=== PATIENT | male | born 1945 | race Caucasian/White ===

== ENCOUNTER 2023-12-28 10:21 | Emergency (ER) | payer MEDICARE, SELFPAY ==
[2023-12-28 10:38] VITALS: BP 105/61
--- NOTE | 2023-12-28 11:03 | ED.GENMED ---
History of Present Illness
General
Chief Complaint: Musculo-Skeletal Complaint
Source: patient
Exam Limitations: none
Time Seen by Provider: 12/28/23 10:51
Nursing documentation reviewed up to this point in time: agreed with
Travel History
Have you had any contact with someone who has COVID-19?: No
Do you have any symptoms of coronavirus? Fever > 100 degrees, chills, cough, shortness of breath, sore throat, loss of taste or smell, muscle aches, or headache?: No
History of Present Illness
History of Present Illness:
78-year-old male history of osteoarthritis [id number] in his knee is not an operative candidate due to cardiac issues takes Stephanie underwent bilateral knee injections by Dr. Wick 4 weeks ago pain improved 3 to 4 days ago developed increased
pain of his left knee only, no fevers no rash, pain increases with motion took some Tylenol without much relief, no trauma,
Past History
Past History
ED Past Medical History: Arrthythmia (Afib), CAD and Valvular disease
ED Past Surgical History: Cardiac
Social History
Tobacco: Non-smoker
Alcohol: None
Drug: None
Personal: Single
Living: with family
Employment: Retired
Family History
Family History: CAD
Review of Systems
Review of Systems
All Other Systems: Not applicable
Constitutional: Denies fever or fatigue
EENT: Reports no symptoms
Respiratory: Reports no symptoms
Cardiac: Reports no symptoms
ABD/GI: Reports no symptoms
Musculoskeletal: Reports joint pain
Skin: Reports no symptoms
Phy Exam
Physical Exam
Physical Exam:
Physical Exam
General: 78-year-old male looks uncomfortable nontoxic afebrile
Neck: No joint
Heart: s1/s2 regular rate and rhythm, no murmur. equal radial pulses.
Lungs: no acute respiratory distress. clear bilaterally
Neuro: alert and oriented. no focal neurological deficits
Skin: no rash
Psychiatric: well kept. interactive and cooperative
Extremities: Left knee mild to moderate pain with flexion extension small effusion minimal warmth
Course
Orders/Labs/Results
Orders:
Orders
12/28/23 11:02
Knee, Left 1 or 2 Views [CR Knee - Left 1 Or 2 Views] Urgent
Comment:
Reason For Exam: swelling
12/28/23 11:03
HYDROmorphone [Dilaudid] 1 mg IM NOW STA
Vital Signs
Initial and Last Documented VS:
Initial Vital Signs
Temp Pulse Resp BP Pulse Ox
99.1 F 79 16 105/61 93
12/28/23 10:38 12/28/23 10:38 12/28/23 10:38 12/28/23 10:38 12/28/23 10:38
Last Documented Vital Signs
Temp Pulse Resp BP Pulse Ox
99.1 F 79 16 105/61 93
12/28/23 10:38 12/28/23 10:38 12/28/23 10:38 12/28/23 10:38 12/28/23 10:38
MDM/Problems Addressed
Differential Diagnosis Includes:
Arthritis, medication effect, gout pseudogout doubt septic arthropathy 4 weeks after injection,
MDM/Problems Addressed:
Knee pain
Chronic conditions affecting care:
Arthritis heart disease
Acute Exacerbation and/or Progression of Chronic Illness:
Arthritis heart disease
*Radiology
Radiology exam reviewed: preliminary read by ED provider
*Pulse Oximetry
Patient hypoxic: no
*Critical Care Note
Total Time (30-74mins, 75-104mins- exclusive of procedures): Not Applicable
Update Note
Update Note:
Will try to get him comfortable, no NSAIDs he is on Eliquis, check an x-ray, do not believe he is a septic joint,
X-ray noted
ED Attending Note
-
Portions of this chart may have been created with voice recognition software.� Occasional wrong word or��sound alike� substitutions may have occurred due to the inherent limitations of voice recognition software.
Discharge Plan
Departure
Patient Disposition: Home (Routine Discharge)
Date of Disposition: 12/28/23
Time of Disposition: 12:08
Patient with high blood pressure during this ER visit?: No
Condition: Good
Covid-19: Not Applicable
Discharge Problem:
Acute knee pain
Instructions: Knee Pain (DC)
Prescriptions:
New
oxycodone-acetaminophen [Percocet] 5-325 mg tablet
1 tab PO Q4HPRN PRN (Reason: pain) Qty: 14 0RF
docusate sodium [Colace] 100 mg capsule
100 mg PO TID Qty: 14 0RF
No Action
metformin 500 MG tablet
500 mg PO BID
atorvastatin 20 MG tablet
20 mg PO HS
pantoprazole 40 MG tablet,delayed release (DR/EC)
40 mg PO DAILY
aspirin 81 MG tablet,chewable
81 mg PO DAILY
escitalopram oxalate 20 MG tablet
20 mg PO HS
donepezil 10 MG tablet
10 mg PO HS
memantine 10 MG tablet
10 mg PO BID
fludrocortisone 0.1 MG tablet
0.1 mg PO DAILY Qty: 30 0RF
Xarelto 15 MG tablet
15 mg PO QPM Qty: 30 0RF
magnesium oxide 400 MG tablet
400 mg PO DAILY
midodrine 5 MG tablet
10 mg PO TID@0800,1200,1800
Rx Instructions:
HOLD FOR Systolic blood pressure>150
amiodarone [Pacerone] 100 MG tablet
200 mg PO DAILY
hydrocodone-acetaminophen 5-325 mg tablet
1 tab PO BID PRN (Reason: Pain) Qty: 10 0RF
docusate sodium [Col-Rite] 100 mg capsule
100 mg PO BID Qty: 20 0RF
triamcinolone acetonide 0.1 % cream
1 applic topical BID 7 Days Qty: 30 0RF
Referrals:
Ankit Braxton DO [Family Provider] -
Interventions
Interventions:
*Risk Screen - Suicide Last Done: 12/28/23 10:38
*General Assessment Last Done: 12/28/23 10:38
*Neglect/Abuse Screening Last Done: 12/28/23 10:38
ED-Musculoskeletal Assessment Last Done: 12/28/23 11:21
[2023-12-28] MEDS: DILAUDID 1 MG IM (11:08)
== END 2023-12-28 13:40 | disposition home or self-care (01) ==
LOC: EMR 10:21
PROVIDERS: EMERGENCY PHYSICIAN Emergency Medicine; FAMILY PHYSICIAN Family Medicine
DX: M25.562 Pain in left knee (principal); M25.462 Effusion, left knee; I25.10 Atherosclerotic heart disease of native coronary artery without angina pectoris; I38 Endocarditis, valve unspecified; M17.0 Bilateral primary osteoarthritis of knee; F03.90 Unspecified dementia, unspecified severity, without behavioral disturbance, psychotic disturbance, mood disturbance, and anxiety; E11.9 Type 2 diabetes mellitus without complications; I48.91 Unspecified atrial fibrillation; F32.A Depression, unspecified; Z95.1 Presence of aortocoronary bypass graft; Z86.73 Personal history of transient ischemic attack (TIA), and cerebral infarction without residual deficits; Z79.01 Long term (current) use of anticoagulants; Z79.84 Long term (current) use of oral hypoglycemic drugs; Z88.8 Allergy status to other drugs, medicaments and biological substances
CPT/HCPCS: 99284; 96372; 73560

== ENCOUNTER 2025-02-25 08:08 | Inpatient (IN) | payer MEDICARE, SELFPAY ==
[2025-02-23] VITALS (10 sets, daily range): BP systolic 106–164; BP diastolic 60–111; BMI 26.0; BMI 24.9
[2025-02-23 13:16] LABS: Glucose - Point of Care 121 mg/dl (70-99)
[2025-02-23] MEDS: ULTRAM 50 MG PO (13:31)
[2025-02-23 13:43] LABS: % Basophils 0.5 % (0-2); % Eosinophils 4.6 % (0-6); % Immature Granulocytes 0.5 % (0-0.5); % Lymphocytes 22.4 % (20.5-51.1); % Monocytes 10.9 % (1.7-9.3); % Neutrophils 61.1 % (42.2-75.2); Absolute Eosinophils 0.4 10^3/uL (0-0.7); Absolute Lymphocytes 1.7 10^3/uL (1.2-3.4); Absolute Monocytes 0.8 10^3/uL (0.1-0.6); Absolute Neutrophils 4.7 10^3/uL (1.4-6.5); Hematocrit 31.1 % (39.0-52.0); Hemoglobin 9.7 g/dL (13.0-18.0); Mean Corp Hgb Conc. 31.2 g/dL (33.0-37.0); Mean Corpuscular Hgb 26.1 pg (27.0-31.0); Mean Corpuscular Volume 83.6 fL (80.0-94.0); Mean Platelet Volume 9.6 fL (7.4-10.4); Nucleated Red Blood Cells % 0 % (-); Platelet Count 241 10^3/uL (130-400); Red Blood Cell Count 3.72 10^6/uL (4.70-6.10); Red Cell Dist. Width 16.9 % (11.5-14.5); White Blood Cell Count 7.6 10^3/uL (4.8-10.8)
[2025-02-23 13:53] LABS: INR 1.98; PT 22.6 Sec (11.4-14.6)
[2025-02-23 13:56] LABS: ALT (SGPT) 12 U/L (0-50); AST (SGOT) 17 U/L (17-59); Albumin 3.8 g/dl (3.5-5.0); Alkaline Phosphatase 113 U/L (38-126); Blood Urea Nitrogen 25 mg/dl (9-20); Calcium 9.2 mg/dl (8.4-10.2); Carbon Dioxide 27 mmol/L (22-30); Chloride 108 mmol/L (98-107); Estimated Creatinine Clearance 61 ml/min; Glucose 106 mg/dl (70-99); Potassium 4.3 mmol/L (3.5-5.1); Sodium 143 mmol/L (135-145); Total Bilirubin 0.4 mg/dl (0.2-1.3); Total Protein 6.4 g/dl (6.3-8.2); eGFR > 60.00
[2025-02-23 14:07] LABS: Troponin I 0.015 ng/ml
--- NOTE | 2025-02-23 14:25 | ED.CVA ---
History of Present Illness
General
Chief Complaint: CVA/TIA Symptoms
Source: patient
Exam Limitations: none
Time Seen by Provider: 02/23/25 13:22
Nursing documentation reviewed up to this point in time: agreed with
Onset of Stroke Symptoms
Onset of symptoms known: Yes
Date of onset of symptoms: 02/23/25
Time pt last seen normal is known: No
History of Present Illness
History of Present Illness:
The patient is an 79-year-old man with a past medical history of A-fib who reports that he noticed difficulty word finding since early this morning when he woke up at around 4 AM. Patient reports that when he went to breakfast and tried to talk to
people, he continued to have some difficulty finding his words and his words also sounded slurred. Currently, he reports his speech is slightly slurred but better. He denies weakness and numbness. He denies acute visual changes. He reports that
on the way to the ED, in the ambulance, he developed a headache at the back of his head. Patient reports he has had a headache like this in the past. He reports it started gradually. Additionally, patient reports that he noticed shooting pain
down his left arm yesterday.
Past History
Past History
ED Past Medical History: Arrthythmia (Afib), CAD, HTN and Valvular disease
ED Past Surgical History: Cardiac
Social History
Tobacco: Non-smoker
Alcohol: None
Drug: None
Personal: Single
Living: other
Employment: Retired
Family History
Family History: CAD
Phy Exam
Physical Exam
Physical Exam:
Physical Exam
General: no apparent distress, not acutely ill
Neck: supple. no meningeal signs. normal psoterior pharynx
Heart regular rate, irregular rhythm
Lungs: no acute respiratory distress. clear bilaterally
Abdomen: normal bowel sounds. not tender. no CVAT
Neuro: alert and oriented3 no focal neurological deficits. Speech sounds slightly slurred but is comprehensible. At times has difficulty identifying objects but then is able to finally find a word. 5 out of 5 strength
in all extremities. Cranial nerves equal and symmetric bilaterally
Skin: no rash
Psychiatric: well kept. interactive and cooperative
Extremities: no edema. no calf tenderness. negative homans. good distal pulses
Scores
NIH Stroke Score
Level of Consciousness: 0 - Alert
LOC Questions: 0-Answers both correctly
LOC Commands: 0-Performs both correctly
Best Horizontal Gaze: 0-Normal
Visual Graham: 0=Normal, no visual loss
Facial Palsy: 0=Normal, symmetrical
Motor - Right Arm: 0=No drift 10 seconds
Motor - Left Arm: 0=No drift 10 seconds
Motor - Right Le-No drift 5 seconds
Motor - Left Le-No drift 5 seconds
Limb Ataxia: 0-Absent
Sensation: 0-Normal
Best Language: 1-Mild aphasia
Dysarthria: 1-Mild slurring
Extinction and Inattention: 0-No abnormality
Total Score:: 2
Course
Orders/Labs/Results
Orders:
Orders
02/23/25 13:22
EKG [Electrocardiogram (*1)] Urgent
Reason for Study: TIA/Stroke
02/23/25 13:23
CT Head & Neck Angio W/wo IV Urgent
Comment:
Reason For Exam: slurred speech
EKG- Treatment ONCE
02/23/25 13:24
Electrocardiogram (*1) Stat
Reason for Study: Other
Other Reason for Exam: chest pain
EKG- Treatment ONCE
Tramadol HCl [Ultram] 50 mg PO NOW STA
02/23/25 13:34
Complete Blood Count/With Diff Urgent
Comprehensive Metabolic Panel Urgent
PT/INR [Prothrombin Time] Urgent
PTT Urgent
Troponin I Q6H
02/23/25 14:28
HYDROmorphone [Dilaudid] 0.5 mg IV NOW STA
02/23/25 15:09
CR Chest - 2 Views Urgent
Comment:
Reason For Exam: concerns on CT head
02/23/25 19:30
Troponin I Q6H
Abnormal Lab Results
02/23/25 02/23/25
13:15 13:34
RBC 3.72 L 10^6/uL
(4.70-6.10)
Hgb 9.7 L g/dL
(13.0-18.0)
Hct 31.1 L %
(39.0-52.0)
MCH 26.1 L pg
(27.0-31.0)
MCHC 31.2 L g/dL
(33.0-37.0)
RDW 16.9 H %
(11.5-14.5)
Absolute Monos (auto) 0.8 H 10^3/uL
(0.1-0.6)
Monocytes % 10.9 H %
(1.7-9.3)
PT 22.6 H Sec
(11.4-14.6)
APTT 45.0 H Sec
(23.4-35.0)
Chloride 108 H mmol/L
(98-107)
BUN 25 H mg/dl
(9-20)
Glucose 106 H mg/dl
(70-99)
POC Glucose 121 H mg/dl
(70-99)
02/23/25 13:34
02/23/25 13:34
Vital Signs
Initial and Last Documented VS:
Initial Vital Signs
Temp Pulse Resp BP Pulse Ox
97.9 F 95 18 155/97 98
02/23/25 13:08 02/23/25 13:08 02/23/25 13:08 02/23/25 13:08 02/23/25 13:08
Last Documented Vital Signs
Temp Pulse Resp BP Pulse Ox
97.9 F 96 13 163/98 98
02/23/25 13:08 02/23/25 15:00 02/23/25 15:00 02/23/25 15:00 02/23/25 15:00
MDM/Problems Addressed
Differential Diagnosis Includes:
Acute CVA, TIA, hyponatremia
MDM/Problems Addressed:
Patient presents with acute difficulty with his speech
Chronic conditions affecting care: Arrhythmia
Acute Exacerbation and/or Progression of Chronic Illness:
Given patient has a history of A-fib, he is at increased risk of stroke
Acute Exacerbation and/or Progression of Chronic Illness: Arrhythmia
*Radiology
Radiology exam reviewed: radiology read reviewed
*Pulse Oximetry
Patient hypoxic: no
*EKG
Interpreted by ED Provider?: Yes
Interpretation: abnormal
Comparison EKG: changes noted
Rate: normal
Rhythm: a-fib
[place]: normal axis
Interval: normal interval
QRS Pattern: normal QRS
Ischemia: non-specific ST changes
*Dish Maker Interpretation
Rate: normal
Interpretation: abnormal
Rhythm: a-fib
*Critical Care Note
Total Time (30-74mins, 75-104mins- exclusive of procedures): 35 minutes
comment:
35 minutes critical care given to the patient coding reviewing his CAT scan report, counseling the patient, reviewing his lab work, EKG and discussing the case with the admitting team
Data Reviewed
Review of Other/Old Records Reveals: Testing (Cardiac echo shows an EF of 46%)
Source: patient
Update Note
Update Note:
Patient remains well and comfortable. He denies a cough and has had no fever. Given that CT head shows concerns for pneumonia, chest x-ray ordered.
Chest x-ray pending admission
ED Attending Note
-
Portions of this chart may have been created with voice recognition software.� Occasional wrong word or��sound alike� substitutions may have occurred due to the inherent limitations of voice recognition software.
Discharge Plan
Departure
Patient Disposition: Admit
Date of Disposition: 02/23/25
Time of Disposition: 15:10
Admit to: Telemetry
Presentation/result/management discussed w/ accepting MD/DO: Hospitalist
Patient with high blood pressure during this ER visit?: Yes
Condition: Good
Covid-19: Not Applicable
Discharge Problem:
Acute cerebrovascular accident (CVA)
Prescriptions:
No Action
metformin 500 MG tablet
1,000 mg PO QPM
atorvastatin 20 MG tablet
20 mg PO HS
pantoprazole 40 MG tablet,delayed release (DR/EC)
40 mg PO DAILY
aspirin 81 MG tablet,chewable
81 mg PO DAILY
escitalopram oxalate 20 MG tablet
20 mg PO HS
donepezil 10 MG tablet
10 mg PO HS
memantine 10 MG tablet
10 mg PO BID
fludrocortisone 0.1 MG tablet
0.1 mg PO DAILY Qty: 30 0RF
magnesium oxide 400 MG tablet
400 mg PO DAILY
midodrine 5 MG tablet
10 mg PO TID@0800,1200,1800
Rx Instructions:
HOLD FOR Systolic blood pressure>150
amiodarone 200 mg tablet
100 mg PO DAILY
furosemide 20 mg tablet
20 mg PO DAILY
Xarelto 15 MG tablet
15 mg PO DAILY
Referrals:
Ankit Braxton DO [Family Provider] -
Interventions
Interventions:
*Risk Screen - Suicide Last Done: 02/23/25 13:08
*General Assessment Last Done: 02/23/25 13:08
*Neglect/Abuse Screening Last Done: 02/23/25 13:08
*ED- Fall Risk Assessment Last Done: 02/23/25 13:08
*ED COVID-19 Vaccine History Last Done: 02/23/25 13:08
ED- Pulmonary Assessment Last Done: 02/23/25 13:18
ED- Neurological Assessment Last Done: 02/23/25 13:18
ED- Cardiac Assessment Last Done: 02/23/25 13:18
ED Swallowing Screen Last Done: 02/23/25 13:30
Discharge Date and Time
Print Language: PRYDEINIG
[2025-02-23] MEDS: DILAUDID 0.5 MG IV (14:32)
--- NOTE | 2025-02-23 16:02 | HPS.HSE ---
Family Physician
-
Family Physician: Ankit Braxton
Chief Complaint
-
woke up with abn speech
History of Present Illness
79F with dementia on Donepezil HX chr HFrEF on lasix, Prx AF on Xarelto and amiodarone, HX TAVR HLD on statin, adrenal insufficeincy on daily fludrocortisone, DMT2, CAD on ASA, HTN, HX non complaice with meds seen at ER:
- noticed difficulty word finding since early this morning when he woke up at around 4 AM.
- he went to breakfast and tried to talk to people, he continued to have some difficulty finding his words and his words also sounded slurred.
- Currently, he reports his speech is slightly slurred but better.
- He reports that on the way to the ED, in the ambulance, he developed a headache at the back of his head.
Additionally, patient reports that he noticed shooting pain down his left arm
Medical History
Past Medical History
Past Medical History: Reports Arrhythmia (Prx AF ), CAD, CHF (chr HFrEF ), Dementia, HTN, Hypercholesterolemia, NIDDM and Valvular Disease (s/p TAVR )
Past Surgical History: Reports Cardiac (TAVR )
Social History
Unable to obtain full social history at this time due to: Dementia
Family History
Family History: Not pertinent
Allergies / Home Medications
Allergies reflects when Allergies were last updated in [employer].
Home Medications with original date entered in [employer]
Allergy/Medication List:
Allergies
Allergy/AdvReac Type Severity Reaction Status Date / Time
digoxin Allergy Unknown Verified 12/28/23 10:37
Home Medications
aspirin 81 mg chewable tablet 81 mg PO DAILY Blood clot prevention/tx 01/03/21
atorvastatin 20 mg tablet 20 mg PO HS High cholesterol 01/03/21
escitalopram oxalate 20 mg tablet 20 mg PO HS Depression 01/03/21
metformin 500 mg tablet 1,000 mg PO QPM Diabetes 01/03/21
pantoprazole 40 mg tablet,delayed release 40 mg PO DAILY Gastrointestinal issue 01/03/21
donepezil 10 mg tablet 10 mg PO HS dementia 11/30/21
memantine 10 mg tablet 10 mg PO BID dementia 11/30/21
fludrocortisone 0.1 mg tablet 0.1 mg PO DAILY #30 tabs 12/07/21
magnesium oxide 400 mg PO DAILY Supplement 02/03/22
midodrine 5 mg tablet 10 mg PO TID@0800,1200,1800 09/05/23
amiodarone 200 mg tablet 100 mg PO DAILY 02/23/25
furosemide 20 mg tablet 20 mg PO DAILY 02/23/25
rivaroxaban 15 mg tablet (Xarelto) 15 mg PO DAILY 02/23/25
Review of Systems
-
Unable to obtain full review of systems at this time due to: Dementia
Constitutional: Reports No Symptoms
EENT: Reports No Symptoms
Respiratory: Reports No Symptoms
Cardiac: Reports No Symptoms
Abdomen/GI: Reports No Symptoms
: Reports No Symptoms
Musculoskeletal: Reports No Symptoms
Skin: Reports No Symptoms
Neurological: Reports See HPI, Headache and Other (abn speech )
Endocrine: Reports No Symptoms
Hematologic/Lymphatic: Reports No Symptoms
Psych: Reports No Symptoms
Physical Exam
Vital Signs
Vital Signs
Temp Pulse Resp BP Pulse Ox
97.9 F 96 13 163/98 98
02/23/25 13:08 02/23/25 15:00 02/23/25 15:00 02/23/25 15:00 02/23/25 15:00
Physical Exam
General: Well Developed, Well Nourished and No Apparent Distress
HEENT: NormoCephalic, Moist mucous membranes and Atraumatic
Respiratory: Clear
Cardiac: S1/S2 and Regular Rhythm; No Murmur or Rub
GI: Soft, Non Tender, Non Distended and Normal Bowel Sounds; No Organomegaly
Rectal: Deferred by Provider
Musculoskeletal: No Clubbing, No Cyanosis and No Edema
Skin: No Rash
Neuro: Nonfocal/grossly intact
Laboratory Results
-
02/23/25 13:34
02/23/25 13:34
Laboratory Results
PT 22.6 Sec (11.4-14.6) H 02/23/25 13:34
INR 1.98 02/23/25 13:34
APTT 45.0 Sec (23.4-35.0) H 02/23/25 13:34
Total Bilirubin 0.4 mg/dl (0.2-1.3) 02/23/25 13:34
AST 17 U/L (17-59) 02/23/25 13:34
ALT 12 U/L (0-50) 02/23/25 13:34
Alkaline Phosphatase 113 U/L (38-126) 02/23/25 13:34
Troponin I 0.015 ng/ml 02/23/25 13:34
Data Reviewed
-
CT Scan: Report Reviewed by me
Medical Tests (Nuc Med, Echo, EKG etc): Report Reviewed by me
Lab Data: Labs Reviewed by me
Old Records: Reviewed
Impression/Plan
-
Vital Signs
Temp Pulse Resp BP Pulse Ox
97.9 F 96 13 163/98 98
02/23/25 13:08 02/23/25 15:00 02/23/25 15:00 02/23/25 15:00 02/23/25 15:00
02/04/22 02/23/25
06:08 13:34
Hgb 12.0 L 9.7 L
BUN 25 H
Creatinine 1.1
eGFR > 60.00
Troponin I 0.015
EKG
ATRIAL FIBRILLATION
NONSPECIFIC T WAVE ABNORMALITY
PROLONGED QT
ABNORMAL ECG
WHEN COMPARED WITH ECG OF 05-SEP-2023 13:24,
ATRIAL FIBRILLATION HAS REPLACED SINUS RHYTHM
CRITERIA FOR SEPTAL INFARCT ARE NO LONGER PRESENT
NON-SPECIFIC CHANGE IN ST SEGMENT IN ANTERIOR LEADS
NONSPECIFIC T WAVE ABNORMALITY, IMPROVED IN LATERAL LEADS
Confirmed by KRISTIAN BLAIR, [facility] ([id number][facility] on 02/23/2025 1:34:49 PM
12/11/23 TTE
LVEF 46% - mildly reduced systolic function.
Moderately dilated left atrium.
Mild aortic stenosis with peak gradient of 25 and mean gradient of 13 across the aortic valve.
Normally functioning prosthetic aortic valve.
Estimated pulmonary artery pressure of 30-35 mmHg.
Trace pulmonic regurgitation.
The IVC is of normal size and demonstrates normal respiratory variation.
No significant change compard to 11/[address] Head & Neck Angio W/wo IV
- CT of the Head without acute intracranial abnormality.
- Calcific atherosclerotic changes at the carotid bifurcations and proximal internal carotid arteries bilaterally with tortuosity without gross findings to suggest hemodynamically significant stenosis, evaluation somewhat limited by motion artifact.
Consider Carotid ultrasound for more complete evaluation.
-No findings to suggest internal carotid artery or vertebral artery dissection bilaterally.
-Dominant left vertebral artery.
- No findings to suggest proximal intracranial arterial stenosis bilaterally.
-Patchy opacity in the upper lobe of the right lung which could represent RIGHT UPPER LOBE PNEUMONIA.
-Cannot exclude small low-attenuation left lobe thyroid nodule.
Last hospitalist admission: 02/03/2022 - 02/05/2022
DISCHARGE DIAGNOSIS:
1. Orthostatic hypotension.
2. Paroxysmal atrial fibrillation.
3. Type 2 diabetes.
4. Coronary artery disease.
5. Aortic stenosis status post transcatheter aortic valve
replacement (TAVR).
6. Essential hypertension.
7. Dementia.
8. History of medical noncompliance.
ASSESSMENT & PLAN
Pending Rx reconciliation
Woke up with mild slurred speech and word finding diifculty with reolved symtoms
HX non compliance with meds
Currently on Xarelto and ASA
- concerns for CVA
- NEG H & N CTA r
- c/w ASA and xarelto
- Brain MRI in AM
- Neuro consult
Midodrine dependent hypotension
HX orthostatic hypotension.
Essential HTN
- c/w RESOURCE DEVELOPMENT DIRECTOR Midodrine
- on Fludrocortisone
- Fall precaution
Paroxysmal atrial fibrillation.
- c/w RESOURCE DEVELOPMENT DIRECTOR Xarelto and Amiodarone
HX chr HFrEF
- stable
- c/w RESOURCE DEVELOPMENT DIRECTOR PO lasix 20 daily
HX CAD
HX HLD
- c/w RESOURCE DEVELOPMENT DIRECTOR ASA and Atovastatin
HX Aortic stenosis status post transcatheter aortic valve replacement (TAVR)
HX T2DM
- add ISS low
- check A1C
- Hold metformin
Dementia.
- On Memantine
HX medical noncompliance.
DVT Px: on Xarelto
Full code
Obs TLM
--- NOTE | 2025-02-23 16:27 | CON.NEURO ---
Consultation
Order
Date of Consultation: 02/23/25
Requesting Provider: Diogo Mar MD
Reason for Consult: TIA/CVA
Neurology Consultation Note.
HPI: This is an 79-year-old man who presented to [facility] on with dysarthria.
According to the patient he woke up with an acute onset of nonfluctuating slurred speech around 4:00 in the morning today. The patient reports that the slurred speech is getting worse. Additionally, the patient notes some blurry and transient
headache. No reports of dyspnea, dysarthria, new motor motor or sensory deficits.
ER VS: 155/97, 95, afebrile
EKG: A-Fib
PDMP: Oxycodone-Acetaminophen 5-325 14 tablets filled in on 12/28/2023, 01/01/2022
Labs: Glucose�106, normal sodium, creatinine�1.1, hemoglobin�9.7,
CT head wo contrast�right basal ganglia .hypodensity
CTA head/neck�zaid hemodynamically significant stenosis, right upper lobe consolidation.
PMH: Dementia PA AFib, CAD, HFrEF, HTN, DLP, DM, anemia, adrenal insufficiency, OA, JAYESH, ambulatory dysfunction
PSH: TAVR, CABG x3, bilateral cataract surgery, ambulates with a walker
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
FH: Not contributory
All: Digoxin
ROS: Positive for 5 kg weight loss, panic urinary incontinence, imbalance, arthralgias, chronic cognitive deficits, transient dysarthria and headache
General: Well developed. In no acute distress.
Cardio: Regular rate and rhythm without murmur. Extremities are without cyanosis or edema.
Neuro:
Mental Status: Alert, oriented to name, age, date of , president. Did not know the current month, year or season. Poor attention and relatively preserved comprehension. Nonfluent. Follows simple requests.
Cranial Nerves: Pupils are equally round, surgical. EOMs full. Visual johnson full to confrontation. No ptosis. No nystagmus. V1-V3 intact to light touch and pinprick bilaterally, symmetric. Face symmetric. Mildly impaired hearing AU. The
palate elevated well. SCMs and traps 5/5. Tongue midline. No dysarthria.
Motor: Pain related left proximal arm weakness, right triceps�4 out of 5. Lower extremity appeared to be full strength
Reflexes: Limited due to cooperation
Sensory: Absent vibration at the toes ankles and impaired at the knees
Coordination: No dysmetria or tremor.
Gait: deferred
Assessment and Plan:
I. Acute nonfluctuating dysarthria. Likely etiology�acute vascular event versus neuromuscular junction disorder
II. PA A-Fib
III. Distal symmetric large fiber polyneuropathy. Ambulatory dysfunction
IV. Dementia
-Continue Telemetry monitoring
-Aspirin 81 mg once a day
-Please obtain brain MRI without jayesh
-Will contact patient's family to obtain cognitive and functional baseline
-PT
-Continue home dose of Namenda and donepezil
-Vitamin B12, TFTs
-DVT prophylaxis.
I personally reviewed all radiology and labs along with past medical records pertinent to current medical problems. Total time spent in patient care is 60 minutes.
Thank you for allowing us to participate in the care of this patient. We will continue to follow. Please do not hesitate to contact us with any questions or concerns.
Subjective/Objective
Subjective Data
Date of Service: February 23, 2025
Objective Data
Vital Signs
Temp Pulse Resp BP Pulse Ox
36.6 C 96 13 163/98 98
02/23/25 13:08 02/23/25 15:00 02/23/25 15:00 02/23/25 15:00 02/23/25 15:00
Lab Results
02/23/25 13:34
02/23/25 13:34
PT 22.6 Sec (11.4-14.6) H 02/23/25 13:34
INR 1.98 02/23/25 13:34
APTT 45.0 Sec (23.4-35.0) H 02/23/25 13:34
Sodium 143 mmol/L (135-145) 02/23/25 13:34
Potassium 4.3 mmol/L (3.5-5.1) 02/23/25 13:34
BUN 25 mg/dl (9-20) H 02/23/25 13:34
Glucose 106 mg/dl (70-99) H 02/23/25 13:34
Calcium 9.2 mg/dl (8.4-10.2) 02/23/25 13:34
Patient Allergies
digoxin Allergy (Verified 12/28/23 10:37)
Unknown
Medications
-
Home Medications
�Medication �Instructions �Recorded
aspirin 81 mg chewable tablet 81 mg PO DAILY Blood clot 01/03/21
prevention/tx
atorvastatin 20 mg tablet 20 mg PO HS High cholesterol 01/03/21
escitalopram oxalate 20 mg tablet 20 mg PO HS Depression 01/03/21
metformin 500 mg tablet 1,000 mg PO QPM Diabetes 01/03/21
pantoprazole 40 mg tablet,delayed 40 mg PO DAILY Gastrointestinal 01/03/21
release issue
donepezil 10 mg tablet 10 mg PO HS dementia 11/30/21
memantine 10 mg tablet 10 mg PO BID dementia 11/30/21
fludrocortisone 0.1 mg tablet 0.1 mg PO DAILY #30 tabs 12/07/21
magnesium oxide 400 mg PO DAILY Supplement 02/03/22
midodrine 5 mg tablet 10 mg PO TID@0800,1200,1800 09/05/23
amiodarone 200 mg tablet 100 mg PO DAILY 02/23/25
furosemide 20 mg tablet 20 mg PO DAILY 02/23/25
rivaroxaban 15 mg tablet (Xarelto) 15 mg PO DAILY 02/23/25
Vital Signs and Labs
-
Vital Signs and Labs:
Vital Signs
Temp Pulse Resp BP Pulse Ox
36.6 C 96 13 163/98 98
02/23/25 13:08 02/23/25 15:00 02/23/25 15:00 02/23/25 15:00 02/23/25 15:00
Lab Results
02/23/25 13:34
02/23/25 13:34
PT 22.6 Sec (11.4-14.6) H 02/23/25 13:34
INR 1.98 02/23/25 13:34
APTT 45.0 Sec (23.4-35.0) H 02/23/25 13:34
Sodium 143 mmol/L (135-145) 02/23/25 13:34
Potassium 4.3 mmol/L (3.5-5.1) 02/23/25 13:34
BUN 25 mg/dl (9-20) H 02/23/25 13:34
Glucose 106 mg/dl (70-99) H 02/23/25 13:34
Calcium 9.2 mg/dl (8.4-10.2) 02/23/25 13:34
Home Medications
-
Home Medications
aspirin 81 mg chewable tablet 81 mg PO DAILY Blood clot prevention/tx 01/03/21
atorvastatin 20 mg tablet 20 mg PO HS High cholesterol 01/03/21
escitalopram oxalate 20 mg tablet 20 mg PO HS Depression 01/03/21
metformin 500 mg tablet 1,000 mg PO QPM Diabetes 01/03/21
pantoprazole 40 mg tablet,delayed release 40 mg PO DAILY Gastrointestinal issue 01/03/21
donepezil 10 mg tablet 10 mg PO HS dementia 11/30/21
memantine 10 mg tablet 10 mg PO BID dementia 11/30/21
fludrocortisone 0.1 mg tablet 0.1 mg PO DAILY #30 tabs 12/07/21
magnesium oxide 400 mg PO DAILY Supplement 02/03/22
midodrine 5 mg tablet 10 mg PO TID@0800,1200,1800 09/05/23
amiodarone 200 mg tablet 100 mg PO DAILY 02/23/25
furosemide 20 mg tablet 20 mg PO DAILY 02/23/25
rivaroxaban 15 mg tablet (Xarelto) 15 mg PO DAILY 02/23/25
[2025-02-23 18:01] LABS: HDL Cholesterol 51 mg/dl; LDL Cholesterol, Calculated 77 mg/dl; Total Cholesterol 149 mg/dl (50-199); Triglyceride 105 mg/dl (10-149); Very Low Density Lipoprotein 21 mg/dl (0-30)
[2025-02-23 18:58] LABS: Vitamin B12 194 pg/ml (239-931)
[2025-02-23] MEDS: LEXAPRO 20 MG PO (20:23)
[2025-02-23] MEDS: ARICEPT 10 MG PO (20:23)
[2025-02-23] MEDS: NAMENDA 10 MG PO (20:23)
[2025-02-23] MEDS: LIPITOR 20 MG PO (20:23)
[2025-02-23] MEDS: TYLENOL 650 MG PO (20:24)
[2025-02-23 20:36] LABS: Troponin I 0.013 ng/ml
[2025-02-24 03:29] VITALS: BP 114/75
[2025-02-24] MEDS: TYLENOL 650 MG PO ×3 (06:08→21:46)
[2025-02-24 07:00] VITALS: BP 125/77
[2025-02-24] MEDS: PROTONIX 40 MG PO (08:12)
[2025-02-24] MEDS: FOLTX 1 TABLET PO (08:12)
[2025-02-24] MEDS: LOW STRENGTH ASPIRIN 81 MG PO (08:13)
[2025-02-24] MEDS: FLORINEF 0.1 MG PO (08:13)
[2025-02-24] MEDS: PACERONE 100 MG PO (08:13)
[2025-02-24] MEDS: NAMENDA 10 MG PO ×2 (08:15→21:46)
[2025-02-24] MEDS: LASIX 20 MG PO (08:15)
[2025-02-24 08:23] LABS: % Basophils 0.5 % (0-2); % Eosinophils 4.4 % (0-6); % Immature Granulocytes 0.4 % (0-0.5); % Lymphocytes 17.2 % (20.5-51.1); % Monocytes 9.1 % (1.7-9.3); % Neutrophils 68.4 % (42.2-75.2); Absolute Eosinophils 0.3 10^3/uL (0-0.7); Absolute Lymphocytes 1.3 10^3/uL (1.2-3.4); Absolute Monocytes 0.7 10^3/uL (0.1-0.6); Absolute Neutrophils 5.2 10^3/uL (1.4-6.5); Hematocrit 29.8 % (39.0-52.0); Hemoglobin 9.2 g/dL (13.0-18.0); Mean Corp Hgb Conc. 30.9 g/dL (33.0-37.0); Mean Corpuscular Hgb 25.6 pg (27.0-31.0); Mean Platelet Volume 9.6 fL (7.4-10.4); Nucleated Red Blood Cells % 0 % (-); Platelet Count 217 10^3/uL (130-400); Red Blood Cell Count 3.59 10^6/uL (4.70-6.10); Red Cell Dist. Width 16.8 % (11.5-14.5); White Blood Cell Count 7.6 10^3/uL (4.8-10.8)
[2025-02-24 08:50] LABS: VerifyNow Aspirin 636 ARU
[2025-02-24 09:06] LABS: Blood Urea Nitrogen 21 mg/dl (9-20); Carbon Dioxide 25 mmol/L (22-30); Chloride 107 mmol/L (98-107); Estimated Creatinine Clearance 61 ml/min; Glucose 111 mg/dl (70-99); HDL Cholesterol 44 mg/dl; LDL Cholesterol, Calculated 73 mg/dl; Sodium 141 mmol/L (135-145); Total Cholesterol 139 mg/dl (50-199); Triglyceride 110 mg/dl (10-149); Very Low Density Lipoprotein 22 mg/dl (0-30); eGFR > 60.00
[2025-02-24 09:11] LABS: Procalcitonin < 0.05 ng/ml (0.0-0.25)
--- NOTE | 2025-02-24 09:29 | PTOTSP ---
[employer] Evaluations
+Quick Aphasia Battery Form 1 overall score = 8.06, mild mixed aphasia with intact repetition.
+Mild-moderate dysarthria with slow rate, short phrases, low volume, rough to slightly wet vocal quality, slight hypernasality, imprecision of articulation (slow/imprecise AMR and SMR), and occasional syllable collapse.
+At least mild oral dysphagia suspected. Video swallow study warranted to further assess pharyngeal stage of swallowing.
Recommend:
1. IDDSI Level 6 Soft and Bite Sized, Thin Liquids
2. Medications crushed in puree if able
3. Strategies: upright to 90 degrees, small sips/bites, slow rate, check for pocketing on left and use digital/lingual sweep as needed and/or sip of liquid
4. Oral care 3-5x daily
5. Video swallow study
6. Speech/language tx at the acute care level and after D/C
[2025-02-24 11:00] VITALS: BP 129/84
--- NOTE | 2025-02-24 11:23 | W.PN.NEURO.1 ---
Today's Communication / Plan
-
.
Subjective/Objective
Subjective Data
Date of Service: February 24, 2025
Neurology follow-up note.
Mr. Phillips endorses left arm weakness that he states today happened before the admission. No reports of change in vision, sensation or headache.
Brain MRI wo jayesh showed acute to subacute infarction involving the white matter of the posterior right frontal lobe.
LDL�73, hemoglobin A1c�5.8. Normal TSH, vitamin B12�194.
CTA�no hemodynamically significant stenosis
PMH: dementia, PA AFib, CAD, HFrEF, HTN, DLP, DM, anemia, adrenal insufficiency, OA, JAYESH, ambulatory dysfunction
PSH: TAVR, CABG x3, bilateral cataract surgery, ambulates with a walker
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
FH: Not contributory
All: Digoxin
ROS: Positive for weight loss, panic urinary incontinence, imbalance, arthralgias, chronic cognitive deficits, transient dysarthria and headache
General: Well developed. In no acute distress.
Cardio: Regular rate and rhythm without murmur. Extremities are without cyanosis or edema.
Neuro:
Mental Status: Alert, oriented to name, age, date of , president. Did not know the current month, year or season. Poor attention and relatively preserved comprehension. Nonfluent. Follows simple requests.
Cranial Nerves: Pupils are equally round, surgical. EOMs full. Visual johnson full to confrontation. No ptosis. No nystagmus. V1-V3 intact to light touch and pinprick bilaterally, symmetric. Left facial weakness mildly impaired hearing AU.
The palate elevated well. SCMs and traps 5/5. Tongue midline. Mild dysarthria.
Motor: Unable to lift left elbow of the bed plane; right triceps�4 out of 5. Lower extremity appeared to be full strength
Reflexes: Limited due to cooperation
Sensory: Absent vibration at the toes ankles and impaired at the knees
Coordination: No dysmetria or tremor.
Gait: deferred
Assessment and Plan:
I. Acute R subcortical posterior right frontal lobe stroke. Likely etiology�small vessel disease versus embolic.
II. PA A-Fib
III. Distal symmetric large fiber polyneuropathy. Ambulatory dysfunction
IV. Vitamin B12 deficiency
-Continue Telemetry monitoring
-Restart Xarelto in 7 days
-Continue aspirin 81 mg once a day
-Start parenteral vitamin B-12
-Left message with [facility] [facility] and with Ms. Shilo Prado (patient's sister) with request to return my call for collateral history
-TTE
-DVT prophylaxis.
I personally reviewed all radiology and labs along with past medical records pertinent to current medical problems. Total time spent in patient care is 35 minutes.
Thank you for allowing us to participate in the care of this patient. We will continue to follow. Please do not hesitate to contact us with any questions or concerns.
Objective Data
Vital Signs
Temp Pulse Resp BP Pulse Ox
36.6 C 81 15 125/77 95
02/24/25 07:00 02/24/25 08:13 02/24/25 07:00 02/24/25 08:13 02/24/25 07:00
Lab Results
02/24/25 07:55
02/24/25 07:55
PT 22.6 Sec (11.4-14.6) H 02/23/25 13:34
INR 1.98 02/23/25 13:34
APTT 45.0 Sec (23.4-35.0) H 02/23/25 13:34
Sodium 141 mmol/L (135-145) 02/24/25 07:55
Potassium 4.0 mmol/L (3.5-5.1) 02/24/25 07:55
BUN 21 mg/dl (9-20) H 02/24/25 07:55
Glucose 111 mg/dl (70-99) H 02/24/25 07:55
Calcium 9.0 mg/dl (8.4-10.2) 02/24/25 07:55
LDL Cholesterol, Calc 73 mg/dl 02/24/25 07:55
Vitamin B12 194 pg/ml (327-931) L 02/23/25 13:34
Patient Allergies
digoxin Allergy (Verified 12/28/23 10:37)
Unknown
Vital Signs and Labs
-
Vital Signs and Labs:
Vital Signs
Temp Pulse Resp BP Pulse Ox
36.6 C 81 15 125/77 95
02/24/25 07:00 02/24/25 08:13 02/24/25 07:00 02/24/25 08:13 02/24/25 07:00
Lab Results
02/24/25 07:55
02/24/25 07:55
PT 22.6 Sec (11.4-14.6) H 02/23/25 13:34
INR 1.98 02/23/25 13:34
APTT 45.0 Sec (23.4-35.0) H 02/23/25 13:34
Sodium 141 mmol/L (135-145) 02/24/25 07:55
Potassium 4.0 mmol/L (3.5-5.1) 02/24/25 07:55
BUN 21 mg/dl (9-20) H 02/24/25 07:55
Glucose 111 mg/dl (70-99) H 02/24/25 07:55
Calcium 9.0 mg/dl (8.4-10.2) 02/24/25 07:55
LDL Cholesterol, Calc 73 mg/dl 02/24/25 07:55
Vitamin B12 194 pg/ml (239-931) L 02/23/25 13:34
Medications
-
Medications:
Generic Name Dose Route Start Last Admin
Trade Name Freq PRN Reason Stop Dose Admin
Acetaminophen 650 mg 02/23/25 17:06
Acetaminophen 650 Mg Rectal Suppository RECTAL 03/23/25 17:05
Q4HPRN PRN
BROWN, mild pain, or temp >100.4F
Acetaminophen 650 mg 02/23/25 17:06 02/24/25 06:08
Acetaminophen 325 Mg Tablet PO 03/23/25 17:05 650 mg
Q4HPRN PRN Administration
BROWN, mild pain, or temp >100.4F
Amiodarone HCl 100 mg 02/24/25 08:00 02/24/25 08:13
Amiodarone 100 Mg Tablet PO 03/24/25 07:59 100 mg
DAILY DONNIE Administration
Aspirin 81 mg 02/24/25 08:00 02/24/25 08:13
Aspirin 81 Mg Chewable Tablet PO 03/24/25 07:59 81 mg
DAILY DONNIE Administration
Atorvastatin Calcium 20 mg 02/23/25 22:00 02/23/25 20:23
Atorvastatin (Lipitor) 20 Mg Tablet PO 03/23/25 21:59 20 mg
HS DONNIE Administration
Cyanocobalamin 1,000 mcg 02/24/25 12:00
Cyanocobalamin (1000 Mcg/Ml) 1 Ml Vial IM 03/24/25 11:59
DAILY DONNIE
Donepezil HCl 10 mg 02/23/25 22:00 02/23/25 20:23
Donepezil Hcl 10 Mg Tablet PO 03/23/25 21:59 10 mg
HS DONNIE Administration
Escitalopram Oxalate 20 mg 02/23/25 22:00 02/23/25 20:23
Escitalopram 20 Mg Tablet PO 03/23/25 21:59 20 mg
HS DONNIE Administration
Fludrocortisone Acetate 0.1 mg 02/24/25 08:00 02/24/25 08:13
Fludrocortisone Acetate 0.1 Mg Tablet PO 03/24/25 07:59 0.1 mg
DAILY DONNIE Administration
Folic Acid 1 tablet 02/24/25 08:00 02/24/25 08:12
Folbic (Same As Foltx) PO 03/24/25 07:59 1 tablet
DAILY DONNIE Administration
Furosemide 20 mg 02/24/25 08:00 02/24/25 08:15
Furosemide 20 Mg Tablet PO 03/24/25 07:59 20 mg
DAILY DONNIE Administration
Memantine 10 mg 02/23/25 20:00 02/24/25 08:15
Memantine 10 Mg Tablet PO 03/23/25 19:59 10 mg
BID DONNIE Administration
Pantoprazole Sodium 40 mg 02/24/25 08:00 02/24/25 08:12
Pantoprazole 40 Mg Delayed Release Tablet PO 03/24/25 07:59 40 mg
DAILY DONNIE Administration
Sodium Chloride 0 flush 02/23/25 18:00
Sodium Chloride 0.9% (Flush) Syringe IV 03/23/25 17:59
PER PROTOCOL DONNIE
Home Medications
-
Home Medications
aspirin 81 mg chewable tablet 81 mg PO DAILY Blood clot prevention/tx 01/03/21
atorvastatin 20 mg tablet 20 mg PO HS High cholesterol 01/03/21
escitalopram oxalate 20 mg tablet 20 mg PO HS Depression 01/03/21
metformin 500 mg tablet 1,000 mg PO QPM Diabetes 01/03/21
pantoprazole 40 mg tablet,delayed release 40 mg PO DAILY Gastrointestinal issue 01/03/21
donepezil 10 mg tablet 10 mg PO HS dementia 11/30/21
memantine 10 mg tablet 10 mg PO BID dementia 11/30/21
fludrocortisone 0.1 mg tablet 0.1 mg PO DAILY #30 tabs 12/07/21
magnesium oxide 400 mg PO DAILY Supplement 02/03/22
midodrine 5 mg tablet 10 mg PO TID@0800,1200,1800 Blood Pressure 09/05/23
amiodarone 200 mg tablet 100 mg PO DAILY Heart Disease/Condition 02/23/25
furosemide 20 mg tablet 20 mg PO DAILY Fluid Retention/Swelling 02/23/25
rivaroxaban 15 mg tablet (Xarelto) 15 mg PO DAILY Blood Clot Prevention/Tx 02/23/25
[2025-02-24] MEDS: CYANOCOBALAMIN 1000 MCG IM (14:05)
--- NOTE | 2025-02-24 14:34 | W.PN.HOSP.TC ---
Today's Communication/Plan
-
Continue monitoring for any worsening symptoms, continue IV antibiotics, continue pain medicine as needed for left shoulder. Continue telemetry.
Assessment / Plan
Assessment / Plan
Assessment:
79-year-old male with a past medical history of paroxysmal A-fib, CAD, CHFrEF, dementia, hypertension, hypercholesterolemia came to the [facility] ED on 02/23/2025 from his independent home due to having recent difficulty finding words. He
was having trouble speaking as he went to breakfast to try to talk to people. He also had recent pain shooting down his left arm. In the ED patient went underwent stroke protocol and underwent CT head and neck angiogram with IV contrast. Did not
show any acute intracranial abnormalities. Neurology was consulted, patient was admitted to the hospital for further evaluation. Patient underwent MRI which showed subacute infarction involving the white matter of the posterior right frontal lobe.
Patient also underwent CT scan of the chest which showed probable pneumonia. Patient continued to be on aspirin as per neurology and will start Xarelto in 7 days. Patient will begin antibiotic treatment with ceftriaxone and doxycycline for
pneumonia.
EKG (02/23/2025):
ATRIAL FIBRILLATION
NONSPECIFIC T WAVE ABNORMALITY
PROLONGED QT
ABNORMAL ECG
WHEN COMPARED WITH ECG OF 05-SEP-2023 13:24,
ATRIAL FIBRILLATION HAS REPLACED SINUS RHYTHM
CRITERIA FOR SEPTAL INFARCT ARE NO LONGER PRESENT
NON-SPECIFIC CHANGE IN ST SEGMENT IN ANTERIOR LEADS
NONSPECIFIC T WAVE ABNORMALITY, IMPROVED IN LATERAL LEADS
CT Head & Neck Angio W/wo IV (02/23/2025):
CT of the Head without acute intracranial abnormality.
Calcific atherosclerotic changes at the carotid bifurcations and proximal internal carotid arteries bilaterally with tortuosity without gross findings to suggest hemodynamically significant stenosis, evaluation somewhat limited by motion artifact.
Consider Carotid ultrasound for more complete evaluation.
No findings to suggest internal carotid artery or vertebral artery dissection bilaterally.
Dominant left vertebral artery.
No findings to suggest proximal intracranial arterial stenosis bilaterally.
Patchy opacity in the upper lobe of the right lung which could represent RIGHT UPPER LOBE PNEUMONIA.
Cannot exclude small low-attenuation left lobe thyroid nodule.
CR Chest - 2 Views (02/23/2025):
Patchy airspace opacities within the bilateral lobes and right upper lobe suspicious for multifocal pneumonia.
MR Brain Without Contrast (02/24/2025):
Small focus of acute to subacute infarction involving the white matter of the posterior right frontal lobe.
Small foci of CSF signal intensity within the lentiform nuclei bilaterally, most likely small old lacunar infarcts given the morphologic appearance.
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
Mild to moderate diffuse atrophy. Mild to moderate T2 and FLAIR white matter hyperintensities, commonly seen with aging and usually attributed to small vessel ischemic disease. These hyperintensities have not been shown to correlate with a focal
neurologic deficit.
CT Chest With Iv Contrast (02/24/2025):
Findings suggesting mild right lower lobe and minimal left lower lobe pneumonia. New
Mild right hilar lymphadenopathy likely reactive. New
CR Shoulder - Left Min 2 View (02/24/2025):
Moderate AC joint osteoarthritis.
Moderate glenohumeral joint osteoarthritis.
Severe humeral subluxation suggesting chronic rotator cuff injury.
Plan:
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
-Not seen on CTs angiogram in the ED-no stenosis seen as well
-Evident on MRI as above
-Neurology following, input appreciated
-Will continue aspirin 81 mg once a day
-Continue telemetry monitoring
-As per neuro will restart Xarelto in 7 days
-Echocardiogram ordered
-Lipid panel was normal with normal TSH, low vitamin B12 -will replenish
# Community-acquired pneumonia
-Seen first on chest x-ray, confirmed with CT chest as above
-Started on doxycycline and ceftriaxone
-Monitor for any fevers or any worsening symptoms
-Continue monitoring oxygen, symptomatic relief
# Paroxysmal A-fib
-Continue with amiodarone
-Continue telemetry
-Was on Xarelto, on hold till next week
# Orthostatic hypotension, midodrine dependent
# Essential hypertension
-Fall precautions
-Continue midodrine
-Continue fludrocortisone
# History of chronic HFrEF
-Continue Lasix
-Will get echocardiogram
#History of CAD
# Hyperlipidemia
-Continue aspirin and atorvastatin
# Left shoulder osteoarthritis/chronic rotator cuff injury
-As seen on left shoulder x-ray
-Continue management with pain medication and supportive therapy
-Will require outpatient orthopedic follow-up
# Type 2 diabetes
-Holding metformin
-Insulin sliding scale, Accu-Cheks
-A1c 5.8 in 2021
# Dementia
-Continue memantine
# History of noncompliance with medication
-Counseled patient about taking medications
-Confirmed that he wants to continue taking medication
Full Code
DVT prophylaxis: SCDs
Anticipated Discharge: 24 - 48 hours
Subjective/Interval History
-
Date of Service: February 24, 2025
Patient says that he is still having a lot of pain in his left shoulder. Having trouble lifting his left arm, also has weakness in his left lower extremity. Patient also has trouble speaking and finding words. No symptoms such as chest pain,
shortness of breath, but did report of cough earlier in the week. No fevers or chills.
Objective Data
-
Labs:
Laboratory Results
02/24/25
07:55
WBC 7.6
Hgb 9.2 L
Hct 29.8 L
Plt Count 217
Sodium 141
Potassium 4.0
Chloride 107
Carbon Dioxide 25
BUN 21 H
Creatinine 1.1
Glucose 111 H
Calcium 9.0
Vital Signs:
Vital Signs
Temp Pulse Resp BP Pulse Ox
97.4 F 89 20 129/84 96
02/24/25 11:00 02/24/25 11:00 02/24/25 11:00 02/24/25 11:00 02/24/25 11:00
I&O
02/23/25 02/24/25 02/25/25
06:59 06:59 06:59
Output Total 1000 / 1000 400 / 400
Balance -1000 / -1000 -400 / -400
Review of Systems
-
History Source: Patient
Constitutional: Reports Weakness; Denies Fever, Fatigue, Night Sweats or Chills
Respiratory: Denies Cough or Trouble Breathing
Cardiac: Denies Chest Pain, Palpitations or Syncope
Abdomen/GI: Denies Abdominal Pain, Nausea or Vomiting
Musculoskeletal: Reports Joint Pain (Left shoulder pain)
Skin: Reports No Symptoms
Neuro: Reports Weakness (Weakness in left upper and lower extremities) and Other (Difficulty with speech, finding words)
Allergy / Immunology: Reports No Symptoms
Physical Exam
-
General: Well Developed, Well Nourished and Conversant
HEENT: Normocephalic and Atraumatic
Respiratory: Clear to Auscultation and Non Labored Respirations
Cardiac: S1/S2 and Irregular Rhythm (A-fib)
GI: Soft, Nontender and Nondistended
Musculoskeletal: No Clubbing, No Cyanosis and No Edema
Neuro: Awake, Alert, Oriented, Slurred Speech (Having difficulty finding words) and Other (Difficulty raising left arm, difficulty raising left leg)
Psych: Calm
Data Reviewed
-
CT Scan: Report Reviewed by me, Discussed with Physician, Discussed with Patient and Discussed with Family
MRI: Report Reviewed by me, Discussed with Physician, Discussed with Nurse, Discussed with Patient and Discussed with Family
Labs: Labs Reviewed by me, Discussed with Physician, Discussed with Nurse, Discussed with Patient and Discussed with Family
--- NOTE | 2025-02-24 14:51 | W.PN.UPDATE ---
Update Note
Progress Note Update
Seen and examined by me independently in collaboration with the medical assistant cardiology Dr. Garcia.
Lab data and imaging data reviewed.
Addendum as below :
Patient presents with new onset of speech impairment and seems mostly dysarthric currently. He also complains of left arm weakness but there is limitation of left proximal movement due to left shoulder pain. Clinically cannot abduct arm more than
60 degrees due to pain suggesting rotator cuff issues -ongonig for few weeks . No trauma.
Ruled in for acute right subcortical posterior right frontal lobe stroke. Raises concern for the small vessel disease or embolic. Is known to have paroxysmal atrial fibrillation and says he is compliant with anticoagulation. Continue with aspirin
for now and restart Xarelto in 7 days per neurology. Follow on telemetry. Check TTE.
Plain xray of chest shows left atrial appendage clip on anticoagulation and now developing a stroke. Do not know if he would benefit the JIM. Will discuss with neurology as there is a concern of embolic stroke. If it is the case we will get
consult with cardiology.
Patient CT head raises concern for right upper lobe infiltrate and chest x-ray raises concern for bibasilar infiltrates. Clinically not acting like pneumonia. Denies any prodrome of upper respiratory infection, cough, shortness of breath.
Procalcitonin is normal. Will obtain a CT chest to evaluate further.
Total time spent on today's encounter was 52 minutes which included time spent in counseling the patient/family regarding diagnosis and treatment plan as listed above, goals of care, and symptom management. Case was discussed with nursing staff,
specialists, and care coordinators/case management. All labs and imaging personally reviewed by me. Remainder the time spent in detailed review of previous records, lab data, imaging, and other medical provider documentation.
[2025-02-24 15:00] VITALS: BP 144/86
[2025-02-24 15:02] LABS: Folate 6.8 ng/ml (2.76-20)
--- NOTE | 2025-02-24 16:08 | CM ---
Patient seen bedside w/ sister, Eve. Initial assessment completed. Patient is a 79F with dementia on Donepezil HX chr HFrEF on lasix, Prx AF on Xarelto and amiodarone, HX TAVR HLD on statin, adrenal insufficeincy on daily fludrocortisone, DMT2,
CAD on ASA, HTN, HX non complaice with meds seen at ER w/ noticed difficulty word finding.
Patient resides alone in independent living at [facility] in [place], [place]. Patient resides in a [address] [place] [address] apartment- no steps to enter. Per Eve, patient has been residing at [facility] for the past 5 years, moved from [place] to [place] after
his spouse . Patient uses RW for ambulation, has tub grab bar and shower chair in the bathroom. Patient is independent w/ ADLs. Patient had inpatient rehab in the past at a hospital in [place]. [facility] in the past. No current OP or home services
at this time.
Address, point of contact and insurance verified
PCP: Ankit Braxton
Pharmacy: [facility]
Patient currently admitted as OBS. ALVARENGA form verbally reviewed, patient given copy, copy placed on chart
Therapy assessed patient and is currently recommending skilled rehab at d/c. BENSON discussed recommendation and explained due to patient being OBS at this time, Medicare will not cover rehab if patient was to be agreeable. BENSON explained unless patient's
LOC was to change to inpatient and get 3 night stay, rehab would not be covered. Eve shared she knows that patient would prefer to go home but will see if LOC will change to consider SNF option.
Plan: Home vs SNF
[2025-02-24] MEDS: STERILE WATER FOR INJECTION 10 ML IV (17:01)
[2025-02-24] MEDS: ROCEPHIN 1000 MG IV (17:02)
[2025-02-24] MEDS: VIBRAMYCIN 260 MG IV (17:02)
[2025-02-24 19:32] VITALS: BP 138/89
[2025-02-24] MEDS: LIPITOR 20 MG PO (21:46)
[2025-02-24] MEDS: LEXAPRO 20 MG PO (21:46)
[2025-02-24] MEDS: ARICEPT 10 MG PO (21:46)
[2025-02-24 23:45] VITALS: BP 123/72
[2025-02-25] VITALS (8 sets, daily range): BP systolic 108–147; BP diastolic 62–91; PULSE 66–79; O2SAT 97
[2025-02-25] MEDS: VIBRAMYCIN 260 MG IV ×2 (03:57→17:09)
[2025-02-25 06:40] LABS: Blood Urea Nitrogen 19 mg/dl (9-20); Calcium 9.3 mg/dl (8.4-10.2); Carbon Dioxide 27 mmol/L (22-30); Chloride 106 mmol/L (98-107); Estimated Creatinine Clearance 61 ml/min; Glucose 121 mg/dl (70-99); Potassium 3.6 mmol/L (3.5-5.1); Sodium 143 mmol/L (135-145); eGFR > 60.00
[2025-02-25] MEDS: TYLENOL 650 MG PO ×2 (08:05→17:13)
[2025-02-25] MEDS: CYANOCOBALAMIN 1000 MCG IM (08:38)
[2025-02-25] MEDS: LASIX 20 MG PO (08:38)
[2025-02-25] MEDS: PROTONIX 40 MG PO (08:39)
[2025-02-25] MEDS: NAMENDA 10 MG PO ×2 (08:39→20:22)
[2025-02-25] MEDS: FOLTX 1 TABLET PO (08:39)
[2025-02-25] MEDS: FLORINEF 0.1 MG PO (08:39)
[2025-02-25] MEDS: PACERONE 100 MG PO (08:39)
[2025-02-25] MEDS: LOW STRENGTH ASPIRIN 81 MG PO (08:39)
[2025-02-25 09:03] LABS: Glycohemoglobin (HgbA1c) 6.8 % (4.0-5.6)
--- NOTE | 2025-02-25 09:59 | W.PN.HOSP.TC ---
Addendum entered and electronically signed by Nick Sanchez MD 02/25/25 14:01:
Seen and examined by me independently in collaboration with the medical superintendent .
Lab data and imaging data reviewed.
Addendum as below :
Patient with improved speech and left hand strength.
No new neurological symptoms.
Patient ruled in for acute stroke on the etiology concern for small vessel disease versus embolic. There is also suspicion of an intentional medication compliance due to cognitive impairments. Early signs are also/6 per neurology. Continue the
aspirin and statin.
Therapy recommendations for rehab noted.
Patient agreeable for rehab.
Patient advised to see orthopedics for left rotator cuff issues.
Pt ECHO TTE with Mid to distal anteroseptal and inferoseptal hypokinesis which was noted on Stress testing images 11/2023 . EF now now compared to prior stress test. CW medical tx and follow with cardiology as OP. Asymptomatic without CP.
DC to rehab when bed available.
Original Note:
Today's Communication/Plan
-
Continue monitoring for any changes in patient's condition. Continue IV antibiotics for now, we will continue monitoring telemetry.
Video swallow study today
Assessment / Plan
Assessment / Plan
Assessment:
79-year-old male with a past medical history of paroxysmal A-fib, CAD, CHFrEF, dementia, hypertension, hypercholesterolemia came to the [facility] ED on 02/23/2025 from his independent home due to having recent difficulty finding words. He
was having trouble speaking as he went to breakfast to try to talk to people. He also had recent pain shooting down his left arm. In the ED patient went underwent stroke protocol and underwent CT head and neck angiogram with IV contrast. Did not
show any acute intracranial abnormalities. Neurology was consulted, patient was admitted to the hospital for further evaluation. Patient underwent MRI which showed subacute infarction involving the white matter of the posterior right frontal lobe.
Patient also underwent CT scan of the chest which showed probable pneumonia. Patient continued to be on aspirin as per neurology and will start Xarelto in 7 days. Patient will begin antibiotic treatment with ceftriaxone and doxycycline for
pneumonia.
EKG (02/23/2025):
ATRIAL FIBRILLATION
NONSPECIFIC T WAVE ABNORMALITY
PROLONGED QT
ABNORMAL ECG
WHEN COMPARED WITH ECG OF 05-SEP-2023 13:24,
ATRIAL FIBRILLATION HAS REPLACED SINUS RHYTHM
CRITERIA FOR SEPTAL INFARCT ARE NO LONGER PRESENT
NON-SPECIFIC CHANGE IN ST SEGMENT IN ANTERIOR LEADS
NONSPECIFIC T WAVE ABNORMALITY, IMPROVED IN LATERAL LEADS
CT Head & Neck Angio W/wo IV (02/23/2025):
CT of the Head without acute intracranial abnormality.
Calcific atherosclerotic changes at the carotid bifurcations and proximal internal carotid arteries bilaterally with tortuosity without gross findings to suggest hemodynamically significant stenosis, evaluation somewhat limited by motion artifact.
Consider Carotid ultrasound for more complete evaluation.
No findings to suggest internal carotid artery or vertebral artery dissection bilaterally.
Dominant left vertebral artery.
No findings to suggest proximal intracranial arterial stenosis bilaterally.
Patchy opacity in the upper lobe of the right lung which could represent RIGHT UPPER LOBE PNEUMONIA.
Cannot exclude small low-attenuation left lobe thyroid nodule.
CR Chest - 2 Views (02/23/2025):
Patchy airspace opacities within the bilateral lobes and right upper lobe suspicious for multifocal pneumonia.
MR Brain Without Contrast (02/24/2025):
Small focus of acute to subacute infarction involving the white matter of the posterior right frontal lobe.
Small foci of CSF signal intensity within the lentiform nuclei bilaterally, most likely small old lacunar infarcts given the morphologic appearance.
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
Mild to moderate diffuse atrophy. Mild to moderate T2 and FLAIR white matter hyperintensities, commonly seen with aging and usually attributed to small vessel ischemic disease. These hyperintensities have not been shown to correlate with a focal
neurologic deficit.
CT Chest With Iv Contrast (02/24/2025):
Findings suggesting mild right lower lobe and minimal left lower lobe pneumonia. New
Mild right hilar lymphadenopathy likely reactive. New
CR Shoulder - Left Min 2 View (02/24/2025):
Moderate AC joint osteoarthritis.
Moderate glenohumeral joint osteoarthritis.
Severe humeral subluxation suggesting chronic rotator cuff injury.
Echocardiogram (02/24/2025):
Normal left ventricular chamber size.
Mild concentric left ventricular hypertrophy.
Overall, preserved left ventricular systolic function.
Mid to distal anteroseptal and inferoseptal hypokinesis.
Left ventricular ejection fraction is 50-55% by volumetric assessment.
Mild mitral regurgitation.
Bioprosthetic aortic valve replacement.
Peak/mean gradients across the aortic valve are 24/12 mmHg respectively.
No aortic regurgitation is seen.
Mild tricuspid regurgitation.
No pericardial effusion.
The IVC is of normal size and demonstrates normal respiratory variation.
Plan:
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
-Not seen on CTs angiogram in the ED-no stenosis seen as well
-Evident on MRI as above
-Neurology following, input appreciated
-Will continue aspirin 81 mg once a day
-Continue telemetry monitoring
-As per neuro will restart Xarelto in 7 days
-Echocardiogram as above, showed mid to distal anteroseptal and inferoseptal hypokinesis
-Will require further workup in outpatient setting with cardiology
-Lipid panel was normal with normal TSH, low vitamin B12 -will replenish
-Speech seems to be improving, muscle strength seems to be improving
-Video swallow study today
-Evaluation by PT/OT yesterday recommended skilled rehab, will need updated evaluation as patient improves
# Community-acquired pneumonia
-Seen first on chest x-ray, confirmed with CT chest as above
-Started on doxycycline and ceftriaxone
-Monitor for any fevers or any worsening symptoms
-Continue monitoring oxygen, symptomatic relief
-Had cough for weeks before coming to the hospital as per patient and sister
# Paroxysmal A-fib
-Continue with amiodarone
-Continue telemetry
-Was on Xarelto, on hold till next week
# Orthostatic hypotension, midodrine dependent
# Essential hypertension
-Fall precautions
-Continue midodrine
-Continue fludrocortisone
# History of chronic HFrEF
-Continue Lasix
-Will get echocardiogram
#History of CAD
# Hyperlipidemia
-Continue aspirin and atorvastatin
# Left shoulder osteoarthritis/chronic rotator cuff injury
-As seen on left shoulder x-ray
-Continue management with pain medication and supportive therapy
-Will require outpatient orthopedic follow-up
# Type 2 diabetes
-Holding metformin
-Insulin sliding scale, Accu-Cheks
-A1c 5.8 in 2021
# Dementia
-Continue memantine
# History of noncompliance with medication
-Counseled patient about taking medications
-Confirmed that he wants to continue taking medication
Full Code
DVT prophylaxis: SCDs
Anticipated Discharge: Within 24 hours
Subjective/Interval History
-
Date of Service: February 25, 2025
Patient states that he has been feeling much better, reports that his speech is better and his lower extremity and upper extremity left-sided weakness is much better. Seem to be in good spirits and wants to undergo more speech therapy.
Objective Data
-
Labs:
Laboratory Results
02/24/25 02/25/25
07:55 05:44
WBC 7.6
Hgb 9.2 L
Hct 29.8 L
Plt Count 217
Sodium 143
Potassium 3.6
Chloride 106
Carbon Dioxide 27
BUN 19
Creatinine 1.1
Glucose 121 H
Calcium 9.3
Vital Signs:
Vital Signs
Temp Pulse Resp BP Pulse Ox
97.9 F 82 18 134/91 96
04/03/25 07:03 02/25/25 07:03 02/25/25 07:03 02/25/25 07:03 02/25/25 07:03
I&O
02/24/25 02/25/25 02/26/25
06:59 06:59 06:59
Intake Total 1440 / 1440
Output Total 1000 / 1000 1625 / 1625
Balance -1000 / -1000 -185 / -185
Review of Systems
-
History Source: Patient
Constitutional: Reports Weakness (Left-sided weakness much improved from before); Denies Fever, Fatigue, Night Sweats or Chills
Respiratory: Denies Cough or Trouble Breathing
Cardiac: Denies Chest Pain, Palpitations or Syncope
Abdomen/GI: Denies Abdominal Pain, Nausea or Vomiting
Musculoskeletal: Reports Joint Pain (Left shoulder pain)
Skin: Reports No Symptoms
Neuro: Reports Weakness (Weakness in left upper and lower extremities) and Other (Difficulty with speech, finding words)
Allergy / Immunology: Reports No Symptoms
Physical Exam
-
General: Well Developed, Well Nourished and Conversant
HEENT: Normocephalic and Atraumatic
Respiratory: Clear to Auscultation and Non Labored Respirations
Cardiac: S1/S2 and Irregular Rhythm (A-fib)
GI: Soft, Nontender and Nondistended
Musculoskeletal: No Clubbing, No Cyanosis and No Edema
Neuro: Awake, Alert, Oriented, Slurred Speech (Having difficulty finding words) and Other (Continued pain in the left shoulder, improvement in muscle strength in both left upper and lower extremities)
Psych: Calm
Data Reviewed
-
CT Scan: Report Reviewed by me, Discussed with Physician, Discussed with Patient and Discussed with Family
MRI: Report Reviewed by me, Discussed with Physician, Discussed with Patient and Discussed with Family
Labs: Labs Reviewed by me, Discussed with Physician, Discussed with Patient and Discussed with Family
--- NOTE | 2025-02-25 10:18 | W.PN.NEURO.1 ---
Today's Communication / Plan
-
.
Subjective/Objective
Subjective Data
Date of Service: February 25, 2025
Neurology follow-up note.
Mr. Phillips states that his left hand weakness has improved since the presentation. No reports of headaches, change in vision. Continues to be dysarthric
TTE-no evidence of PFO or intra cardiac thrombus.
LDL 77, Hemoglobin A1c�6.8
PMH: dementia, PA AFib, CAD, HFrEF, HTN, DLP, DM, anemia, adrenal insufficiency, OA, JENI, ambulatory dysfunction
PSH: TAVR, CABG x3, bilateral cataract surgery, ambulates with a walker
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
FH: Not contributory
All: Digoxin
ROS: Positive for weight loss, panic urinary incontinence, imbalance, arthralgias, chronic cognitive deficits, transient dysarthria and headache
General: Well developed. In no acute distress.
Cardio: Regular rate and rhythm without murmur. Extremities are without cyanosis or edema.
Neuro:
Mental Status: Alert, oriented to name, age, date of , president. Did not know the current month, year or season. Poor attention and relatively preserved comprehension. Nonfluent. Follows simple requests.
Cranial Nerves: Pupils are equally round, surgical. EOMs full. Visual johnson full to confrontation. No ptosis. No nystagmus. V1-V3 intact to light touch and pinprick bilaterally, symmetric. Left facial weakness mildly impaired hearing AU.
The palate elevated well. SCMs and traps 5/5. Tongue midline. Mild dysarthria.
Motor: Unable to lift left elbow of the bed plane; right triceps�4 out of 5. Lower extremity appeared to be full strength
Reflexes: Limited due to cooperation
Sensory: Absent vibration at the toes ankles and impaired at the knees
Coordination: No dysmetria or tremor.
Gait: deferred
Assessment and Plan:
I. Acute R subcortical posterior right frontal lobe stroke. Likely etiology�small vessel disease versus embolic. Suspect unintentional medications given due to cognitive deficits
II. PA A-Fib
III. Distal symmetric large fiber polyneuropathy. Ambulatory dysfunction
IV. Vitamin B12 deficiency
-Continue Telemetry monitoring
-Medication administration supervision
-Please restart Xarelto on 02/28/2025.
-Continue aspirin 81 mg once a day
-Continue Lipitor 40 mg nightly.
-Continue parenteral vitamin B-12
-Outpatient neurology follow-up
I personally reviewed all radiology and labs along with past medical records pertinent to current medical problems. Total time spent in patient care is 41 minutes.
Thank you for allowing us to participate in the care of this patient. Please do not hesitate to contact us with any questions or concerns.
Objective Data
Vital Signs
Temp Pulse Resp BP Pulse Ox
36.6 C 82 18 134/91 96
02/25/25 07:03 02/25/25 07:03 02/25/25 07:03 02/25/25 07:03 02/25/25 07:03
Lab Results
02/24/25 07:55
02/25/25 05:44
PT 22.6 Sec (11.4-14.6) H 02/23/25 13:34
INR 1.98 02/23/25 13:34
APTT 45.0 Sec (23.4-35.0) H 02/23/25 13:34
Sodium 143 mmol/L (135-145) 02/25/25 05:44
Potassium 3.6 mmol/L (3.5-5.1) 02/25/25 05:44
BUN 19 mg/dl (9-20) 02/25/25 05:44
Glucose 121 mg/dl (70-99) H 02/25/25 05:44
Calcium 9.3 mg/dl (8.4-10.2) 02/25/25 05:44
LDL Cholesterol, Calc 73 mg/dl 02/24/25 07:55
Vitamin B12 194 pg/ml (569-931) L 02/23/25 13:34
Patient Allergies
digoxin Allergy (Verified 12/28/23 10:37)
Unknown
Vital Signs and Labs
-
Vital Signs and Labs:
Vital Signs
Temp Pulse Resp BP Pulse Ox
36.6 C 82 18 134/91 96
02/25/25 07:03 02/25/25 07:03 02/25/25 07:03 02/25/25 07:03 02/25/25 07:03
Lab Results
02/24/25 07:55
02/25/25 05:44
PT 22.6 Sec (11.4-14.6) H 02/23/25 13:34
INR 1.98 02/23/25 13:34
APTT 45.0 Sec (23.4-35.0) H 02/23/25 13:34
Sodium 143 mmol/L (135-145) 02/25/25 05:44
Potassium 3.6 mmol/L (3.5-5.1) 02/25/25 05:44
BUN 19 mg/dl (9-20) 02/25/25 05:44
Glucose 121 mg/dl (70-99) H 02/25/25 05:44
Calcium 9.3 mg/dl (8.4-10.2) 02/25/25 05:44
LDL Cholesterol, Calc 73 mg/dl 02/24/25 07:55
Vitamin B12 194 pg/ml (843-931) L 02/23/25 13:34
Medications
-
Medications:
Generic Name Dose Route Start Last Admin
Trade Name Freq PRN Reason Stop Dose Admin
Acetaminophen 650 mg 02/23/25 17:06
Acetaminophen 650 Mg Rectal Suppository RECTAL 03/23/25 17:05
Q4HPRN PRN
BROWN, mild pain, or temp >100.4F
Acetaminophen 650 mg 02/23/25 17:06 02/25/25 08:05
Acetaminophen 325 Mg Tablet PO 03/23/25 17:05 650 mg
Q4HPRN PRN Administration
BROWN, mild pain, or temp >100.4F
Amiodarone HCl 100 mg 02/24/25 08:00 02/25/25 08:39
Amiodarone 100 Mg Tablet PO 03/24/25 07:59 100 mg
DAILY DONNIE Administration
Aspirin 81 mg 02/24/25 08:00 02/25/25 08:39
Aspirin 81 Mg Chewable Tablet PO 03/24/25 07:59 81 mg
DAILY DONNIE Administration
Atorvastatin Calcium 20 mg 02/23/25 22:00 02/24/25 21:46
Atorvastatin (Lipitor) 20 Mg Tablet PO 03/23/25 21:59 20 mg
HS DONNIE Administration
Ceftriaxone Sodium 1,000 mg 02/24/25 16:00 02/24/25 17:02
Ceftriaxone 1000 Mg / 10 Ml Vial IV 1,000 mg
Q24H DONNIE Administration
Cyanocobalamin 1,000 mcg 02/24/25 12:00 02/25/25 08:38
Cyanocobalamin (1000 Mcg/Ml) 1 Ml Vial IM 03/24/25 11:59 1,000 mcg
DAILY DONNIE Administration
Donepezil HCl 10 mg 02/23/25 22:00 02/24/25 21:46
Donepezil Hcl 10 Mg Tablet PO 03/23/25 21:59 10 mg
HS DONNIE Administration
Escitalopram Oxalate 20 mg 02/23/25 22:00 02/24/25 21:46
Escitalopram 20 Mg Tablet PO 03/23/25 21:59 20 mg
HS DONNIE Administration
Fludrocortisone Acetate 0.1 mg 02/24/25 08:00 02/25/25 08:39
Fludrocortisone Acetate 0.1 Mg Tablet PO 03/24/25 07:59 0.1 mg
DAILY DONNIE Administration
Folic Acid 1 tablet 02/24/25 08:00 02/25/25 08:39
Folbic (Same As Foltx) PO 03/24/25 07:59 1 tablet
DAILY DONNIE Administration
Furosemide 20 mg 02/24/25 08:00 02/25/25 08:38
Furosemide 20 Mg Tablet PO 03/24/25 07:59 20 mg
DAILY DONNIE Administration
Doxycycline Hyclate 100 mg/ 260 mls @ 260 mls/hr 02/24/25 16:00 02/25/25 03:57
Sodium Chloride IV 260 mls
Q12H DONNIE Administration
Memantine 10 mg 02/23/25 20:00 02/25/25 08:39
Memantine 10 Mg Tablet PO 03/23/25 19:59 10 mg
BID DONNIE Administration
Pantoprazole Sodium 40 mg 02/24/25 08:00 02/25/25 08:39
Pantoprazole 40 Mg Delayed Release Tablet PO 03/24/25 07:59 40 mg
DAILY DONNIE Administration
Sodium Chloride 0 flush 02/23/25 18:00
Sodium Chloride 0.9% (Flush) Syringe IV 03/23/25 17:59
PER PROTOCOL DONNIE
Sterile Water 10 ml 02/24/25 16:00 02/24/25 17:01
Sterile Water For Injection 10 Ml Vial IV 03/24/25 15:59 10 ml
Q24H DONNIE Administration
Home Medications
-
Home Medications
aspirin 81 mg chewable tablet 81 mg PO DAILY Blood clot prevention/tx 01/03/21
atorvastatin 20 mg tablet 20 mg PO HS High cholesterol 01/03/21
escitalopram oxalate 20 mg tablet 20 mg PO HS Depression 01/03/21
metformin 500 mg tablet 1,000 mg PO QPM Diabetes 01/03/21
pantoprazole 40 mg tablet,delayed release 40 mg PO DAILY Gastrointestinal issue 01/03/21
donepezil 10 mg tablet 10 mg PO HS dementia 11/30/21
memantine 10 mg tablet 10 mg PO BID dementia 11/30/21
fludrocortisone 0.1 mg tablet 0.1 mg PO DAILY #30 tabs 12/07/21
magnesium oxide 400 mg PO DAILY Supplement 02/03/22
midodrine 5 mg tablet 10 mg PO TID@0800,1200,1800 Blood Pressure 09/05/23
amiodarone 200 mg tablet 100 mg PO DAILY Heart Disease/Condition 02/23/25
furosemide 20 mg tablet 20 mg PO DAILY Fluid Retention/Swelling 02/23/25
rivaroxaban 15 mg tablet (Xarelto) 15 mg PO DAILY Blood Clot Prevention/Tx 02/23/25
--- NOTE | 2025-02-25 12:28 | PTOTSP ---
Videofluoroscopic Swallow Study
Mild-moderate oral, moderate pharyngeal dysphagia. See patient care note for details.
Recommend:
1. IDDSI Level 6 Soft and Bite Sized, IDDSI Level 2 Mildly Thick
2. Medications: crushed in puree if medically cleared
3. Strategies: upright to 90 degrees, small sips/bites, moisten foods well, alternate solids with sips of liquids, intermittent cough/swallow
4. Oral care 3x daily
5. Dysphagia tx at the acute care level for education, instruction in compensations, pharyngeal exercises. Tx warranted after D/C from acute care level.
--- NOTE | 2025-02-25 16:00 | CM ---
Patient seen bedside w/ sister, Eve. Patient being recommended for skilled rehab. Patient's LOC changed to inpatient today.
CM discussed w/ patient and Eve that though LOC was changed, patient will need a 3 night inpatient stay in order for Medicare to cover rehab. CM stated the physician resident is clearing patient for d/c, Eve is requesting to follow up w/
hospitalist tomorrow, TT hospitalist to make aware.
CM inquired if patient is a part of the [employer] waiver program. Per Jesenia[employer], patient is not a member.
CM discussed the option of home care services for PT and DISULFURIZER TENDER as Eve stated patient will need additional support as he resides independently. Eve shared she is aware DISULFURIZER TENDER/caregivers are private pay and doesn't think that is feasible for patient if
it is not covered by insurance.
Patient is currently on aspiration precautions. Spoke w/ Silvia/ST, shares patient will need ST at d/c.
Plan: Home w/ HC if patient and sister are agreeable
[2025-02-25] MEDS: ROCEPHIN 1000 MG IV (17:10)
[2025-02-25] MEDS: STERILE WATER FOR INJECTION 10 ML IV (17:10)
[2025-02-25] MEDS: LIPITOR 40 MG PO (20:22)
[2025-02-25] MEDS: ARICEPT 10 MG PO (20:22)
[2025-02-25] MEDS: LEXAPRO 20 MG PO (20:22)
[2025-02-26] VITALS (8 sets, daily range): BP systolic 98–132; BP diastolic 58–81; PULSE 77–93; O2SAT 96–100
[2025-02-26] MEDS: TYLENOL 650 MG PO ×2 (03:28→13:12)
[2025-02-26] MEDS: VIBRAMYCIN 260 MG IV ×2 (03:28→16:12)
[2025-02-26 08:29] LABS: Hematocrit 30.6 % (39.0-52.0); Hemoglobin 9.6 g/dL (13.0-18.0); Mean Corp Hgb Conc. 31.4 g/dL (33.0-37.0); Mean Corpuscular Hgb 25.7 pg (27.0-31.0); Mean Platelet Volume 9.8 fL (7.4-10.4); Platelet Count 242 10^3/uL (130-400); Red Blood Cell Count 3.73 10^6/uL (4.70-6.10); Red Cell Dist. Width 16.8 % (11.5-14.5); White Blood Cell Count 8.6 10^3/uL (4.8-10.8)
[2025-02-26] MEDS: CYANOCOBALAMIN 1000 MCG IM (09:09)
[2025-02-26] MEDS: NAMENDA 10 MG PO ×2 (09:10→21:39)
[2025-02-26] MEDS: LASIX 20 MG PO (09:10)
[2025-02-26] MEDS: PACERONE 100 MG PO (09:10)
[2025-02-26] MEDS: FOLTX 1 TABLET PO (09:10)
[2025-02-26] MEDS: FLORINEF 0.1 MG PO (09:11)
[2025-02-26] MEDS: PROTONIX 40 MG PO (09:11)
[2025-02-26] MEDS: LOW STRENGTH ASPIRIN 81 MG PO (09:11)
[2025-02-26 09:19] LABS: Blood Urea Nitrogen 22 mg/dl (9-20); Calcium 9.2 mg/dl (8.4-10.2); Carbon Dioxide 26 mmol/L (22-30); Chloride 105 mmol/L (98-107); Estimated Creatinine Clearance 61 ml/min; Glucose 124 mg/dl (70-99); Sodium 142 mmol/L (135-145); eGFR > 60.00
[2025-02-26] MEDS: ProAmatine 10 MG PO ×2 (13:06→18:15)
--- NOTE | 2025-02-26 13:07 | W.PN.HOSP.TC ---
Addendum entered and electronically signed by Nick Sanchez MD 02/26/25 13:48:
Seen and examined by me independently in collaboration with the director medical Dr. Garcia.
Lab data and imaging data reviewed.
Addendum as below :
Patient feels improved with his speech. Right proximal arm mobility show due to rotator cuff. 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 Right lower extremity 4/5 compared to left which was 5/5.
Patient with acute ischemic infarct and question raised about compliance with the medication. Seen by neurology. To continue medical treatment and restart anticoagulation 02/28.
Patient was complaining of dizziness. Supine blood pressure is okay. He has a history of orthostatic hypotension. Resume midodrine and fludrocortisone on follow-up.
Patient feels cough is better. He is on treatments for possible pneumonia and a right hilar lymph node enlargement. He was advised that he should get a repeat CT chest in 4 to 6 weeks time to follow-up on pneumonia and the lymph node enlargement.
Therapist recommend rehab. Patient agreeable.
Case management to look into disposition.
Original Note:
Today's Communication/Plan
-
Continue IV antibiotics, monitor for any further hypotension. Continued speech therapy and PT/OT.
Assessment / Plan
Assessment / Plan
Assessment:
79-year-old male with a past medical history of paroxysmal A-fib, CAD, CHFrEF, dementia, hypertension, hypercholesterolemia came to the [facility] ED on 02/23/2025 from his independent home due to having recent difficulty finding words. He
was having trouble speaking as he went to breakfast to try to talk to people. He also had recent pain shooting down his left arm. In the ED patient went underwent stroke protocol and underwent CT head and neck angiogram with IV contrast. Did not
show any acute intracranial abnormalities. Neurology was consulted, patient was admitted to the hospital for further evaluation. Patient underwent MRI which showed subacute infarction involving the white matter of the posterior right frontal lobe.
Patient also underwent CT scan of the chest which showed probable pneumonia. Patient continued to be on aspirin as per neurology and will start Xarelto in 7 days. Patient was started on antibiotic therapy for supposed pneumonia. Will have to
follow up in the outpatient setting for follow up CT Scan of chest to see resolution of findings seen.
EKG (02/23/2025):
ATRIAL FIBRILLATION
NONSPECIFIC T WAVE ABNORMALITY
PROLONGED QT
ABNORMAL ECG
WHEN COMPARED WITH ECG OF 05-SEP-2023 13:24,
ATRIAL FIBRILLATION HAS REPLACED SINUS RHYTHM
CRITERIA FOR SEPTAL INFARCT ARE NO LONGER PRESENT
NON-SPECIFIC CHANGE IN ST SEGMENT IN ANTERIOR LEADS
NONSPECIFIC T WAVE ABNORMALITY, IMPROVED IN LATERAL LEADS
CT Head & Neck Angio W/wo IV (02/23/2025):
CT of the Head without acute intracranial abnormality.
Calcific atherosclerotic changes at the carotid bifurcations and proximal internal carotid arteries bilaterally with tortuosity without gross findings to suggest hemodynamically significant stenosis, evaluation somewhat limited by motion artifact.
Consider Carotid ultrasound for more complete evaluation.
No findings to suggest internal carotid artery or vertebral artery dissection bilaterally.
Dominant left vertebral artery.
No findings to suggest proximal intracranial arterial stenosis bilaterally.
Patchy opacity in the upper lobe of the right lung which could represent RIGHT UPPER LOBE PNEUMONIA.
Cannot exclude small low-attenuation left lobe thyroid nodule.
CR Chest - 2 Views (02/23/2025):
Patchy airspace opacities within the bilateral lobes and right upper lobe suspicious for multifocal pneumonia.
MR Brain Without Contrast (02/24/2025):
Small focus of acute to subacute infarction involving the white matter of the posterior right frontal lobe.
Small foci of CSF signal intensity within the lentiform nuclei bilaterally, most likely small old lacunar infarcts given the morphologic appearance.
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
Mild to moderate diffuse atrophy. Mild to moderate T2 and FLAIR white matter hyperintensities, commonly seen with aging and usually attributed to small vessel ischemic disease. These hyperintensities have not been shown to correlate with a focal
neurologic deficit.
CT Chest With Iv Contrast (02/24/2025):
Findings suggesting mild right lower lobe and minimal left lower lobe pneumonia. New
Mild right hilar lymphadenopathy likely reactive. New
CR Shoulder - Left Min 2 View (02/24/2025):
Moderate AC joint osteoarthritis.
Moderate glenohumeral joint osteoarthritis.
Severe humeral subluxation suggesting chronic rotator cuff injury.
Echocardiogram (02/24/2025):
Normal left ventricular chamber size.
Mild concentric left ventricular hypertrophy.
Overall, preserved left ventricular systolic function.
Mid to distal anteroseptal and inferoseptal hypokinesis.
Left ventricular ejection fraction is 50-55% by volumetric assessment.
Mild mitral regurgitation.
Bioprosthetic aortic valve replacement.
Peak/mean gradients across the aortic valve are 24/12 mmHg respectively.
No aortic regurgitation is seen.
Mild tricuspid regurgitation.
No pericardial effusion.
The IVC is of normal size and demonstrates normal respiratory variation.
Plan:
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
-Not seen on CTs angiogram in the ED-no stenosis seen as well
-Evident on MRI as above
-Neurology following, input appreciated
-Will continue aspirin 81 mg once a day
-Continue telemetry monitoring
-As per neuro will restart Xarelto in 7 days
-Echocardiogram as above, showed mid to distal anteroseptal and inferoseptal hypokinesis
-Will require further workup in outpatient setting with cardiology
-Lipid panel was normal with normal TSH, low vitamin B12 -will replenish
-Speech seems to be improving, muscle strength seems to be improving
-Video swallow study showed some mild aspiration with thin liquids, will switch to liquids
-Evaluation by PT/OT yesterday recommended skilled rehab, will need updated evaluation as patient improves
# Community-acquired pneumonia
-Seen first on chest x-ray, confirmed with CT chest as above
-Started on doxycycline and ceftriaxone
-Monitor for any fevers or any worsening symptoms
-Continue monitoring oxygen, symptomatic relief
-Had cough for weeks before coming to the hospital as per patient and sister
-Will need outpatient CT scan of the chest for evaluation of resolution of current findings
# Paroxysmal A-fib
-Continue with amiodarone
-Continue telemetry
-Was on Xarelto, on hold till next week
# Orthostatic hypotension, midodrine dependent
# Essential hypertension
-Fall precautions
-Patient had some hypotension earlier this morning
-Continue midodrine 10 mg as per before admission
-Continue fludrocortisone
# History of chronic HFrEF
-Continue Lasix
- Echocardiogram findings as above, mid to distal anteroseptal and inferoseptal hypokinesis
#History of CAD
# Hyperlipidemia
-Continue aspirin and atorvastatin
# Left shoulder osteoarthritis/chronic rotator cuff injury
-As seen on left shoulder x-ray
-Continue management with pain medication and supportive therapy
-Will require outpatient orthopedic follow-up
# Type 2 diabetes
-Holding metformin
-Insulin sliding scale, Accu-Cheks
-A1c 5.8 in 2021
# Dementia
-Continue memantine
# History of noncompliance with medication
-Counseled patient about taking medications
-Confirmed that he wants to continue taking medication
Full Code
DVT prophylaxis: SCDs
Anticipated Discharge: 24 - 48 hours
Subjective/Interval History
-
Date of Service: February 26, 2025
Patient was seen in the morning and did not have any complaints other than feeling a little bit dizzy. Reports that his cough is a bit worse to bilateral and that no other issues such as chest pain, shortness of breath, headaches.
Objective Data
-
Labs:
Laboratory Results
02/26/25
06:44
WBC 8.6
Hgb 9.6 L
Hct 30.6 L
Plt Count 242
Sodium 142
Potassium 4.0
Chloride 105
Carbon Dioxide 26
BUN 22 H
Creatinine 1.1
Glucose 124 H
Calcium 9.2
Vital Signs:
Vital Signs
Temp Pulse Resp BP Pulse Ox
98 F 82 19 128/81 95
02/26/25 11:05 02/26/25 11:05 02/26/25 11:05 02/26/25 11:05 02/26/25 11:05
I&O
02/25/25 02/26/25 02/27/25
06:59 06:59 06:59
Intake Total 1440 / 1440 840 / 840
Output Total 1625 / 1625 450 / 450
Balance -185 / -185 390 / 390
Review of Systems
-
History Source: Patient
Constitutional: Reports Weakness (Left-sided weakness much improved from before); Denies Fever, Fatigue, Night Sweats or Chills
Respiratory: Reports Cough; Denies Trouble Breathing
Cardiac: Denies Chest Pain, Palpitations or Syncope
Abdomen/GI: Denies Abdominal Pain, Nausea or Vomiting
Musculoskeletal: Reports Joint Pain (Left shoulder pain)
Skin: Reports No Symptoms
Neuro: Reports Weakness (Weakness in left upper and lower extremities), Lightheadedness and Other (Difficulty with speech, finding words is much improved)
Allergy / Immunology: Reports No Symptoms
Physical Exam
-
General: Well Developed, Well Nourished, Conversant and Slurred Speech (Difficulty finding words)
HEENT: Normocephalic and Atraumatic
Respiratory: Clear to Auscultation and Non Labored Respirations
Cardiac: S1/S2 and Irregular Rhythm (A-fib)
GI: Soft, Nontender and Nondistended
Musculoskeletal: No Clubbing, No Cyanosis and No Edema
Neuro: Awake, Alert, Oriented, Slurred Speech (Having difficulty finding words) and Other (Continued pain in the left shoulder, improvement in muscle strength in both left upper and lower extremities (3/5 strength LUE, 4/5 strength LLE))
Psych: Calm
Data Reviewed
-
Labs: Labs Reviewed by me, Discussed with Physician, Discussed with Nurse and Discussed with Patient
[2025-02-26] MEDS: STERILE WATER FOR INJECTION 10 ML IV (16:12)
[2025-02-26] MEDS: ROCEPHIN 1000 MG IV (16:13)
[2025-02-26] MEDS: LIPITOR 40 MG PO (21:39)
[2025-02-26] MEDS: LEXAPRO 20 MG PO (21:39)
[2025-02-26] MEDS: ARICEPT 10 MG PO (21:39)
[2025-02-27 00:15] LABS: Albumin 3.25 g/dL (3.75-5.01); Alpha 2 Globulin 0.87 g/dL (0.48-1.05); SPEP IFE Reflex Not Done; Total Protein-Electrophoresis 5.9 g/dL (6.3-8.2)
[2025-02-27] MEDS: VIBRAMYCIN 260 MG IV ×2 (03:10→15:44)
[2025-02-27 04:47] VITALS: BMI 24.1
[2025-02-27 07:03] VITALS: BP 124/74
[2025-02-27 07:43] LABS: Hematocrit 30.8 % (39.0-52.0); Hemoglobin 9.6 g/dL (13.0-18.0); Mean Corp Hgb Conc. 31.2 g/dL (33.0-37.0); Mean Corpuscular Hgb 25.7 pg (27.0-31.0); Mean Corpuscular Volume 82.6 fL (80.0-94.0); Platelet Count 242 10^3/uL (130-400); Red Blood Cell Count 3.73 10^6/uL (4.70-6.10); Red Cell Dist. Width 16.6 % (11.5-14.5)
[2025-02-27 07:58] LABS: Blood Urea Nitrogen 23 mg/dl (9-20); Calcium 9.1 mg/dl (8.4-10.2); Carbon Dioxide 27 mmol/L (22-30); Chloride 106 mmol/L (98-107); Estimated Creatinine Clearance 61 ml/min; Glucose 110 mg/dl (70-99); Potassium 3.5 mmol/L (3.5-5.1); Sodium 143 mmol/L (135-145); eGFR > 60.00
[2025-02-27] MEDS: LASIX 20 MG PO (09:01)
[2025-02-27] MEDS: PROTONIX 40 MG PO (09:01)
[2025-02-27] MEDS: FOLTX 1 TABLET PO (09:01)
[2025-02-27] MEDS: NAMENDA 10 MG PO ×2 (09:01→20:31)
[2025-02-27] MEDS: ProAmatine 10 MG PO ×3 (09:01→17:07)
[2025-02-27] MEDS: PACERONE 100 MG PO (09:02)
[2025-02-27] MEDS: FLORINEF 0.1 MG PO (09:02)
[2025-02-27] MEDS: TYLENOL 650 MG PO (09:03)
[2025-02-27] MEDS: LOW STRENGTH ASPIRIN 81 MG PO (09:03)
[2025-02-27] MEDS: CYANOCOBALAMIN 1000 MCG IM (09:04)
--- NOTE | 2025-02-27 11:21 | W.PN.HOSP.TC ---
Today's Communication/Plan
-
DC planning
Assessment / Plan
Assessment / Plan
Assessment:
79-year-old male with a past medical history of paroxysmal A-fib, CAD, CHFrEF, dementia, hypertension, hypercholesterolemia came to the [facility] ED on 02/23/2025 from his independent home due to having recent difficulty finding words. He
was having trouble speaking as he went to breakfast to try to talk to people. He also had recent pain shooting down his left arm. In the ED patient went underwent stroke protocol and underwent CT head and neck angiogram with IV contrast. Did not
show any acute intracranial abnormalities. Neurology was consulted, patient was admitted to the hospital for further evaluation. Patient underwent MRI which showed subacute infarction involving the white matter of the posterior right frontal lobe.
Patient also underwent CT scan of the chest which showed probable pneumonia. Patient continued to be on aspirin as per neurology and will start Xarelto in 7 days. Patient was started on antibiotic therapy for supposed pneumonia. Will have to
follow up in the outpatient setting for follow up CT Scan of chest to see resolution of findings seen.
EKG (02/23/2025):
ATRIAL FIBRILLATION
NONSPECIFIC T WAVE ABNORMALITY
PROLONGED QT
ABNORMAL ECG
WHEN COMPARED WITH ECG OF 05-SEP-2023 13:24,
ATRIAL FIBRILLATION HAS REPLACED SINUS RHYTHM
CRITERIA FOR SEPTAL INFARCT ARE NO LONGER PRESENT
NON-SPECIFIC CHANGE IN ST SEGMENT IN ANTERIOR LEADS
NONSPECIFIC T WAVE ABNORMALITY, IMPROVED IN LATERAL LEADS
CT Head & Neck Angio W/wo IV (02/23/2025):
CT of the Head without acute intracranial abnormality.
Calcific atherosclerotic changes at the carotid bifurcations and proximal internal carotid arteries bilaterally with tortuosity without gross findings to suggest hemodynamically significant stenosis, evaluation somewhat limited by motion artifact.
Consider Carotid ultrasound for more complete evaluation.
No findings to suggest internal carotid artery or vertebral artery dissection bilaterally.
Dominant left vertebral artery.
No findings to suggest proximal intracranial arterial stenosis bilaterally.
Patchy opacity in the upper lobe of the right lung which could represent RIGHT UPPER LOBE PNEUMONIA.
Cannot exclude small low-attenuation left lobe thyroid nodule.
CR Chest - 2 Views (02/23/2025):
Patchy airspace opacities within the bilateral lobes and right upper lobe suspicious for multifocal pneumonia.
MR Brain Without Contrast (02/24/2025):
Small focus of acute to subacute infarction involving the white matter of the posterior right frontal lobe.
Small foci of CSF signal intensity within the lentiform nuclei bilaterally, most likely small old lacunar infarcts given the morphologic appearance.
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
Mild to moderate diffuse atrophy. Mild to moderate T2 and FLAIR white matter hyperintensities, commonly seen with aging and usually attributed to small vessel ischemic disease. These hyperintensities have not been shown to correlate with a focal
neurologic deficit.
CT Chest With Iv Contrast (02/24/2025):
Findings suggesting mild right lower lobe and minimal left lower lobe pneumonia. New
Mild right hilar lymphadenopathy likely reactive. New
CR Shoulder - Left Min 2 View (02/24/2025):
Moderate AC joint osteoarthritis.
Moderate glenohumeral joint osteoarthritis.
Severe humeral subluxation suggesting chronic rotator cuff injury.
Echocardiogram (02/24/2025):
Normal left ventricular chamber size.
Mild concentric left ventricular hypertrophy.
Overall, preserved left ventricular systolic function.
Mid to distal anteroseptal and inferoseptal hypokinesis.
Left ventricular ejection fraction is 50-55% by volumetric assessment.
Mild mitral regurgitation.
Bioprosthetic aortic valve replacement.
Peak/mean gradients across the aortic valve are 24/12 mmHg respectively.
No aortic regurgitation is seen.
Mild tricuspid regurgitation.
No pericardial effusion.
The IVC is of normal size and demonstrates normal respiratory variation.
Plan:
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
-No major vascular occlusion/stenosis
-Evident on MRI as above
-Neurology following, input appreciated
-Will continue aspirin 81 mg once a day
-Continue telemetry monitoring
-As per neuro will restart Xarelto in 7 days. Start tomorrow.
-Echocardiogram as above, showed mid to distal anteroseptal and inferoseptal hypokinesis
-Will require further workup in outpatient setting with cardiology
-Lipid panel was normal with normal TSH, low vitamin B12 -will replenish
-Speech seems to be improving, muscle strength seems to be improving
-Video swallow study showed some mild aspiration with thin liquids, will switch to check liquids
-Evaluation by PT/OT recommended skilled rehab
# Community-acquired pneumonia
-CT chest also shows right hilar lymphadenopathy which could be reactive but needs to follow-up
-Seen first on chest x-ray, confirmed with CT chest as above
-Started on doxycycline and ceftriaxone
-Monitor for any fevers or any worsening symptoms
-Continue monitoring oxygen, symptomatic relief
-Had cough for weeks before coming to the hospital as per patient and sister
# Paroxysmal A-fib
-Continue with amiodarone
-Continue telemetry
-Was on Xarelto, on hold till next week. Resume tomorrow
# Orthostatic hypotension, midodrine dependent
# Essential hypertension
-Fall precautions
-Patient had some hypotension earlier this morning
-Continue midodrine 10 mg as per before admission
-Continue fludrocortisone
# History of chronic HFrEF
-Continue Lasix
- Echocardiogram findings as above, mid to distal anteroseptal and inferoseptal hypokinesis
#History of CAD
# Hyperlipidemia
-Continue aspirin and atorvastatin
# Left shoulder osteoarthritis/chronic rotator cuff injury
-As seen on left shoulder x-ray
-Continue management with pain medication and supportive therapy
-Will require outpatient orthopedic follow-up
# Type 2 diabetes
-Holding metformin
-Insulin sliding scale, Accu-Cheks
-A1c 5.8 in 2021
# Dementia
-Continue memantine
# History of noncompliance with medication
-Counseled patient about taking medications
-Confirmed that he wants to continue taking medication
Full Code
DVT prophylaxis: SCDs
Anticipated Discharge: Within 24 hours
Subjective/Interval History
-
Date of Service: February 27, 2025
Improved speech . Slight weakness of left angle of mouth.
Improved left sided /leg strength.
No new symptoms.
Objective Data
-
Labs:
Laboratory Results
02/27/25
05:50
WBC 8.0
Hgb 9.6 L
Hct 30.8 L
Plt Count 242
Sodium 143
Potassium 3.5
Chloride 106
Carbon Dioxide 27
BUN 23 H
Creatinine 1.1
Glucose 110 H
Calcium 9.1
Vital Signs:
Vital Signs
Temp Pulse Resp BP Pulse Ox
97.5 F 77 18 124/74 94
02/27/25 07:03 02/27/25 07:03 02/27/25 07:03 02/27/25 07:03 02/27/25 07:03
I&O
02/26/25 02/27/25 02/28/25
06:59 06:59 06:59
Intake Total 840 / 840 607 / 607
Output Total 450 / 450
Balance 390 / 390 607 / 607
Physical Exam
-
General: Comfortable
Respiratory: Clear to Auscultation and Non Labored Respirations; Negative Accessory Resp Muscle Use
Cardiac: S1/S2 and Irregular Rhythm; Negative Tachycardic
GI: Soft
Neuro: AO x 3; Negative No Motor Deficits (Left upper extremity proximal decreased motion of the shoulder due to rotator cuff injury. Distally left hand strength 5 x 5. Left lower extremity 5 x 5. Subtle facial asymmetry on the left side noted)
Psych: Calm
Data Reviewed
-
Labs: Labs Reviewed by me
--- NOTE | 2025-02-27 11:47 | CM ---
CM reviewed chart, patient seen bedside, discussed PT recommendations of acute rehab, patient agreeable and requesting call to his sister, Eve. Phone call to sister, left voicemail. TT to Physician with request for PMR. CM will continue to follow
for all discharge planning needs.
Plan; PT recommending acute rehab, TT to with consult for PMR
[2025-02-27 14:46] VITALS: BP 136/75; PULSE 75; O2SAT 97
[2025-02-27 15:39] VITALS: BP 147/93
[2025-02-27] MEDS: STERILE WATER FOR INJECTION 10 ML IV (15:45)
[2025-02-27] MEDS: ROCEPHIN 1000 MG IV (15:45)
[2025-02-27] MEDS: ARICEPT 10 MG PO (20:32)
[2025-02-27] MEDS: LIPITOR 40 MG PO (20:32)
[2025-02-27] MEDS: LEXAPRO 20 MG PO (20:32)
[2025-02-27 23:00] VITALS: BP 144/96
[2025-02-28] MEDS: VIBRAMYCIN 260 MG IV ×2 (04:24→15:24)
[2025-02-28] MEDS: TYLENOL 650 MG PO (04:41)
[2025-02-28 06:00] VITALS: BMI 23.6
[2025-02-28 07:00] VITALS: BP 121/66
[2025-02-28] MEDS: ProAmatine 10 MG PO ×3 (07:29→17:13)
[2025-02-28] MEDS: LASIX 20 MG PO (07:29)
[2025-02-28] MEDS: LOW STRENGTH ASPIRIN 81 MG PO (07:30)
[2025-02-28] MEDS: PROTONIX 40 MG PO (07:30)
[2025-02-28] MEDS: FOLTX 1 TABLET PO (07:30)
[2025-02-28] MEDS: PACERONE 100 MG PO (07:30)
[2025-02-28] MEDS: FLORINEF 0.1 MG PO (07:30)
[2025-02-28] MEDS: XARELTO 15 MG PO (07:30)
[2025-02-28] MEDS: NAMENDA 10 MG PO ×2 (07:30→19:59)
[2025-02-28] MEDS: CYANOCOBALAMIN 1000 MCG IM (07:32)
--- NOTE | 2025-02-28 10:13 | CM ---
CM reviewed chart, spoke with patients sisterEve, to discuss PT recommendation of acute rehab. Sister agreeable, referral placed to [facility], update to Hospitalist with request for PMR. CM will continue to follow for all discharge planning needs.
Plan; referral to [facility], back up [facility]
[2025-02-28 12:43] LABS: Vitamin B1, Whole Blood 130 nmol/L (70-180)
[2025-02-28 13:57] VITALS: BP 122/73
--- NOTE | 2025-02-28 14:48 | W.PN.HOSP.TC ---
Today's Communication/Plan
-
PMR consult
DC planning
Assessment / Plan
Assessment / Plan
Assessment:
79-year-old male with a past medical history of paroxysmal A-fib, CAD, CHFrEF, dementia, hypertension, hypercholesterolemia came to the [facility] ED on 02/23/2025 from his independent home due to having recent difficulty finding words. He
was having trouble speaking as he went to breakfast to try to talk to people. He also had recent pain shooting down his left arm. In the ED patient went underwent stroke protocol and underwent CT head and neck angiogram with IV contrast. Did not
show any acute intracranial abnormalities. Neurology was consulted, patient was admitted to the hospital for further evaluation. Patient underwent MRI which showed subacute infarction involving the white matter of the posterior right frontal lobe.
Patient also underwent CT scan of the chest which showed probable pneumonia. Patient continued to be on aspirin as per neurology and will start Xarelto in 7 days. Patient was started on antibiotic therapy for supposed pneumonia. Will have to
follow up in the outpatient setting for follow up CT Scan of chest to see resolution of findings seen.
EKG (02/23/2025):
ATRIAL FIBRILLATION
NONSPECIFIC T WAVE ABNORMALITY
PROLONGED QT
ABNORMAL ECG
WHEN COMPARED WITH ECG OF 05-SEP-2023 13:24,
ATRIAL FIBRILLATION HAS REPLACED SINUS RHYTHM
CRITERIA FOR SEPTAL INFARCT ARE NO LONGER PRESENT
NON-SPECIFIC CHANGE IN ST SEGMENT IN ANTERIOR LEADS
NONSPECIFIC T WAVE ABNORMALITY, IMPROVED IN LATERAL LEADS
CT Head & Neck Angio W/wo IV (02/23/2025):
CT of the Head without acute intracranial abnormality.
Calcific atherosclerotic changes at the carotid bifurcations and proximal internal carotid arteries bilaterally with tortuosity without gross findings to suggest hemodynamically significant stenosis, evaluation somewhat limited by motion artifact.
Consider Carotid ultrasound for more complete evaluation.
No findings to suggest internal carotid artery or vertebral artery dissection bilaterally.
Dominant left vertebral artery.
No findings to suggest proximal intracranial arterial stenosis bilaterally.
Patchy opacity in the upper lobe of the right lung which could represent RIGHT UPPER LOBE PNEUMONIA.
Cannot exclude small low-attenuation left lobe thyroid nodule.
CR Chest - 2 Views (02/23/2025):
Patchy airspace opacities within the bilateral lobes and right upper lobe suspicious for multifocal pneumonia.
MR Brain Without Contrast (02/24/2025):
Small focus of acute to subacute infarction involving the white matter of the posterior right frontal lobe.
Small foci of CSF signal intensity within the lentiform nuclei bilaterally, most likely small old lacunar infarcts given the morphologic appearance.
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
Mild to moderate diffuse atrophy. Mild to moderate T2 and FLAIR white matter hyperintensities, commonly seen with aging and usually attributed to small vessel ischemic disease. These hyperintensities have not been shown to correlate with a focal
neurologic deficit.
CT Chest With Iv Contrast (02/24/2025):
Findings suggesting mild right lower lobe and minimal left lower lobe pneumonia. New
Mild right hilar lymphadenopathy likely reactive. New
CR Shoulder - Left Min 2 View (02/24/2025):
Moderate AC joint osteoarthritis.
Moderate glenohumeral joint osteoarthritis.
Severe humeral subluxation suggesting chronic rotator cuff injury.
Echocardiogram (02/24/2025):
Normal left ventricular chamber size.
Mild concentric left ventricular hypertrophy.
Overall, preserved left ventricular systolic function.
Mid to distal anteroseptal and inferoseptal hypokinesis.
Left ventricular ejection fraction is 50-55% by volumetric assessment.
Mild mitral regurgitation.
Bioprosthetic aortic valve replacement.
Peak/mean gradients across the aortic valve are 24/12 mmHg respectively.
No aortic regurgitation is seen.
Mild tricuspid regurgitation.
No pericardial effusion.
The IVC is of normal size and demonstrates normal respiratory variation.
Plan:
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
-No major vascular occlusion/stenosis
-Evident on MRI as above
-Neurology following, input appreciated
-Will continue aspirin 81 mg once a day
-Continue telemetry monitoring
-As per neuro will restart Xarelto in 7 days. Start today
-Echocardiogram as above, showed mid to distal anteroseptal and inferoseptal hypokinesis
-Will require further workup in outpatient setting with cardiology
-Lipid panel was normal with normal TSH, low vitamin B12 -will replenish
-Speech seems to be improving, muscle strength seems to be improving
-Video swallow study showed some mild aspiration with thin liquids, will switch to check liquids
-Evaluation by PT/OT recommended skilled rehab
# Community-acquired pneumonia
-CT chest also shows right hilar lymphadenopathy which could be reactive but needs to follow-up
-Seen first on chest x-ray, confirmed with CT chest as above
-Started on doxycycline and ceftriaxone
-Monitor for any fevers or any worsening symptoms
-Continue monitoring oxygen, symptomatic relief
-Had cough for weeks before coming to the hospital as per patient and sister
# Paroxysmal A-fib
-Continue with amiodarone
-Continue telemetry
-Was on Xarelto, on hold till next week. Resume today
# Orthostatic hypotension, midodrine dependent
# Essential hypertension
-Fall precautions
-Patient had some hypotension earlier this morning
-Continue midodrine 10 mg as per before admission
-Continue fludrocortisone
# History of chronic HFrEF
-Continue Lasix
- Echocardiogram findings as above, mid to distal anteroseptal and inferoseptal hypokinesis
#History of CAD
# Hyperlipidemia
-Continue aspirin and atorvastatin
# Left shoulder osteoarthritis/chronic rotator cuff injury
-As seen on left shoulder x-ray
-Continue management with pain medication and supportive therapy
-Will require outpatient orthopedic follow-up
# Type 2 diabetes
-Holding metformin
-Insulin sliding scale, Accu-Cheks
-A1c 5.8 in 2021
# Dementia
-Continue memantine
# History of noncompliance with medication
-Counseled patient about taking medications
-Confirmed that he wants to continue taking medication
Full Code
DVT prophylaxis: SCDs
PT recommends acute rehab
PM&R consult
Anticipated Discharge: Within 24 hours
Subjective/Interval History
-
Date of Service: February 28, 2025
No new issues or neuro symptoms
Doing better with PT
Improved speech
Objective Data
-
Vital Signs:
Vital Signs
Temp Pulse Resp BP Pulse Ox
97.5 F 71 16 139/80 94
02/28/25 07:00 02/28/25 07:00 02/28/25 07:00 02/28/25 12:03 02/28/25 07:00
I&O
02/27/25 02/28/25 03/01/25
06:59 06:59 06:59
Intake Total 607 / 607 370 / 370
Output Total 875 / 875
Balance 607 / 607 -505 / -505
Review of Systems
-
Respiratory: Denies Trouble Breathing
Cardiac: Denies Chest Pain
Abdomen/GI: Denies Abdominal Pain, Nausea or Vomiting
Neuro: Denies Dizzy
Physical Exam
-
General: Comfortable
Respiratory: Non Labored Respirations; Negative Accessory Resp Muscle Use
Cardiac: S1/S2 and Irregular Rhythm; Negative Tachycardic
GI: Soft
Neuro: AO x 3
Psych: Calm; Negative Confused
[2025-02-28] MEDS: ROCEPHIN 1000 MG IV (15:23)
[2025-02-28] MEDS: STERILE WATER FOR INJECTION 10 ML IV (15:24)
[2025-02-28 15:28] VITALS: BP 130/88
[2025-02-28 19:25] VITALS: BP 136/95
[2025-02-28] MEDS: LIPITOR 40 MG PO (21:31)
[2025-02-28] MEDS: ARICEPT 10 MG PO (21:31)
[2025-02-28] MEDS: LEXAPRO 20 MG PO (21:31)
[2025-02-28 23:10] VITALS: BP 129/83
[2025-03-01] MEDS: VIBRAMYCIN 260 MG IV (03:05)
[2025-03-01 06:00] VITALS: BMI 23.6
[2025-03-01 07:51] VITALS: BP 127/82
[2025-03-01] MEDS: LOW STRENGTH ASPIRIN 81 MG PO (08:07)
[2025-03-01] MEDS: FLORINEF 0.1 MG PO (08:07)
[2025-03-01] MEDS: PROTONIX 40 MG PO (08:08)
[2025-03-01] MEDS: PACERONE 100 MG PO (08:08)
[2025-03-01] MEDS: LASIX 20 MG PO (08:08)
[2025-03-01] MEDS: NAMENDA 10 MG PO ×2 (08:09→20:25)
[2025-03-01] MEDS: XARELTO 15 MG PO (08:09)
[2025-03-01] MEDS: ProAmatine 10 MG PO ×3 (08:09→18:40)
[2025-03-01] MEDS: CYANOCOBALAMIN 1000 MCG IM (08:10)
[2025-03-01] MEDS: FOLTX 1 TABLET PO (08:14)
[2025-03-01] MEDS: TYLENOL 650 MG PO (10:49)
--- NOTE | 2025-03-01 11:10 | CM ---
CM following re: discharge planning.
Reviewed pt's chart, met with pt.
Per CM note a plan is [facility] vs SNF: [facility] or [facility].
CM discussed it with the pt. Pt expressed his strong desire to go to [facility]. CM explained admitting criteria for an acute level of rehab, pt expressed his understanding and expressed his agreement to go to [facility] or [facility] as an alternatives.
A referral to [facility], [facility] and [facility] noted.
CM spoke to [facility] supervisor and she is reviewing a referral.
Both [facility] and [facility] reviewing a referral.
IMM reviewed, placed on chart, pt has a copy.
D/C plan: Plan A: [facility]. Plan B: preferred SNF: [facility] or [facility].
CM will follow with discharge plan updates as hospitalization progresses
[2025-03-01 14:39] VITALS: BP 135/81; PULSE 79
[2025-03-01 14:45] VITALS: BMI 23.6
[2025-03-01 15:22] VITALS: BP 108/70
[2025-03-01 15:34] VITALS: BP 135/81; PULSE 79
--- NOTE | 2025-03-01 16:01 | CON.MD ---
Consultation - Medical
-
Referring Provider:�Dr. Nick Sanchez
Chief Complaint:�Stroke
�
History of Present Illness:�79-year-old male with PMH (as below) presented to [facility] on [facility]/24/52 with difficulty speaking at 4 AM. He went to breakfast and tried to talk to people but had difficulty finding words and sounding slurred.
Ambulance was called and during his time in the ambulance he developed a headache in the back of the head with some pain shooting down the left arm. Initial CT of the head and CT head and neck angiogram�negative. MRI of the brain noting a subacute
infarction involving the white matter of the posterior right frontal lobe. CT of the chest with probable pneumonia and started on antibiotics. Neurology noting aspirin for 7 days and then Xarelto to start.
�
Past Medical History:�Aortic stenosis, paroxysmal A-fib, CAD, CHF�HFrEF, dementia, HTN, hypercholesterolemia, NIDDM, valvular disease, midodrine/Florinef dependent orthostatic hypotension
Procedure History:�TAVR
Family History:�None pertinent
�
Social History:�
Functional Level Premorbidly:�Modified independent with all activities�
Functional Level Currently:�Min assist transfers, min assist ambulating 50 feet x 2 with rolling walker. Min assist grooming, mod assist upper extremity self-care.
�
Tobacco:�Denies�
Alcohol:�Denies�
Drug use:�Denies�
�
Lives with:�Alone in an apartment
24-hour assistance available:�No
Number of floors:�1
# steps to enter:�0
Driving:�No
Occupation:�Retired
�
�
Allergies:�
Allergy/AdvReac Type Severity Reaction Status Date / Time
digoxin Allergy Unknown Verified 12/28/23 10:37
�
Review of Systems:�
Constitutional: (x) abNormal _fatigue
Eye: (x) Normal _
Ear/Nose/Throat: (x) Normal _
Respiratory: (x) Normal _
Cardiovascular: (x) abNormal _chronic orthostasis
Gastrointestinal: (x) Normal _
Genitourinary: (x) Normal _
Musculoskeletal: (x) abNormal _arthritis all over especially left shoulder and both knees evaluated for replacement.
Integumentary: (x) Normal _
Neurologic: (x) abNormal _stroke, trouble with speech and walking/dressing. On thick liquid
Psychiatric: (x) Normal _
Endocrine: (x) Normal _
Hematologic/Lymphatic: (x) Normal _
Allergic/Immunologic: (x) Normal _
�
Medications:�
Active Current Visit Medication List
Category Date Time Status
Acetaminophen [Tylenol/Feverall] Med 02/23/25 17:06 Active
650 mg RECTAL Q4HPRN PRN
Acetaminophen [Tylenol] Med 02/23/25 17:06 Active
650 mg PO Q4HPRN PRN
Amiodarone [Pacerone] Med 02/24/25 08:00 Active
100 mg PO DAILY
Aspirin Chewable [Low Strength Aspirin] Med 02/24/25 08:00 Active
81 mg PO DAILY
Atorvastatin [Lipitor] Med 02/25/25 22:00 Active
40 mg PO HS
CefTRIAXone [Rocephin] Med 02/24/25 16:00 Active
1,000 mg IV Q24H
Cyanocobalamin Med 02/24/25 12:00 Active
1,000 mcg IM DAILY
Donepezil HCl [Aricept] Med 02/23/25 22:00 Active
10 mg PO HS
Doxycycline Hyclate [Vibramycin] 100 mg Med 02/24/25 16:00 Active
0.9% Sodium Chloride 250 ml [Nss] 250 ml
IV Q12H
Escitalopram Oxalate [Lexapro] Med 02/23/25 22:00 Active
20 mg PO HS
FA/Cyanocobalamin/Pyridoxine [Foltx] Med 02/24/25 08:00 Active
1 tablet PO DAILY
Fludrocortisone Acetate [Florinef] Med 02/24/25 08:00 Active
0.1 mg PO DAILY
Flush (0.9% Sodium Chloride) [Flush (Nss)] Med 02/23/25 18:00 Active
See Dose Instructions IV PER PROTOCOL
Furosemide [Lasix] Med 02/24/25 08:00 Active
20 mg PO DAILY
Memantine HCl [Namenda] Med 02/23/25 20:00 Active
10 mg PO BID
Midodrine [ProAmatine] Med 02/26/25 13:00 Active
10 mg PO TID@0800,1300,1800
Pantoprazole [Protonix] Med 02/24/25 08:00 Active
40 mg PO DAILY
Rivaroxaban [Xarelto] Med 02/28/25 08:00 Active
15 mg PO DAILY
Sterile Water [Sterile Water For Injection] Med 02/24/25 16:00 Active
10 ml IV Q24H
�
Vitals:�
Temp Pulse Resp BP Pulse Ox
98.0 F 89 18 108/70 95
03/01/25 15:22 03/01/25 15:22 03/01/25 15:22 03/01/25 15:22 03/01/25 15:22
Height 6 ft 2 in
Actual Weight 83.149 kg
Body Mass Index (BMI) 23.6
Physical Exam:�
General Appearance/Observation: Well-developed, well-nourished male in no apparent distress.�
Pain/Comfort Assessment: Denies�
Mood/Affect: Appropriate�
�
Integumentary/Operative Site:�
�� Pressure Ulcer Evaluation: absent over heels.�
�
Eyes: Conjunctiva/Lids: normal���� Pupils: pupils equal round and reactive to light and Accommodation�
Ears/Nose/Throat: oral mucosa moist,� throat clear.������������ Lips/Teeth/Gums: normal�
Neck: No muscle spasm or tenderness�
Cardiovascular: Heart: regular, no murmur�
Pulses: dorsalis pedis 2+ bilaterally�
Respiratory: Respiratory Effort/Chest Expansion: normal������� Auscultation: Clear to auscultation bilaterally�
Gastrointestinal: abdomen not tender, no distension, normal abdominal bowel sounds
Genitourinary: No [place]�
Rectal Exam: Deferred�
Extremities:�Edema: None�Cyanosis: None�Trophic�changes: None
�
Neurology Exam:
Orientation: Alert, Oriented to self, Time, Place�
Memory: Intact for recent medical concerns
Repetition: Intact
Comprehension: Intact
Two step command: Intact
Naming: Intact
able to read clock on the wall correctly
Cranial Nerves:
�� CNII:�Pupillary light reflex: Intact����Visual Field: Intact
�� CN III, IV, : Extraocular muscles: Intact�
�� CN V:�Facial Sensation�at�Forehead: Intact,�Maxilla: Intact,�Mandible: Intact
�� CN VII:�Facial movement: Left facial weakness
�� CN VIII:�Hearing: Normal
�� CN IX/X:�Speech & swallow: Dysarthria, dysphagia, aphasia,�Position of Uvula: Midline
�� CN XI:�Shoulder shrug: Symmetric
�� CN XII:�Tongue protrusion: Midline
Sensory:
�� Light touch: Intact in bilateral upper and lower extremities
Reflexes:
�� Biceps: 2+ bilaterally
�� Brachioradialis: 2+ bilaterally
�� Triceps: 2+ bilaterally
�� Patellar: 2+ bilaterally
�� Achilles: 2+ bilaterally
�� Babinski: Down going bilaterally
�� Clonus: None
�� Donte: Negative bilaterally�
Cerebellar: Dysmetria/Ataxia: None�
Musculoskeletal: Motor: (Manual muscle scale 0-5)�
Muscle SA EF WE EE FF FA HF KE DF EHL PF
Right� 4 5 5 4 4+ 4 4 5 5 5
Left 2 4 4 4 4 4 3+ 5 5 5
�
Tone: Normal in all extremities�
Range of Motion: general arthritis, unable to get past about 60 degrees actively
�
Lab Results
Laboratory Data
02/27/25 05:50
02/27/25 05:50
PT 22.6 Sec (11.4-14.6) H 02/23/25 13:34
INR 1.98 02/23/25 13:34
APTT 45.0 Sec (23.4-35.0) H 02/23/25 13:34
Total Bilirubin 0.4 mg/dl (0.2-1.3) 02/23/25 13:34
AST 17 U/L (17-59) 02/23/25 13:34
ALT 12 U/L (0-50) 02/23/25 13:34
Alkaline Phosphatase 113 U/L (38-126) 02/23/25 13:34
Total Protein 6.4 g/dl (6.3-8.2) 02/23/25 13:34
Albumin 3.8 g/dl (3.5-5.0) 02/23/25 13:34
�
Diagnostic Results:�as per HPI�
CT Head & Neck Angio W/wo IV (02/23/2025):
CT of the Head without acute intracranial abnormality.
Calcific atherosclerotic changes at the carotid bifurcations and proximal internal carotid arteries bilaterally with tortuosity without gross findings to suggest hemodynamically significant stenosis, evaluation somewhat limited by motion artifact.
Consider Carotid ultrasound for more complete evaluation.
No findings to suggest internal carotid artery or vertebral artery dissection bilaterally.
Dominant left vertebral artery.
No findings to suggest proximal intracranial arterial stenosis bilaterally.
Patchy opacity in the upper lobe of the right lung which could represent RIGHT UPPER LOBE PNEUMONIA.
Cannot exclude small low-attenuation left lobe thyroid nodule.
CR Chest - 2 Views (02/23/2025):
Patchy airspace opacities within the bilateral lobes and right upper lobe suspicious for multifocal pneumonia.
MR Brain Without Contrast (02/24/2025):
Small focus of acute to subacute infarction involving the white matter of the posterior right frontal lobe.
Small foci of CSF signal intensity within the lentiform nuclei bilaterally, most likely small old lacunar infarcts given the morphologic appearance.
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
Mild to moderate diffuse atrophy. Mild to moderate T2 and FLAIR white matter hyperintensities, commonly seen with aging and usually attributed to small vessel ischemic disease. These hyperintensities have not been shown to correlate with a focal
neurologic deficit.
CT Chest With Iv Contrast (02/24/2025):
Findings suggesting mild right lower lobe and minimal left lower lobe pneumonia. New
Mild right hilar lymphadenopathy likely reactive. New
CR Shoulder - Left Min 2 View (02/24/2025):
Moderate AC joint osteoarthritis.
Moderate glenohumeral joint osteoarthritis.
Severe humeral subluxation suggesting chronic rotator cuff injury.
Echocardiogram (02/24/2025):
Normal left ventricular chamber size.
Mild concentric left ventricular hypertrophy.
Overall, preserved left ventricular systolic function.
Mid to distal anteroseptal and inferoseptal hypokinesis.
Left ventricular ejection fraction is 50-55% by volumetric assessment.
Mild mitral regurgitation.
Bioprosthetic aortic valve replacement.
Peak/mean gradients across the aortic valve are 24/12 mmHg respectively.
No aortic regurgitation is seen.
Mild tricuspid regurgitation.
No pericardial effusion.
The IVC is of normal size and demonstrates normal respiratory variation.�
Assessment
79 y/o M PMH (Aortic stenosis, paroxysmal A-fib, CAD, CHF�HFrEF, dementia, HTN, hypercholesterolemia, NIDDM, valvular disease, midodrine/Florinef dependent orthostatic hypotension) with 02/24/52 subacute posterior right frontal lobe infarction and
community-acquired pneumonia resulting in ADL, ambulatory, speech, and swallow dysfunction.
�
Plan�
PM&R�PT/OT to increase independence with ADLs, improve balance, coordination, endurance, strength, mobility, community reintegration, decreased burden of care on others and family education.�
�
CVA: Secondary prophylaxis with aspirin and Xarelto, statin, and blood pressure control (SBP less than 180 and diastolic less than 100 to participate with therapy for ischemic stroke). Continue to monitor neurologic status.�
Left nondominant hemiparesis: High risk for falls and sliding out of chair/bed. Safety reinforced.�
- Avoid using affected arm to help lift or pull patient as this will cause trauma to the shoulder.
Dysphagia: speech, oral care protocol, aspiration precautions.� Advance diet soft and bite sized with mildly thick liquid diet as tolerated.�
Dysarthria: speech �
Aphasia: speech �
Community-acquired pneumonia: Completed course of doxycycline and ceftriaxone.��
HTN: Lasix 20 mg daily
Orthostatic hypotension: Midodrine 10 mg 3 times daily and Florinef 0.1 mg daily
HLD: Statin�
Coronary artery disease: Aspirin, statin, not on beta-amrita�
Atrial fibrillation:�Eliquis anticoagulation and rate control with amiodarone.�������������������������������������������
CHF: EF preserved, not on beta amrita, Lasix 20 mg daily monitor fluid status�
Dementia: Donepezil
DM II: Accu-Cheks, insulin sliding scale, metformin, aspart, lantus.�
Normocytic anemia: No active bleeding noted, monitor.�
�
Psych: Psychology consult.� Monitor mood, Lexapro 20 mg.�
Skin: monitor for pressure sores/rashes/lesions.�
Pain: acetaminophen as needed.�
Bowel: Colace and Senna, PRN bisacodyl.�
Bladder: Time void, PVRs, PRN straight cath.�
GI Prophylaxis: Pantoprazole�
DVT Prophylaxis: Rivaroxaban
Pulmonary: Incentive spirometry�
Safety: Continue to reinforce assistance with all transfers.�
Code Status:� Full code
Dispo�(date/plan/equipment needs): Home with family care.� Social history reviewed.��
Functional and Medical Goals:�Modified Independent with ADL�s, ambulation, transfers�
Discharge Destination:�Acute inpatient rehabilitation�
Summary of recommendations:
-�Discharge Destination:�Acute inpatient rehabilitation
CVA: Secondary prophylaxis with aspirin and Xarelto, statin, and blood pressure control (SBP less than 180 and diastolic less than 100 to participate with therapy for ischemic stroke). Continue to monitor neurologic status.�
Left nondominant hemiparesis: High risk for falls and sliding out of chair/bed. Safety reinforced.�
- Avoid using affected arm to help lift or pull patient as this will cause trauma to the shoulder.
Dysphagia: speech, oral care protocol, aspiration precautions.� Advance diet soft and bite sized with mildly thick liquid diet as tolerated.�
Dysarthria: speech �
Aphasia: speech �
Community-acquired pneumonia: Completed course of doxycycline and ceftriaxone.��
HTN: Lasix 20 mg daily
Orthostatic hypotension: Midodrine 10 mg 3 times daily and Florinef 0.1 mg daily
Thank you for allowing me to care for your patient. Please contact me with any questions or concerns.
--- NOTE | 2025-03-01 16:34 | W.PN.HOSP.TC ---
Addendum entered and electronically signed by Danette Mcghee MD 03/01/25 17:22:
I saw and evaluated the patient independently. I reviewed the resident�s note and agree with findings and plan as documented by Dr. Roy.
GENERAL: well developed, well nourished, male in no apparent distress
HEENT: NC/AT
HEART: irreg irreg
LUNGS : clear to auscultation bilaterally
ABDOM: soft, nontender, nondistended, + bowel sounds
EXT: no cyanosis, clubbing, or edema
NEUROLOGIC: slurred speech
Acute right subcortical posterior right frontal lobe stroke, most likely due to small vessel disease versus embolic---No major vascular occlusion/stenosis--apprec neuro--h/o of paroxysmal afib and xarelto restarted (held on admission)--cont
asa--await PM&R eval--Echocardiogram showed mid to distal anteroseptal and inferoseptal hypokinesis--outpt f/u with cards--PT/OT/speech--mild nectar thick liquids--Lipid panel was normal with normal TSH, low vitamin B12 -will replenish
Community-acquired pneumonia--CT chest also shows right hilar lymphadenopathy which could be reactive but needs to follow-up--Completed 5-day course of ceftriaxone/doxy--Had cough for weeks before coming to the hospital as per patient and sister--?
any contribution of aspiration
Paroxysmal A-fib--Continue with amiodarone--Xarelto was held with new dx of acute stroke on admission-- Xarelto restarted on 02/28
Orthostatic hypotension, midodrine dependent--cont fludricortisone
Essential hypertension--no meds
History of chronic HFrEF--Continue Lasix- Echocardiogram findings as above, mid to distal anteroseptal and inferoseptal hypokinesis
History of CAD/Hyperlipidemia--Continue aspirin and atorvastatin
Left shoulder osteoarthritis/chronic rotator cuff injury--chronic--Continue management with pain medication and supportive therapy--Will require outpatient orthopedic follow-up
Type 2 diabetes--Holding metformin--Insulin sliding scale, Accu-Cheks--A1c 5.8 in 2021
Dementia--Continue memantine
History of noncompliance with medication--Counseled patient about taking medications
code status--Full Code
DVT proph-- SCDs
Original Note:
Today's Communication/Plan
-
Possible discharge plan to acute rehab by tomorrow
Await physiatry assessment
Completed course of antibiotics for CAP
Discontinue Rocephin and Doxy
Assessment / Plan
Assessment / Plan
Assessment:
79-year-old male with a past medical history of paroxysmal A-fib, CAD, CHFrEF, dementia, hypertension, hypercholesterolemia came to the [facility] ED on 02/23/2025 from his independent home due to having recent difficulty finding words. He
was having trouble speaking as he went to breakfast to try to talk to people. He also had recent pain shooting down his left arm. In the ED patient went underwent stroke protocol and underwent CT head and neck angiogram with IV contrast. Did not
show any acute intracranial abnormalities. Neurology was consulted, patient was admitted to the hospital for further evaluation. Patient underwent MRI which showed subacute infarction involving the white matter of the posterior right frontal lobe.
Patient also underwent CT scan of the chest which showed probable pneumonia. Patient continued to be on aspirin as per neurology and will start Xarelto in 7 days. Patient was started on antibiotic therapy for supposed pneumonia. Will have to
follow up in the outpatient setting for follow up CT Scan of chest to see resolution of findings seen.
EKG (02/23/2025):
ATRIAL FIBRILLATION
NONSPECIFIC T WAVE ABNORMALITY
PROLONGED QT
ABNORMAL ECG
WHEN COMPARED WITH ECG OF 05-SEP-2023 13:24,
ATRIAL FIBRILLATION HAS REPLACED SINUS RHYTHM
CRITERIA FOR SEPTAL INFARCT ARE NO LONGER PRESENT
NON-SPECIFIC CHANGE IN ST SEGMENT IN ANTERIOR LEADS
NONSPECIFIC T WAVE ABNORMALITY, IMPROVED IN LATERAL LEADS
CT Head & Neck Angio W/wo IV (02/23/2025):
CT of the Head without acute intracranial abnormality.
Calcific atherosclerotic changes at the carotid bifurcations and proximal internal carotid arteries bilaterally with tortuosity without gross findings to suggest hemodynamically significant stenosis, evaluation somewhat limited by motion artifact.
Consider Carotid ultrasound for more complete evaluation.
No findings to suggest internal carotid artery or vertebral artery dissection bilaterally.
Dominant left vertebral artery.
No findings to suggest proximal intracranial arterial stenosis bilaterally.
Patchy opacity in the upper lobe of the right lung which could represent RIGHT UPPER LOBE PNEUMONIA.
Cannot exclude small low-attenuation left lobe thyroid nodule.
CR Chest - 2 Views (02/23/2025):
Patchy airspace opacities within the bilateral lobes and right upper lobe suspicious for multifocal pneumonia.
MR Brain Without Contrast (02/24/2025):
Small focus of acute to subacute infarction involving the white matter of the posterior right frontal lobe.
Small foci of CSF signal intensity within the lentiform nuclei bilaterally, most likely small old lacunar infarcts given the morphologic appearance.
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
Mild to moderate diffuse atrophy. Mild to moderate T2 and FLAIR white matter hyperintensities, commonly seen with aging and usually attributed to small vessel ischemic disease. These hyperintensities have not been shown to correlate with a focal
neurologic deficit.
CT Chest With Iv Contrast (02/24/2025):
Findings suggesting mild right lower lobe and minimal left lower lobe pneumonia. New
Mild right hilar lymphadenopathy likely reactive. New
CR Shoulder - Left Min 2 View (02/24/2025):
Moderate AC joint osteoarthritis.
Moderate glenohumeral joint osteoarthritis.
Severe humeral subluxation suggesting chronic rotator cuff injury.
Echocardiogram (02/24/2025):
Normal left ventricular chamber size.
Mild concentric left ventricular hypertrophy.
Overall, preserved left ventricular systolic function.
Mid to distal anteroseptal and inferoseptal hypokinesis.
Left ventricular ejection fraction is 50-55% by volumetric assessment.
Mild mitral regurgitation.
Bioprosthetic aortic valve replacement.
Peak/mean gradients across the aortic valve are 24/12 mmHg respectively.
No aortic regurgitation is seen.
Mild tricuspid regurgitation.
No pericardial effusion.
The IVC is of normal size and demonstrates normal respiratory variation.
Plan:
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
-No major vascular occlusion/stenosis
-Evident on MRI as above
-Neurology following, input appreciated
-Will continue aspirin 81 mg once a day
-Continue telemetry monitoring
-Xarelto restarted 02/28
-Echocardiogram as above, showed mid to distal anteroseptal and inferoseptal hypokinesis
-Will require further workup in outpatient setting with cardiology
-Lipid panel was normal with normal TSH, low vitamin B12 -will replenish
-Speech seems to be improving, muscle strength seems to be improving
-Video swallow study showed some mild aspiration with thin liquids, will switch to check liquids
-Evaluation by PT/OT recommended acute rehab
Await PMR assessment
# Community-acquired pneumonia
-CT chest also shows right hilar lymphadenopathy which could be reactive but needs to follow-up
-Seen first on chest x-ray, confirmed with CT chest as above
-Completed 5-day course of antibiotics.
- Discontinue ceftriaxone and Doxy
-Monitor for any fevers or any worsening symptoms
-Continue monitoring oxygen, symptomatic relief
-Had cough for weeks before coming to the hospital as per patient and sister
# Paroxysmal A-fib
-Continue with amiodarone
-Continue telemetry
-Xarelto was held with new dx of acute stroke on admission
- Xarelto restarted on 02/28
# Orthostatic hypotension, midodrine dependent
# Essential hypertension
-Fall precautions
-Patient had some hypotension earlier this morning
-Continue midodrine 10 mg as per before admission
-Continue fludrocortisone
# History of chronic HFrEF
-Continue Lasix
- Echocardiogram findings as above, mid to distal anteroseptal and inferoseptal hypokinesis
#History of CAD
# Hyperlipidemia
-Continue aspirin and atorvastatin
# Left shoulder osteoarthritis/chronic rotator cuff injury
-As seen on left shoulder x-ray
-Continue management with pain medication and supportive therapy
-Will require outpatient orthopedic follow-up
# Type 2 diabetes
-Holding metformin
-Insulin sliding scale, Accu-Cheks
-A1c 5.8 in 2021
# Dementia
-Continue memantine
# History of noncompliance with medication
-Counseled patient about taking medications
-Confirmed that he wants to continue taking medication
Full Code
DVT prophylaxis: SCDs
PT recommends acute rehab
PM&R consult
Anticipated Discharge: 24 - 48 hours
Subjective/Interval History
-
Date of Service: March 01, 2025
no new symptoms
Objective Data
-
Vital Signs:
Vital Signs
Temp Pulse Resp BP Pulse Ox
98.0 F 89 18 108/70 95
03/01/25 15:22 03/01/25 15:22 03/01/25 15:22 03/01/25 15:22 03/01/25 15:22
I&O
02/28/25 03/01/25 03/02/25
06:59 06:59 06:59
Intake Total 370 / 370 460 / 460 440 / 440
Output Total 875 / 875 980 / 980 500 / 500
Balance -505 / -505 -520 / -520 -60 / -60
Review of Systems
-
History Source: Patient
All other systems: Reviewed and negative
Physical Exam
-
General: No Apparent Distress and Comfortable
HEENT: Normocephalic and Atraumatic
Respiratory: Clear to Auscultation
Cardiac: Regular Rhythm and S1/S2
GI: Soft, Nontender and Nondistended
Musculoskeletal: No Edema
Neuro: AO x 3, No Motor Deficits and Other (speech is slow, a little slurry, not aphasic )
Psych: Calm
Data Reviewed
-
Labs: Labs Reviewed by me and Discussed with Physician
[2025-03-01] MEDS: STERILE WATER FOR INJECTION IV (18:22)
[2025-03-01] MEDS: ROCEPHIN IV (18:22)
[2025-03-01] MEDS: VIBRAMYCIN IV (18:22)
[2025-03-01] MEDS: ARICEPT 10 MG PO (21:53)
[2025-03-01] MEDS: LEXAPRO 20 MG PO (21:53)
[2025-03-01] MEDS: LIPITOR 40 MG PO (21:53)
[2025-03-01 23:02] VITALS: BP 121/72
[2025-03-02 06:00] VITALS: BMI 23.6
[2025-03-02 07:00] VITALS: BP 141/87
[2025-03-02] MEDS: NAMENDA 10 MG PO ×2 (07:44→21:25)
[2025-03-02] MEDS: FLORINEF 0.1 MG PO (07:44)
[2025-03-02] MEDS: LASIX 20 MG PO (07:44)
[2025-03-02] MEDS: LOW STRENGTH ASPIRIN 81 MG PO (07:47)
[2025-03-02] MEDS: PACERONE 100 MG PO (07:47)
[2025-03-02] MEDS: ProAmatine 10 MG PO ×3 (07:48→17:13)
[2025-03-02] MEDS: XARELTO 15 MG PO (07:48)
[2025-03-02] MEDS: PROTONIX 40 MG PO (07:48)
[2025-03-02] MEDS: FOLTX 1 TABLET PO (07:49)
[2025-03-02] MEDS: CYANOCOBALAMIN 1000 MCG IM (07:50)
--- NOTE | 2025-03-02 08:40 | W.PN.HOSP.TC ---
Addendum entered and electronically signed by Danette Mcghee MD 03/02/25 15:57:
I saw and evaluated the patient independently. I reviewed the resident�s note and agree with findings and plan as documented by Dr. Roy.
GENERAL: well developed, well nourished, male in no apparent distress
HEENT: NC/AT
HEART: irreg irreg
LUNGS : clear to auscultation bilaterally
ABDOM: soft, nontender, nondistended, + bowel sounds
EXT: no cyanosis, clubbing, or edema
NEUROLOGIC: slurred speech much improved
Acute right subcortical posterior right frontal lobe stroke, most likely due to small vessel disease versus embolic---No major vascular occlusion/stenosis--apprec neuro--h/o of paroxysmal afib and xarelto restarted (held on admission)--cont
asa--apprec PM&R eval--Echocardiogram showed mid to distal anteroseptal and inferoseptal hypokinesis--outpt f/u with cards--PT/OT/speech--mild nectar thick liquids--Lipid panel was normal with normal TSH, low vitamin B12 -will replenish
Community acquired pneumonia--CT chest also shows right hilar lymphadenopathy which could be reactive but needs to follow-up--Completed 5-day course of ceftriaxone/doxy--Had cough for weeks before coming to the hospital as per patient and sister--?
any contribution of aspiration with new stroke?--f/u with pulm as outpt
Paroxysmal A-fib--Continue with amiodarone--Xarelto was held with new dx of acute stroke on admission-- Xarelto restarted on 02/28
Orthostatic hypotension, midodrine dependent--cont fludrocortisone
Essential hypertension--no meds
History of chronic HFrEF--Continue Lasix- Echocardiogram findings as above, mid to distal anteroseptal and inferoseptal hypokinesis
History of CAD/Hyperlipidemia--Continue aspirin and atorvastatin
Left shoulder osteoarthritis/chronic rotator cuff injury--chronic--Continue management with pain medication and supportive therapy--Will require outpatient orthopedic follow-up
Type 2 diabetes--restart metformin--Insulin sliding scale, Accu-Cheks--A1c 5.8 in 2021
Dementia--Continue memantine
History of noncompliance with medication--Counseled patient about taking medications
code status--Full Code
DVT proph-- SCDs
Original Note:
Today's Communication/Plan
-
PM&R recommends acute rehab. Spoke with Carmen KNOWLES, bed available tomorrow at [facility]. Anticipate dc tomorrow to [facility].
Speech has improved, will continue soft diet with thick liquid per speech therapy. Initiate miralax and colace as needed to help with BM.
Assessment / Plan
Assessment / Plan
Assessment:
79-year-old male with a past medical history of paroxysmal A-fib, CAD, CHFrEF, dementia, hypertension, hypercholesterolemia came to the [facility] ED on 02/23/2025 from his independent home due to having recent difficulty finding words. He
was having trouble speaking as he went to breakfast to try to talk to people. He also had recent pain shooting down his left arm. In the ED patient went underwent stroke protocol and underwent CT head and neck angiogram with IV contrast. Did not
show any acute intracranial abnormalities. Neurology was consulted, patient was admitted to the hospital for further evaluation. Patient underwent MRI which showed subacute infarction involving the white matter of the posterior right frontal lobe.
Patient also underwent CT scan of the chest which showed probable pneumonia. Patient continued to be on aspirin as per neurology and will start Xarelto in 7 days. Patient was started on antibiotic therapy for supposed pneumonia. Will have to
follow up in the outpatient setting for follow up CT Scan of chest to see resolution of findings seen.
EKG (02/23/2025):
ATRIAL FIBRILLATION
NONSPECIFIC T WAVE ABNORMALITY
PROLONGED QT
ABNORMAL ECG
WHEN COMPARED WITH ECG OF 05-SEP-2023 13:24,
ATRIAL FIBRILLATION HAS REPLACED SINUS RHYTHM
CRITERIA FOR SEPTAL INFARCT ARE NO LONGER PRESENT
NON-SPECIFIC CHANGE IN ST SEGMENT IN ANTERIOR LEADS
NONSPECIFIC T WAVE ABNORMALITY, IMPROVED IN LATERAL LEADS
CT Head & Neck Angio W/wo IV (02/23/2025):
CT of the Head without acute intracranial abnormality.
Calcific atherosclerotic changes at the carotid bifurcations and proximal internal carotid arteries bilaterally with tortuosity without gross findings to suggest hemodynamically significant stenosis, evaluation somewhat limited by motion artifact.
Consider Carotid ultrasound for more complete evaluation.
No findings to suggest internal carotid artery or vertebral artery dissection bilaterally.
Dominant left vertebral artery.
No findings to suggest proximal intracranial arterial stenosis bilaterally.
Patchy opacity in the upper lobe of the right lung which could represent RIGHT UPPER LOBE PNEUMONIA.
Cannot exclude small low-attenuation left lobe thyroid nodule.
CR Chest - 2 Views (02/23/2025):
Patchy airspace opacities within the bilateral lobes and right upper lobe suspicious for multifocal pneumonia.
MR Brain Without Contrast (02/24/2025):
Small focus of acute to subacute infarction involving the white matter of the posterior right frontal lobe.
Small foci of CSF signal intensity within the lentiform nuclei bilaterally, most likely small old lacunar infarcts given the morphologic appearance.
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
Mild to moderate diffuse atrophy. Mild to moderate T2 and FLAIR white matter hyperintensities, commonly seen with aging and usually attributed to small vessel ischemic disease. These hyperintensities have not been shown to correlate with a focal
neurologic deficit.
CT Chest With Iv Contrast (02/24/2025):
Findings suggesting mild right lower lobe and minimal left lower lobe pneumonia. New
Mild right hilar lymphadenopathy likely reactive. New
CR Shoulder - Left Min 2 View (02/24/2025):
Moderate AC joint osteoarthritis.
Moderate glenohumeral joint osteoarthritis.
Severe humeral subluxation suggesting chronic rotator cuff injury.
Echocardiogram (02/24/2025):
Normal left ventricular chamber size.
Mild concentric left ventricular hypertrophy.
Overall, preserved left ventricular systolic function.
Mid to distal anteroseptal and inferoseptal hypokinesis.
Left ventricular ejection fraction is 50-55% by volumetric assessment.
Mild mitral regurgitation.
Bioprosthetic aortic valve replacement.
Peak/mean gradients across the aortic valve are 24/12 mmHg respectively.
No aortic regurgitation is seen.
Mild tricuspid regurgitation.
No pericardial effusion.
The IVC is of normal size and demonstrates normal respiratory variation.
Plan:
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
-No major vascular occlusion/stenosis
-Evident on MRI as above
-Neurology following, input appreciated
-Will continue aspirin 81 mg once a day
-Continue telemetry monitoring
-Xarelto restarted 02/28
-Echocardiogram as above, showed mid to distal anteroseptal and inferoseptal hypokinesis
-Will require further workup in outpatient setting with cardiology
-Lipid panel was normal with normal TSH, low vitamin B12 -will replenish
-Speech seems to be improving, muscle strength seems to be improving
-Video swallow study showed some mild aspiration with thin liquids, will switch to check liquids
Dr Cosby recommends acute rehab. Spoke with Carmen KNOWLES, [facility]
# Community-acquired pneumonia
-CT chest also shows right hilar lymphadenopathy which could be reactive but needs to follow-up
-Seen first on chest x-ray, confirmed with CT chest as above
-Completed 5-day course of antibiotics.
- Discontinue ceftriaxone and Doxy
-Monitor for any fevers or any worsening symptoms
-Continue monitoring oxygen, symptomatic relief
-Had cough for weeks before coming to the hospital as per patient and sister
# Paroxysmal A-fib
-Continue with amiodarone
-Continue telemetry
-Xarelto was held with new dx of acute stroke on admission
- Xarelto restarted on 02/28
# Orthostatic hypotension, midodrine dependent
# Essential hypertension
-Fall precautions
-Patient had some hypotension earlier this morning
-Continue midodrine 10 mg as per before admission
-Continue fludrocortisone
# History of chronic HFrEF
-Continue Lasix
- Echocardiogram findings as above, mid to distal anteroseptal and inferoseptal hypokinesis
#History of CAD
# Hyperlipidemia
-Continue aspirin and atorvastatin
# Left shoulder osteoarthritis/chronic rotator cuff injury
-As seen on left shoulder x-ray
-Continue management with pain medication and supportive therapy
-Will require outpatient orthopedic follow-up
# Type 2 diabetes
-Holding metformin
-Insulin sliding scale, Accu-Cheks
-A1c 5.8 in 2021
# Dementia
-Continue memantine
# History of noncompliance with medication
-Counseled patient about taking medications
-Confirmed that he wants to continue taking medication
No BM since 4 days, added Miralax and Colace if needed.
Full Code
DVT prophylaxis: SCDs
PT recommends acute rehab
PM&R consult
Anticipated Discharge: Within 24 hours
Subjective/Interval History
-
Date of Service: March 02, 2025
no new events
Objective Data
-
Vital Signs:
Vital Signs
Temp Pulse Resp BP Pulse Ox
97.6 F 81 18 141/87 97
03/01/25 23:02 03/02/25 07:44 03/01/25 23:02 03/02/25 07:44 03/01/25 23:02
I&O
03/01/25 03/02/25 03/03/25
06:59 06:59 06:59
Intake Total 460 / 460 680 / 680
Output Total 980 / 980 1250 / 1250
Balance -520 / -520 -570 / -570
Review of Systems
-
All other systems: Reviewed and negative
Physical Exam
-
General: Comfortable
HEENT: Normocephalic and Atraumatic
Respiratory: Clear to Auscultation
Cardiac: Regular Rhythm and S1/S2
GI: Soft, Nontender and Nondistended
Neuro: No Motor Deficits and Other (speech improving )
Psych: Calm
Data Reviewed
-
Labs: Labs Reviewed by me and Discussed with Physician
[2025-03-02 10:02] VITALS: BP 149/80
[2025-03-02 10:11] VITALS: BP 129/76
[2025-03-02 15:00] VITALS: BP 129/86
--- NOTE | 2025-03-02 16:09 | CM ---
Patient seen at bedside with sister. Patient accepted to [facility] tomorrow pending bowel movement per Liaison at [facility]. CM provided IMM and signed form placed to chart. CM will continue to follow for discharge planning needs.
Plan; [facility] tomorrow
[2025-03-02] MEDS: GLUCOPHAGE 500 MG PO (17:12)
[2025-03-02] MEDS: LEXAPRO 20 MG PO (21:25)
[2025-03-02] MEDS: ARICEPT 10 MG PO (21:25)
[2025-03-02] MEDS: LIPITOR 40 MG PO (21:25)
[2025-03-02 23:05] VITALS: BP 153/82
[2025-03-03 06:00] VITALS: BMI 23.5
[2025-03-03 06:10] VITALS: BP 106/66
[2025-03-03 07:00] VITALS: BP 127/79
[2025-03-03] MEDS: ProAmatine 10 MG PO ×2 (07:22→12:03)
[2025-03-03] MEDS: PACERONE 100 MG PO (07:22)
[2025-03-03] MEDS: XARELTO 15 MG PO (07:22)
[2025-03-03] MEDS: LASIX 20 MG PO (07:22)
[2025-03-03] MEDS: LOW STRENGTH ASPIRIN 81 MG PO (07:22)
[2025-03-03] MEDS: FLORINEF 0.1 MG PO (07:22)
[2025-03-03] MEDS: GLUCOPHAGE 500 MG PO (07:22)
[2025-03-03] MEDS: NAMENDA 10 MG PO (07:22)
[2025-03-03] MEDS: FOLTX 1 TABLET PO (07:23)
[2025-03-03] MEDS: PROTONIX 40 MG PO (07:23)
[2025-03-03] MEDS: CYANOCOBALAMIN 1000 MCG IM (07:25)
[2025-03-03] MEDS: TYLENOL 650 MG PO (07:39)
[2025-03-03 13:18] VITALS: BP 123/81
--- NOTE | 2025-03-03 14:27 | W.PN.HOSP.TC ---
Addendum entered and electronically signed by Danette Mcghee MD 03/03/25 14:50:
I saw and evaluated the patient independently. I reviewed the resident�s note and agree with findings and plan as documented by Dr. Roy.
GENERAL: well developed, well nourished, male in no apparent distress
HEENT: NC/AT
HEART: irreg irreg
LUNGS : clear to auscultation bilaterally
ABDOM: soft, nontender, nondistended, + bowel sounds
EXT: no cyanosis, clubbing, or edema
NEUROLOGIC: slurred speech much improved
pt had BM and is stable for d/c to [facility]
Acute right subcortical posterior right frontal lobe stroke, most likely due to small vessel disease versus embolic---No major vascular occlusion/stenosis--apprec neuro--h/o of paroxysmal afib and xarelto restarted (held on admission)--cont
asa--apprec PM&R eval--Echocardiogram showed mid to distal anteroseptal and inferoseptal hypokinesis--outpt f/u with cards--PT/OT/speech--mild nectar thick liquids--Lipid panel was normal with normal TSH, low vitamin B12 -will replenish
Community acquired pneumonia--CT chest also shows right hilar lymphadenopathy which could be reactive but needs to follow-up--Completed 5-day course of ceftriaxone/doxy--Had cough for weeks before coming to the hospital as per patient and sister--?
any contribution of aspiration with new stroke?--f/u with pulm as outpt
Paroxysmal A-fib--Continue with amiodarone--Xarelto was held with new dx of acute stroke on admission-- Xarelto restarted on 02/28
Orthostatic hypotension, midodrine dependent--cont fludrocortisone
Essential hypertension--no meds
History of chronic HFrEF--Continue Lasix- Echocardiogram findings as above, mid to distal anteroseptal and inferoseptal hypokinesis
History of CAD/Hyperlipidemia--Continue aspirin and atorvastatin
Left shoulder osteoarthritis/chronic rotator cuff injury--chronic--Continue management with pain medication and supportive therapy--Will require outpatient orthopedic follow-up
Type 2 diabetes--restart metformin--Insulin sliding scale, Accu-Cheks--A1c 5.8 in 2021
Dementia--Continue memantine
History of noncompliance with medication--Counseled patient about taking medications
code status--Full Code
DVT proph-- SCDs
Original Note:
Today's Communication/Plan
-
Discharge to [facility]
-Continue aspirin 81 mg once a day
-Continue Lipitor 40 mg daily
-Continue Xeralto 15 mg daily
Assessment / Plan
Assessment / Plan
Assessment:
79-year-old male with a past medical history of paroxysmal A-fib, CAD, CHFrEF, dementia, hypertension, hypercholesterolemia came to the [facility] ED on 02/23/2025 from his independent home due to having recent difficulty finding words. He
was having trouble speaking as he went to breakfast to try to talk to people. He also had recent pain shooting down his left arm. In the ED patient went underwent stroke protocol and underwent CT head and neck angiogram with IV contrast. Did not
show any acute intracranial abnormalities. Neurology was consulted, patient was admitted to the hospital for further evaluation. Patient underwent MRI which showed subacute infarction involving the white matter of the posterior right frontal lobe.
Patient also underwent CT scan of the chest which showed probable pneumonia. Patient continued to be on aspirin as per neurology and will start Xarelto in 7 days. Patient was started on antibiotic therapy for supposed pneumonia. Will have to
follow up in the outpatient setting for follow up CT Scan of chest to see resolution of findings seen.
EKG (02/23/2025):
ATRIAL FIBRILLATION
NONSPECIFIC T WAVE ABNORMALITY
PROLONGED QT
ABNORMAL ECG
WHEN COMPARED WITH ECG OF 05-SEP-2023 13:24,
ATRIAL FIBRILLATION HAS REPLACED SINUS RHYTHM
CRITERIA FOR SEPTAL INFARCT ARE NO LONGER PRESENT
NON-SPECIFIC CHANGE IN ST SEGMENT IN ANTERIOR LEADS
NONSPECIFIC T WAVE ABNORMALITY, IMPROVED IN LATERAL LEADS
CT Head & Neck Angio W/wo IV (02/23/2025):
CT of the Head without acute intracranial abnormality.
Calcific atherosclerotic changes at the carotid bifurcations and proximal internal carotid arteries bilaterally with tortuosity without gross findings to suggest hemodynamically significant stenosis, evaluation somewhat limited by motion artifact.
Consider Carotid ultrasound for more complete evaluation.
No findings to suggest internal carotid artery or vertebral artery dissection bilaterally.
Dominant left vertebral artery.
No findings to suggest proximal intracranial arterial stenosis bilaterally.
Patchy opacity in the upper lobe of the right lung which could represent RIGHT UPPER LOBE PNEUMONIA.
Cannot exclude small low-attenuation left lobe thyroid nodule.
CR Chest - 2 Views (02/23/2025):
Patchy airspace opacities within the bilateral lobes and right upper lobe suspicious for multifocal pneumonia.
MR Brain Without Contrast (02/24/2025):
Small focus of acute to subacute infarction involving the white matter of the posterior right frontal lobe.
Small foci of CSF signal intensity within the lentiform nuclei bilaterally, most likely small old lacunar infarcts given the morphologic appearance.
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
Mild to moderate diffuse atrophy. Mild to moderate T2 and FLAIR white matter hyperintensities, commonly seen with aging and usually attributed to small vessel ischemic disease. These hyperintensities have not been shown to correlate with a focal
neurologic deficit.
CT Chest With Iv Contrast (02/24/2025):
Findings suggesting mild right lower lobe and minimal left lower lobe pneumonia. New
Mild right hilar lymphadenopathy likely reactive. New
CR Shoulder - Left Min 2 View (02/24/2025):
Moderate AC joint osteoarthritis.
Moderate glenohumeral joint osteoarthritis.
Severe humeral subluxation suggesting chronic rotator cuff injury.
Echocardiogram (02/24/2025):
Normal left ventricular chamber size.
Mild concentric left ventricular hypertrophy.
Overall, preserved left ventricular systolic function.
Mid to distal anteroseptal and inferoseptal hypokinesis.
Left ventricular ejection fraction is 50-55% by volumetric assessment.
Mild mitral regurgitation.
Bioprosthetic aortic valve replacement.
Peak/mean gradients across the aortic valve are 24/12 mmHg respectively.
No aortic regurgitation is seen.
Mild tricuspid regurgitation.
No pericardial effusion.
The IVC is of normal size and demonstrates normal respiratory variation.
Plan:
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
-No major vascular occlusion/stenosis
-Evident on MRI as above
-Neurology following, input appreciated
-Will continue aspirin 81 mg once a day
-Continue telemetry monitoring
-Xarelto restarted 02/28
-Echocardiogram as above, showed mid to distal anteroseptal and inferoseptal hypokinesis
-Will require further workup in outpatient setting with cardiology
-Lipid panel was normal with normal TSH, low vitamin B12 -will replenish
-Speech seems to be improving, muscle strength seems to be improving
-Video swallow study showed some mild aspiration with thin liquids, will switch to check liquids
Dr Cosby recommends acute rehab.
Discharge to acute rehab- [facility]
# Community-acquired pneumonia
-CT chest also shows right hilar lymphadenopathy which could be reactive but needs to follow-up
-Seen first on chest x-ray, confirmed with CT chest as above
-Completed 5-day course of antibiotics.
- Discontinue ceftriaxone and Doxy
-Monitor for any fevers or any worsening symptoms
-Continue monitoring oxygen, symptomatic relief
-Had cough for weeks before coming to the hospital as per patient and sister
# Paroxysmal A-fib
-Continue with amiodarone
-Continue telemetry
-Xarelto was held with new dx of acute stroke on admission
- Xarelto restarted on 02/28
# Orthostatic hypotension, midodrine dependent
# Essential hypertension
-Fall precautions
-Patient had some hypotension earlier this morning
-Continue midodrine 10 mg as per before admission
-Continue fludrocortisone
# History of chronic HFrEF
-Continue Lasix
- Echocardiogram findings as above, mid to distal anteroseptal and inferoseptal hypokinesis
#History of CAD
# Hyperlipidemia
-Continue aspirin and atorvastatin
# Left shoulder osteoarthritis/chronic rotator cuff injury
-As seen on left shoulder x-ray
-Continue management with pain medication and supportive therapy
-Will require outpatient orthopedic follow-up
# Type 2 diabetes
-Holding metformin
-Insulin sliding scale, Accu-Cheks
-A1c 5.8 in 2021
# Dementia
-Continue memantine
# History of noncompliance with medication
-Counseled patient about taking medications
-Confirmed that he wants to continue taking medication
No BM since 4 days, added Miralax and Colace if needed.
Full Code
DVT prophylaxis: SCDs
PT recommends acute rehab
PM&R consult
Anticipated Discharge: Today
Subjective/Interval History
-
Date of Service: March 03, 2025
no new overnight events
Objective Data
-
Vital Signs:
Vital Signs
Temp Pulse Resp BP Pulse Ox
97.8 F 78 22 123/81 96
03/03/25 13:18 03/03/25 13:18 03/03/25 13:18 03/03/25 13:18 03/03/25 13:18
I&O
03/02/25 03/03/25 03/04/25
06:59 06:59 06:59
Intake Total 680 / 680 960 / 960 120 / 120
Output Total 1250 / 1250 1540 / 1540
Balance -570 / -570 -580 / -580 120 / 120
Review of Systems
-
History Source: Patient
All other systems: Reviewed and negative
Physical Exam
-
General: No Apparent Distress and Comfortable
HEENT: Normocephalic and Atraumatic
Respiratory: Clear to Auscultation
Cardiac: Regular Rhythm and S1/S2
GI: Soft, Nontender and Nondistended
Musculoskeletal: No Edema
Neuro: AO x 3
Data Reviewed
-
Labs: Labs Reviewed by me and Discussed with Physician
--- NOTE | 2025-03-03 17:38 | W.DCSUMMARY ---
Addendum entered and electronically signed by Danette Mcghee MD 03/03/25 18:07:
Read, reviewed, and agree. See same day progress note for additional details. Time spent coordinating care, DC planning, review of DC plan of care with resident, transition of care, review of records in EMR, med rec, consults, notes, d/w
consultants, nursing, family, and CM = 33 minutes
Original Note:
Discharge Summary
Discharge Data
Date of Admission: 02/25/25
Date of Discharge: 03/03/25
-
Pending Results: No
Hospital Course
Discharging Physician : Dr Jesús Roy, Dr Danette Mcghee
Disposition : Acute rehab([facility])
Primary care physician : Unknown
Principal Discharge diagnosis :
Acute right subcortical posterior right frontal lobe stroke
Community-acquired pneumonia
Chronic Discharge diagnosis :
Paroxysmal A-fib
Orthostatic hypotension
Essential hypertension
Type 2 diabetes mellitus
History of chronic HFrEF
History of CAD/hyperlipidemia
Dementia
Hospital Course :
79-year-old male presented from his independent living facility due to having recent difficulty finding words. Also had shooting pain down his left arm. In the ED stroke protocol was called and he underwent head CT/neck angiogram with IV contrast
which did not show any acute abnormalities. Neurology was consulted. Patient underwent MRI which showed subacute infarction involving the white matter of the posterior right frontal lobe. Aspirin and atorvastatin was continued and Xarelto was
held. Patient also underwent chest CT which showed bilateral lower lobe pneumonia. He completed 5-day course of antibiotic during inpatient stay. PM&R was consulted and patient qualified for acute rehab. Recommend outpatient follow-up with
cardiology as echocardiogram showed mid to distal anteroseptal and inferior septal hypokinesis. Xarelto was restarted on 02/28.
Important imaging findings :
02/23/25-head/neck CTA-
CT of the Head without acute intracranial abnormality. Calcific atherosclerotic changes at the carotid bifurcations and proximal internal carotid arteries bilaterally with tortuosity without gross findings to suggest hemodynamically significant
stenosis, evaluation somewhat limited by motion artifact. Consider Carotid ultrasound for more complete evaluation. No findings to suggest internal carotid artery or vertebral artery dissection bilaterally. Dominant left vertebral artery. No
findings to suggest proximal intracranial arterial stenosis bilaterally.
02/2425- Small focus of acute to subacute infarction involving the white matter of the posterior right frontal lobe. Small foci of CSF signal intensity within the lentiform nuclei bilaterally, most likely small old lacunar infarcts given the
morphologic appearance. 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 Mild to moderate diffuse atrophy. Mild to moderate T2 and FLAIR white matter hyperintensities,
commonly seen with aging and usually attributed to small vessel ischemic disease. These hyperintensities have not been shown to correlate with a focal neurologic deficit.
02/24/25-chest CT-
Findings suggesting mild right lower lobe and minimal left lower lobe pneumonia. New. Mild right hilar lymphadenopathy likely reactive.
Procedure findings : none
Discharge Plan
-
Patient Disposition: Acute Rehab Facility
Discharge Diagnosis/Procedures: Acute right subcortical posterior right frontal lobe stroke
Community acquired pneumonia
Condition: Fair
Diet: Low Cholesterol
Activity: As tolerated
Driving Restrictions: Not until seen by your Dr
Bathing Restrictions: None
Other Services: PT, OT and ST
Referrals:
Ankit Braxton DO [Family Provider] -
Additional Discharge Medication Instructions: -Continue aspirin 81 mg once a day
-Continue Lipitor 40 mg daily
-Continue Xeralto 15 mg daily
-Continue B12,B6, folic acid supplements.
-Accepted to [facility].
Prescriptions:
New
WesTab Max 2.5-25-2 mg Tablet
1 tab PO DAILY Qty: 30 0RF
Continued
metformin 500 MG tablet
1,000 mg PO QPM
atorvastatin 20 MG tablet
20 mg PO HS
pantoprazole 40 MG tablet,delayed release (DR/EC)
40 mg PO DAILY
aspirin 81 MG tablet,chewable
81 mg PO DAILY
escitalopram oxalate 20 MG tablet
20 mg PO HS
donepezil 10 MG tablet
10 mg PO HS
memantine 10 MG tablet
10 mg PO BID
magnesium oxide 400 MG tablet
400 mg PO DAILY
midodrine 5 MG tablet
10 mg PO TID@0800,1200,1800
Rx Instructions:
HOLD FOR Systolic blood pressure>150
furosemide 20 mg tablet
20 mg PO DAILY
Xarelto 15 MG tablet
15 mg PO DAILY
amiodarone 200 mg tablet
100 mg PO DAILY Qty: 0 0RF
fludrocortisone 0.1 MG tablet
0.1 mg PO DAILY Qty: 30 0RF
Discharge Orders:
Discharge Patient (As Directed); Ordered 03/03/25
Ordered By: Jesús Roy
Discharge Date and Time
Discharge Date/Time: 03/03/25 14:42
Print Language: THAI
== END 2025-03-03 14:42 | DRG 64 ==
LOC: 4 WEST ACU 08:08
PROVIDERS: Student in an Organized Health Care Education/Training Program; ADMITTING PHYSICIAN Internal Medicine; ATTENDING PHYSICIAN Internal Medicine; CONSULT PHYSICIAN Physical Medicine & Rehabilitation; CONSULT PHYSICIAN Psychiatry & Neurology Neurology; EMERGENCY PHYSICIAN Emergency Medicine; FAMILY PHYSICIAN Family Medicine
DX: I63.531 Cerebral infarction due to unspecified occlusion or stenosis of right posterior cerebral artery (principal); J18.9 Pneumonia, unspecified organism; I50.22 Chronic systolic (congestive) heart failure; G81.94 Hemiplegia, unspecified affecting left nondominant side; I63.9 Cerebral infarction, unspecified; Z79.01 Long term (current) use of anticoagulants; I48.0 Paroxysmal atrial fibrillation; F03.90 Unspecified dementia, unspecified severity, without behavioral disturbance, psychotic disturbance, mood disturbance, and anxiety; Z79.82 Long term (current) use of aspirin; E78.00 Pure hypercholesterolemia, unspecified; E11.40 Type 2 diabetes mellitus with diabetic neuropathy, unspecified; I95.1 Orthostatic hypotension; I11.0 Hypertensive heart disease with heart failure; Z60.2 Problems related to living alone; Z79.899 Other long term (current) drug therapy; Z86.73 Personal history of transient ischemic attack (TIA), and cerebral infarction without residual deficits; Z91.148 Patient's other noncompliance with medication regimen for other reason; Z91.199 Patient's noncompliance with other medical treatment and regimen due to unspecified reason
CPT/HCPCS: 70496; 70498; 70551; 71046; 71260; 73030; 74230; 80048; 80053; 80061; 82607; 82746; 82962; 83036; 84145; 84155; 84165; 84425; 84443; 84484; 85025; 85027; 85576; 85610; 85730; 87070; 92507; 92523; 92526; 92610; 92611; 93005; 93306; 96374; 97112; 97116; 97129; 97163; 97167; 97535; 99291; Q9967

== ENCOUNTER 2025-03-05 14:39 | Emergency (ER) | payer MEDICARE, SELFPAY ==
[2025-03-05 14:44] VITALS: BP 154/87
--- NOTE | 2025-03-05 14:57 | ED.GENMED ---
Addendum entered and electronically signed by Princess Arguello MD 03/05/25 19:14:
Discussed with LLUVIA cohn again as there was additional concerns for aspiration which is why he was sent to the emergency department. He did fail his swallow screen and they recommended Dobbhoff placement. They did reach out to GI and since is not
an emergency a Dobbhoff will not be placed by them today. Dobbhoff could be placed by GI tomorrow. I did discuss with the ED staff and unfortunately we are unable to place a Dobbhoff. I did discuss with [facility] and stated that an NG tube could
be a possibility if they needed enteral access before the Dobbhoff placement. We did discuss changing his medications to IV however he is on midodrine for orthostatic hypotension. I did discuss with the [facility] attending who stated that an NG
tube would be needed for hydration and medications. Unfortunately [facility] RNs are unable to place NG tube. Patient will be sent to the emergency department for NG tube placement
Original Note:
History of Present Illness
General
Chief Complaint: Breathing Problem
Time Seen by Provider: 03/05/25 14:48
History of Present Illness
History of Present Illness:
Patient is a 79-year-old male with history of stroke, A-fib on Xarelto and amiodarone, CAD presenting to the emergency department with concern for aspiration pneumonia. Per chart review patient was often after having thickened liquids and had chest
x-ray completed which showed possible right upper lobe pneumonia that is worsening. He was also found to have increasing white count. No fevers. Patient denies any shortness of breath chest pain chills. He is confused as to [facility] is [facility].
Past History
Past History
ED Past Medical History: Arrthythmia (Afib), CAD, HTN and Valvular disease
ED Past Surgical History: Cardiac
Social History
Tobacco: Non-smoker
Alcohol: None
Drug: None
Personal: Single
Living: other
Employment: Retired
Family History
Family History: CAD
Phy Exam
Physical Exam
Physical Exam:
GENERAL: in no acute distress
HEENT: normocephalic, extraocular movements intact, moist oral mucosa
NECK: normal inspection
RESPIRATORY: no respiratory distress, clear to auscultation bilaterally
CARDIOVASCULAR: regular rate and rhythm
ABDOMEN/: soft, non-distended, non-tender to palpation, no rebound or guarding
EXTREMITIES: non-tender, no edema/swelling
NEUROLOGIC: awake and alert, moves all extremities
SKIN: warm
Scores
Heart Failure Risk
Heart Failure Risk Score: Not Applicable
Course
Vital Signs
Initial and Last Documented VS:
Initial Vital Signs
Temp Pulse Resp BP Pulse Ox
98.0 F 97 15 154/87 95
03/05/25 14:44 03/05/25 14:44 03/05/25 14:44 03/05/25 14:44 03/05/25 14:44
Last Documented Vital Signs
Temp Pulse Resp BP Pulse Ox
98.0 F 97 15 154/87 95
03/05/25 14:44 03/05/25 14:44 03/05/25 14:44 03/05/25 14:44 03/05/25 14:44
MDM/Problems Addressed
Differential Diagnosis Includes:
Patient is a 79-year-old man presenting to the emergency department for concern for aspiration pneumonia from [facility]. Vitals are unremarkable and exam is reassuring. He did have an x-ray completed as well as a barium swallow study. I did
discuss with pharmacy regarding treatment for his aspiration pneumonia given that he is on amiodarone. He is able to take both Augmentin and Unasyn. Will touch base with most rehab for any additional concerns that they had.
Discussed with patient's provider Lupe Cohn who stated that patient was sent here for antibiotic management as he wanted to give him Levaquin but could not secondary to the amiodarone. I did discuss them the options of Augmentin or Unasyn
depending on his n.p.o. status. He is able to take both of them. Will discharge him back to rehab. They will start the antibiotics once he is back up there.
*Critical Care Note
Total Time (30-74mins, 75-104mins- exclusive of procedures): Not Applicable
ED Attending Note
-
Portions of this chart may have been created with voice recognition software.� Occasional wrong word or��sound alike� substitutions may have occurred due to the inherent limitations of voice recognition software.
Discharge Plan
Departure
Patient Disposition: Acute Rehab Facility
Date of Disposition: 03/05/25
Time of Disposition: 15:37
Discharge Problem:
Aspiration pneumonia
Instructions: Aspiration pneumonia - Discharge instructions
Prescriptions:
No Action
metformin 500 MG tablet
500 mg PO BID@0800,1700
atorvastatin 20 MG tablet
20 mg PO HS
pantoprazole 40 MG tablet,delayed release (DR/EC)
40 mg PO DAILY
aspirin 81 MG tablet,chewable
81 mg PO DAILY
escitalopram oxalate 20 MG tablet
20 mg PO HS
donepezil 10 MG tablet
10 mg PO HS
memantine 10 MG tablet
10 mg PO BID
midodrine 5 MG tablet
10 mg PO TID@0700,1200,1800
Rx Instructions:
HOLD FOR Systolic blood pressure>150
furosemide 20 mg tablet
20 mg PO DAILY
Xarelto 15 MG tablet
15 mg PO DAILY
amiodarone 200 mg tablet
100 mg PO DAILY Qty: 0 0RF
sennosides [Senokot] 8.6 mg Tablet
17.2 mg PO DAILY
acetaminophen 325 mg Tablet
650 mg PO Q4HPRN PRN (Reason: mild pain)
cyanocobalamin (vitamin B-12) 1,000 mcg Tablet
1,000 mcg PO DAILY
bisacodyl [Dulcolax (bisacodyl)] 10 mg Suppository
10 mg DE DAILYPRN PRN (Reason: constipation)
docusate sodium 100 mg Capsule
100 mg PO BID
insulin aspart U-100 100 unit/mL (3 mL) Insulin Pen
1 sliding scale dose SC AC
magnesium L-lactate 84 mg Tablet Extended Release
84 mg PO DAILY
methyl salicylate-menthol 15-1 % Cream
1 applic TOPICAL TID
baclofen 5 mg Tablet
5 mg PO TIDPRN PRN (Reason: hiccups)
fludrocortisone 0.1 MG tablet
0.2 mg PO DAILY
Activity Restrictions/Additional Instructions:
You were seen in the Emergency Department today for aspiration pneumonia. You can be started on Augmentin or Unasyn depending on your n.p.o. status.
We would like for you to follow up with your primary care physician for further evaluation. If you experience fever, worsening of your symptoms, or develop any other new or concerning symptoms, please return to the Emergency Department immediately.
Please see the attached sheet for additional information.
Interventions
Interventions:
*General Assessment Last Done: 03/05/25 14:44
ED- Cardiac Assessment Last Done: 03/05/25 14:55
ED- Pulmonary Assessment Last Done: 03/05/25 14:55
Discharge Date and Time
Print Language: FRISIAN
[2025-03-05 16:41] LABS: Glucose - Point of Care 129 mg/dl (70-99)
== END 2025-03-05 15:49 ==
LOC: EMR 14:39
PROVIDERS: EMERGENCY PHYSICIAN Student in an Organized Health Care Education/Training Program; FAMILY PHYSICIAN Family Medicine
DX: J69.0 Pneumonitis due to inhalation of food and vomit (principal); I48.91 Unspecified atrial fibrillation; I25.10 Atherosclerotic heart disease of native coronary artery without angina pectoris; I10 Essential (primary) hypertension; I38 Endocarditis, valve unspecified; Z79.01 Long term (current) use of anticoagulants; Z82.49 Family history of ischemic heart disease and other diseases of the circulatory system; Z86.73 Personal history of transient ischemic attack (TIA), and cerebral infarction without residual deficits
CPT/HCPCS: 99282; 82962

== ENCOUNTER 2025-03-05 18:47 | Emergency (ER) | payer MEDICARE, SELFPAY ==
[2025-03-05 18:50] VITALS: BP 116/72
--- NOTE | 2025-03-05 20:37 | EDRN ---
Per LLUVIA Troncoso, pt needs NGT inserted and can then return to [facility].
--- NOTE | 2025-03-05 21:28 | ED.GENMED ---
History of Present Illness
General
Chief Complaint: Abdominal Symptoms
Time Seen by Provider: 03/05/25 20:31
History of Present Illness
History of Present Illness:
79-year-old male with history of dementia and paroxysmal A-fib presents the emergency department for placement of an NG tube. Patient has aspiration issues and is currently being treated for pneumonia. Apparently he is not able to get a Dobbhoff
tube placed this weekend and due to a failed swallow screening today will not be authorized to receive any p.o. meds or feedings thus an NG tube was required for oral hydration and medications over the weekend
Past History
Past History
ED Past Medical History: Arrthythmia (Afib), CAD, HTN and Valvular disease
ED Past Surgical History: Cardiac
Social History
Tobacco: Non-smoker
Alcohol: None
Drug: None
Personal: Single
Living: other
Employment: Retired
Family History
Family History: CAD
Review of Systems
Review of Systems
Allergies reviewed?: Yes
All Other Systems: ROS reviewed and negative except as documented in HPI and ROS
Phy Exam
Physical Exam
Physical Exam:
GEN: Well appearing, NAD, WDWN
HEENT: Oral mucosa moist, no scleral icterus
Cardiac: Regular rate
Lung: No respiratory distress, no tachypnea
MSK: No gross deformity or injuries
Skin: Good color, no pallor or jaundice, no rashes
Neuro: Alert and oriented to baseline, moves all extremities freely
Psych: Calm, cooperative
Course
Orders/Labs/Results
Orders:
Orders
03/05/25 20:33
NG Tube [GI tube insertion- Treatment] ONCE
03/05/25 20:55
CR Chest Single View Urgent
Comment:
Reason For Exam: NG tube confirm
03/05/25 22:26
CR Chest Single View Urgent
Comment:
Reason For Exam: repeat NG check
03/06/25 00:00
CR Chest Portable - 1 View Urgent
Reason For Exam: NGT placement
Reason Study Needs to be Portable: Other
Abnormal Lab Results
03/06/25
00:55
POC Glucose 134 H mg/dl
(70-99)
Vital Signs
Initial and Last Documented VS:
Initial Vital Signs
Temp Pulse Resp BP Pulse Ox
98.1 F 82 20 116/72 97
03/05/25 18:50 03/05/25 18:50 03/05/25 18:50 03/05/25 18:50 03/05/25 18:50
Last Documented Vital Signs
Temp Pulse Resp BP Pulse Ox
98.1 F 97 14 148/75 98
03/05/25 18:50 03/05/25 23:21 03/05/25 23:21 03/05/25 23:21 03/05/25 23:21
MDM/Problems Addressed
MDM/Problems Addressed:
After numerous attempts and the NG tube was placed, the third attempt the tube appeared to be coiled in the stomach and there was some resistance to infusing however the tube was pulled back 5 cm infusion improved. Discharged back to [facility]
*Critical Care Note
Total Time (30-74mins, 75-104mins- exclusive of procedures): Not Applicable
ED Attending Note
-
Portions of this chart may have been created with voice recognition software.� Occasional wrong word or��sound alike� substitutions may have occurred due to the inherent limitations of voice recognition software.
Discharge Plan
Departure
Patient Disposition: Home (Routine Discharge)
Date of Disposition: 03/06/25
Time of Disposition: 00:12
Patient with high blood pressure during this ER visit?: No
Discharge Problem:
Dysphagia
Instructions: How to care for a nasogastric tube
Prescriptions:
No Action
metformin 500 MG tablet
500 mg PO BID@0800,1700
atorvastatin 20 MG tablet
20 mg PO HS
pantoprazole 40 MG tablet,delayed release (DR/EC)
40 mg PO DAILY
aspirin 81 MG tablet,chewable
81 mg PO DAILY
escitalopram oxalate 20 MG tablet
20 mg PO HS
donepezil 10 MG tablet
10 mg PO HS
memantine 10 MG tablet
10 mg PO BID
midodrine 5 MG tablet
10 mg PO TID@0700,1200,1800
Rx Instructions:
HOLD FOR Systolic blood pressure>150
furosemide 20 mg tablet
20 mg PO DAILY
Xarelto 15 MG tablet
15 mg PO DAILY
amiodarone 200 mg tablet
100 mg PO DAILY Qty: 0 0RF
sennosides [Senokot] 8.6 mg Tablet
17.2 mg PO DAILY
acetaminophen 325 mg Tablet
650 mg PO Q4HPRN PRN (Reason: mild pain)
cyanocobalamin (vitamin B-12) 1,000 mcg Tablet
1,000 mcg PO DAILY
bisacodyl [Dulcolax (bisacodyl)] 10 mg Suppository
10 mg SD DAILYPRN PRN (Reason: constipation)
docusate sodium 100 mg Capsule
100 mg PO BID
insulin aspart U-100 100 unit/mL (3 mL) Insulin Pen
1 sliding scale dose SC AC
magnesium L-lactate 84 mg Tablet Extended Release
84 mg PO DAILY
methyl salicylate-menthol 15-1 % Cream
1 applic TOPICAL TID
baclofen 5 mg Tablet
5 mg PO TIDPRN PRN (Reason: hiccups)
fludrocortisone 0.1 MG tablet
0.2 mg PO DAILY
Referrals:
Ankit Braxton DO [Family Provider] -
Interventions
Interventions:
*Risk Screen - Suicide Last Done: 03/05/25 20:45
*General Assessment Last Done: 03/05/25 18:50
*Neglect/Abuse Screening Last Done: 03/05/25 20:45
*ED- Fall Risk Assessment Last Done: 03/05/25 20:45
*ED COVID-19 Vaccine History Last Done: 03/05/25 20:45
*Nursing Disposition Last Done: 03/06/25 00:36
Discharge Date and Time
Discharge Date/Time: 03/06/25 00:36
Print Language: PARAGUAYAN
--- NOTE | 2025-03-05 22:31 | EDRN ---
Per LLUVIA Troncoso pt needs repeat cxr because initial cxr showed NGT not inserted far enough - EMILIA Johnson who inserted NGT advanced tube further. Pt waiting for repeat cxr
[2025-03-05 23:21] VITALS: BP 148/75
--- NOTE | 2025-03-05 23:59 | EDRN ---
Addendum entered by Arlen Portillo, EMILIA 03/06/25 00:16:
NGT inserted was #[id number]
Original Note:
Advancement of NGT previously caused coiling of NGT in back of pt's throat. Angel Alvarado RN removed NGT and inserted new NGT R nare on first attempt. Nellie TEIXEIRA asked that NGT be inserted to 60cm. Two RNs listened for air bolus - none heard. Visual
inspection back of pt's throat shows no coiling of tube. Return of little clear liquid in tube. Nellie TEIXEIRA informed and ordered portable cxr for ngt placement confirmation. Xray called, pt updated.
--- NOTE | 2025-03-06 00:12 | EDRN ---
Per Nellie TEIXEIRA, after portable cxr, this vehicle glass technician NGT 10cm more without difficulty. Difficult to instill all of air bolus. Per cxr, end of NGT coiled in stomach - Nellie TEIXEIRA asked that NGT be pulled back 5cm which this RN did.
--- NOTE | 2025-03-06 00:20 | EDRN ---
[facility]
[2025-03-06 00:56] LABS: Glucose - Point of Care 134 mg/dl (70-99)
== END 2025-03-06 00:36 | disposition home or self-care (01) ==
LOC: EMR 18:47
PROVIDERS: EMERGENCY PHYSICIAN Emergency Medicine; FAMILY PHYSICIAN Family Medicine
DX: R13.10 Dysphagia, unspecified (principal); I48.91 Unspecified atrial fibrillation; I25.10 Atherosclerotic heart disease of native coronary artery without angina pectoris; I10 Essential (primary) hypertension; I38 Endocarditis, valve unspecified; F03.90 Unspecified dementia, unspecified severity, without behavioral disturbance, psychotic disturbance, mood disturbance, and anxiety; Z46.59 Encounter for fitting and adjustment of other gastrointestinal appliance and device; Z82.49 Family history of ischemic heart disease and other diseases of the circulatory system
CPT/HCPCS: 99283; 71045; 82962

== ENCOUNTER 2025-03-06 02:16 | Emergency (ER) | payer MEDICARE, SELFPAY ==
[2025-03-06 02:31] VITALS: BP 109/70
--- NOTE | 2025-03-06 03:37 | ED.GENMED ---
History of Present Illness
General
Chief Complaint: Catheter/Tube Problem
Source: patient and previous hospital records
Exam Limitations: none
Time Seen by Provider: 03/06/25 03:02
Nursing documentation reviewed up to this point in time: agreed with
History of Present Illness
History of Present Illness:
79-year-old gentleman with history of dementia, PAF, recent hospitalization for aspiration pneumonia, currently receiving physical therapy at [facility].
Has apparently failed swallowing study, requires GI tube for feeding and was evaluated in this ED earlier this evening, [place] NG tube placed but he is return to the ED due to nursing staff at [facility] unable to flush the NG tube.
Patient offers no complaints.
Upon arrival to the ED our nursing staff are unable to flush the [place] NG tube thus that NG tube has been removed without difficulty.
A 16 [place] NG tube has been placed by nursing staff without difficulty.
Will check chest x-ray to assess proper placement.
Past History
Past History
ED Past Medical History: Arrthythmia (Afib), CAD, HTN and Valvular disease
ED Past Surgical History: Cardiac
Social History
Tobacco: Non-smoker
Alcohol: None
Drug: None
Personal: Single
Living: other
Employment: Retired
Family History
Family History: CAD
Phy Exam
Physical Exam
Physical Exam:
GENERAL: 79-year-old gentleman appears his stated age, sitting upright in wheelchair. Bright alert, pleasant, appears in no acute distress.
NECK: Supple, nontender, no meningismus, no significant adenopathy.
ENT: posterior pharynx is clear, oral mucosa is moist. No rhinorrhea. NG tube extruding from right nostril.
CARDIAC: Regular rate and rhythm. no murmur.
LUNGS: Clear breath sounds bilaterally, no acute respiratory distress, no wheezes/rales/rhonchi
ABDOMEN: Soft, nondistended, without focal tenderness
NEUROLOGICAL: Alert and oriented x3, no focal neuro deficits.
SKIN: Warm and dry, normal color, skin intact. No rash.
MUSCULOSKELETAL: No C/C/E. peripheral pulses are full and equal b/l. No palpable tenderness.
PSYCH: Normal and appropriate interaction.
Course
Orders/Labs/Results
Orders:
Orders
03/06/25 02:57
Lidocaine 2% [Lidocaine Uro-Jet 2%] 1 syringe .ROUTE .[facility] [place]
03/06/25 03:03
CR Chest Portable - 1 View Urgent
Comment:
Reason For Exam: NGT placement
Reason Study Needs to be Portable: Unable to Transport
Abnormal Lab Results
03/06/25
06:55
POC Glucose 120 H mg/dl
(70-99)
Vital Signs
Initial and Last Documented VS:
Initial Vital Signs
Temp Pulse Resp BP Pulse Ox
98.5 F 65 18 109/70 96
03/06/25 02:31 03/06/25 02:31 03/06/25 02:31 03/06/25 02:31 03/06/25 02:31
Last Documented Vital Signs
Temp Pulse Resp BP Pulse Ox
98.5 F 65 18 109/70 98
03/06/25 02:31 03/06/25 02:31 03/06/25 02:31 03/06/25 02:31 03/06/25 04:45
MDM/Problems Addressed
Differential Diagnosis Includes:
Patient presents for evaluation of blocked NG tube, [place] which has been removed and replaced with a 16 [place] NG tube.
Positive gastric bubble auscultated at epigastrium.
Will check chest x-ray.
Chronic conditions affecting care: Neurological disorder
*Radiology
Radiology exam reviewed: preliminary read by ED provider (Portable chest x-ray shows radiopaque NG tube below the diaphragm into the stomach.)
*Pulse Oximetry
Patient hypoxic: no
*Critical Care Note
Total Time (30-74mins, 75-104mins- exclusive of procedures): Not Applicable
ED Attending Note
-
Portions of this chart may have been created with voice recognition software.� Occasional wrong word or��sound alike� substitutions may have occurred due to the inherent limitations of voice recognition software.
Discharge Plan
Departure
Patient Disposition: Acute Rehab Facility
Date of Disposition: 03/06/25
Time of Disposition: 03:37
Discharge Problem:
Encounter for nasogastric (NG) tube placement
Instructions: How to Care for Nasogastric Tube
Prescriptions:
No Action
metformin 500 MG tablet
500 mg PO BID@0800,1700
atorvastatin 20 MG tablet
20 mg PO HS
pantoprazole 40 MG tablet,delayed release (DR/EC)
40 mg PO DAILY
aspirin 81 MG tablet,chewable
81 mg PO DAILY
escitalopram oxalate 20 MG tablet
20 mg PO HS
donepezil 10 MG tablet
10 mg PO HS
memantine 10 MG tablet
10 mg PO BID
midodrine 5 MG tablet
10 mg PO TID@0700,1200,1800
Rx Instructions:
HOLD FOR Systolic blood pressure>150
furosemide 20 mg tablet
20 mg PO DAILY
Xarelto 15 MG tablet
15 mg PO DAILY
amiodarone 200 mg tablet
100 mg PO DAILY Qty: 0 0RF
sennosides [Senokot] 8.6 mg Tablet
17.2 mg PO DAILY
acetaminophen 325 mg Tablet
650 mg PO Q4HPRN PRN (Reason: mild pain)
cyanocobalamin (vitamin B-12) 1,000 mcg Tablet
1,000 mcg PO DAILY
bisacodyl [Dulcolax (bisacodyl)] 10 mg Suppository
10 mg TN DAILYPRN PRN (Reason: constipation)
docusate sodium 100 mg Capsule
100 mg PO BID
insulin aspart U-100 100 unit/mL (3 mL) Insulin Pen
1 sliding scale dose SC AC
magnesium L-lactate 84 mg Tablet Extended Release
84 mg PO DAILY
methyl salicylate-menthol 15-1 % Cream
1 applic TOPICAL TID
baclofen 5 mg Tablet
5 mg PO TIDPRN PRN (Reason: hiccups)
fludrocortisone 0.1 MG tablet
0.2 mg PO DAILY
Referrals:
UNKNOWN - PT DOES,NOT KNOW [Family Provider] -
Interventions
Interventions:
*Risk Screen - Suicide Last Done: 03/06/25 02:31
*General Assessment Last Done: 03/06/25 03:34
*Neglect/Abuse Screening Last Done: 03/06/25 03:34
*ED- Fall Risk Assessment Last Done: 03/06/25 03:34
*ED COVID-19 Vaccine History Last Done: 03/06/25 03:34
*Nursing Disposition Last Done: 03/06/25 04:45
UW-Pezrai-Ykntonguqj Assessment Last Done: 03/06/25 03:34
ED-Male Genitourinary Assessment Last Done: 03/06/25 03:34
Discharge Date and Time
Discharge Date/Time: 03/06/25 04:45
Print Language: MARSHALLESE
[2025-03-06 06:57] LABS: Glucose - Point of Care 120 mg/dl (70-99)
== END 2025-03-06 04:45 ==
LOC: EMR 02:16
PROVIDERS: EMERGENCY PHYSICIAN Emergency Medicine
DX: Z46.59 Encounter for fitting and adjustment of other gastrointestinal appliance and device (principal); F03.90 Unspecified dementia, unspecified severity, without behavioral disturbance, psychotic disturbance, mood disturbance, and anxiety; I10 Essential (primary) hypertension; I25.10 Atherosclerotic heart disease of native coronary artery without angina pectoris; I48.0 Paroxysmal atrial fibrillation; Z87.01 Personal history of pneumonia (recurrent)
CPT/HCPCS: 99284; 71045; 82962

== ENCOUNTER 2025-03-07 11:29 | Emergency (ER) | payer MEDICARE, SELFPAY ==
[2025-03-07 11:32] VITALS: BP 122/86
[2025-03-07 12:00] VITALS: BP 109/66
--- NOTE | 2025-03-07 12:14 | ED.GENMED ---
History of Present Illness
General
Chief Complaint: Nose Bleed
Time Seen by Provider: 03/07/25 11:54
History of Present Illness
History of Present Illness:
Patient is a 79-year-old man presenting to the emergency department with epistaxis. Patient had an NG tube placed yesterday. He is on Xarelto. Today he was going to physical therapy when they noticed that there was some blood coming from the left
naris which has NG tube in it. Patient denies any clots swallowing any blood. He states that it was very mild bleeding. He was sent to the emergency department for further evaluation.
Past History
Past History
ED Past Medical History: Arrthythmia (Afib), CAD, HTN and Valvular disease
ED Past Surgical History: Cardiac
Social History
Tobacco: Non-smoker
Alcohol: None
Drug: None
Personal: Single
Living: other
Employment: Retired
Family History
Family History: CAD
Phy Exam
Physical Exam
Physical Exam:
GENERAL: in no acute distress
HEENT: normocephalic, moist oral mucosa, clear posterior oropharynx, left nares with NG tube, blood on dressing but no active bleeding in the nares
NECK: normal inspection
RESPIRATORY: no respiratory distress
CARDIOVASCULAR: regular rate and rhythm
NEUROLOGIC: awake and alert,
SKIN: warm
Course
Orders/Labs/Results
Orders:
Orders
03/07/25 12:11
Oxymetazoline HCl [Afrin Nasal Fertile] See Dose Instructions NASAL BID ONE
Vital Signs
Initial and Last Documented VS:
Initial Vital Signs
Temp Pulse Resp BP Pulse Ox
97.8 F 75 16 122/86 98
03/07/25 11:32 03/07/25 11:32 03/07/25 11:32 03/07/25 11:32 03/07/25 11:32
Last Documented Vital Signs
Temp Pulse Resp BP Pulse Ox
97.8 F 71 16 114/73 96
03/07/25 11:32 03/07/25 12:05 03/07/25 12:05 03/07/25 13:00 03/07/25 13:00
MDM/Problems Addressed
Differential Diagnosis Includes:
Patient is a 79-year-old man with history of A-fib on Xarelto, swallowing difficulty resulting in NG tube placed 2 days ago presenting to the emergency department with epistaxis from the left naris that has resolved. Vitals are unremarkable exam
does show dried blood to the old dressing. There is no active bleeding or clots visualized in the left naris. I did discuss with patient about plans for feeding besides NG tube as he does have high likelihood of recurrent bleeding given that he is
on Xarelto. He does state that he did not want a PEG tube so the NG tube was the only option. Patient has been in the emergency department for 40 minutes with no recurrence of his bleeding. For preemptive measures will spray Afrin as well as
Afrin soaked gauze to make sure there is not any recurrent bleeding. Will change his dressing as well.
*Critical Care Note
Total Time (30-74mins, 75-104mins- exclusive of procedures): Not Applicable
Update Note
Update Note:
On reevaluation patient comfortably. There has been no further episodes of bleeding. I did notice a small clot posterior to the NG tube. I did manually remove it.
I did discuss with patient about removing the NG tube to fully evaluate the posterior naris and possibly placing a Rhino Rocket. We did discuss about moving NG tube to the right naris. However given the chance that additional traumatic injuries
could cause epistaxis to the right naris patient would prefer to hold off as the bleeding was very minimal this morning. He has not passed any clots or used any additional gauze or tissues. He states that initially there was a trickling sensation
and he has not felt it since he has been in the emergency department. Will discharge patient with the Afrin. Patient educated on how to use Afrin.
ED Attending Note
-
Portions of this chart may have been created with voice recognition software.� Occasional wrong word or��sound alike� substitutions may have occurred due to the inherent limitations of voice recognition software.
Discharge Plan
Departure
Patient Disposition: Acute Rehab Facility
Date of Disposition: 03/07/25
Time of Disposition: 13:26
Patient with high blood pressure during this ER visit?: No
Discharge Problem:
Epistaxis
Instructions: Nosebleeds (DC)
Prescriptions:
No Action
metformin 500 MG tablet
500 mg PO BID@0800,1700
atorvastatin 20 MG tablet
20 mg PO HS
pantoprazole 40 MG tablet,delayed release (DR/EC)
40 mg PO DAILY
aspirin 81 MG tablet,chewable
81 mg PO DAILY
escitalopram oxalate 20 MG tablet
20 mg PO HS
donepezil 10 MG tablet
10 mg PO HS
memantine 10 MG tablet
10 mg PO BID
midodrine 5 MG tablet
10 mg PO TID@0700,1200,1800
Rx Instructions:
HOLD FOR Systolic blood pressure>150
furosemide 20 mg tablet
20 mg PO DAILY
Xarelto 15 MG tablet
15 mg PO DAILY
amiodarone 200 mg tablet
100 mg PO DAILY Qty: 0 0RF
sennosides [Senokot] 8.6 mg Tablet
17.2 mg PO DAILY
acetaminophen 325 mg Tablet
650 mg PO Q4HPRN PRN (Reason: mild pain)
cyanocobalamin (vitamin B-12) 1,000 mcg Tablet
1,000 mcg PO DAILY
bisacodyl [Dulcolax (bisacodyl)] 10 mg Suppository
10 mg OK DAILYPRN PRN (Reason: constipation)
docusate sodium 100 mg Capsule
100 mg PO BID
insulin aspart U-100 100 unit/mL (3 mL) Insulin Pen
1 sliding scale dose SC AC
magnesium L-lactate 84 mg Tablet Extended Release
84 mg PO DAILY
methyl salicylate-menthol 15-1 % Cream
1 applic TOPICAL TID
baclofen 5 mg Tablet
5 mg PO TIDPRN PRN (Reason: hiccups)
fludrocortisone 0.1 MG tablet
0.2 mg PO DAILY
Interventions
Interventions:
*Risk Screen - Suicide Last Done: 03/07/25 11:32
*General Assessment Last Done: 03/07/25 11:32
*Neglect/Abuse Screening Last Done: 03/07/25 11:32
*ED- Fall Risk Assessment Last Done: 03/07/25 11:32
*ED COVID-19 Vaccine History Last Done: 03/07/25 11:32
ED-EENT Assessment Last Done: 03/07/25 11:32
Discharge Date and Time
Print Language: ECUADOREAN
[2025-03-07] MEDS: AFRIN NASAL SPRAY 1 SPRAYS NASAL (12:24)
[2025-03-07 13:00] VITALS: BP 114/73
== END 2025-03-07 13:33 ==
LOC: EMR 11:29
PROVIDERS: EMERGENCY PHYSICIAN Student in an Organized Health Care Education/Training Program
DX: R04.0 Epistaxis (principal); I25.10 Atherosclerotic heart disease of native coronary artery without angina pectoris; I10 Essential (primary) hypertension; Z79.01 Long term (current) use of anticoagulants; I48.91 Unspecified atrial fibrillation; Z97.8 Presence of other specified devices
CPT/HCPCS: 99282

== ENCOUNTER 2025-03-11 09:06 | Emergency (ER) | payer MEDICARE, SELFPAY ==
[2025-03-11 09:11] VITALS: BP 103/61
--- NOTE | 2025-03-11 09:55 | ED.GENMED ---
History of Present Illness
General
Chief Complaint: Swallowing Problem
Source: patient
Time Seen by Provider: 03/11/25 09:41
History of Present Illness
History of Present Illness:
79-year-old male with recent history of CVA who recently failed swallow study [facility]. This has been dislodged other times as well. Patient expresses his frustration as he keeps having come down here to
get an NG tube placed. Has been receiving all of his nutrition through the NG tube. He denies pain.
Past History
Past History
ED Past Medical History: Arrthythmia (Afib), CAD, HTN and Valvular disease
ED Past Surgical History: Cardiac
Social History
Tobacco: Non-smoker
Alcohol: None
Drug: None
Personal: Single
Living: other
Employment: Retired
Family History
Family History: CAD
Phy Exam
Physical Exam
Physical Exam:
General: Well-appearing male no acute respiratory distress
HEENT normocephalic atraumatic
Heart: Regular rate and rhythm
Lungs: Clear no wheeze abdomen is soft nontender
Course
Orders/Labs/Results
Orders:
Orders
03/11/25 10:24
NG Tube [GI tube insertion- Treatment] ONCE
03/11/25 10:49
CXR Port [CR Chest Portable - 1 View] Urgent
Comment:
Reason For Exam: s/p NGT placement
Reason Study Needs to be Portable: Other
If Reason is Other, explain: He doesn't its how it's ordered.
Vital Signs
Initial and Last Documented VS:
Initial Vital Signs
Temp Pulse Resp BP Pulse Ox
97.8 F 82 18 103/61 97
03/11/25 09:11 03/11/25 09:11 03/11/25 09:11 03/11/25 09:11 03/11/25 09:11
Last Documented Vital Signs
Temp Pulse Resp BP Pulse Ox
97.8 F 82 18 103/61 97
03/11/25 09:11 03/11/25 09:11 03/11/25 09:11 03/11/25 09:11 03/11/25 09:11
MDM/Problems Addressed
Differential Diagnosis Includes:
Dysphagia secondary to recent stroke. Currently receiving nutrition and medication through an NG tube which has been recently dislodged. Spoke with the physician at [facility].
Will attempt to place dobhoff tube.
*Critical Care Note
Total Time (30-74mins, 75-104mins- exclusive of procedures): Not Applicable
Update Note
Update Note:
Discussed case with staff at [facility] as well as GI. Per patient, the patient may be cleared from needing an NG tube early next week. Discussed potential for PEG tube or different type of catheter through the nose however he is really just
requesting an NG tube. This was placed by nursing staff. X-ray confirms placement. Stable for discharge back to [facility]
ED Attending Note
-
Portions of this chart may have been created with voice recognition software.� Occasional wrong word or��sound alike� substitutions may have occurred due to the inherent limitations of voice recognition software.
Discharge Plan
Departure
Patient Disposition: Acute Rehab Facility
Date of Disposition: 03/11/25
Time of Disposition: 11:30
Discharge Problem:
dislodged ng tube
Prescriptions:
No Action
metformin 500 MG tablet
500 mg PO BID@0800,1700
atorvastatin 20 MG tablet
20 mg PO HS
pantoprazole 40 MG tablet,delayed release (DR/EC)
40 mg PO DAILY
aspirin 81 MG tablet,chewable
81 mg PO DAILY
escitalopram oxalate 20 MG tablet
20 mg PO HS
donepezil 10 MG tablet
10 mg PO HS
memantine 10 MG tablet
10 mg PO BID
midodrine 5 MG tablet
10 mg PO TID@0700,1200,1800
Rx Instructions:
HOLD FOR Systolic blood pressure>150
furosemide 20 mg tablet
20 mg PO DAILY
Xarelto 15 MG tablet
15 mg PO DAILY
amiodarone 200 mg tablet
100 mg PO DAILY Qty: 0 0RF
sennosides [Senokot] 8.6 mg Tablet
17.2 mg PO DAILY
acetaminophen 325 mg Tablet
650 mg PO Q4HPRN PRN (Reason: mild pain)
cyanocobalamin (vitamin B-12) 1,000 mcg Tablet
1,000 mcg PO DAILY
bisacodyl [Dulcolax (bisacodyl)] 10 mg Suppository
10 mg MD DAILYPRN PRN (Reason: constipation)
docusate sodium 100 mg Capsule
100 mg PO BID
insulin aspart U-100 100 unit/mL (3 mL) Insulin Pen
1 sliding scale dose SC AC
magnesium L-lactate 84 mg Tablet Extended Release
84 mg PO DAILY
methyl salicylate-menthol 15-1 % Cream
1 applic TOPICAL TID
baclofen 5 mg Tablet
5 mg PO TIDPRN PRN (Reason: hiccups)
fludrocortisone 0.1 MG tablet
0.2 mg PO DAILY
bisacodyl [Dulcolax (bisacodyl)] 5 mg Tablet,Delayed Release (Dr/Ec)
10 mg PO DAILYPRN PRN (Reason: constipation)
Referrals:
UNKNOWN - PT NOT,INTERVIEWE [Family Provider] -
Activity Restrictions/Additional Instructions:
A new NG tube was placed here. Please return here if needed
Interventions
Interventions:
*Risk Screen - Suicide Last Done: 03/11/25 09:11
*General Assessment Last Done: 03/11/25 09:11
*Neglect/Abuse Screening Last Done: 03/11/25 09:11
*ED- Fall Risk Assessment Last Done: 03/11/25 09:50
*ED COVID-19 Vaccine History Last Done: 03/11/25 09:50
FT-Fkbyys-Husyggancb Assessment Last Done: 03/11/25 09:50
ED- Neurological Assessment Last Done: 03/11/25 09:50
ED- Pulmonary Assessment Last Done: 03/11/25 09:50
Discharge Date and Time
Print Language: MALTESE
== END 2025-03-11 11:41 ==
LOC: EMR 09:06
PROVIDERS: EMERGENCY PHYSICIAN Emergency Medicine
DX: Z46.59 Encounter for fitting and adjustment of other gastrointestinal appliance and device (principal); I10 Essential (primary) hypertension; I48.91 Unspecified atrial fibrillation; I25.10 Atherosclerotic heart disease of native coronary artery without angina pectoris; Z86.73 Personal history of transient ischemic attack (TIA), and cerebral infarction without residual deficits
CPT/HCPCS: 99283; 71045

== ENCOUNTER 2025-03-22 13:58 | Day surgery (SDC) | payer MEDICARE, SELFPAY ==
[2025-03-22] VITALS (12 sets, daily range): BP systolic 12–168; BP diastolic 82–99; BMI 23.2
--- NOTE | 2025-03-22 13:08 | CON.GI ---
Addendum entered and electronically signed by Lulu Pena MD 03/22/25 17:21:
(Dr. Hughes rehab doctor)
Addendum entered and electronically signed by Lulu Pena MD 03/22/25 15:29:
The patient was seen and examined by me independently in collaboration with the nurse practitioner.
Past medical history/social history/medications/allergies/family history reviewed.
Lab data and imaging data reviewed.
79 yo M here from rehab needing PEG with recent stroke.
Unable to reach sister for consent.
D/w Dr. Hughes pt is consentable.
D/w pt r/a/b of PEG - risks inc but not limited to bleeding, infection, perforation.
Pt was able to verbalize procedure back and oriented x3.
Further recs pending PEG.
Original Note:
Consultation
-
Date/Time Consultation Requested: 03/22/25 1300
Date/Time Consultation Performed: 03/22/25 1415
Requesting Provider: Bhavya Peralta MD
Performing Provider: ISHMAEL Rodriguez, Francisca Pena MD
Reason for Consultation: peg evaluation
Medical History
Chief Complaint / HPI
Chief Complaint: dysphagia
History of Present Illness:
Pt is an 79yo presents afib on Xarelto, CAD, CHF, HTN, hypercholesterolemia, prior TAVR, NIDDM, dementia, orthostasis with admission 02/23 with speech difficult, word finding and slurred speech. Work up with concern for subacute right frontal lobe
infarction. Pt was transferred to [facility] after admission. Pt also noted with recent PNA with abx course. Pt was been followed by speech with VSE 03/05 and repeat 03/16 recommended NPO and pt has been getting tube feeds. He now has been NPO with
Xarelto stopped 2 days prior and Lovenox stopped day prior for peg placement.
At this time patient admits to slow improvement with speech but continued dysphagia and difficulty with swallowing. He has had some wt loss. He denies odynophagia, GERD, nausea, vomiting, abdominal pain, diarrhea, constipation, or rectal
bleeding. Distant hx colonoscopy no hx EGD in past.
Past Medical History
Past Medical History: Arrhythmias (afib on Xarelto ), CAD, CHF, HTN, Hypercholesterolemia, NIDDM, Valvular Disease (), Psychiatric (dementia ) and Other (orthostasis )
Past Surgical History: Cardiac (TAVR)
Social History
Tobacco: Non-Smoker
Alcohol: None
Drug: None
Living: Other (prior [facility])
Employment: Retired
Family History
Family History: Other (denies family hx GI issues )
Allergies / Home Medications
Allergy/AdvReac Type Severity Reaction Status Date / Time
digoxin Allergy Unknown Verified 03/11/25 09:07
�Medication �Instructions �Recorded
aspirin 81 mg chewable tablet 81 mg PO DAILY Blood clot 01/03/21
prevention/tx
atorvastatin 20 mg tablet 20 mg PO HS High cholesterol 01/03/21
escitalopram oxalate 20 mg tablet 20 mg PO HS Depression 01/03/21
metformin 500 mg tablet 500 mg PO BID@0800,1700 Diabetes 01/03/21
donepezil 10 mg tablet 10 mg PO HS dementia 11/30/21
memantine 10 mg tablet 10 mg PO BID dementia 11/30/21
midodrine 5 mg tablet 10 mg PO TID@0700,1200,1800 Blood 09/05/23
Pressure
furosemide 20 mg tablet 20 mg PO DAILY Fluid 02/23/25
Retention/Swelling
rivaroxaban 15 mg tablet (Xarelto) 15 mg PO DAILY Blood Clot 02/23/25
Prevention/Tx
amiodarone 200 mg tablet 100 mg (1/2 x 200 mg) PO DAILY 03/03/25
Arrhythmia #0 tabs
acetaminophen 325 mg tablet 650 mg PO Q4HPRN PRN mild pain 03/05/25
bisacodyl 10 mg rectal suppository 10 mg HI DAILYPRN PRN constipation 03/05/25
(Dulcolax (bisacodyl))
cyanocobalamin (vitamin B-12) 1,000 mcg PO DAILY 03/05/25
1,000 mcg tablet
fludrocortisone 0.1 mg tablet 0.2 mg PO DAILY Blood pressure 03/05/25
insulin aspart U-100 100 unit/mL 1 sliding scale dose SC AC 03/05/25
(3 mL) subcutaneous pen
magnesium L-lactate 84 mg 84 mg PO DAILY 03/05/25
tablet,extended release
methyl salicylate 15 %-menthol 1 % 1 applic topical TID bilateral 03/05/25
topical cream knees
ampicillin-sulbactam 1.5 gram 1.5 g IV Q6H 03/11/25
intravenous solution
bisacodyl 5 mg tablet,delayed 10 mg PO DAILYPRN PRN constipation 03/11/25
release (Dulcolax (bisacodyl))
docusate sodium 50 mg/5 mL oral 100 mg feeding tube BID 03/11/25
liquid
guaifenesin 100 mg/5 mL oral liquid 200 mg feeding tube Q4HPRN PRN 03/11/25
cough
lansoprazole 30 mg capsule,delayed 30 mg feeding tube DAILY 03/11/25
release (Prevacid)
melatonin 3 mg tablet 3 mg PO HS 03/11/25
potassium chloride 40 mEq/15 mL 40 meq feeding tube DAILY 03/11/25
oral liquid
tramadol 25 mg tablet 25 mg PO Q6HPRN PRN moderate pain 03/11/25
Review of Systems
-
History Source: Patient
Constitutional: Reports Weight Loss (few lbs)
EENT: Reports Other (chronic dysphagia since CVA)
Respiratory: Reports No Symptoms
Cardiac: Reports No Symptoms
Abdomen/GI: Reports No Symptoms
: Reports No Symptoms
Musculoskeletal: Reports No Symptoms
Skin: Reports No Symptoms
Neurological: Reports Other (slurred speech with improvement )
Endocrine: Reports No Symptoms
Hematologic/Lymphatic: Reports No Symptoms
Physical Exam
Exam
General: Well Developed, Well Nourished and No Apparent Distress
HEENT: Normocephalic and Anicteric
Respiratory: Clear
Cardiac: Regular Rhythm
GI: Soft, Non Tender and Non Distended
Musculoskeletal: No Clubbing and No Cyanosis
Skin: Warm and Dry
Neuro: Awake, Alert, AO x 3 and Other (slurred speech but comprehensible )
Psych: Calm
Results
Diagnostic Image Results:
Prior GI Procedures:
EGD: none
Colonoscopy: years ago
Assessment / Plan
-
Pt is an 79yo presents afib on Xarelto, CAD, CHF, HTN, hypercholesterolemia, , NIDDM, dementia, orthostasis with admission 02/23 with speech difficult, word finding and slurred speech. Work up with concern for subacute right frontal lobe infarction.
Pt was transferred to [facility] after admission. Pt was been followed by speech with [facility] 03/05 and repeat 03/16 recommended NPO as airway aspiration with all consistencies and pt has been getting tube feeds. He now has been NPO still this am with
Xarelto stopped 2 days prior and Lovenox stopped day prior for peg placement.
-failed speech evaluation with aspiration
-CVA with dysphagia
-afib on prior Xarelto
-recent PNA
other med problems:
-CAD
-CHF
-HTN
-hypercholesterolemia
-
-IDDM
-dementia
-orthostasis
PLAN:
etiology of dysphagia related to recent CVA
still with concern for aspiration on 03/16 follow up VSE
Pt baez
plan for peg today if time allows vs in AM
NPO
Lovenox hold since 03/21 AM
Xarelto hold since 03/19 AM
pt agreeable to proceed-- reviewed risk/benefits and alteratives reviewed need to keep peg for at least 3 months til can proceed
reviewed with hospitalist for admission
verified with [facility] staff on medication and pt has been off Unasyn will order Ancef 2 gram prior to peg
I left message for sister with update
-
-
Thank you for consultation and allowing me to participate in the patient's care. Please call the [facility] liaison GI physician during the after hours with any questions or concerns.
--- NOTE | 2025-03-22 14:11 | HPS.HSE ---
Family Physician
-
Family Physician: INTERVIEWE UNKNOWN - PT NOT
Chief Complaint
-
PEG placement for chronic dysphagia
History of Present Illness
HPI: 79 y/o M PMH Aortic stenosis, paroxysmal A-fib, CAD, HFrEF, dementia, HTN, hypercholesterolemia, NIDDM, midodrine/Florinef dependent orthostatic hypotension, recent stroke (/ subacute posterior right frontal lobe infarction) and CAP,
ambulatory dysfunction, chronic dysphagia with NGT on tube feed for several weeks, p/w PEG placement by GI.
Medical History
Past Medical History
Past Medical History: Reports Arrhythmia (Prx AF ), CAD, CHF (chr HFrEF ), Dementia, HTN, Hypercholesterolemia, NIDDM and Valvular Disease (s/p TAVR )
Past Surgical History: Reports Cardiac (TAVR )
Social History
Unable to obtain full social history at this time due to: Dementia
Family History
Family History: Not pertinent
Allergies / Home Medications
Allergies reflects when Allergies were last updated in [facility].
Home Medications with original date entered in [facility]
Allergy/Medication List:
Medications on admission are unable to be verified or confirmed at this time.
Review of Systems
-
Abdomen/GI: Reports See HPI; Denies Nausea or Vomiting
Physical Exam
Vital Signs
Vital Signs
Temp Pulse Resp BP Pulse Ox
36.6 C 75 20 157/91 97
03/22/25 14:05 03/22/25 14:05 03/22/25 14:05 03/22/25 14:05 03/22/25 14:05
Physical Exam
General: Well Developed, Well Nourished, No Apparent Distress, Comfortable and Conversant
HEENT: NormoCephalic
Respiratory: Clear and Non Labored Respirations; No Accessory Resp Muscle Use
Cardiac: S1/S2 and Regular Rhythm
GI: Soft, Non Tender, Non Distended and Normal Bowel Sounds
Neuro: Awake and Alert
Psych: Calm and Intact Judgment/Insight (somewhat)
Data Reviewed
-
Lab Data: Labs Reviewed by me
Impression/Plan
-
HPI: 79 y/o M PMH Aortic stenosis, paroxysmal A-fib, CAD, HFrEF, dementia, HTN, hypercholesterolemia, NIDDM, midodrine/Florinef dependent orthostatic hypotension, recent stroke (4/ subacute posterior right frontal lobe infarction) and CAP,
ambulatory dysfunction, chronic dysphagia with NGT on tube feed for several weeks, p/w PEG placement by GI.
A/P:
# Chronic dysphagia
# Currently with NG tube on tube feed, ongoing for several weeks
GI consulted for PEG placement
Other medical conditions:
# recent Acute right subcortical posterior right frontal lobe stroke
# Recent Community acquired pneumonia
# Paroxysmal A-fib
Continue with amiodarone
Holding Xarelto pre PEG placement
# Orthostatic hypotension, midodrine dependent, cont fludrocortisone
# History of chronic HFrEF
Lasix on hold with NPO status
# History of CAD/Hyperlipidemia
Continue aspirin and atorvastatin
# Type 2 diabetes
ISS
# Dementia
Continue memantine
code status: Full Code
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
--- NOTE | 2025-03-22 14:35 | PTCARENOTE ---
Pt arrived to 2S via stretcher, ambulated to bed with AX2. Full assessment completed. Hospitalist notified of pts arrival, awaiting orders. Admission completed, per protocol. NGT noted and clamped. Pt instructed to ring for assistance with getting
OOB, verbalized understanding. Bed locked and in the lowest position, safety maintained. Oriented to room and call rodriguez.
--- NOTE | 2025-03-22 14:48 | PTCARENOTE ---
GI lab calling for pt, report given to GI earthmoving labourer. Pharmacy called to send ordered ancef to GI lab. Incontinence care provided to pt and pt assisted on stretcher, en route to GI lab.
--- NOTE | 2025-03-22 15:39 | OR.RPT ---
Operative Report
Operative Report
Patient Name: Jaime Phillips
: 1945
Date of Operation: 03/22/2025
Preoperative Diagnosis: Need for feeding access, stroke
Postoperative Diagnosis: Same
Procedure(s):
Percutaneous endoscopic gastrostomy
Surgeon(s):
Dr. Epstein
Endoscopist(s):
Dr. Gupta
Anesthesia: General
Estimated Blood Loss: 3 cc
Urine Output: None
Drains/Lines/Implants: 20 Surinamese PEG tube
Specimens: None
Indication/Findings at the time of surgery:
Please see GI notes.
Details of the operation:
After inducing general anesthesia and placement of a mouth guard, an upper endoscopy was performed by the weighmaster lead (see their note for further details) an appropriate site for the PEG tube was identified near the left costal margin. This
was confirmed by good one-to-one, transillumination as well as a safe track technique. The overlying skin was infiltrated with lidocaine and a small stab incision was made. The introducer needle was inserted through the stab incision, abdominal
wall and into the stomach. This required 1 pass. The blue guidewire was inserted through the sheath and was captured by an endoscopic snare. A 20 Surinamese PEG tube was then advanced along the tract. The external bumper and tube feeding attachment
were placed. The tube was noted to be 3 cm at the skin however as there was some bleeding around the PEG site (the patient is on blood thinners) this was tightened to 2.5 cm with plan to loosen the bumper back to 3 cm tomorrow. The patient
returned to the recovery room in stable condition. Sponge and instrument counts were correct. No specimen sent to pathology from our portion of the procedure.
I was the attending physician and performed my portion of the procedure with no assistance. I was present for all portions of the case
Cyrus Epstein MD
[2025-03-22 15:43] LABS: Glucose - Point of Care 104 mg/dl (70-99)
--- NOTE | 2025-03-22 16:06 | W.PN.UPDATE ---
Update Note
Progress Note Update
Discussed with GI, prefers to use SCD for DVT prophylaxis tonight.
Can tentatively start Lovenox subcu for DVT prophylaxis tomorrow.
[2025-03-22] MEDS: PROTONIX IV 40 MG IV (16:09)
--- NOTE | 2025-03-22 17:05 | PTCARENOTE ---
Addendum entered by Radha Fernandez, RN 03/22/25 18:21:
NGT removed prior to return to 2S.
Original Note:
Pt returned to 2 via stretcher, assisted to bed via nursing staff. Peg tube site with a scant amount of drainage. Dr Peralta texted to clarify NPO/diet for tonight. Bed locked and in the lowest position, safety maintained. Sister at bedside, call rodriguez
in reach, bed alarm engaged.
[2025-03-22] MEDS: ProAmatine PO (17:11)
[2025-03-22] MEDS: NSS 1000 IV (17:25)
[2025-03-22 17:49] LABS: Glucose - Point of Care 98 mg/dl (70-99)
[2025-03-22] MEDS: NOVOLOG FLEXPEN-LOW RESISTANCE SC (17:54)
[2025-03-22] MEDS: DILAUDID 0.25 MG IV (19:51)
[2025-03-22] MEDS: MELATONIN PO (20:24)
[2025-03-22] MEDS: ARICEPT PO (20:24)
[2025-03-22] MEDS: LIPITOR PO (20:24)
[2025-03-22] MEDS: LEXAPRO PO (20:24)
[2025-03-22] MEDS: NAMENDA PO (20:24)
[2025-03-23] VITALS (8 sets, daily range): BP systolic 111–143; BP diastolic 65–90; PULSE 75–78; O2SAT 96–97; BMI 23.4
[2025-03-23 00:22] LABS: Glucose - Point of Care 95 mg/dl (70-99)
[2025-03-23] MEDS: NOVOLOG FLEXPEN-LOW RESISTANCE SC ×4 (00:45→18:16)
[2025-03-23 06:41] LABS: Glucose - Point of Care 100 mg/dl (70-99)
[2025-03-23] MEDS: ProAmatine PO (07:00)
[2025-03-23 07:30] LABS: Hematocrit 30.4 % (39.0-52.0); Hemoglobin 9.8 g/dL (13.0-18.0); Mean Corp Hgb Conc. 32.2 g/dL (33.0-37.0); Mean Corpuscular Hgb 26.6 pg (27.0-31.0); Mean Corpuscular Volume 82.4 fL (80.0-94.0); Mean Platelet Volume 10.1 fL (7.4-10.4); Platelet Count 285 10^3/uL (130-400); Red Blood Cell Count 3.69 10^6/uL (4.70-6.10); Red Cell Dist. Width 17.6 % (11.5-14.5); White Blood Cell Count 8.3 10^3/uL (4.8-10.8)
[2025-03-23 08:10] LABS: Blood Urea Nitrogen 18 mg/dl (9-20); Carbon Dioxide 27 mmol/L (22-30); Chloride 103 mmol/L (98-107); Estimated Creatinine Clearance 67 ml/min; Glucose 93 mg/dl (70-99); Magnesium 1.5 mg/dl (1.6-2.3); Potassium 3.9 mmol/L (3.5-5.1); Sodium 138 mmol/L (135-145); eGFR > 60.00
[2025-03-23] MEDS: PROTONIX IV 40 MG IV (08:27)
--- NOTE | 2025-03-23 09:19 | W.PN.GI.CBS2 ---
Addendum entered and electronically signed by Earle Andrea MD 03/23/25 13:22:
I saw and examined the patient.
The DUPLICATE MAKER or PA's note was reviewed and I agree with the note.
Comment:
Pt with no complaints of abd pain, no bleeding around site
site of tube clean at 3
repeat hgb 10.1 (stable)
plan:
ok to feed as below
ok for aspirin, hold lovenox until tomorrow
will sign off call with questions
Addendum entered and electronically signed by ISHMAEL Thompson 03/23/25 11:24:
I spoke with patient again as confused with plan. All questions answered.
Original Note:
Today's Communication / Plan
-
etiology of dysphagia related to recent CVA
s/p peg 03/22 with some oozing noted with procedure
hbg 9.7 03/22 and 03/22 9.8 post procedure-- will repeat again at 1300
no stools overnight
I irrigated peg this am with faint tinge pink drainage
peg very tight loosened to 3 cm, no external blood noted
I will start meds and low dose feeds with slow advancement
reviewed with nursing to irrigate peg every 2 hours with start of feed to ensure no bleeding if stable this am then check q shift
ok for ASA with recent CVA but would hold Lovenox and cont compression stocking at least another 24 hours
pending tube feed tolerance, peg irrigation and repeat hbg will determine if able to return to [facility] today
Assessment / Plan
-
Pt is an 79yo presents afib on Xarelto, CAD, CHF, HTN, hypercholesterolemia, , NIDDM, dementia, orthostasis with admission 02/23 with speech difficult, word finding and slurred speech. Work up with concern for subacute right frontal lobe infarction.
Pt was transferred to [facility] after admission. Pt was been followed by speech with [facility] 03/05 and repeat 03/16 recommended NPO as airway aspiration with all consistencies and pt has been getting tube feeds. He now has been NPO still this am with
Xarelto stopped 2 days prior and Lovenox stopped day prior for peg placement.
03/22 EGD protano - Normal esophagus.
- Normal stomach.
- Red blood in the stomach.
- Normal examined duodenum.
- Endovive Safety PEG placement was successfully
completed.
- No specimens collected.
-failed speech evaluation with aspiration s/p peg 03/22 with some blood in stomach with EGD
-CVA with dysphagia
-afib on prior Xarelto
-recent PNA
other med problems:
-CAD
-CHF
-HTN
-hypercholesterolemia
-
-IDDM
-dementia
-orthostasis
PLAN:
etiology of dysphagia related to recent CVA
s/p peg 03/22 with some oozing noted with procedure
hbg 9.7 03/22 and 03/22 9.8 post procedure will repeat at 1300
no stools overnight
I irrigated peg this am with faint tinge pink drainage
peg very tight loosened to 3 cm, no external blood noted
I will start meds and low dose feeds with slow advancement
reviewed with nursing to irrigate peg every 2 hours with start of feed to ensure no bleeding if stable this am then check q shift
ok for ASA with recent CVA but would hold Lovenox and cont compression stocking at least another 24 hours
Subjective
Subjective
Date of Service: March 23, 2025
feeling well, NPO
Objective
Data Reviewed
Laboratory Data:
Laboratory Results
03/23/25 06:21
03/23/25 06:21
Laboratory Results
Magnesium 1.5 mg/dl (1.6-2.3) L 03/23/25 06:21
Vital Signs and I&O:
Vital Signs
Temp Pulse Resp BP Pulse Ox
98.3 F 73 18 139/83 94
03/23/25 07:10 03/23/25 07:10 03/23/25 07:10 03/23/25 07:10 03/23/25 07:10
I&O
03/22/25 03/23/25 03/24/25
06:59 06:59 06:59
Intake Total 40 / 40
Output Total 520 / 520
Balance -480 / -480
Physical Exam
Physical Exam
HEENT: Anicteric and Moist mucous membranes
Cardiology: Normal Sinus Rhythm
Pulmonary: Clear
GI: Soft, Non Distended, Non Tender and Other (peg at 2 cm loosened to 3 no bleeding on outside of peg mild pain around site )
Extremities: No Edema
Neuro: Non Focal
[2025-03-23] MEDS: TYLENOL 650 MG PO (10:29)
[2025-03-23] MEDS: NAMENDA 10 MG PO ×2 (10:29→20:03)
[2025-03-23] MEDS: PACERONE 100 MG PO (10:30)
[2025-03-23] MEDS: LOW STRENGTH ASPIRIN 81 MG PO (10:30)
[2025-03-23] MEDS: FLORINEF 0.1 MG PO (10:30)
--- NOTE | 2025-03-23 11:05 | W.PN.HOSP.TC ---
Today's Communication/Plan
-
see A/P
Assessment / Plan
Assessment / Plan
HPI: 79 y/o M PMH Aortic stenosis, paroxysmal A-fib, CAD, HFrEF, dementia, HTN, hypercholesterolemia, NIDDM, midodrine/Florinef dependent orthostatic hypotension, recent stroke (02/23 subacute posterior right frontal lobe infarction) and CAP,
ambulatory dysfunction, chronic dysphagia with NGT on tube feed for several weeks, p/w PEG placement by GI.
A/P:
# Chronic dysphagia due to recent stroke
# Currently with NG tube on tube feed, ongoing for several weeks
s/p PEG placement by GI 03/22
Started tube feeding, assess for tolerance
DVT ppx with SCD for now. 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
# Hypomagnesemia
replete IV
Other medical conditions:
# recent Acute right subcortical posterior right frontal lobe stroke
# Recent Community acquired pneumonia
# Paroxysmal A-fib
Continue with amiodarone
Holding Xarelto pre PEG placement
# Orthostatic hypotension, midodrine dependent, cont fludrocortisone
# History of chronic HFrEF
Lasix on hold with NPO status
# History of CAD/Hyperlipidemia
Continue aspirin and atorvastatin
# Type 2 diabetes
ISS
# Dementia
Continue memantine
code status: Full Code
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
Anticipated Discharge: 24 - 48 hours
Subjective/Interval History
-
Date of Service: March 23, 2025
Objective Data
-
Labs:
Laboratory Results
03/23/25 03/23/25
06:21 13:00
WBC 8.3 Pending
Hgb 9.8 L Pending
Hct 30.4 L Pending
Plt Count 285 Pending
Sodium 138
Potassium 3.9
Chloride 103
Carbon Dioxide 27
BUN 18
Creatinine 1.0
Glucose 93
Calcium 9.0
Vital Signs:
Vital Signs
Temp Pulse Resp BP Pulse Ox
36.8 C 73 18 139/83 94
03/23/25 07:10 03/23/25 07:10 03/23/25 07:10 03/23/25 07:10 03/23/25 07:10
I&O
03/22/25 03/23/25 03/24/25
06:59 06:59 06:59
Intake Total 40 / 40
Output Total 520 / 520 200 / 200
Balance -480 / -480 -200 / -200
Review of Systems
-
History Source: Patient
All other systems: Reviewed and negative
Physical Exam
-
General: Well Developed, No Apparent Distress, Comfortable and Conversant
HEENT: Normocephalic and Atraumatic
Respiratory: Clear to Auscultation and Non Labored Respirations; Negative Accessory Resp Muscle Use
Cardiac: Regular Rhythm and S1/S2
GI: Soft, Nontender, Nondistended, Normal Bowel Sounds and Peg Tube
Musculoskeletal: No Edema
Neuro: Awake and Alert
Psych: Calm and Intact Judgement/Insight
Data Reviewed
-
Labs: Labs Reviewed by me
[2025-03-23] MEDS: MAGNESIUM SULFATE 100 IV (11:25)
--- NOTE | 2025-03-23 11:45 | CM ---
Addendum entered by Ana Joya RN 03/23/25 13:47:
CM spoke with hospitalist. Plan for discharge 03/24. CM updated [facility]. Plan to hold bed until 03/24 at midnight.
CM will continue to follow.
Original Note:
CM reviewed medical records. CM contacted [facility] to discuss admission. CM will await feedback.
PLAN: [facility]
[2025-03-23 12:10] LABS: Glucose - Point of Care 103 mg/dl (70-99)
[2025-03-23] MEDS: ProAmatine 10 MG PO ×2 (12:39→18:23)
[2025-03-23 13:19] LABS: Hematocrit 31.7 % (39.0-52.0); Hemoglobin 10.1 g/dL (13.0-18.0); Mean Corp Hgb Conc. 31.9 g/dL (33.0-37.0); Mean Corpuscular Hgb 26.7 pg (27.0-31.0); Mean Corpuscular Volume 83.9 fL (80.0-94.0); Mean Platelet Volume 9.7 fL (7.4-10.4); Platelet Count 283 10^3/uL (130-400); Red Blood Cell Count 3.78 10^6/uL (4.70-6.10); Red Cell Dist. Width 17.8 % (11.5-14.5); White Blood Cell Count 8.5 10^3/uL (4.8-10.8)
--- NOTE | 2025-03-23 15:17 | W.PN.UPDATE ---
Update Note
Progress Note Update
hbg 10 reviewed with nursing no blood on follow up residual check -- stable from GI for return to [facility] in AM pending no issues.
[2025-03-23 18:09] LABS: Glucose - Point of Care 101 mg/dl (70-99)
[2025-03-23] MEDS: NSS 1000 IV (18:27)
[2025-03-23] MEDS: ULTRAM 25 MG PO (20:00)
[2025-03-23] MEDS: LEXAPRO 20 MG PO (20:03)
[2025-03-23] MEDS: LIPITOR 20 MG PO (20:04)
[2025-03-23] MEDS: ARICEPT 10 MG PO (20:04)
[2025-03-23] MEDS: MELATONIN 3 MG PO (22:31)
[2025-03-23] MEDS: DILAUDID 0.25 MG IV (22:32)
[2025-03-23 23:59] LABS: Glucose - Point of Care 101 mg/dl (70-99)
[2025-03-24] MEDS: NOVOLOG FLEXPEN-LOW RESISTANCE SC ×2 (00:21→11:58)
[2025-03-24 06:11] LABS: Glucose - Point of Care 156 mg/dl (70-99)
[2025-03-24] MEDS: NOVOLOG FLEXPEN-LOW RESISTANCE 1 UNITS SC (06:19)
[2025-03-24] MEDS: ProAmatine 10 MG PO ×2 (06:23→12:21)
[2025-03-24 07:27] LABS: Hematocrit 32.6 % (39.0-52.0); Hemoglobin 10.4 g/dL (13.0-18.0); Mean Corp Hgb Conc. 31.9 g/dL (33.0-37.0); Mean Corpuscular Hgb 26.5 pg (27.0-31.0); Mean Platelet Volume 10.5 fL (7.4-10.4); Platelet Count 325 10^3/uL (130-400); Red Blood Cell Count 3.93 10^6/uL (4.70-6.10); Red Cell Dist. Width 17.6 % (11.5-14.5)
[2025-03-24] MEDS: FLORINEF 0.1 MG PO (07:36)
[2025-03-24] MEDS: LOW STRENGTH ASPIRIN 81 MG PO (07:36)
[2025-03-24] MEDS: NAMENDA 10 MG PO (07:36)
[2025-03-24] MEDS: PACERONE 100 MG PO (07:36)
[2025-03-24 07:37] VITALS: BP 130/82
[2025-03-24] MEDS: PROTONIX IV 40 MG IV (07:37)
[2025-03-24 07:57] LABS: Blood Urea Nitrogen 19 mg/dl (9-20); Calcium 9.2 mg/dl (8.4-10.2); Carbon Dioxide 23 mmol/L (22-30); Chloride 101 mmol/L (98-107); Estimated Creatinine Clearance 75 ml/min; Glucose 154 mg/dl (70-99); Magnesium 2.1 mg/dl (1.6-2.3); Sodium 137 mmol/L (135-145); eGFR > 60.00
[2025-03-24] MEDS: ULTRAM 25 MG PO (08:40)
[2025-03-24 08:54] VITALS: BMI 23.4
--- NOTE | 2025-03-24 09:15 | CM ---
Addendum entered by Ana Joya RN 03/24/25 09:22:
[facility]
Report
[phone]

Original Note:
CM was updated that patient is medically ready for discharge back to [facility]. Cm updated admission RN with plan for discharge.
PLAN: [facility]
[2025-03-24 11:36] LABS: Glucose - Point of Care 99 mg/dl (70-99)
--- NOTE | 2025-03-24 11:48 | W.PN.HOSP.TC ---
Addendum entered and electronically signed by Bhavya Peralta MD 03/24/25 16:16:
total DC time 37 min
Original Note:
Today's Communication/Plan
-
DC back to [facility] today
Assessment / Plan
Assessment / Plan
HPI: 79 y/o M PMH Aortic stenosis, paroxysmal A-fib, CAD, HFrEF, dementia, HTN, hypercholesterolemia, NIDDM, midodrine/Florinef dependent orthostatic hypotension, recent stroke (02/23 subacute posterior right frontal lobe infarction) and CAP,
ambulatory dysfunction, chronic dysphagia with NGT on tube feed for several weeks, p/w PEG placement by GI.
A/P:
# Chronic dysphagia due to recent stroke
# Currently with NG tube on tube feed, ongoing for several weeks
s/p PEG placement by GI 03/22
Started tube feeding, tolerated well
resume POISER BALANCE Xarelto after discharge today
# Hypomagnesemia
repleted IV
Other medical conditions:
# recent Acute right subcortical posterior right frontal lobe stroke
# Recent Community acquired pneumonia
# Paroxysmal A-fib
Continue with amiodarone
Holding Xarelto pre PEG placement
# Orthostatic hypotension, midodrine dependent, cont fludrocortisone
# History of chronic HFrEF
Lasix on hold with NPO status
# History of CAD/Hyperlipidemia
Continue aspirin and atorvastatin
# Type 2 diabetes
ISS
# Dementia
Continue memantine
code status: Full Code
DVT proph: resume POISER BALANCE Xarelto after DC today
DW RN
DW CM
Anticipated Discharge: Today
Subjective/Interval History
-
Date of Service: March 24, 2025
Objective Data
-
Labs:
Laboratory Results
03/24/25
05:33
WBC 13.0 H
Hgb 10.4 L
Hct 32.6 L
Plt Count 325
Sodium 137
Potassium 4.0
Chloride 101
Carbon Dioxide 23
BUN 19
Creatinine 0.9
Glucose 154 H
Calcium 9.2
Vital Signs:
Vital Signs
Temp Pulse Resp BP Pulse Ox
36.4 C 88 18 130/82 97
03/24/25 07:37 03/24/25 07:37 03/24/25 07:37 03/24/25 07:37 03/24/25 07:37
I&O
03/23/25 03/24/25 03/25/25
06:59 06:59 06:59
Intake Total 520 / 520 1950 / 1950
Output Total 520 / 520 1525 / 1525
Balance 0 / 0 425 / 425
Review of Systems
-
History Source: Patient
All other systems: Reviewed and negative
Physical Exam
-
General: Well Developed, No Apparent Distress, Comfortable and Conversant
HEENT: Normocephalic and Atraumatic
Respiratory: Clear to Auscultation and Non Labored Respirations; Negative Accessory Resp Muscle Use
Cardiac: Regular Rhythm and S1/S2
GI: Soft, Nontender, Nondistended, Normal Bowel Sounds and Peg Tube
Musculoskeletal: No Edema
Neuro: Awake and Alert
Psych: Calm and Intact Judgement/Insight
Data Reviewed
-
Labs: Labs Reviewed by me
--- NOTE | 2025-03-24 15:44 | W.DCSUMMARY ---
Discharge Summary
Discharge Data
Date of Admission: 03/22/25
Date of Discharge: 03/24/25
-
Pending Results: No
Hospital Course
Principal Diagnosis:
Chronic dysphagia due to recent stroke, had been on tube feeds via nasogastric tube
Admission for PEG placement to continue tube feeding
Chronic Diagnoses:�
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
Chronic dysphagia due to recent stroke
Recent Community acquired pneumonia
Paroxysmal atrial fibrillation
midodrine/Florinef dependent orthostatic hypotension
Chronic HFrEF
History of CAD
Hyperlipidemia
Type 2 diabetes/tvv-msmqtme-iuzxbyoil
Dementia, on memantine
Consultations:�
Gastroenterology
Procedures:�
Percutaneous endoscopic gastrostomy placement by Dr. Epstein on 03/22/2025
Clinical course:�
This is a 79-year-old male with past medical history as stated above, who was sent in from [facility] for PEG placement.
Problem 1:
Chronic dysphagia due to recent stroke, had been on tube feeds via nasogastric tube at [facility].
Admission for PEG placement to continue tube feeding.
PEG tube was placed on 03/22/2025.
He tolerated tube feed well following the procedure. He can resume prior to admission Xarelto following discharge.
As for the rest of his medical problems, they were stable during his hospital stay.
Discharge Plan
-
Patient Disposition: Acute Rehab Facility
Discharge Diagnosis/Procedures: Chronic dysphagia due to recent stroke;
status post PEG placement this admission;
recent aspiration pneumonia/pneumonitis
Condition: Fair
Diet: Tube feeding
Activity: As tolerated
Driving Restrictions: No driving
Blood Work: CBC in 1 week
Referrals:
UNKNOWN - PT NOT,INTERVIEWE [Family Provider] - in less than 1 week
Prescriptions:
Continued
metformin 500 MG tablet
500 mg feeding tube BID@0800,1700
atorvastatin 20 MG tablet
20 mg feeding tube HS
aspirin 81 MG tablet,chewable
81 mg feeding tube DAILY
escitalopram oxalate 20 MG tablet
20 mg feeding tube HS
donepezil 10 MG tablet
10 mg feeding tube HS
memantine 10 MG tablet
10 mg feeding tube BID
midodrine 5 MG tablet
10 mg feeding tube TID@0700,1200,1800
Rx Instructions:
HOLD FOR Systolic blood pressure>150
furosemide 20 mg tablet
20 mg feeding tube DAILY
Xarelto 15 MG tablet
15 mg G-tube DAILY
amiodarone 200 mg tablet
100 mg PO DAILY Qty: 0 0RF
acetaminophen 325 mg Tablet
650 mg feeding tube Q4HPRN PRN (Reason: mild pain)
cyanocobalamin (vitamin B-12) 1,000 mcg Tablet
1,000 mcg feeding tube DAILY
bisacodyl [Dulcolax (bisacodyl)] 10 mg Suppository
10 mg [place] DAILYPRN PRN (Reason: constipation)
insulin aspart U-100 100 unit/mL (3 mL) Insulin Pen
1 sliding scale dose SC AC
magnesium L-lactate 84 mg Tablet Extended Release
84 mg PO DAILY
methyl salicylate-menthol 15-1 % Cream
1 applic TOPICAL TID
fludrocortisone 0.1 MG tablet
0.2 mg feeding tube DAILY
bisacodyl [Dulcolax (bisacodyl)] 5 mg Tablet,Delayed Release (Dr/Ec)
10 mg PO DAILYPRN PRN (Reason: constipation)
docusate sodium 50 mg/5 mL Liquid
100 mg feeding tube BID
melatonin 3 mg Tablet
3 mg feeding tube HS
guaifenesin 100 mg/5 mL Liquid
200 mg feeding tube Q4HPRN PRN (Reason: cough)
potassium chloride 40 mEq/15 mL Liquid
40 meq feeding tube DAILY
ampicillin-sulbactam 1.5 gram Recon Soln
1.5 g IV Q6H
lansoprazole [Prevacid] 30 mg Capsule,Delayed Release(Dr/Ec)
30 mg feeding tube DAILY
tramadol 25 mg Tablet
25 mg feeding tube Q6HPRN PRN (Reason: moderate pain)
Discharge Orders:
Discharge Patient (As Directed); Ordered 03/24/25
Ordered By: Bhavya Peralta
Discharge Date and Time
Discharge Date/Time: 03/24/25 14:05
Print Language: TURKISH
== END 2025-03-24 14:05 ==
LOC: SDS 13:58
PROVIDERS: Internal Medicine; Nurse Practitioner Adult Health; CONSULT PHYSICIAN Internal Medicine Gastroenterology
DX: I63.9 Cerebral infarction, unspecified (principal); I69.391 Dysphagia following cerebral infarction; R47.9 Unspecified speech disturbances; Z93.1 Gastrostomy status
CPT/HCPCS: 43246; 80048; 82962; 83735; 85027; 97163; 97166

== ENCOUNTER 2025-03-26 23:17 | Observation (INO) | payer MEDICARE, SELFPAY ==
[2025-03-26 16:29] VITALS: BP 107/63
[2025-03-26 16:55] LABS: % Basophils 0.2 % (0-2); % Immature Granulocytes 0.4 % (0-0.5); % Lymphocytes 11.3 % (20.5-51.1); % Monocytes 7.7 % (1.7-9.3); % Neutrophils 79.4 % (42.2-75.2); Absolute Eosinophils 0.1 10^3/uL (0-0.7); Absolute Immature Granulocytes 0.1 10^3/uL (0-0.05); Absolute Lymphocytes 1.6 10^3/uL (1.2-3.4); Absolute Monocytes 1.1 10^3/uL (0.1-0.6); Absolute Neutrophils 11.1 10^3/uL (1.4-6.5); Hematocrit 30.9 % (39.0-52.0); Mean Corp Hgb Conc. 32.4 g/dL (33.0-37.0); Mean Corpuscular Hgb 26.6 pg (27.0-31.0); Mean Corpuscular Volume 82.2 fL (80.0-94.0); Mean Platelet Volume 9.9 fL (7.4-10.4); Nucleated Red Blood Cells % 0 % (-); Platelet Count 264 10^3/uL (130-400); Red Blood Cell Count 3.76 10^6/uL (4.70-6.10); Red Cell Dist. Width 17.9 % (11.5-14.5)
[2025-03-26 17:04] LABS: ALT (SGPT) 16 U/L (0-50); AST (SGOT) 18 U/L (17-59); Albumin 3.5 g/dl (3.5-5.0); Alkaline Phosphatase 117 U/L (38-126); Blood Urea Nitrogen 30 mg/dl (9-20); Calcium 9.5 mg/dl (8.4-10.2); Carbon Dioxide 26 mmol/L (22-30); Chloride 99 mmol/L (98-107); Glucose 130 mg/dl (70-99); Potassium 4.3 mmol/L (3.5-5.1); Sodium 136 mmol/L (135-145); Total Protein 6.3 g/dl (6.3-8.2); eGFR > 60.00
[2025-03-26 17:15] LABS: Troponin I < 0.012 ng/ml
--- NOTE | 2025-03-26 20:00 | ED.GENMED ---
History of Present Illness
General
Chief Complaint: Chest Pain
Source: patient
Exam Limitations: none
Time Seen by Provider: 03/26/25 19:35
History of Present Illness
History of Present Illness:
79-year-old male presents from [facility] after he signed out shortly after getting to the facility as he was having chest discomfort and abdominal discomfort. He was recently discharged from [facility] after a prolonged stay there.
He had a stroke and resulted in swallowing difficulties and now has a feeding tube. He left [place] today and went to [facility]. After arrival at [facility] he had some chest discomfort and family inquired about a doctor. Family was told
that he was not going to see a physician until Saturday after the weekend. They signed him out of [facility] and presented here.
Past History
Past History
ED Past Medical History: Arrthythmia (Afib), CAD, HTN and Valvular disease
ED Past Surgical History: Cardiac
Social History
Tobacco: Non-smoker
Alcohol: None
Drug: None
Personal: Single
Living: other
Employment: Retired
Family History
Family History: CAD
Phy Exam
Physical Exam
Physical Exam:
General: Well-appearing male no acute respiratory distress
HEENT: Normocephalic atraumatic
Heart: Irregular rate and rhythm lungs: Clear no wheeze
Abdomen is mildly diffusely tender no guarding or rebound nondistended G-tube site looks well
Extremities: No cyanosis
Scores
Heart Score for Chest Pain Patients
STEMI patient?: No
History: Slightly or Non-Suspicious
ECG: Normal
Age: >/= 65 years
Risk Factors: >/= 3 Risk Factors or History of CAD
Troponin: </= Normal Limit
Heart Score for Chest Pain Patients: 4
Heart Score Risk: 20.3% MACE over next 6 weeks
Course
Orders/Labs/Results
Orders:
Orders
03/26/25 16:24
EKG [Electrocardiogram (*1)] Urgent
Reason for Study: Chest Pain
EKG- Treatment ONCE
03/26/25 16:43
Complete Blood Count/With Diff Urgent
Comprehensive Metabolic Panel Urgent
Troponin I Urgent
03/26/25 19:57
CR Chest Portable - 1 View Urgent
Comment:
Reason For Exam: chest pain
Reason Study Needs to be Portable: Unable to Transport
03/26/25 20:41
Acetaminophen [Tylenol] 650 mg TUBE NOW STA
Abnormal Lab Results
03/26/25
16:43
WBC 14.0 H 10^3/uL
(4.8-10.8)
RBC 3.76 L 10^6/uL
(4.70-6.10)
Hgb 10.0 L g/dL
(13.0-18.0)
Hct 30.9 L %
(39.0-52.0)
MCH 26.6 L pg
(27.0-31.0)
MCHC 32.4 L g/dL
(33.0-37.0)
RDW 17.9 H %
(11.5-14.5)
Abs Immat Gran (auto) 0.1 H 10^3/uL
(0-0.05)
Absolute Neuts (auto) 11.1 H 10^3/uL
(1.4-6.5)
Absolute Monos (auto) 1.1 H 10^3/uL
(0.1-0.6)
Neutrophils % 79.4 H %
(42.2-75.2)
Lymphocytes % 11.3 L %
(20.5-51.1)
BUN 30 H mg/dl
(9-20)
Glucose 130 H mg/dl
(70-99)
03/26/25 16:43
03/26/25 16:43
Vital Signs
Initial and Last Documented VS:
Initial Vital Signs
Temp Pulse Resp BP Pulse Ox
98.5 F 80 16 107/63 99
03/26/25 16:29 03/26/25 16:29 03/26/25 16:29 03/26/25 16:29 03/26/25 16:29
Last Documented Vital Signs
Temp Pulse Resp BP Pulse Ox
98.5 F 99 20 107/63 97
03/26/25 16:29 03/26/25 20:45 03/26/25 20:45 03/26/25 16:29 03/26/25 20:45
MDM/Problems Addressed
Differential Diagnosis Includes:
Patient did have chest pain earlier today. EKG shows atrial fibrillation troponin is undetectable. Chest x-ray is clear. Unfortunate patient is in a difficult social situation as he signed himself out from his recently placed facility at [facility]. He has no supplies nor does he know how to feed himself through the G-tube. Family unable to care for him at home for this reason as well. Will keep in hospital for case management involvement and placement
*Critical Care Note
Total Time (30-74mins, 75-104mins- exclusive of procedures): Not Applicable
Update Note
Update Note:
Workup here with negative troponin chest x-ray clear. Unfortunately patient is completely n.p.o. He is dependent on tube feedings. He has no supplies and does not know how to feed himself through the tube. Family signed him out of [facility]
today after arriving after finding out that they may not see a physician or physical therapist all weekend. Patient would benefit from case management involvement and placement. Will keep in hospital for further evaluation.
ED Attending Note
-
Portions of this chart may have been created with voice recognition software.� Occasional wrong word or��sound alike� substitutions may have occurred due to the inherent limitations of voice recognition software.
Discharge Plan
Departure
Patient Disposition: Admit
Date of Disposition: 03/26/25
Time of Disposition: 21:38
Presentation/result/management discussed w/ accepting MD/DO: Hospitalist
Discharge Problem:
Dysphagia
Prescriptions:
No Action
metformin 500 MG tablet
500 mg feeding tube BID@0800,1700
atorvastatin 20 MG tablet
20 mg feeding tube HS
aspirin 81 MG tablet,chewable
81 mg feeding tube DAILY
escitalopram oxalate 20 MG tablet
20 mg feeding tube HS
memantine 10 MG tablet
10 mg feeding tube BID
acetaminophen 325 mg Tablet
650 mg feeding tube Q4HPRN PRN (Reason: mild pain)
bisacodyl [Dulcolax (bisacodyl)] 10 mg Suppository
10 mg [place] DAILYPRN PRN (Reason: constipation)
magnesium L-lactate 84 mg Tablet Extended Release
84 mg PO DAILY
methyl salicylate-menthol 15-1 % Cream
1 applic TOPICAL TID
bisacodyl [Dulcolax (bisacodyl)] 5 mg Tablet,Delayed Release (Dr/Ec)
10 mg feeding tube DAILYPRN PRN (Reason: constipation)
sennosides [senna] 8.6 mg Tablet
17.2 mg feeding tube DAILY
pantoprazole [Protonix] 40 mg Tablet,Delayed Release (Dr/Ec)
40 mg PO DAILY
docusate sodium [Colace] 100 mg Capsule
100 mg PO BID
furosemide [Lasix] 20 mg Tablet
20 mg feeding tube DAILY
Foltx 2-1.13-25 mg Tablet
1 tab PO DAILY
midodrine 5 MG tablet
10 mg feeding tube TID@0700,1200,1800
Rx Instructions:
HOLD FOR Systolic blood pressure>150
amiodarone 200 mg tablet
100 mg feeding tube DAILY Qty: 0 0RF
fludrocortisone 0.1 MG tablet
0.1 mg feeding tube DAILY Qty: 0 0RF
Xarelto 15 MG tablet
15 mg G-tube DAILY Qty: 0 0RF
Referrals:
Ankit Braxton, DO [Family Provider] -
Interventions
Interventions:
*Risk Screen - Suicide Last Done: 03/26/25 16:29
*General Assessment Last Done: 03/26/25 20:39
*Neglect/Abuse Screening Last Done: 03/26/25 16:29
*ED- Fall Risk Assessment Last Done: 03/26/25 16:29
*ED COVID-19 Vaccine History Last Done: 03/26/25 20:39
ED- Cardiac Assessment Last Done: 03/26/25 20:39
Discharge Date and Time
Print Language: MAORI
[2025-03-26 20:39] VITALS: BMI 23.5
[2025-03-26] MEDS: TYLENOL 650 MG TUBE (20:46)
[2025-03-26 21:00] VITALS: BP 141/88
--- NOTE | 2025-03-26 21:35 | PHANOTE ---
med rec note- patient discharge from [facility] this morning 03/26/25 sent to [facility], and left with sister. correction does not have care plain for patient or a medication list started. used [facility] discharge summary report printed
with patient, tramadol mention in the on file report but in on the discharge paperwork with patient
--- NOTE | 2025-03-26 21:51 | HPS.HSE ---
Family Physician
-
Family Physician: Ankit Braxton
Chief Complaint
-
Epigastric area burning, PEG tube site tenderness
History of Present Illness
79-year-old male from [facility] who initially complained of chest pain however he points to the epigastric area around his PEG tube site states that it is tender and he has some burning sensation. He reports that this pain started when he was
in [facility] after his PEG tube placement. While at [facility] today he complained of chest pain and was told he would not see a doctor until Saturday he was not made aware he could go to the hospital without signing AMA from the facility he
states his sister came and picked him up and signed him out to be evaluated by a physician. He does not have any chest pain does not point to any pain in the chest area he denies nausea, fever, chills, cough, shortness of breath, diarrhea, urinary
symptoms. He states he had a headache a little while ago and was given some Tylenol. He is complaining of being hungry as he has not eaten today via his PEG tube he is still nothing by mouth and is working with speech therapy he states. He is
currently oriented to name, year, month, president, recent history however chart does state history of dementia.
He had a recent admission 03/22 - 03/24/2025 secondary to chronic dysphagia from recent stroke admission was for PEG tube placement on 03/22/2025 and tube feeding.
Past medical history recent acute right subcortical posterior right frontal lobe stroke 02/23/2025, chronic dysphagia due to recent stroke, current PEG tube with tube feeding, paroxysmal A-fib, orthostatic hypotension midodrine/Florinef dependent,
chronic heart failure reduced EF, aortic stenosis status post TAVR, CAD, HLD, DM2, dementia.
Medical History
Past Medical History
Past Medical History: Reports Other
Additional Past Medical History:
acute right subcortical posterior right frontal lobe stroke 02/23/2025
chronic dysphagia due to recent stroke, current PEG tube with tube feeding placed 03/22/2025
paroxysmal A-fib
orthostatic hypotension midodrine/Florinef dependent
chronic heart failure reduced EF
aortic stenosis status post TAVR
CAD
HLD
DM2
dementia
Past Surgical History: Reports Other
Additional Past Surgical History:
PEG tube 03/14/2025
TAVR for aortic stenosis
CABG x 3 vessel
Cardiac cath
Social History
Tobacco: Non-smoker
Alcohol: None
Drug: None
Personal: Single
Living: Other (Patient technically is homeless since he signed AMA from [facility])
Employment: Retired
Family History
Family History: Not pertinent
Allergies / Home Medications
Allergies reflects when Allergies were last updated in appbackr.
Home Medications with original date entered in appbackr
Allergy/Medication List:
Allergies
Allergy/AdvReac Type Severity Reaction Status Date / Time
digoxin Allergy Unknown Verified 03/26/25 16:28
Home Medications
aspirin 81 mg chewable tablet 81 mg feeding tube DAILY Blood clot prevention/tx 01/03/21
atorvastatin 20 mg tablet 20 mg feeding tube HS High cholesterol 01/03/21
escitalopram oxalate 20 mg tablet 20 mg feeding tube HS Depression 01/03/21
metformin 500 mg tablet 500 mg feeding tube BID@0800,1700 Diabetes 01/03/21
memantine 10 mg tablet 10 mg feeding tube BID dementia 11/30/21
acetaminophen 325 mg tablet 650 mg feeding tube Q4HPRN PRN mild pain 03/05/25
bisacodyl 10 mg rectal suppository (Dulcolax (bisacodyl)) 10 mg [place] DAILYPRN PRN constipation 03/05/25
magnesium L-lactate 84 mg tablet,extended release 84 mg PO DAILY Supplement 03/05/25
methyl salicylate 15 %-menthol 1 % topical cream 1 applic topical TID bilateral knees 03/05/25
bisacodyl 5 mg tablet,delayed release (Dulcolax (bisacodyl)) 10 mg feeding tube DAILYPRN PRN constipation 03/11/25
amiodarone 200 mg tablet 100 mg (1/2 x 200 mg) feeding tube DAILY Arrhythmia #0 tabs 03/26/25
cyanocobalamin 2 mg-levomefolate holger 1.13 mg-pyridoxine 25 mg tablet (Foltx) 1 tab PO DAILY feeding tube 03/26/25
docusate sodium 100 mg capsule (Colace) 100 mg PO BID feeding tube 03/26/25
fludrocortisone 0.1 mg tablet 0.1 mg feeding tube DAILY Blood pressure #0 tabs 03/26/25
furosemide 20 mg tablet (Lasix) 20 mg feeding tube DAILY 03/26/25
midodrine 5 mg tablet 10 mg feeding tube TID@0700,1200,1800 Orthostasis/low blood pressure 03/26/25
pantoprazole 40 mg tablet,delayed release (Protonix) 40 mg PO DAILY feeding tube 03/26/25
rivaroxaban 15 mg tablet (Xarelto) 15 mg G-tube DAILY Blood Clot Prevention/Tx #0 tabs 03/26/25
sennosides 8.6 mg tablet (senna) 17.2 mg feeding tube DAILY 03/26/25
Review of Systems
-
History Source: Patient
A 12 point ROS was completed and negative except as noted: Yes
Constitutional: Denies Fever or Chills
EENT: Denies Tearing or Runny Nose
Respiratory: Denies Cough or Trouble Breathing
Cardiac: Denies Chest Pain, Diaphoresis, Palpitations or Syncope
Abdomen/GI: Reports Abdominal Pain (Epigastric area burning with slight tenderness around G-tube site); Denies Nausea, Vomiting, Diarrhea or Constipated
: Denies Dysuria, Frequency, Flank Pain, Incontinence or Difficulty Voiding
Musculoskeletal: Denies Joint Pain or Edema
Skin: Denies Itching or Rash
Neurological: Reports Headache; Denies Dizzy or Weakness
Endocrine: Reports No Symptoms
Hematologic/Lymphatic: Reports No Symptoms
Psych: Reports Calm
Physical Exam
Vital Signs
Vital Signs
Temp Pulse Resp BP Pulse Ox
98.5 F 99 20 107/63 97
03/26/25 16:29 03/26/25 20:45 03/26/25 20:45 03/26/25 16:29 03/26/25 20:45
Physical Exam
General: Comfortable, Conversant and Other (Reports hunger); No Fever or Chills
HEENT: NormoCephalic, Anicteric, PERRLA, [place] Conjunctivae and No Ptosis
Respiratory: Clear; No Wheezes, Rales or Rhonchi
Cardiac: S1/S2 and Regular Rhythm; No Murmur, Rub, Gallop or Peripheral Edema
GI: Soft, Non Distended, Normal Bowel Sounds and Peg Tube (Epigastric area burning with slight tenderness around G-tube site, G-tube aspirated clear liquid, flushes without difficulty, surrounding G-tube site intact no erythema or skin breakdown)
Genito-urinary: Deferred by me
Musculoskeletal: No Clubbing, No Cyanosis and No Edema
Skin: Warm and Dry; No Rash or Jaundice
Neuro: AO x 3 (Oriented to name, place, year, month, president, history despite reported history of dementia), No Motor Deficits, Nonfocal/grossly intact, Cranial Nerves Intact and No Sensory Deficits; No Slurred Speech, Facial Droop, Tremors or
Sedated
Psych: Calm
Laboratory Results
-
03/26/25 16:43
03/26/25 16:43
Laboratory Results
Total Bilirubin 1.0 mg/dl (0.2-1.3) 03/26/25 16:43
AST 18 U/L (17-59) 03/26/25 16:43
ALT 16 U/L (0-50) 03/26/25 16:43
Alkaline Phosphatase 117 U/L (38-126) 03/26/25 16:43
Troponin I < 0.012 ng/ml 03/26/25 16:43
Data Reviewed
-
Diagnostic Radiology: Report Reviewed by me
Lab Data: Labs Reviewed by me
Impression/Plan
-
Impression/plan:
Observation telemetry
#Epigastric burning/tenderness around PEG tube site due to possible GERD/hunger/new PEG tube x 5 days
# Chronic dysphagia due to recent stroke
-s/p PEG placement by GI 03/22
-PEG tube aspirated no coffee-ground emesis, flushes without difficulty
- Continue Nepro 80 mL hour 5 PM�7 AM 14 hours with 25 mL hour flushes total 2049-calorie / 82 g protein
- Will give Protonix 40 mg now
#Acute leukocytosis likely reactive
WBC 14 > 10 at 6 AM today 03/26/25 patient afebrile
- Follow CBC
CXR:Right basilar opacity at least in part suggesting subsegmental atelectasis
# History of CAD
-Continue aspirin 81 mg daily and atorvastatin
#HLD
- Continue atorvastatin
#DM 2
Accu-Cheks with SSI, recent A1c 6.8 on 02/24/2025
Continue metformin 500 mg twice daily
- Current blood sugar on admission 111
# Recent Acute right subcortical posterior right frontal lobe stroke 02/23/2025
# Recent Community acquired pneumonia right lower lobe/minimal left lower lobe 02/24/2025
- Treated with doxycycline/ceftriaxone
# Paroxysmal A-fib
-Continue with amiodarone 100 mg daily, Xarelto 15 mg via G-tube daily
# Orthostatic hypotension
BP 107/63
- midodrine 10 mg 3 times daily dependent, cont fludrocortisone 0.1 mg daily via G-tube
# History of chronic HFrEF
I/O, daily weight
-Continue Lasix 20 mg daily via G-tube
2D echo 02/24/2025: EF 50-55%, mild LVH, normal LVSF, mid to distal anteroseptal and inferior septal hypokinesis, mild MR, bioprosthetic AVR, mild TR
#Aortic stenosis status post TAVR
# Dementia
-Continue memantine 10 mg twice daily
#History of noncompliance with medications he was counseled during his February admission
#History chronic anemia�normocytic
Hgb 10 appears near baseline
Other PMH:
Left shoulder OA, chronic rotator cuff injury
Continue pain management with Tylenol
DVT prophylaxis
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
code status: Full Code
[2025-03-26 22:00] VITALS: BP 122/80
[2025-03-26 22:34] LABS: Glucose - Point of Care 111 mg/dl (70-99)
[2025-03-26 23:00] VITALS: BP 115/73
--- NOTE | 2025-03-26 23:08 | W.PN.UPDATE ---
Update Note
Progress Note Update
This is an addendum to the H&P written by Yvette Lr on 03/26/2025.� Patient seen and examined independently with NET LEAD DEVELOPER.
79-year-old male past medical history of right frontal lobe CVA on 02/23, chronic dysphagia secondary to recent CVA status post PEG tube, paroxysmal atrial fibrillation, orthostatic hypotension, chronic HFrEF, aortic stenosis, hypertension, CAD,
hyperlipidemia, type 2 diabetes, dementia, presenting from [facility] after signing out because he was having abdominal discomfort.� He did not have chest pain as documented by ER.� Family inquired about doctor but there was no
doctor so they brought patient here.
Patient was recently discharged on 03/24 after admission for PEG placement for dysphagia after recent CVA.
Vital signs normal.� Patient with some tenderness at the site of the PEG tube.� Also right lower quadrant tenderness.� PEG tube functioning normally.
Labs show leukocytosis.� Troponin negative.� EKG shows atrial fibrillation with no ischemic changes.� Chest x-ray shows right basilar opacity suggesting subsegmental atelectasis.
Patient did not get tube feeds all day, possible that abdominal discomfort is due to hunger/GERD/irritation around PEG tube site.� Protonix to be given.� Resume tube feeds tonight.� Case management for placement.� No clear explanation for
leukocytosis, could be reactive.
[2025-03-26] MEDS: PROTONIX IV 40 MG IV (23:14)
[2025-03-26] MEDS: NSS (PRESERVATIVE FREE) 10 ML IV (23:14)
[2025-03-26] MEDS: FLUSH (NSS) 1 FLUSH IV (23:16)
[2025-03-27 00:18] VITALS: BP 111/65; BMI 23.5
[2025-03-27 00:19] VITALS: BMI 23.3
--- NOTE | 2025-03-27 00:30 | PTCARENOTE ---
Received pt from ED. No tube feed pump on floor. Asked nursing supervisor pipeline to look for tube feeding pump and nephro w/ carb steady, as pt has orders to start tube feeds. Awaiting supplies.
[2025-03-27] MEDS: NAMENDA 10 MG TUBE ×3 (00:38→20:03)
[2025-03-27 00:54] LABS: Glucose - Point of Care 108 mg/dl (70-99)
[2025-03-27 06:39] LABS: % Basophils 0.3 % (0-2); % Eosinophils 3.3 % (0-6); % Immature Granulocytes 0.7 % (0-0.5); % Lymphocytes 16.2 % (20.5-51.1); % Monocytes 7.4 % (1.7-9.3); % Neutrophils 72.1 % (42.2-75.2); Absolute Eosinophils 0.3 10^3/uL (0-0.7); Absolute Immature Granulocytes 0.1 10^3/uL (0-0.05); Absolute Lymphocytes 1.4 10^3/uL (1.2-3.4); Absolute Monocytes 0.7 10^3/uL (0.1-0.6); Absolute Neutrophils 6.4 10^3/uL (1.4-6.5); Hematocrit 27.4 % (39.0-52.0); Hemoglobin 8.9 g/dL (13.0-18.0); Mean Corp Hgb Conc. 32.5 g/dL (33.0-37.0); Mean Corpuscular Hgb 26.6 pg (27.0-31.0); Mean Corpuscular Volume 81.8 fL (80.0-94.0); Mean Platelet Volume 10.2 fL (7.4-10.4); Nucleated Red Blood Cells % 0 % (-); Platelet Count 244 10^3/uL (130-400); Red Blood Cell Count 3.35 10^6/uL (4.70-6.10); Red Cell Dist. Width 17.6 % (11.5-14.5); White Blood Cell Count 8.9 10^3/uL (4.8-10.8)
[2025-03-27 07:02] LABS: Glucose - Point of Care 179 mg/dl (70-99)
[2025-03-27 07:05] VITALS: BP 105/71
[2025-03-27 07:29] LABS: ALT (SGPT) 14 U/L (0-50); AST (SGOT) 16 U/L (17-59); Albumin 3.3 g/dl (3.5-5.0); Alkaline Phosphatase 109 U/L (38-126); Blood Urea Nitrogen 27 mg/dl (9-20); Carbon Dioxide 26 mmol/L (22-30); Chloride 100 mmol/L (98-107); Estimated Creatinine Clearance 75 ml/min; Glucose 146 mg/dl (70-99); Potassium 4.1 mmol/L (3.5-5.1); Sodium 138 mmol/L (135-145); Total Bilirubin 0.8 mg/dl (0.2-1.3); eGFR > 60.00
[2025-03-27] MEDS: SENOKOT 17.2 MG TUBE (09:00)
[2025-03-27] MEDS: GLUCOPHAGE 500 MG TUBE ×2 (09:00→17:09)
[2025-03-27] MEDS: LASIX 20 MG TUBE (09:00)
[2025-03-27] MEDS: FLORINEF 0.1 MG TUBE (09:00)
[2025-03-27] MEDS: LOW STRENGTH ASPIRIN 81 MG TUBE (09:00)
[2025-03-27] MEDS: ProAmatine 10 MG TUBE ×3 (09:04→17:39)
[2025-03-27] MEDS: XARELTO 15 MG TUBE (09:12)
[2025-03-27] MEDS: NOVOLOG FLEXPEN-LOW RESISTANCE 1 UNITS SC (09:17)
--- NOTE | 2025-03-27 09:46 | CM ---
chart reviewed
IA completed - spoke with sister Eve
CM consult completed - dispo planning
Dx: Epigastric pain 2/2 poss GERD vs hunger vs new tube
He had a recent admission 03/22 - 03/24/2025 secondary to chronic dysphagia from recent stroke admission was for PEG tube placement on 03/22/2025 and tube feeding.
PMH: CAD, DM2, dementia, afib, hf
Patient was at [facility] 03/24 & was discharged yesterday to [facility]
Spoke with sister Eve and states does not wish to return to [facility]
Requested referrals be placed Charlie Valdez, Pietro Dai, Mario Licona & Casey Dai
PLOF: independent with walker
DME: Walker, wheelchair, shower chair, cane
Prior he was living alone in a [address]+ 1 floor community, no steps
Denies VN, recent [facility]
PCP: Richard Skaggs
Pharmacy: [facility]
PLAN: SNF, pending bed availability when stable
[2025-03-27] MEDS: FOLTX 1 TABLET PO (09:59)
[2025-03-27] MEDS: DESENEX/MITRAZOL/ZEASORB 1 APPLIC TOPICAL ×2 (10:00→20:03)
[2025-03-27] MEDS: BenGay-Like 1 APPLIC TOPICAL ×4 (10:42→20:04)
[2025-03-27 12:01] LABS: Glucose - Point of Care 139 mg/dl (70-99)
[2025-03-27] MEDS: NOVOLOG FLEXPEN-LOW RESISTANCE SC ×2 (12:15→17:09)
--- NOTE | 2025-03-27 13:13 | W.PN.HOSP.TC ---
Today's Communication/Plan
-
medically stable for discharge
CM to follow for discharge planning
Assessment / Plan
Assessment / Plan
# Epigastric/PEG tube site pain
# Chronic dysphagia due to CVA
- s/p PEG placement by GI 03/22
- PEG tube aspirated no coffee-ground emesis, flushes without difficulty
- Continue tube feed
- Clinically no concern of any problems possibly mild pain from ostomy site discomfort
# Reactive leukocytosis
- CXR: Right basilar opacity at least in part suggesting subsegmental atelectasis
- Afebrile
- Monitor off of antibiotic
# Chronic diastolic congestive heart failure
- Echo 1 secondarily showing EF 50 to 55%
- No signs of volume overload
- Maintain on Lasix daily
Right frontal lobe CVA
History of CAD
Hyperlipidemia
Type 2 diabetes mellitus
Paroxysmal atrial fibrillation -on amiodarone/Xarelto, continue
Orthostatic hypotension
Cognitive impairment without behavioral problems
History of medication noncompliance
Chronic anemia
Rotator cuff injury
Osteoarthritis
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
code status: Full Code
Anticipated Discharge: Today
Subjective/Interval History
-
Date of Service: March 27, 2025
no issues overnight
denies abd pain/ nausea/ vomiting
no change in BM
Objective Data
-
Labs:
Laboratory Results
03/27/25
06:29
WBC 8.9
Hgb 8.9 L
Hct 27.4 L
Plt Count 244
Sodium 138
Potassium 4.1
Chloride 100
Carbon Dioxide 26
BUN 27 H
Creatinine 0.9
Glucose 146 H
Calcium 9.0
Total Bilirubin 0.8
AST 16 L
ALT 14
Alkaline Phosphatase 109
Vital Signs:
Vital Signs
Temp Pulse Resp BP Pulse Ox
97.5 F 80 18 105/71 98
03/27/25 07:05 03/27/25 07:05 03/27/25 07:05 03/27/25 07:05 03/27/25 07:05
I&O
03/26/25 03/27/25 03/28/25
06:59 06:59 06:59
Intake Total 160 / 160
Balance 160 / 160
Review of Systems
-
Respiratory: Reports No Symptoms
Cardiac: Reports No Symptoms
Abdomen/GI: Reports No Symptoms
Physical Exam
-
General: Conversant, Obese and Cachectic
HEENT: Negative Oxygen
Respiratory: Clear to Auscultation
GI: Soft, Nontender, Nondistended and Peg Tube
Musculoskeletal: No Edema
Neuro: Awake, Alert, Oriented and No Motor Deficits
Psych: Calm
[2025-03-27 14:14] VITALS: BP 115/69; PULSE 80; O2SAT 95
[2025-03-27 15:03] VITALS: BP 112/62
[2025-03-27 17:09] LABS: Glucose - Point of Care 132 mg/dl (70-99)
[2025-03-27] MEDS: COLACE LIQUID TUBE (20:02)
[2025-03-27] MEDS: LIPITOR 20 MG TUBE (20:04)
[2025-03-27] MEDS: LEXAPRO 20 MG TUBE (20:04)
[2025-03-27] MEDS: TYLENOL ORAL SOLUTION 640 MG PO (20:11)
[2025-03-27 21:39] LABS: Glucose - Point of Care 102 mg/dl (70-99)
[2025-03-27 23:00] VITALS: BP 101/70
[2025-03-28 00:17] LABS: Glucose - Point of Care 124 mg/dl (70-99)
[2025-03-28] MEDS: NOVOLOG FLEXPEN-LOW RESISTANCE SC ×2 (00:19→17:03)
[2025-03-28 06:00] VITALS: BMI 22.9
[2025-03-28] MEDS: ProAmatine 10 MG TUBE ×3 (06:09→17:05)
[2025-03-28 06:18] LABS: Glucose - Point of Care 166 mg/dl (70-99)
[2025-03-28] MEDS: NOVOLOG FLEXPEN-LOW RESISTANCE 1 UNITS SC ×2 (06:23→11:36)
[2025-03-28 07:15] VITALS: BP 124/73
[2025-03-28 07:25] LABS: Blood Urea Nitrogen 33 mg/dl (9-20); Carbon Dioxide 24 mmol/L (22-30); Chloride 101 mmol/L (98-107); Estimated Creatinine Clearance 74 ml/min; Glucose 160 mg/dl (70-99); Potassium 3.7 mmol/L (3.5-5.1); Sodium 139 mmol/L (135-145); eGFR > 60.00
[2025-03-28] MEDS: GLUCOPHAGE 500 MG TUBE ×2 (08:18→17:05)
[2025-03-28] MEDS: LASIX 20 MG TUBE (08:18)
[2025-03-28] MEDS: BenGay-Like 1 APPLIC TOPICAL ×4 (08:18→20:45)
[2025-03-28] MEDS: FLORINEF 0.1 MG TUBE (08:18)
[2025-03-28] MEDS: NAMENDA 10 MG TUBE ×2 (08:18→20:45)
[2025-03-28] MEDS: SENOKOT 17.2 MG TUBE (08:18)
[2025-03-28] MEDS: DESENEX/MITRAZOL/ZEASORB 1 APPLIC TOPICAL ×2 (08:18→20:45)
[2025-03-28] MEDS: FOLTX 1 TABLET PO (08:18)
[2025-03-28] MEDS: XARELTO 15 MG TUBE (08:19)
[2025-03-28] MEDS: LOW STRENGTH ASPIRIN 81 MG TUBE (08:26)
[2025-03-28] MEDS: COLACE LIQUID 100 MG TUBE (08:26)
--- NOTE | 2025-03-28 10:39 | CM ---
Spoke with patient sister Eve
OBS status - [facility] form explained & in chart
recent hospitalization
Referrals that were requested in [facility]
PT rec SNF - does not want [facility]
PLAN: SNF
[2025-03-28 11:34] LABS: Glucose - Point of Care 160 mg/dl (70-99)
--- NOTE | 2025-03-28 13:12 | W.PN.HOSP.TC ---
Today's Communication/Plan
-
Ongoing discharge planning
Family wants different SNF than [facility]
Assessment / Plan
Assessment / Plan
# Epigastric/PEG tube site pain
# Chronic dysphagia due to CVA
- s/p PEG placement by GI 03/22
- PEG tube aspirated no coffee-ground emesis, flushes without difficulty
- Continue tube feed
- Clinically no concern of any problems possibly mild pain from ostomy site discomfort
# Reactive leukocytosis
- CXR: Right basilar opacity at least in part suggesting subsegmental atelectasis
- Afebrile
- Monitor off of antibiotic
# Chronic diastolic congestive heart failure
- Echo 1 secondarily showing EF 50 to 55%
- No signs of volume overload
- Maintain on Lasix daily
# OA
-topical NSAID ordered for bilateral knee pain
Right frontal lobe CVA
History of CAD
Hyperlipidemia
Type 2 diabetes mellitus
Paroxysmal atrial fibrillation -on amiodarone/Xarelto, continue
Orthostatic hypotension
Cognitive impairment without behavioral problems
History of medication noncompliance
Chronic anemia
Rotator cuff injury
Osteoarthritis
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
code status: Full Code
Anticipated Discharge: Today
Subjective/Interval History
-
Date of Service: March 28, 2025
Resting comfortably in bed
No problems overnight
Objective Data
-
Labs:
Laboratory Results
03/28/25
06:14
Sodium 139
Potassium 3.7
Chloride 101
Carbon Dioxide 24
BUN 33 H
Creatinine 0.9
Glucose 160 H
Calcium 9.0
Vital Signs:
Vital Signs
Temp Pulse Resp BP Pulse Ox
98.5 F 92 16 104/66 96
03/28/25 07:15 03/28/25 11:21 03/28/25 07:15 03/28/25 11:21 03/28/25 07:15
I&O
03/27/25 03/28/25 03/29/25
06:59 06:59 06:59
Intake Total 160 / 160 1700 / 1700
Output Total 500 / 500
Balance 160 / 160 1200 / 1200
Review of Systems
-
Respiratory: Reports No Symptoms
Cardiac: Reports No Symptoms
Abdomen/GI: Reports No Symptoms
Physical Exam
-
General: Conversant, Obese and Cachectic
HEENT: Negative Oxygen
Respiratory: Clear to Auscultation
GI: Soft, Nontender, Nondistended and Peg Tube
Musculoskeletal: No Edema
Neuro: Awake, Alert, Oriented and No Motor Deficits
Psych: Calm
[2025-03-28 15:15] VITALS: BP 131/75
[2025-03-28 17:02] LABS: Glucose - Point of Care 119 mg/dl (70-99)
[2025-03-28] MEDS: LIPITOR 20 MG TUBE (20:45)
[2025-03-28] MEDS: LEXAPRO 20 MG TUBE (20:45)
[2025-03-28] MEDS: COLACE LIQUID TUBE (20:45)
[2025-03-28 23:00] VITALS: BP 114/69
[2025-03-29 00:09] LABS: Glucose - Point of Care 114 mg/dl (70-99)
[2025-03-29] MEDS: NOVOLOG FLEXPEN-LOW RESISTANCE SC (00:11)
[2025-03-29 05:55] LABS: Glucose - Point of Care 155 mg/dl (70-99)
[2025-03-29 06:00] VITALS: BMI 22.6
[2025-03-29] MEDS: ProAmatine 10 MG TUBE ×3 (06:01→17:56)
[2025-03-29] MEDS: NOVOLOG FLEXPEN-LOW RESISTANCE 1 UNITS SC ×3 (06:01→17:59)
[2025-03-29 07:24] LABS: Blood Urea Nitrogen 35 mg/dl (9-20); Calcium 9.3 mg/dl (8.4-10.2); Carbon Dioxide 27 mmol/L (22-30); Chloride 101 mmol/L (98-107); Estimated Creatinine Clearance 73 ml/min; Glucose 152 mg/dl (70-99); Potassium 3.7 mmol/L (3.5-5.1); Sodium 138 mmol/L (135-145); eGFR > 60.00
[2025-03-29 07:48] VITALS: BP 119/80
[2025-03-29] MEDS: LASIX 20 MG TUBE (08:06)
[2025-03-29] MEDS: FLORINEF 0.1 MG TUBE (08:06)
[2025-03-29] MEDS: COLACE LIQUID 100 MG TUBE ×2 (08:06→20:44)
[2025-03-29] MEDS: XARELTO 15 MG TUBE (08:06)
[2025-03-29] MEDS: SENOKOT 17.2 MG TUBE (08:06)
[2025-03-29] MEDS: FOLTX 1 TABLET PO (08:06)
[2025-03-29] MEDS: NAMENDA 10 MG TUBE ×2 (08:06→20:44)
[2025-03-29] MEDS: DESENEX/MITRAZOL/ZEASORB 1 APPLIC TOPICAL ×2 (08:07→21:08)
[2025-03-29] MEDS: LOW STRENGTH ASPIRIN 81 MG TUBE (08:07)
[2025-03-29] MEDS: GLUCOPHAGE 500 MG TUBE ×2 (08:07→17:56)
[2025-03-29] MEDS: BenGay-Like 1 APPLIC TOPICAL ×5 (08:07→20:58)
--- NOTE | 2025-03-29 10:15 | CM ---
CM following for discharge planning to SNF. I spoke with Jaime' sister, Eve West, who advised SNF requests for the following facilities:
[facility] - no bed available
[facility] - reviewing referral, await return call
[facility] - reviewing referral, await return call
[facility] - no bed available
Plan: CM to follow for SNF placement with prison plan to return to [facility] following SNF Rehab.
Eve (sister) can be reached at [phone] (home); secondary phone number (cell) [phone]
--- NOTE | 2025-03-29 12:04 | CM ---
Addendum entered by Brooke Dumont 03/29/25 13:53:
Pt appropriate for SNF, [place] is unlikely since he was recently discharged from [facility].
Original Note:
CM following for transfer to SNF vs. Acute Rehab. Sister is requesting return to [facility] since pt had a PEG tube placed after discharge from [facility] and pt is deconditioned.
Referral to [facility], [facility] (no bed available), [facility] ([facility] bed available), [facility], [facility] (no bed available), and [facility]
Call placed to pt's sister; unable to reach sister via home and cell phone numbers. VM left, advised that [facility] will need to review financial application in order to consider admission. [facility] has not yet responded regarding bed
availability.
Plan: CM continues to follow to coordinate discharge to SNF vs Acute Rehab pending bed availability.
[2025-03-29 12:12] LABS: Glucose - Point of Care 156 mg/dl (70-99)
--- NOTE | 2025-03-29 12:48 | W.PN.HOSP.TC ---
Today's Communication/Plan
-
melatonin for insomnia
SNF-Cm aware
cont TF
Assessment / Plan
Assessment / Plan
# Epigastric/PEG tube site pain
# Chronic dysphagia due to CVA
- s/p PEG placement by GI 03/22
- PEG tube aspirated no coffee-ground emesis, flushes without difficulty
- Continue tube feed
- Clinically no concern of any problems possibly mild pain from ostomy site discomfort
# Reactive leukocytosis
- CXR: Right basilar opacity at least in part suggesting subsegmental atelectasis
- Afebrile
- Monitor off of antibiotic
# Chronic diastolic congestive heart failure
- Echo showing EF 50 to 55%
- No signs of volume overload
- Maintain on Lasix daily
# OA
-topical NSAID ordered for bilateral knee pain
Right frontal lobe CVA
History of CAD
Hyperlipidemia
Type 2 diabetes mellitus
Paroxysmal atrial fibrillation -on amiodarone/Xarelto, continue
Orthostatic hypotension
Cognitive impairment without behavioral problems
History of medication noncompliance
Chronic anemia
Rotator cuff injury
Osteoarthritis
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
code status: Full Code
Dispo-SNF. CM aware. Medically ready for placement.
Anticipated Discharge: Today
Subjective/Interval History
-
Date of Service: March 29, 2025
states didnt get much sleep for few nights
Objective Data
-
Labs:
Laboratory Results
03/29/25
06:38
Sodium 138
Potassium 3.7
Chloride 101
Carbon Dioxide 27
BUN 35 H
Creatinine 0.9
Glucose 152 H
Calcium 9.3
Vital Signs:
Vital Signs
Temp Pulse Resp BP Pulse Ox
97.9 F 98 16 103/71 96
03/29/25 07:48 03/29/25 12:39 03/29/25 07:48 03/29/25 12:39 03/29/25 07:48
I&O
03/28/25 03/29/25 03/30/25
06:59 06:59 06:59
Intake Total 1700 / 1700 785 / 785
Output Total 500 / 500 625 / 625
Balance 1200 / 1200 160 / 160
Physical Exam
-
General: No Apparent Distress, Conversant and Cachectic
HEENT: Negative Oxygen
Respiratory: Clear to Auscultation
Cardiac: S1/S2
GI: Soft, Nontender, Nondistended and Peg Tube
Musculoskeletal: No Edema
Neuro: Awake, Alert, Oriented, No Motor Deficits and Other (slow speech)
Psych: Calm
[2025-03-29 15:14] VITALS: BP 130/82
[2025-03-29] MEDS: ZOFRAN 4 MG IV (16:50)
--- NOTE | 2025-03-29 17:09 | CM ---
Multiple voicemail messages left for pt's sister to discuss need for financial application. No return call. Currently the only facility considering is [facility], but they require a financial application.
CM to follow up with pt's sister to discuss available SNF options and request financial application.
[2025-03-29 17:58] LABS: Glucose - Point of Care 153 mg/dl (70-99)
[2025-03-29] MEDS: LEXAPRO 20 MG TUBE (20:51)
[2025-03-29] MEDS: LIPITOR 20 MG TUBE (20:51)
[2025-03-29] MEDS: TYLENOL ORAL SOLUTION 640 MG PO (20:54)
[2025-03-29] MEDS: MELATONIN 5 MG TUBE (22:57)
[2025-03-29 23:57] VITALS: BP 113/75
[2025-03-29 23:57] LABS: Glucose - Point of Care 96 mg/dl (70-99)
[2025-03-30] MEDS: NOVOLOG FLEXPEN-LOW RESISTANCE SC ×2 (00:08→17:17)
[2025-03-30 06:00] VITALS: BMI 22.8
[2025-03-30 06:08] LABS: Glucose - Point of Care 158 mg/dl (70-99)
[2025-03-30] MEDS: NOVOLOG FLEXPEN-LOW RESISTANCE 1 UNITS SC ×2 (06:27→12:22)
[2025-03-30 07:05] VITALS: BP 113/72
[2025-03-30] MEDS: FLORINEF 0.1 MG TUBE (07:47)
[2025-03-30] MEDS: FOLTX 1 TABLET TUBE (07:48)
[2025-03-30] MEDS: LOW STRENGTH ASPIRIN 81 MG TUBE (07:48)
[2025-03-30] MEDS: ProAmatine 10 MG TUBE ×3 (07:48→17:18)
[2025-03-30] MEDS: NAMENDA 10 MG TUBE ×2 (07:48→22:21)
[2025-03-30] MEDS: GLUCOPHAGE 500 MG TUBE ×2 (07:48→17:18)
[2025-03-30] MEDS: LASIX 20 MG TUBE (07:48)
[2025-03-30] MEDS: XARELTO 15 MG TUBE (07:48)
[2025-03-30] MEDS: SENOKOT 17.2 MG TUBE (07:48)
[2025-03-30] MEDS: COLACE LIQUID 100 MG TUBE ×2 (07:48→22:21)
[2025-03-30] MEDS: DESENEX/MITRAZOL/ZEASORB 1 APPLIC TOPICAL ×2 (07:49→22:22)
[2025-03-30 09:00] LABS: Blood Urea Nitrogen 37 mg/dl (9-20); Calcium 9.2 mg/dl (8.4-10.2); Carbon Dioxide 29 mmol/L (22-30); Chloride 98 mmol/L (98-107); Estimated Creatinine Clearance 73 ml/min; Glucose 152 mg/dl (70-99); Potassium 3.8 mmol/L (3.5-5.1); Sodium 140 mmol/L (135-145); eGFR > 60.00
--- NOTE | 2025-03-30 11:43 | W.PN.HOSP.TC ---
Today's Communication/Plan
-
await placement
Cm aware
cont tube feeding
Assessment / Plan
Assessment / Plan
# Epigastric/PEG tube site pain
# Chronic dysphagia due to CVA
- s/p PEG placement by GI 03/22
- PEG tube aspirated no coffee-ground emesis, flushes without difficulty
- Continue tube feed. Electrolytes stable.
- Clinically no concern of any problems possibly mild pain from ostomy site discomfort
# Reactive leukocytosis
- CXR: Right basilar opacity at least in part suggesting subsegmental atelectasis
- Afebrile
- Monitor off of antibiotic. Resolved.
# Chronic diastolic congestive heart failure
- Echo showing EF 50 to 55%
- No signs of volume overload
- Maintain on Lasix daily
# OA
-topical NSAID ordered for bilateral knee pain
Right frontal lobe CVA
History of CAD
Hyperlipidemia
Type 2 diabetes mellitus
Paroxysmal atrial fibrillation -on amiodarone/Xarelto, continue
Orthostatic hypotension
Cognitive impairment without behavioral problems
History of medication noncompliance
Chronic anemia
Rotator cuff injury
Osteoarthritis
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
code status: Full Code
Dispo-SNF. CM aware. Medically ready for placement.
Anticipated Discharge: Today
Subjective/Interval History
-
Date of Service: March 30, 2025
slept better last night
Objective Data
-
Labs:
Laboratory Results
03/30/25
07:36
Sodium 140
Potassium 3.8
Chloride 98
Carbon Dioxide 29
BUN 37 H
Creatinine 0.9
Glucose 152 H
Calcium 9.2
Vital Signs:
Vital Signs
Temp Pulse Resp BP Pulse Ox
97.5 F 88 17 113/72 95
03/30/25 07:05 03/30/25 07:48 03/30/25 07:05 03/30/25 07:48 03/30/25 08:42
I&O
03/29/25 03/30/25 03/31/25
06:59 06:59 06:59
Intake Total 785 / 785 800 / 800
Output Total 625 / 625 400 / 400
Balance 160 / 160 400 / 400
Physical Exam
-
General: No Apparent Distress, Conversant and Cachectic
HEENT: Negative Oxygen
Respiratory: Clear to Auscultation
Cardiac: S1/S2
GI: Soft, Nontender, Nondistended and Peg Tube
Musculoskeletal: No Edema
Neuro: Awake, Alert, Oriented, No Motor Deficits and Other (slow speech)
Psych: Calm
[2025-03-30 12:09] LABS: Glucose - Point of Care 197 mg/dl (70-99)
[2025-03-30] MEDS: BenGay-Like 1 APPLIC TOPICAL ×3 (12:22→22:23)
--- NOTE | 2025-03-30 13:27 | CM ---
Addendum entered by Jie Mishra 03/31/25 08:39:
Per Gallo [facility] cannot accept.
Original Note:
Spoke with Caitlyn at [facility] - interested but needs financial paperwork completed
Called sister Eve & discussed that financials are needed.
Spoke with Gallo at [facility] SN[facility] they have most of the financial paperwork
Gallo states waiting to hear from from [employer] if they can accept
PLAN: SNF, pending bed availability
[2025-03-30 15:13] VITALS: BP 110/68
[2025-03-30 17:16] LABS: Glucose - Point of Care 144 mg/dl (70-99)
[2025-03-30 18:36] LABS: Glucose - Point of Care 154 mg/dl (70-99)
[2025-03-30] MEDS: MELATONIN 5 MG TUBE (22:21)
[2025-03-30] MEDS: LIPITOR 20 MG TUBE (22:21)
[2025-03-30] MEDS: LEXAPRO 20 MG TUBE (22:21)
[2025-03-30 23:03] VITALS: BP 136/77
[2025-03-30 23:53] LABS: Glucose - Point of Care 132 mg/dl (70-99)
[2025-03-31] MEDS: NOVOLOG FLEXPEN-LOW RESISTANCE SC ×2 (00:48→18:07)
[2025-03-31 06:00] VITALS: BMI 22.9
[2025-03-31 06:47] LABS: Glucose - Point of Care 193 mg/dl (70-99)
[2025-03-31] MEDS: NOVOLOG FLEXPEN-LOW RESISTANCE 1 UNITS SC ×2 (06:49→12:15)
[2025-03-31 07:31] VITALS: BP 100/61
[2025-03-31] MEDS: XARELTO 15 MG TUBE (07:41)
[2025-03-31] MEDS: COLACE LIQUID 100 MG TUBE ×2 (07:41→20:30)
[2025-03-31] MEDS: SENOKOT 17.2 MG TUBE (07:41)
[2025-03-31] MEDS: FLORINEF 0.1 MG TUBE (07:42)
[2025-03-31] MEDS: GLUCOPHAGE 500 MG TUBE ×2 (07:42→18:06)
[2025-03-31] MEDS: LOW STRENGTH ASPIRIN 81 MG TUBE (07:42)
[2025-03-31] MEDS: FOLTX 1 TABLET TUBE (07:42)
[2025-03-31] MEDS: NAMENDA 10 MG TUBE ×2 (07:42→20:30)
[2025-03-31] MEDS: LASIX 20 MG TUBE (07:43)
[2025-03-31] MEDS: BenGay-Like 1 APPLIC TOPICAL ×4 (07:43→20:31)
[2025-03-31] MEDS: ProAmatine 10 MG TUBE ×3 (07:43→18:06)
[2025-03-31] MEDS: DESENEX/MITRAZOL/ZEASORB 1 APPLIC TOPICAL ×2 (07:44→20:32)
--- NOTE | 2025-03-31 08:56 | CM ---
Addendum entered by Jie Mishra 03/31/25 14:15:
Spoke with Camilla from [facility] - she reviewed referral
requested face time with patient, manager web notified
patient agreeable, LM with sister Eve who is flying out of town today
Addendum entered by Jie Mishra 03/31/25 10:02:
Randi from [facility] called no beds
Addendum entered by Jie Mishra 03/31/25 09:42:
Spoke with sister Eve and requested additional facilities
CM called Amelia at [facility] SNF & left message - await call
Original Note:
Spoke with sister Eve this am and stated CM spoke with Gallo at [facility] and they cannot accept patient
CM called Camilla at [facility][1] and she will review referral and get back to CM
Also stated to Eve to fill out Financial paperwork that was emailed to her yesterday for [facility]
PLAN: SNF, pending acceptance/bed availability
[2025-03-31] MEDS: ZOFRAN 4 MG IV (10:06)
--- NOTE | 2025-03-31 11:27 | W.PN.HOSP.TC ---
Today's Communication/Plan
-
speech eval
dietary eval-TF adjustment if needed
awaiting placement
Assessment / Plan
Assessment / Plan
# Epigastric/PEG tube site pain
# Chronic dysphagia due to CVA
- s/p PEG placement by GI 03/22
- PEG tube aspirated no coffee-ground emesis, flushes without difficulty
- Continue tube feed. Electrolytes stable. Bowel regimen added
-Speech eval and Dietary eval if TF adjustment required
- Clinically no concern of any problems possibly mild pain from ostomy site discomfort
# Reactive leukocytosis
- CXR: Right basilar opacity at least in part suggesting subsegmental atelectasis
- Afebrile
- Monitor off of antibiotic. Resolved.
# Chronic diastolic congestive heart failure
- Echo showing EF 50 to 55%
- No signs of volume overload
- Maintain on Lasix daily
# OA
-topical NSAID ordered for bilateral knee pain
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
History of CAD
Hyperlipidemia
Type 2 diabetes mellitus
Paroxysmal atrial fibrillation -on amiodarone/Xarelto, continue
Orthostatic hypotension
Cognitive impairment without behavioral problems
History of medication noncompliance
Chronic anemia
Rotator cuff injury
Osteoarthritis
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
code status: Full Code
Dispo-SNF. CM aware. Medically ready for placement.
Anticipated Discharge: Today
Subjective/Interval History
-
Date of Service: March 31, 2025
states of abd bloating
slept well overnight
Objective Data
-
Vital Signs:
Vital Signs
Temp Pulse Resp BP Pulse Ox
98.1 F 91 18 100/61 95
03/31/25 07:31 03/31/25 07:43 03/31/25 07:31 03/31/25 07:43 03/31/25 10:13
I&O
03/30/25 03/31/25 04/01/25
06:59 06:59 06:59
Intake Total 800 / 800 560 / 560
Output Total 400 / 400 400 / 400
Balance 400 / 400 160 / 160
Physical Exam
-
General: No Apparent Distress, Conversant and Cachectic
HEENT: Negative Oxygen
Respiratory: Clear to Auscultation
Cardiac: S1/S2
GI: Soft, Nontender, Nondistended and Peg Tube
Musculoskeletal: No Edema
Neuro: Awake, Alert, Oriented, Slurred Speech and Other (slow speech and left side weakness)
Psych: Calm
[2025-03-31] MEDS: MIRALAX 17 GRAMS TUBE (12:14)
[2025-03-31 12:15] LABS: Glucose - Point of Care 159 mg/dl (70-99)
[2025-03-31 15:45] VITALS: BMI 22.9
[2025-03-31 15:46] VITALS: BP 120/78
[2025-03-31 16:58] LABS: Glucose - Point of Care 135 mg/dl (70-99)
[2025-03-31] MEDS: LIPITOR 20 MG TUBE (20:30)
[2025-03-31] MEDS: LEXAPRO 20 MG TUBE (20:30)
[2025-03-31 23:00] VITALS: BP 135/73
[2025-04-01 00:42] LABS: Glucose - Point of Care 119 mg/dl (70-99)
[2025-04-01] MEDS: NOVOLOG FLEXPEN-LOW RESISTANCE SC (00:43)
[2025-04-01] MEDS: ProAmatine 10 MG TUBE (06:00)
[2025-04-01] MEDS: NOVOLOG FLEXPEN-LOW RESISTANCE 1 UNITS SC (06:05)
[2025-04-01 06:06] LABS: Glucose - Point of Care 179 mg/dl (70-99)
[2025-04-01 06:18] VITALS: BMI 22.9
[2025-04-01 08:05] VITALS: BP 129/79
[2025-04-01] MEDS: MIRALAX 17 GRAMS TUBE (08:31)
[2025-04-01] MEDS: GLUCOPHAGE 500 MG TUBE (08:31)
[2025-04-01] MEDS: COLACE LIQUID 100 MG TUBE (08:31)
[2025-04-01] MEDS: XARELTO 15 MG TUBE (08:31)
[2025-04-01] MEDS: LOW STRENGTH ASPIRIN 81 MG TUBE (08:31)
[2025-04-01] MEDS: SENOKOT 17.2 MG TUBE (08:32)
[2025-04-01] MEDS: NAMENDA 10 MG TUBE (08:32)
[2025-04-01] MEDS: LASIX 20 MG TUBE (08:32)
[2025-04-01] MEDS: FLORINEF 0.1 MG TUBE (08:32)
[2025-04-01] MEDS: FOLTX 1 TABLET TUBE (08:35)
[2025-04-01] MEDS: BenGay-Like 1 APPLIC TOPICAL (08:41)
[2025-04-01] MEDS: DESENEX/MITRAZOL/ZEASORB 1 APPLIC TOPICAL (08:41)
[2025-04-01] MEDS: TYLENOL ORAL SOLUTION 640 MG PO (08:53)
--- NOTE | 2025-04-01 09:34 | CM ---
Addendum entered by Jie Mishra 04/01/25 12:08:
12:30 transport set - LM with Sourav at [facility]
Original Note:
Call from Sourav at [facility]
Patient accepted bed available today
IMM explained & signed. In chart
Left message with sister Eve [phone]
PLAN: [facility]
Report #: [phone]
Fax #: [phone]
transportation form on chart
--- NOTE | 2025-04-01 10:56 | W.PN.HOSP.TC ---
Today's Communication/Plan
-
dc to SNF
Assessment / Plan
Assessment / Plan
# Epigastric/PEG tube site pain
# Chronic dysphagia due to CVA
- s/p PEG placement by GI 03/22
- PEG tube aspirated no coffee-ground emesis, flushes without difficulty
- Continue tube feed. Electrolytes stable. Bowel regimen added
-Speech recs strict NPO. Dietary TF adjusted.
- Clinically no concern of any problems possibly mild pain from ostomy site discomfort
# Reactive leukocytosis
- CXR: Right basilar opacity at least in part suggesting subsegmental atelectasis
- Afebrile
- Monitor off of antibiotic. Resolved.
# Chronic diastolic congestive heart failure
- Echo showing EF 50 to 55%
- No signs of volume overload
- Maintain on Lasix daily
# OA
-topical NSAID ordered for bilateral knee pain
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
History of CAD
Hyperlipidemia
Type 2 diabetes mellitus
Paroxysmal atrial fibrillation -on amiodarone/Xarelto, continue
Orthostatic hypotension
Cognitive impairment without behavioral problems
History of medication noncompliance
Chronic anemia
Rotator cuff injury
Osteoarthritis
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
code status: Full Code
Dispo-SNF. CM aware. Medically ready for placement.
More than 30 minutes spent in discharge including
Final examination of the patient
Summarizing hospital stay
Instructions for continuing care to all relevant caregivers
Preparation of discharge records, prescriptions, and referral forms
Total time spent (in minutes): 52
Anticipated Discharge: Today
Subjective/Interval History
-
Date of Service: April 01, 2025
resting well in bed
tolerating tube feeds
Objective Data
-
Vital Signs:
Vital Signs
Temp Pulse Resp BP Pulse Ox
97.9 F 68 18 129/79 93
04/01/25 08:05 04/01/25 08:05 04/01/25 08:05 04/01/25 08:05 04/01/25 08:05
I&O
03/31/25 04/01/25 04/02/25
06:59 06:59 06:59
Intake Total 560 / 560 0 / 0
Output Total 400 / 400 1500 / 1500
Balance 160 / 160 -1500 / -1500
Physical Exam
-
General: No Apparent Distress, Conversant and Cachectic
HEENT: Negative Oxygen
Respiratory: Clear to Auscultation
Cardiac: S1/S2
GI: Soft, Nontender, Nondistended and Peg Tube
Musculoskeletal: No Edema
Neuro: Awake, Slurred Speech and Other (slow speech and left side weakness)
Psych: Calm
--- NOTE | 2025-04-01 10:58 | W.DCSUMMARY ---
Discharge Summary
Discharge Data
Date of Admission: 03/26/25
Date of Discharge: 04/01/25
-
Pending Results: No
Hospital Course
79-year-old male past medical history of extensive right-sided stroke with left-sided hemiparesis, dysphagia, dysarthria, CAD, hyperlipidemia, diabetes mellitus, atrial fibrillation, cognitive impairment, chronic anemia was presented with
epigastric/pain from PEG tube site from shelter. Patient was at [facility] after stroke and went to [facility] from which she returned back to the ER. Patient with no significant difficulty. Pain was deemed secondary to PEG tube insertion
which was new. Patient pain resolved. Patient was tolerating diet. Patient has some reactive leukocytosis which resolved. Patient was afebrile. Patient was continue with home medication. Per speech patient is strict NPO. Dietitian was
consulted and tube feeding were adjusted. Patient will be discharged to fpc facility of his and sister's choice.
Discharge Plan
-
Patient Disposition: Half-Way/SNF
Discharge Diagnosis/Procedures: Epigastric/PEG tube site pain
Reactive leukocytosis
Condition: Fair
Diet: Other diet
Additional Diets: Nephro w/card steady at 80cc/hr from 11pm till 1pm or per your dietary recommendation. Free water flushes 25 ml/hr.
Activity: With assistance and As tolerated
Driving Restrictions: No driving
Referrals:
Ankit Braxton DO [Family Provider] - in less than 1 week
Prescriptions:
New
melatonin 5 mg Tablet
5 mg feeding tube HS PRN (Reason: Sleep) Qty: 30 0RF
Continued
metformin 500 MG tablet
500 mg feeding tube BID@0800,1700
atorvastatin 20 MG tablet
20 mg feeding tube HS
aspirin 81 MG tablet,chewable
81 mg feeding tube DAILY
escitalopram oxalate 20 MG tablet
20 mg feeding tube HS
memantine 10 MG tablet
10 mg feeding tube BID
acetaminophen 325 mg Tablet
650 mg feeding tube Q4HPRN PRN (Reason: mild pain)
bisacodyl [Dulcolax (bisacodyl)] 10 mg Suppository
10 mg LA DAILYPRN PRN (Reason: constipation)
magnesium L-lactate 84 mg Tablet Extended Release
84 mg PO DAILY
methyl salicylate-menthol 15-1 % Cream
1 applic TOPICAL TID
bisacodyl [Dulcolax (bisacodyl)] 5 mg Tablet,Delayed Release (Dr/Ec)
10 mg feeding tube DAILYPRN PRN (Reason: constipation)
sennosides [senna] 8.6 mg Tablet
17.2 mg feeding tube DAILY
pantoprazole [Protonix] 40 mg Tablet,Delayed Release (Dr/Ec)
40 mg PO DAILY
docusate sodium [Colace] 100 mg Capsule
100 mg PO BID
furosemide [Lasix] 20 mg Tablet
20 mg feeding tube DAILY
Foltx 2-1.13-25 mg Tablet
1 tab PO DAILY
midodrine 5 MG tablet
10 mg feeding tube TID@0700,1200,1800
Rx Instructions:
HOLD FOR Systolic blood pressure>150
amiodarone 200 mg tablet
100 mg feeding tube DAILY Qty: 0 0RF
fludrocortisone 0.1 MG tablet
0.1 mg feeding tube DAILY Qty: 0 0RF
Xarelto 15 MG tablet
15 mg G-tube DAILY Qty: 0 0RF
Discharge Orders:
Discharge Patient (As Directed); Ordered 04/01/25
Ordered By: Esdras Hudson
Discharge Date and Time
Print Language: TONGAN
[2025-04-01 11:44] LABS: Glucose - Point of Care 168 mg/dl (70-99)
[2025-04-01 11:58] VITALS: BP 144/76
== END 2025-04-01 12:30 ==
LOC: 3 WEST ACU 23:17
PROVIDERS: Clinical Nurse Specialist Family Health; Emergency Medicine; Hospitalist; ADMITTING PHYSICIAN Hospitalist; ATTENDING PHYSICIAN Hospitalist; EMERGENCY PHYSICIAN Emergency Medicine; FAMILY PHYSICIAN Family Medicine
DX: T85.848A Pain due to other internal prosthetic devices, implants and grafts, initial encounter (principal); R07.9 Chest pain, unspecified; E78.5 Hyperlipidemia, unspecified; E11.9 Type 2 diabetes mellitus without complications; I48.0 Paroxysmal atrial fibrillation; I95.1 Orthostatic hypotension; I69.391 Dysphagia following cerebral infarction; I50.32 Chronic diastolic (congestive) heart failure; I11.0 Hypertensive heart disease with heart failure; D64.9 Anemia, unspecified; D72.829 Elevated white blood cell count, unspecified; I25.10 Atherosclerotic heart disease of native coronary artery without angina pectoris; I69.351 Hemiplegia and hemiparesis following cerebral infarction affecting right dominant side; G89.18 Other acute postprocedural pain; Z93.1 Gastrostomy status; Z79.01 Long term (current) use of anticoagulants; Z79.899 Other long term (current) drug therapy; Z79.82 Long term (current) use of aspirin
CPT/HCPCS: 71045; 80048; 80053; 82962; 84484; 85025; 87070; 93005; 97116; 97163; 97530; 99285; G0378

== ENCOUNTER → 2025-04-08 08:32 | Outpatient (REF) | payer OTHER, MEDICARE, SELFPAY ==
[2025-04-08 10:42] LABS: % Basophils 0.2 % (0-2); % Eosinophils 3.2 % (0-6); % Immature Granulocytes 1.9 % (0-0.5); % Lymphocytes 13.3 % (20.5-51.1); % Monocytes 3.5 % (1.7-9.3); % Neutrophils 77.9 % (42.2-75.2); Absolute Eosinophils 0.4 10^3/uL (0-0.7); Absolute Immature Granulocytes 0.2 10^3/uL (0-0.05); Absolute Lymphocytes 1.6 10^3/uL (1.2-3.4); Absolute Monocytes 0.4 10^3/uL (0.1-0.6); Absolute Neutrophils 9.6 10^3/uL (1.4-6.5); Hematocrit 33.9 % (39.0-52.0); Hemoglobin 10.3 g/dL (13.0-18.0); Mean Corp Hgb Conc. 30.4 g/dL (33.0-37.0); Mean Corpuscular Hgb 25.9 pg (27.0-31.0); Mean Corpuscular Volume 85.4 fL (80.0-94.0); Mean Platelet Volume 10.3 fL (7.4-10.4); Nucleated Red Blood Cells % 0 % (-); Platelet Count 464 10^3/uL (130-400); Red Blood Cell Count 3.97 10^6/uL (4.70-6.10); Red Cell Dist. Width 17.6 % (11.5-14.5); White Blood Cell Count 12.3 10^3/uL (4.8-10.8)
[2025-04-08 10:53] LABS: ALT (SGPT) 24 U/L (0-50); AST (SGOT) 25 U/L (17-59); Albumin 3.7 g/dl (3.5-5.0); Alkaline Phosphatase 129 U/L (38-126); Blood Urea Nitrogen 63 mg/dl (9-20); Calcium 9.6 mg/dl (8.4-10.2); Carbon Dioxide 30 mmol/L (22-30); Chloride 103 mmol/L (98-107); Glucose 174 mg/dl (70-99); Potassium 3.6 mmol/L (3.5-5.1); Sodium 145 mmol/L (135-145); Total Bilirubin 0.4 mg/dl (0.2-1.3); Total Protein 6.2 g/dl (6.3-8.2); eGFR > 60.00
== END ==
LOC: OLABN 08:32
PROVIDERS: ATTENDING PHYSICIAN Student in an Organized Health Care Education/Training Program
DX: Z93.1 Gastrostomy status (principal); I25.10 Atherosclerotic heart disease of native coronary artery without angina pectoris
CPT/HCPCS: 36415; 80053; 85025

== ENCOUNTER 2025-06-30 21:06 | Inpatient (IN) | payer MEDICARE, SELFPAY ==
[2025-06-30] VITALS (8 sets, daily range): BP systolic 106–128; BP diastolic 82–99; BMI 25.7; BMI 23.8
[2025-06-30 14:51] LABS: Hematocrit 26.7 % (39.0-52.0); Hemoglobin 8.6 g/dL (13.0-18.0); Mean Corp Hgb Conc. 32.2 g/dL (33.0-37.0); Mean Corpuscular Volume 86.7 fL (80.0-94.0); Nucleated Red Blood Cells % 0.1 % (-); Platelet Count 321 10^3/uL (130-400); Red Cell Dist. Width 20.1 % (11.5-14.5)
--- NOTE | 2025-06-30 15:00 | EDRN ---
Pt rang call jennifer, this RN answered jennifer and pt states 'oh its you again, where are the men around here? I don't need a nurse. I need a doctor! Where the hell is he?' Pt is awake, alert and oriented. Pt informed that blood tests are already
pending and that one of our providers will be in to evaluate him as soon as possible.
--- NOTE | 2025-06-30 15:09 | ED.GENMED ---
History of Present Illness
<Sonali Godinez DO, Resident - Last Filed: 06/30/25 23:58>
General
Chief Complaint: Headache
Source: patient
Exam Limitations: none
Time Seen by Provider: 06/30/25 15:09
Nursing documentation reviewed up to this point in time: agreed with
History of Present Illness
History of Present Illness:
Patient is an 79-year-old male past medical history of A-fib on anticoagulation and previous CVA, presenting with new onset slurred speech, headache, shortness of breath and lower extremity edema. Patient woke up this morning around 7 AM and had
slurred speech and also felt like it was harder to walk around with his dog this morning. Patient lives at [facility]. Patient's last known normal was 2200 last night. EMS was called this morning and patient refused because
he thought that he will get better on his own. Patient then started to experience a headache and decided to come to the ED. Patient does have residual speech slurring from his CVA in February. Patient feels that his speech is more slurred now.
Patient noted that 3 days ago he started to have new onset SOB and edema bilaterally in his lower extremities making it difficult to walk around. Patient states that he was started on a 'water pill' at [facility]. Patient describes the
headache as posteriorly located, not associated with changes in vision, and dull. Patient also notes new nausea. Patient denies all other ROS. Of note patient has a G-tube for previous dysphagia which is now resolved. G-tube is planned for
removal at the end of the month.
Past History
<Sonali Godinez DO, Resident - Last Filed: 06/30/25 23:58>
Past History
ED Past Medical History: Arrthythmia (Afib), CAD, HTN and Valvular disease
ED Past Surgical History: Cardiac
Social History
Tobacco: Non-smoker
Alcohol: None
Drug: None
Personal: Single
Living: other
Employment: Retired
Family History
Family History: CAD
Review of Systems
<Sonali Godinez DO, Resident - Last Filed: 06/30/25 23:58>
Review of Systems
Allergies reviewed?: Yes
All Other Systems: ROS reviewed and negative except as documented in HPI and ROS
Constitutional: Reports no symptoms
EENT: Reports no symptoms
Respiratory: Reports trouble breathing
Cardiac: Reports palpitations
ABD/GI: Reports nausea and other (G-tube present, patient would like it removed. Removal scheduled for end of month.)
: Reports no symptoms
Musculoskeletal: Reports edema (Bilateral lower extremity)
Skin: Reports no symptoms
Neurological: Reports headache
Endocrine: Reports no symptoms
Hematologic/Lymphatic: Reports no symptoms
Psychiatric: Reports no symptoms
Phy Exam
<Sonali Godinez DO, Resident - Last Filed: 06/30/25 23:58>
General Physical Exam
General Presentation: no apparent distress
General age: appears stated age
General Skin: warm
General Habitus: elderly
General Mental: alert
Cardiovascular Exam
Cardiovascular Exam: irregularly irregular and tachycardia
Heart Sounds: normal
Pulmonary Exam
Pulmonary Exam: lungs clear and no respiratory distress
Gastrointestinal Exam
Gastrointestinal Exam: normal bowel sounds, non tender, soft and other (G-tube in place.)
Neurological Exam
Neurological Exam: alert, oriented x3, no motor deficits and slurred speech (Slurred speech noticed, patient has slurred speech at baseline but states that this is worse.)
NIH Stroke Score
Level of Consciousness: 0 - Alert
LOC questions: 0-Answers both correctly
LOC Commands: 0-Performs both correctly
Best Gaze: 0-Normal
Visual Graham: 0=Normal, no visual loss
Facial palsy: 1=Minor paralysis
Motor - Right Arm: 0=No drift 10 seconds
Motor - Left Arm: 0=No drift 10 seconds
Motor - Right Le-No drift 5 seconds
Motor - Left Le-No drift 5 seconds
Sensation: 0-Normal
Best Language: 0-No aphasia
Dysarthria: 1-Mild slurring
Alteplase Contraindication
Reasons for NON-Treatment with Thrombolytics: Time and Use of any novel anticoagulant (Pradaxa, Xarelto) in the last 48 hours
Mental
Describe Speech: dysarthric speech and slurred
Musculoskeletal Exam
Musculoskeletal Exam: full ROM and edema (Bilateral pitting edema to the knees.)
Psychiatric Exam
Psychiatric Exam: normal mood/affect
Course
<Sonali Godinez DO, Resident - Last Filed: 06/30/25 23:58>
Orders/Labs/Results
Orders:
Orders
06/30/25 14:40
Electrocardiogram (*1) Urgent
Reason for Study: Other
Other Reason for Exam: Respiratory Distress
EKG- Treatment ONCE
CR Chest - 2 Views Urgent
Comment:
Reason For Exam: respiratory distress
06/30/25 14:42
Complete Blood Count/With Diff Urgent
Comprehensive Metabolic Panel Urgent
Lipase Urgent
Comment: ADD ON
NT-proBNP Stat
Troponin I Urgent
06/30/25 Dinner
1800 calorie (15 carb) Diabetic
At Your Request: Limited Participation
Does patient need a safe tray?: No
Diabetic Diet: Sodium, 2 Gram
06/30/25 15:22
CT Head W/o Iv Contrast Urgent
Comment:
Reason For Exam: headache
06/30/25 16:26
US Abdomen Complete/Upper Urgent
Comment:
Reason For Exam: elevated ALT
06/30/25 16:27
Furosemide [Lasix] 40 mg IV NOW STA
06/30/25 19:25
Diltiazem HCl [Cardizem] 10 mg IV NOW STA
06/30/25 19:28
CT Abd/pel Without Iv Or Oral Urgent
Comment:
Reason For Exam: elevated liver enzymes and abdominal pain
06/30/25 20:04
Urinalysis Reflex To Culture Stat
06/30/25 20:06
Admit/Transfer Patient As Directed
Co-Sign Provider:
Level of Care: Inpatient admission
Assign to:: Telemetry
Physician / Group: Andi
Diagnosis: CHF exacerbation
Reason for Telemetry: Subacute Heart Failure
Date to Stop Telemetry: 07/02/25
Time to Stop Telemetry: 11:00
Reason for Hospitalization: CHF, possible TIA
Expected length of stay greater than two midnights?: Yes
ELOS- Estimated Length of Stay in days: 2
I certify the patient meets the requirements for IP care: Yes
PRN Pain Medication Management As Directed
May give lesser potent ordered pain med per pt: Yes
preference::
Protocol:: Medication orders for pain may be administered in a
manner that supports deferring to patient preference
when the pt is:
- Requesting an ordered lesser potent pain medication.
Least to most potent pain medications are defined
as: acetaminophen < NSAID < tramadol < opioids
(morphine, oxycodone, hydromorphone).
- Requesting a lesser dose of the same medication IF
ORDERED.
- Requesting a less intrusive route of administration
if both routes are prescribed by the provider (PO <
IV).
06/30/25 20:07
Code Status As Directed
Resuscitation Status: Full Code
06/30/25 20:16
Diltiazem [Cardizem] 30 mg PO NOW STA
06/30/25 21:39
Melatonin 5 mg PO HSPRN PRN Sleep
06/30/25 21:39
Echo 2D MMode Color/Doppler Routine
Reason for Study: heart failure
HF DIETARY CONSULT Routine
HF EDUCATOR CONSULT Routine
Comment:
VTE Contraindication Routine
VTE Mechanical Device Contraindication: Medical Contraindication
Pharmocologic Contraindication: Medical Contraindication
MRI Brain [MR Brain Without Contrast] Routine
Comment:
Reason For Exam: TIA/CVA
Recent pill cam endoscopy?: No
Activity As Directed
Activity Level: With Assistance
Bedside Glucose Monitoring As Directed
Frequency: AC&HS
Intake/ Output As Directed
Frequency: Per unit guidelines
Neurological Checks As Directed
Frequency: q4h
Orthostatic Vital Signs As Directed
Orthostatic VS Frequency: Daily
Patient Education As Directed
Type: CHF folder
Comment: give on admission. Document in Interdisciplinary Education record
Sleep Apnea Assessment by RN As Directed
Comment:
Physician Instructions:
Vital Signs As Directed
Frequency: Other
Additional Instructions:: Q12 or per unit guidelines if more frequent.
Weight As Directed
Frequency: Daily
Type of Scale: Standing Scale
Comment: Daily morning weight. If unable to stand, use balanced bed scale.
Weight As Directed
Frequency: Once
Type of Scale: Standing Scale
Comment: Upon Admission. If unable to stand, use balanced bed scale.
Pulse Ox/cont/shift [RESP] Routine
Quantity: 1
Special Instructions: Daily pulse oximetry at rest. If greater than 92% at rest also obtain pulse oximetry
while ambulating as tolerated.
06/30/25 21:57
Acetaminophen Stat
B-Hydroxybutyrate Stat
Hepatitis A IgM Antibody Urgent
Hepatitis B Core Ab, IgM Urgent
Hepatitis B Surface Antibody Urgent
Hepatitis B Surface Antigen Urgent
Hepatitis C Antibody Urgent
Lactic Acid Stat
Salicylate Stat
Venous Blood Gas Stat
%Oxygen/Room Air: RA
06/30/25 22:00
Atorvastatin [Lipitor] 20 mg PO HS
Escitalopram Oxalate [Lexapro] 10 mg PO HS
Midodrine [ProAmatine] 10 mg PO TID @ 0800,1200,1700
Mirtazapine [Remeron] 7.5 mg PO HS
07/01/25 06:00
Basic Metabolic Panel IN AM
Cardiovascular Evaluation IN AM
Complete Blood Count/No Diff IN AM
Ferritin IN AM
Folate IN AM
Hemoglobin A1c [Glycohemoglobin (HgbA1c)] IN AM
Iron IN AM
Jqbkm-Sowr-Klvrhhs IN AM
Magnesium IN AM
TSH Reflex To Free T4 IN AM
Total Iron Binding IN AM
Vitamin B12 IN AM
07/01/25 07:30
Insulin Aspart Corrective Low [Novolog Flexpen-Low Resistance] See Protocol SC AC
07/01/25 08:00
Amiodarone [Pacerone] 100 mg PO DAILY
Aspirin Chewable [Low Strength Aspirin] 81 mg PO DAILY
Cyanocobalamin [Vitamin B-12] 1,000 mcg PO DAILY
Docusate Sodium [Colace] 100 mg PO BID
Furosemide [Lasix] 40 mg IV BID AT 0800,1600
Magnesium l-Lactate [Mag-Tab Sr] 84 mg PO DAILY
Memantine HCl [Namenda] 10 mg PO BID
Pantoprazole [Protonix] 40 mg PO DAILY
Pyridoxine [Vitamin B-6] 50 mg PO DAILY
Rivaroxaban [Xarelto] 15 mg PO DAILY
Sennosides [Senokot] 8.6 mg PO DAILY
07/02/25 06:00
Basic Metabolic Panel IN AM
07/02/25 11:00
DC Protocol for Telemetry ONCE
07/03/25 06:00
Basic Metabolic Panel IN AM
Abnormal Lab Results
06/30/25
14:42
WBC 13.7 H 10^3/uL
(4.8-10.8)
RBC 3.08 L 10^6/uL
(4.70-6.10)
Hgb 8.6 L g/dL
(13.0-18.0)
Hct 26.7 L %
(39.0-52.0)
MCHC 32.2 L g/dL
(33.0-37.0)
RDW 20.1 H %
(11.5-14.5)
Abs Immat Gran (auto) 0.1 H 10^3/uL
(0-0.05)
Absolute Neuts (auto) 10.8 H 10^3/uL
(1.4-6.5)
Absolute Monos (auto) 1.0 H 10^3/uL
(0.1-0.6)
Immature Gran % 1.0 H %
(0-0.5)
Neutrophils % 79.1 H %
(42.2-75.2)
Lymphocytes % 12.2 L %
(20.5-51.1)
Carbon Dioxide 15 L mmol/L
(22-30)
BUN 42 H mg/dl
(9-20)
Creatinine 1.4 H mg/dL
(0.7-1.3)
Glucose 104 H mg/dl
(70-99)
Calcium 8.0 L mg/dl
(8.4-10.2)
Total Bilirubin 2.0 H mg/dl
(0.2-1.3)
AST 1636 H* U/L
(17-59)
ALT 985 H* U/L
(0-50)
06/30/25 14:42
06/30/25 14:42
Vital Signs
Initial and Last Documented VS:
Initial Vital Signs
Pulse Resp Pulse Ox
128 25 96
06/30/25 14:32 06/30/25 14:32 06/30/25 14:32
Last Documented Vital Signs
Temp Pulse Resp BP Pulse Ox
97.6 F 119 19 128/88 96
06/30/25 21:56 06/30/25 21:56 06/30/25 21:56 06/30/25 21:56 06/30/25 21:56
<Bonnie Arrington MD - Last Filed: 06/30/25 20:05>
Orders/Labs/Results
Orders:
Orders
06/30/25 14:40
Electrocardiogram (*1) Urgent
Reason for Study: Other
Other Reason for Exam: Respiratory Distress
EKG- Treatment ONCE
CR Chest - 2 Views Urgent
Comment:
Reason For Exam: respiratory distress
06/30/25 14:42
Complete Blood Count/With Diff Urgent
Comprehensive Metabolic Panel Urgent
Lipase Urgent
Comment: ADD ON
NT-proBNP Stat
Troponin I Urgent
06/30/25 Dinner
1800 calorie (15 carb) Diabetic
At Your Request: Limited Participation
Does patient need a safe tray?: No
Diabetic Diet: Sodium, 2 Gram
06/30/25 15:22
CT Head W/o Iv Contrast Urgent
Comment:
Reason For Exam: headache
06/30/25 16:26
US Abdomen Complete/Upper Urgent
Comment:
Reason For Exam: elevated ALT
06/30/25 16:27
Furosemide [Lasix] 40 mg IV NOW STA
06/30/25 19:25
Diltiazem HCl [Cardizem] 10 mg IV NOW STA
06/30/25 19:28
CT Abd/pel Without Iv Or Oral Urgent
Comment:
Reason For Exam: elevated liver enzymes and abdominal pain
06/30/25 20:04
Urinalysis Reflex To Culture Stat
06/30/25 20:06
Admit/Transfer Patient As Directed
Co-Sign Provider:
Level of Care: Inpatient admission
Assign to:: Telemetry
Physician / Group: Andi
Diagnosis: CHF exacerbation
Reason for Telemetry: Subacute Heart Failure
Date to Stop Telemetry: 07/02/25
Time to Stop Telemetry: 11:00
Reason for Hospitalization: CHF, possible TIA
Expected length of stay greater than two midnights?: Yes
ELOS- Estimated Length of Stay in days: 2
I certify the patient meets the requirements for IP care: Yes
PRN Pain Medication Management As Directed
May give lesser potent ordered pain med per pt: Yes
preference::
Protocol:: Medication orders for pain may be administered in a
manner that supports deferring to patient preference
when the pt is:
- Requesting an ordered lesser potent pain medication.
Least to most potent pain medications are defined
as: acetaminophen < NSAID < tramadol < opioids
(morphine, oxycodone, hydromorphone).
- Requesting a lesser dose of the same medication IF
ORDERED.
- Requesting a less intrusive route of administration
if both routes are prescribed by the provider (PO <
IV).
06/30/25 20:07
Code Status As Directed
Resuscitation Status: Full Code
06/30/25 20:16
Diltiazem [Cardizem] 30 mg PO NOW STA
06/30/25 21:39
Melatonin 5 mg PO HSPRN PRN Sleep
06/30/25 21:39
Echo 2D MMode Color/Doppler Routine
Reason for Study: heart failure
HF DIETARY CONSULT Routine
HF EDUCATOR CONSULT Routine
Comment:
VTE Contraindication Routine
VTE Mechanical Device Contraindication: Medical Contraindication
Pharmocologic Contraindication: Medical Contraindication
MRI Brain [MR Brain Without Contrast] Routine
Comment:
Reason For Exam: TIA/CVA
Recent pill cam endoscopy?: No
Activity As Directed
Activity Level: With Assistance
Bedside Glucose Monitoring As Directed
Frequency: AC&HS
Intake/ Output As Directed
Frequency: Per unit guidelines
Neurological Checks As Directed
Frequency: q4h
Orthostatic Vital Signs As Directed
Orthostatic VS Frequency: Daily
Patient Education As Directed
Type: CHF folder
Comment: give on admission. Document in Interdisciplinary Education record
Sleep Apnea Assessment by RN As Directed
Comment:
Physician Instructions:
Vital Signs As Directed
Frequency: Other
Additional Instructions:: Q12 or per unit guidelines if more frequent.
Weight As Directed
Frequency: Daily
Type of Scale: Standing Scale
Comment: Daily morning weight. If unable to stand, use balanced bed scale.
Weight As Directed
Frequency: Once
Type of Scale: Standing Scale
Comment: Upon Admission. If unable to stand, use balanced bed scale.
Pulse Ox/cont/shift [RESP] Routine
Quantity: 1
Special Instructions: Daily pulse oximetry at rest. If greater than 92% at rest also obtain pulse oximetry
while ambulating as tolerated.
06/30/25 21:57
Acetaminophen Stat
B-Hydroxybutyrate Stat
Hepatitis A IgM Antibody Urgent
Hepatitis B Core Ab, IgM Urgent
Hepatitis B Surface Antibody Urgent
Hepatitis B Surface Antigen Urgent
Hepatitis C Antibody Urgent
Lactic Acid Stat
Salicylate Stat
Venous Blood Gas Stat
%Oxygen/Room Air: RA
06/30/25 22:00
Atorvastatin [Lipitor] 20 mg PO HS
Escitalopram Oxalate [Lexapro] 10 mg PO HS
Midodrine [ProAmatine] 10 mg PO TID @ 0800,1200,1700
Mirtazapine [Remeron] 7.5 mg PO HS
07/01/25 06:00
Basic Metabolic Panel IN AM
Cardiovascular Evaluation IN AM
Complete Blood Count/No Diff IN AM
Ferritin IN AM
Folate IN AM
Hemoglobin A1c [Glycohemoglobin (HgbA1c)] IN AM
Iron IN AM
Balvd-Rknz-Zqijvkf IN AM
Magnesium IN AM
TSH Reflex To Free T4 IN AM
Total Iron Binding IN AM
Vitamin B12 IN AM
07/01/25 07:30
Insulin Aspart Corrective Low [Novolog Flexpen-Low Resistance] See Protocol SC AC
07/01/25 08:00
Amiodarone [Pacerone] 100 mg PO DAILY
Aspirin Chewable [Low Strength Aspirin] 81 mg PO DAILY
Cyanocobalamin [Vitamin B-12] 1,000 mcg PO DAILY
Docusate Sodium [Colace] 100 mg PO BID
Furosemide [Lasix] 40 mg IV BID AT 0800,1600
Magnesium l-Lactate [Mag-Tab Sr] 84 mg PO DAILY
Memantine HCl [Namenda] 10 mg PO BID
Pantoprazole [Protonix] 40 mg PO DAILY
Pyridoxine [Vitamin B-6] 50 mg PO DAILY
Rivaroxaban [Xarelto] 15 mg PO DAILY
Sennosides [Senokot] 8.6 mg PO DAILY
07/02/25 06:00
Basic Metabolic Panel IN AM
07/02/25 11:00
DC Protocol for Telemetry ONCE
07/03/25 06:00
Basic Metabolic Panel IN AM
Abnormal Lab Results
06/30/25
14:42
WBC 13.7 H 10^3/uL
(4.8-10.8)
RBC 3.08 L 10^6/uL
(4.70-6.10)
Hgb 8.6 L g/dL
(13.0-18.0)
Hct 26.7 L %
(39.0-52.0)
MCHC 32.2 L g/dL
(33.0-37.0)
RDW 20.1 H %
(11.5-14.5)
Abs Immat Gran (auto) 0.1 H 10^3/uL
(0-0.05)
Absolute Neuts (auto) 10.8 H 10^3/uL
(1.4-6.5)
Absolute Monos (auto) 1.0 H 10^3/uL
(0.1-0.6)
Immature Gran % 1.0 H %
(0-0.5)
Neutrophils % 79.1 H %
(42.2-75.2)
Lymphocytes % 12.2 L %
(20.5-51.1)
Carbon Dioxide 15 L mmol/L
(22-30)
BUN 42 H mg/dl
(9-20)
Creatinine 1.4 H mg/dL
(0.7-1.3)
Glucose 104 H mg/dl
(70-99)
Calcium 8.0 L mg/dl
(8.4-10.2)
Total Bilirubin 2.0 H mg/dl
(0.2-1.3)
AST 1636 H* U/L
(17-59)
ALT 985 H* U/L
(0-50)
06/30/25 14:42
06/30/25 14:42
Vital Signs
Initial and Last Documented VS:
Initial Vital Signs
Pulse Resp Pulse Ox
128 25 96
06/30/25 14:32 06/30/25 14:32 06/30/25 14:32
Last Documented Vital Signs
Temp Pulse Resp BP Pulse Ox
97.6 F 119 19 128/88 96
06/30/25 21:56 06/30/25 21:56 06/30/25 21:56 06/30/25 21:56 06/30/25 21:56
<Sonali Godinez DO, Resident - Last Filed: 06/30/25 23:58>
MDM/Problems Addressed
Differential Diagnosis Includes:
Heart failure, atrial fibrillation with RVR, CVA
MDM/Problems Addressed:
Chest x-ray showed cardiomegaly with interstitial edema and small, right greater than left, pleural effusions with adjacent likely atelectasis. This is new compared to chest x-ray completed in March. Blood work remarkable for elevated proBNP of
21,900. Elevated ALT 985U/L. Elevated creatinine of 1.4 baseline is 0.9 EKG revealed atrial fibrillation with rapid ventricular response ventricular rate of 128 bpm. Will give Lasix 40 mg IV now.
Ordered abdominal ultrasound given elevated liver enzymes and generalized upper abdominal pain. Will also order lipase. Considered giving Cardizem, but given patient's soft blood pressures low 100s/80s, and heart rate 110s, will hold off for now.
Abdominal ultrasound reveals gallbladder is mildly distended with biliary sludge no additional findings suggestive of acute cholecystitis. There is no biliary duct dilation. Mild bilateral renal cortical thinning noted small bilateral pleural
effusions noted. Lipase within normal limits 69 U/L. CT head showed no acute intracranial abnormalities. Patient is not a TNK candidate because he is on anticoagulation. Give Cardizem 10 mg with improvement in heart rate. Patient will be
admitted for further management of mild congestive heart failure, atrial fibrillation and workup of abdominal pain with elevated liver enzymes. CT abdomen pelvis revealed the gallbladder is mildly distended without findings suggestive of
cholecystitis. Small bilateral pleural effusions with adjacent atelectasis noted. Mild urinary bladder wall thickening which is nonspecific. Colonic diverticulosis and mild rectal stool burden noted.
<Sonali Godinez DO, Resident - Last Filed: 06/30/25 23:58>
*Pulse Oximetry
SaO2: 98
Oxygen Mode of Delivery: Room air
Patient hypoxic: no
*EKG
Interpreted by ED Provider?: Yes
Interpretation: abnormal
Rate: tachycardiac
Rhythm: a-fib
*Critical Care Note
Total Time (30-74mins, 75-104mins- exclusive of procedures): Not Applicable
ED Attending Note
<Sonali Godinez DO, Resident - Last Filed: 06/30/25 23:58>
-
Portions of this chart may have been created with voice recognition software.� Occasional wrong word or��sound alike� substitutions may have occurred due to the inherent limitations of voice recognition software.
<Bonnie Arrington MD - Last Filed: 06/30/25 20:05>
ED Attending Note
Patient seen and examined by attending physician: Yes
I performed a history and physical exam of patient and discussed management with resident, I reviewed resident's note and agree with documented findings and plan of care.: Yes
ED Attending Note:
79-year-old male with questionable neurological changes, history somewhat disjointed from several sources, but there is some consistency and suspected increase in patient's baseline slurred speech. This is improving. No other neurological new
abnormalities noted. Patient did report a headache earlier but this is since resolved. Patient denies new numbness or tingling, weakness, etc. On exam, patient speech is slightly slurred, he is awake alert pleasant and making jokes. Moves all
extremities equally. He is not a TNKase/IAT candidate given low NIH score/nondisabling symptoms, also he is on full anticoagulation. The last known well onset is also unclear. Of note, patient noted to be in A-fib with RVR with associated heart
failure. He has a 8 kg weight gain, elevated BNP, worsening lower extremity edema, and effusions on his chest x-ray. Lasix administered. He also has new LFT abnormalities associated with mild tenderness to palpation of the right upper quadrant.
He is not septic in appearance. Ultrasound not entirely consistent with acute cholecystitis. Will proceed with CT. Hospitalist made aware.
Discharge Plan
Departure
Patient Disposition: Admit
Date of Disposition: 06/30/25
Time of Disposition: 19:59
Presentation/result/management discussed w/ accepting MD/DO: Hospitalist
Discharge Problem:
Heart failure, Abdominal pain
Interventions
Interventions:
*Risk Screen - Suicide Last Done: 06/30/25 14:33
*General Assessment Last Done: 06/30/25 14:33
*Neglect/Abuse Screening Last Done: 06/30/25 14:33
*ED- Fall Risk Assessment Last Done: 06/30/25 14:33
*ED COVID-19 Vaccine History Last Done: 06/30/25 22:03
*Nursing Disposition Last Done: 06/30/25 21:19
ED- Neurological Assessment Last Done: 06/30/25 14:33
Discharge Date and Time
Discharge Date/Time: 06/30/25 21:43
[2025-06-30 15:19] LABS: Albumin 4.1 g/dl (3.5-5.0); Alkaline Phosphatase 113 U/L (38-126); Blood Urea Nitrogen 42 mg/dl (9-20); Calcium 8.0 mg/dl (8.4-10.2); Carbon Dioxide 15 mmol/L (22-30); Chloride 107 mmol/L (98-107); Estimated Creatinine Clearance 47 ml/min; Glucose 104 mg/dl (70-99); Potassium 4.4 mmol/L (3.5-5.1); Sodium 142 mmol/L (135-145); Total Protein 6.5 g/dl (6.3-8.2); eGFR 50.49
[2025-06-30 15:24] LABS: Troponin I 0.020 ng/ml
[2025-06-30 15:47] LABS: ALT (SGPT) 985 U/L (0-50)
[2025-06-30 16:34] LABS: AST (SGOT) 1636 U/L (17-59)
[2025-06-30] MEDS: LASIX 40 MG IV (16:40)
--- NOTE | 2025-06-30 16:41 | PHANOTE ---
med rec note- called alf for patient but he is independent living but he does have home health nurse come by and do his medication. patient does not know his medication. facility was nice enough to go into patient apartment to get a
medication list for patient.
[2025-06-30 16:44] LABS: Lipase 69 U/L (23-300)
[2025-06-30] MEDS: CARDIZEM 10 MG IV (19:38)
--- NOTE | 2025-06-30 19:49 | HPS.HSE ---
Family Physician
-
Family Physician: Ankit Braxton
Chief Complaint
-
Headache
History of Present Illness
This is a 79-year-old male with past medical history significant for extensive right-sided stroke with left-sided hemiparesis dysphagia dysarthria, CAD, hyperlipidemia, diabetes, atrial fibrillation on anticoagulation, cognitive impairment, chronic
anemia has, status post PEG tube a few months ago will presents from [facility] with initial concern for slurred speech but found to be in volume overload.
Patient apparently brady at 7 AM with slurred speech and some increased difficulty with walking around with his dog. He was last normal going to bed at 10 PM last night. Initially EMS was called and patient refused however he later developed
episode of headache and was brought to the emergency department for evaluation. He still complains that his speech is more slurred now and also that started to have shortness of breath and edema bilaterally in his lower extremities with difficulty
walking around statin 3 days ago. Apparently was started on a water pill at [facility] [place]. He denies any vision changes. Denies any neck stiffness. He denies any fevers or chills. Reports mild nausea. He denies any abdominal pain. He had a
previous episode of dysphagia for which a G-tube was placed daily dysphagia is now resolved.
In the emergency department he had a blood pressure of 116/99 with a pulse rate of 105 currently, temp is 97.4 1 was satting 97% on room air. He has a white count 13.7, hemoglobin 8.6 and a platelet of 321 MCV 86. He is ECG showed atrial
fibrillation with rapid ventricular response at a rate of 128, Q waves in leads III which is unchanged from prior. His troponin was 0.02. BNP is greater than 21,000.
Electrolytes notable for bicarb of 15 with an anion gap of 20, BUN and creatinine are now elevated to a creatinine of 1.4 from baseline of 0.9 with a BUN of 42. Glucose was 104. LFTs notable for AST of 1600, ALT of 980, normal total bilirubin and
normal lipase.
CT of the head showed no acute interval changes.
Chest x-ray shows cardiomegaly with interstitial edema and small, right greater than left, pleural effusions with adjacent likely atelectasis. Abdominal ultrasound showing gallbladder is mildly distended with biliary sludge. There are no additional
findings suggestive of acute cholecystitis. There is no biliary duct dilation. There is mild bilateral renal cortical thinning, possibly secondary to medical renal disease.
Medical History
Past Medical History
Past Medical History: Reports Other
Additional Past Medical History:
acute right subcortical posterior right frontal lobe stroke 02/23/2025
chronic dysphagia due to recent stroke, current PEG tube with tube feeding placed 03/22/2025
paroxysmal A-fib
orthostatic hypotension midodrine/Florinef dependent
chronic heart failure reduced EF
aortic stenosis status post TAVR
CAD
HLD
DM2
dementia
Past Surgical History: Reports Other
Additional Past Surgical History:
PEG tube 03/14/2025
TAVR for aortic stenosis
CABG x 3 vessel
Cardiac cath
Social History
Tobacco: Non-smoker
Alcohol: None
Drug: None
Personal: Single
Living: Other (Patient technically is homeless since he signed AMA from [facility])
Employment: Retired
Family History
Family History: Not pertinent
Allergies / Home Medications
Allergies reflects when Allergies were last updated in [facility].
Home Medications with original date entered in [facility]
Allergy/Medication List:
Allergies
Allergy/AdvReac Type Severity Reaction Status Date / Time
digoxin Allergy Unknown Verified 03/26/25 16:28
Home Medications
aspirin 81 mg chewable tablet 81 mg feeding tube DAILY Blood clot prevention/tx 01/03/21
atorvastatin 20 mg tablet 20 mg feeding tube HS High cholesterol 01/03/21
escitalopram oxalate 20 mg tablet 20 mg feeding tube HS Depression 01/03/21
metformin 500 mg tablet 500 mg feeding tube BID@0800,1700 Diabetes 01/03/21
memantine 10 mg tablet 10 mg feeding tube BID dementia 11/30/21
acetaminophen 325 mg tablet 650 mg feeding tube Q4HPRN PRN mild pain 03/05/25
bisacodyl 10 mg rectal suppository (Dulcolax (bisacodyl)) 10 mg AR DAILYPRN PRN constipation 03/05/25
magnesium L-lactate 84 mg tablet,extended release 84 mg PO DAILY Supplement 03/05/25
methyl salicylate 15 %-menthol 1 % topical cream 1 applic topical TID bilateral knees 03/05/25
bisacodyl 5 mg tablet,delayed release (Dulcolax (bisacodyl)) 10 mg feeding tube DAILYPRN PRN constipation 03/11/25
amiodarone 200 mg tablet 100 mg (1/2 x 200 mg) feeding tube DAILY Arrhythmia #0 tabs 03/26/25
cyanocobalamin 2 mg-levomefolate holger 1.13 mg-pyridoxine 25 mg tablet (Foltx) 1 tab PO DAILY feeding tube 03/26/25
docusate sodium 100 mg capsule (Colace) 100 mg PO BID feeding tube 03/26/25
fludrocortisone 0.1 mg tablet 0.1 mg feeding tube DAILY Blood pressure #0 tabs 03/26/25
furosemide 20 mg tablet (Lasix) 20 mg feeding tube DAILY 03/26/25
midodrine 5 mg tablet 10 mg feeding tube TID@0700,1200,1800 Orthostasis/low blood pressure 03/26/25
pantoprazole 40 mg tablet,delayed release (Protonix) 40 mg PO DAILY feeding tube 03/26/25
rivaroxaban 15 mg tablet (Xarelto) 15 mg G-tube DAILY Blood Clot Prevention/Tx #0 tabs 03/26/25
sennosides 8.6 mg tablet (senna) 17.2 mg feeding tube DAILY 03/26/25
Review of Systems
-
History Source: Patient
A 12 point ROS was completed and negative except as noted: Yes
Constitutional: Denies Fever or Chills
EENT: Denies Tearing or Runny Nose
Respiratory: Reports Trouble Breathing; Denies Cough
Cardiac: Denies Chest Pain, Diaphoresis, Palpitations or Syncope
Abdomen/GI: Reports Abdominal Pain (Epigastric area burning with slight tenderness around G-tube site); Denies Nausea, Vomiting, Diarrhea or Constipated
: Denies Dysuria, Frequency, Flank Pain, Incontinence or Difficulty Voiding
Musculoskeletal: Reports Edema; Denies Joint Pain
Skin: Denies Itching or Rash
Neurological: Reports Headache; Denies Dizzy or Weakness
Endocrine: Reports No Symptoms
Hematologic/Lymphatic: Reports No Symptoms
Psych: Reports Calm
Physical Exam
Vital Signs
Vital Signs
Temp Pulse Resp BP Pulse Ox
97.4 F 105 23 116/99 97
06/30/25 14:33 06/30/25 19:38 06/30/25 19:30 06/30/25 19:38 06/30/25 19:15
Physical Exam
General: Comfortable, Conversant and Other (Reports hunger); No Fever or Chills
HEENT: NormoCephalic, Anicteric, PERRLA, [place] Conjunctivae and No Ptosis
Respiratory: Clear; No Wheezes, Rales or Rhonchi
Cardiac: S1/S2 and Regular Rhythm; No Murmur, Rub, Gallop or Peripheral Edema
GI: Soft, Non Distended, Normal Bowel Sounds and Peg Tube (Epigastric area burning with slight tenderness around G-tube site, G-tube aspirated clear liquid, flushes without difficulty, surrounding G-tube site intact no erythema or skin breakdown)
Genito-urinary: Deferred by me
Musculoskeletal: No Clubbing, No Cyanosis and No Edema
Skin: Warm and Dry; No Rash or Jaundice
Neuro: AO x 3 (Oriented to name, place, year, month, president, history despite reported history of dementia), No Motor Deficits, Nonfocal/grossly intact, Cranial Nerves Intact, No Sensory Deficits and Slurred Speech; No Facial Droop, Tremors or
Sedated
Psych: Calm
Laboratory Results
-
06/30/25 14:42
06/30/25 14:42
Laboratory Results
Total Bilirubin 2.0 mg/dl (0.2-1.3) H 06/30/25 14:42
AST 1636 U/L (17-59) H* 06/30/25 14:42
ALT 985 U/L (0-50) H* 06/30/25 14:42
Alkaline Phosphatase 113 U/L (38-126) 06/30/25 14:42
Troponin I 0.020 ng/ml 06/30/25 14:42
Lipase Cancelled 06/30/25 16:25
Data Reviewed
-
Diagnostic Radiology: Report Reviewed by me
CT Scan: Report Reviewed by me
Ultrasound: Report Reviewed by me
Medical Tests (Nuc Med, Echo, EKG etc): Image Personally Visualized and interpreted
Lab Data: Labs Reviewed by me
Old Records: Reviewed
Impression/Plan
-
IMPRESSION:
79-year-old with past medical history of extensive CVA with residual or left-sided hemiparesis, history of dysphagia now resolved, dysarthria and aphasia, [id number] diabetes, atrial fibrillation on anticoagulation, CAD and chronic anemia
who presents to the emergency department initially for concern for worsening slurred speech and possible TIA/CVA however in the Emergency Department he did report some increasing shortness of breath and lower extremity edema, has a weight gain of
about 8 kg since his last discharge and is x-ray shows pulmonary edema with pleural effusion, BNP is elevated over 21,000 with a normal troponin, ECG shows atrial fibrillation with rapid ventricular response and he has significant transaminitis
without cholestatic pattern. History suspicious for a volume overload. Denies Tylenol use.
PLAN:
1. CHF Exacerbation - Patient on midodrine/fludrocortisone for presumably orthostatic htn, has afib which is uncontrolled and improvement in diet likely contributing to CHF. He does not have cp, trop is neg and ECG shows no new ischemic changes.
8Kg weight gain since march.
- admit to telemetry
- start lasix IV 40mg bid for now
- echo in am
- strict i/os and daily weight
- salt restriction, hold fludrocortisone for now
- continue midodrine
- daily orthostatics
- cardiology consult.
2. Transaminitis - No clear etiology, possibly from CHF but u/s not c/w hepatic congestion. No h/o etoh. Not on routine acetaminophen. No abdominal pain. GB mildly distended with sludge but no dilation of ducts and normal lipase. Possible
passed stone.
- check acute hep panel and drug levels
- diuresis as above
- cardiovascular panel
- continue statin for now as not a new medication
- consider mrcp
- GI consultation
3. AFIB - RVR likely in setting of CHF and not on blockade. Responded to diltiazem bolus in ED
- continue amio 100 daily
- rates in the 90s now. Will give a dose of oral diltiazem
- fluid removal as above for now
- continue Xarelto
4. LATONYA - Suspect cardiorenal as patient is overloaded and normotensive
- IV diuresis
- avoid nephrotoxines
5. CVA - Residual left sided weakness and worsening slurred speech. CT head unremarkable
- on Xarelto, statin and aspirin
- neurochecks
- swallow eval
- mri in am
6. DM II
- hold metformin
- insulin sliding scale
7. AG acidosis - LATONYA, metformin and hepatic injury as likely etiology. Unlikely dka
- check urinary ketones and b HCG
- check vbg, lactic acid levels
- diuresis as above for now
- hold metformin
8. Anemia - Chronic normocytic anemia. On Xarelto but no prior h/o Gi bleed documented.
- check iron indices, b12 and folate
- no indication for transfusion at this time.
DVT PPX - on Xarelto
Code status - Full Code
[2025-06-30 22:00] LABS: Glucose - Point of Care 101 mg/dl (70-99)
[2025-06-30 22:04] LABS: Venous Blood Gas B.E. -1.9 mmol/L (-4 to +4); Venous Blood Gas O2 Sat % 84.5 %
[2025-06-30 22:34] LABS: Acetaminophen < 10 ug/ml (10-30); Salicylate 1.2 mg/dl (2.0-20.0)
[2025-07-01] VITALS (7 sets, daily range): BP systolic 102–132; BP diastolic 67–90; PULSE 86–98; O2SAT 98; BMI 23.8
[2025-07-01] MEDS: REMERON 7.5 MG PO ×2 (00:01→20:19)
[2025-07-01] MEDS: LIPITOR 20 MG PO (00:01)
[2025-07-01] MEDS: CARDIZEM 30 MG PO (00:01)
[2025-07-01] MEDS: LEXAPRO 10 MG PO ×2 (00:02→20:19)
--- NOTE | 2025-07-01 06:31 | PTCARENOTE ---
Pt currently with PEG tube, states has not been used in two months and is to be removed in one month. Rodrigo MERCURY PURIFIER aware, states OK for meds and diet since passed swallow screen. Speech eval placed for further clarification, Rodrigo MERCURY PURIFIER aware.
[2025-07-01 07:32] LABS: Albumin 3.5 g/dl (3.5-5.0); Alkaline Phosphatase 104 U/L (38-126); Blood Urea Nitrogen 40 mg/dl (9-20); Calcium 7.2 mg/dl (8.4-10.2); Carbon Dioxide 22 mmol/L (22-30); Chloride 107 mmol/L (98-107); Estimated Creatinine Clearance 60 ml/min; Glucose 82 mg/dl (70-99); HDL Cholesterol 35 mg/dl; Iron 35 ug/dl (49-181); LDL Cholesterol, Calculated 116 mg/dl; Magnesium 1.1 mg/dl (1.6-2.3); Potassium 3.5 mmol/L (3.5-5.1); Sodium 142 mmol/L (135-145); Total Protein 5.7 g/dl (6.3-8.2); Very Low Density Lipoprotein 14 mg/dl (0-30); eGFR > 60.00
[2025-07-01 07:42] LABS: ALT (SGPT) 1488 U/L (0-50); Total Iron Binding Capacity 348 ug/dl (261-462)
[2025-07-01 08:03] LABS: Glucose - Point of Care 91 mg/dl (70-99)
[2025-07-01 08:07] LABS: Hematocrit 25.2 % (39.0-52.0); Hemoglobin 8.0 g/dL (13.0-18.0); Mean Corp Hgb Conc. 31.7 g/dL (33.0-37.0); Mean Corpuscular Volume 85.4 fL (80.0-94.0); Platelet Count 238 10^3/uL (130-400); Red Cell Dist. Width 19.7 % (11.5-14.5)
[2025-07-01 08:09] LABS: Ferritin 54.1 ng/ml (17.9-464.0)
[2025-07-01 08:12] LABS: AST (SGOT) 1971 U/L (17-59)
--- NOTE | 2025-07-01 08:17 | VNURNOTE ---
Chart reviewed. Patient is current with [facility]. Will continue to follow hospital course and DC plans.
[2025-07-01] MEDS: NOVOLOG FLEXPEN-LOW RESISTANCE SC ×3 (08:26→16:23)
[2025-07-01] MEDS: COLACE 100 MG PO ×2 (08:28→20:19)
[2025-07-01] MEDS: VITAMIN B-12 1000 MCG PO (08:29)
[2025-07-01] MEDS: MAG-TAB SR 84 MG PO (08:29)
[2025-07-01] MEDS: VITAMIN B-6 50 MG PO (08:30)
[2025-07-01] MEDS: XARELTO 15 MG PO (08:30)
[2025-07-01] MEDS: PACERONE 100 MG PO (08:30)
[2025-07-01] MEDS: NAMENDA 10 MG PO ×2 (08:32→20:19)
[2025-07-01 08:35] LABS: Urine Character Clear (Clear)
[2025-07-01] MEDS: SENOKOT 8.6 MG PO (08:35)
[2025-07-01] MEDS: PROTONIX 40 MG PO (08:35)
[2025-07-01] MEDS: LOW STRENGTH ASPIRIN 81 MG PO (08:35)
[2025-07-01] MEDS: LASIX 40 MG IV ×2 (08:36→16:03)
[2025-07-01 08:40] LABS: Folate > 20.0 ng/ml (2.76-20); Vitamin B12 > 1000 pg/ml (239-931)
--- NOTE | 2025-07-01 08:47 | CON.GI ---
Addendum entered and electronically signed by Dorene Archuleta MD 07/01/25 17:32:
I saw and examined the patient.
The POULTRY GRADER or PA's note was reviewed and I agree with the note.
Comment: 79-year-old male with history of hypertension, congestive heart failure, atrial fibrillation on Xarelto, history of aortic stenosis status post TAVR, diabetes presenting with slurred speech, headache but noted to have elevated LFTs and GI
consult was called in. MRI of the brain showed punctate left posterior subacute ischemic lesion, already on anticoagulation. Also noted to have atrial fibrillation with rapid ventricular response, chest x-ray showing cardiomegaly with interstitial
edema and pleural effusions, right greater than left and elevated proBNP.
In the emergency room, labs significant with total bilirubin of 2.0, AST of 1636, ALT of 985 and alkaline phosphatase of 113, repeat shows total bili of 1.7 with direct of 0.7, AST of 1971, ALT of 1488 and alkaline phosphatase of 104. Tylenol level
less than 10. Previous LFTs up until March 2025 where in normal range. Chronic anemia with hemoglobin between 8 and 11 since 2020.
Abdominal ultrasound showing mild distended gallbladder with sludge, otherwise unremarkable. CT scan of the abdomen and pelvis without contrast shows mildly distended gallbladder, diverticulosis but otherwise no abdominal findings.
Denies any abdominal pain, nausea or vomiting. Denies any constipation, diarrhea, blood in the stool or black stool.
Upper endoscopy and PEG placement in February 2025 for dysphagia, red blood noted in the stomach, no ulcers or actively bleeding lesions. PEG placement done.
Colonoscopy was several years ago.
- Significantly elevated transaminases with slight elevation in indirect bilirubin and normal alkaline phosphatase
Given presentation with congestive heart failure, likely congestive hepatopathy causing elevated LFTs.
Will do abdominal Doppler ultrasound of the liver to evaluate for any portal thrombus, less likely given patient is on anticoagulation
Agree with viral hepatitis serologies
Will trend LFTs and monitor closely
- Chronic anemia without any evidence of overt bleeding
Continue PPI
Will monitor H&H and bowel movements on anticoagulation
Will follow
Original Note:
Consultation
-
Date/Time Consultation Requested: 06/30/25 2313
Date/Time Consultation Performed: 07/01/25 0830
Requesting Provider: Dr. Escamilla
Performing Provider: Dr. Archuleta/WILLI Francisco
Reason for Consultation: elevated LFTs
Medical History
Chief Complaint / HPI
Chief Complaint: headache
History of Present Illness:
79yo male with PMH afib on Xarelto, right sided CVA with left hemiparesis 02/23/25 s/p PEG, CAD, CHF, HTN, chronic HFpEF, hyperlipidemia, prior TAVR, NIDDM, cognitive impairment, orthostatic hypotension, chronic anemia who presents to the
emergency room with slurred speech, headache and difficulty with ambulation. We are asked to evaluate for elevated LFTs. [facility] with [facility] speech. Currently at the present time he just
finished a complete breakfast of eggs with bagel. He denies any abdominal discomfort. He does state that a couple days ago he did have intermittent abdominal discomfort that would 'come and go'. It would be dull and intermittent. Not associated
with eating or drinking. The patient no longer uses his PEG tube. He has a bowel movement every day or every other day. He states his last bowel movement was yesterday. He states these are usually 'hard'. He does not look at the color of his
bowel movements. He denies any fevers, chills, nausea, vomiting, true dysphagia or odynophagia. No early satiety or unintended weight loss. His urine is yellow as he has a Arrington catheter in place. He does tell me that he had shortness of breath
coming in which is now 'gone away'. He denies any tattoos, piercings, IV drug use. He denies any history of elevated liver enzymes that he is aware of. He denies any family history of gastrointestinal malignancy, IBD or family history of liver
disease. He does not smoke. Does not drink any alcohol. Presentation he did come in with A-fib with RVR. proBNP 23563, chest x-ray shows cardiomegaly with interstitial edema and small right greater than left pleural effusions. Patient is
afebrile, WBC 9.3 down from 13.7, hemoglobin 8.0 down from 8.6 with diuresis. Iron 35, TIBC 348, percent saturation 10, ferritin 54.1, B12 greater than 1000, folate greater than 20, lactic acid 1.1 down from 2.5, BUN 40, creatinine 1.1, total
bilirubin 1.7 (down from 2.0), direct bilirubin 0.7, AST 1971 (up from 1636), ALT 1488 (up from 985), alk phos 104 (up from 113), CK 113, troponin 0.020, negative Tylenol level, salicylates 1.2 (low), viral hepatitis studies pending. Ultrasound of
the abdomen shows the gallbladder borderline dilated with biliary sludge. Negative Briggs sign. No biliary ductal dilatation. CBD 6 mm. Liver echogenicity appears normal with no evidence of focal hepatic lesion. Liver length is 13.[address] of
abdomen and pelvis without oral or IV contrast shows unremarkable liver, mildly distended gallbladder. No ductal dilatation. Unremarkable pancreas. Mild rectal burden.
Past Medical History
Past Medical History: Arrhythmias (afib on Xarelto ), CAD, CHF, HTN, Hypercholesterolemia, NIDDM, Valvular Disease (), Psychiatric (dementia ) and Other
Past Surgical History: Cardiac (TAVR) and Other (PEG tube 03/14/2025)
Social History
Tobacco: Non-Smoker
Alcohol: None
Drug: None
Living: Other (prior [facility])
Employment: Retired
Family History
Family History: Other (denies family hx GI issues )
Allergies / Home Medications
Allergy/AdvReac Type Severity Reaction Status Date / Time
digoxin Allergy Unknown Verified 06/30/25 14:32
�Medication �Instructions �Recorded
aspirin 81 mg chewable tablet 81 mg PO DAILY Blood clot 01/03/21
prevention/tx
atorvastatin 20 mg tablet 20 mg PO HS High cholesterol 01/03/21
metformin 500 mg tablet 500 mg PO BID@0800,1700 Diabetes 01/03/21
memantine 10 mg tablet 10 mg PO BID dementia 11/30/21
docusate sodium 100 mg capsule 100 mg PO BID feeding tube 03/26/25
(Colace)
furosemide 20 mg tablet (Lasix) 20 mg PO DAILY Fluid 03/26/25
Retention/Swelling
pantoprazole 40 mg tablet,delayed 40 mg PO DAILY feeding tube 03/26/25
release (Protonix)
sennosides 8.6 mg tablet (senna) 8.6 mg PO DAILY Constipation 03/26/25
amiodarone 200 mg tablet 100 mg PO DAILY Arrhythmia 06/30/25
cyanocobalamin (vitamin B-12) 1,000 mcg PO DAILY Supplement 06/30/25
1,000 mcg tablet
escitalopram oxalate 10 mg tablet 10 mg PO HS Depression 06/30/25
(Lexapro)
fludrocortisone 0.1 mg tablet 0.1 mg PO DAILY Blood pressure 06/30/25
magnesium oxide 400 mg PO DAILY Supplement 06/30/25
melatonin 5 mg tablet 5 mg PO HSPRN PRN Sleep 06/30/25
midodrine 10 mg tablet 10 mg PO TID Blood Pressure 06/30/25
mirtazapine 7.5 mg tablet 7.5 mg PO HS Mental Health/Anxiety 06/30/25
pyridoxine (vitamin B6) 50 mg 50 mg PO DAILY Supplement 06/30/25
tablet
rivaroxaban 15 mg tablet (Xarelto) 15 mg PO DAILY Blood Clot 06/30/25
Prevention/Tx
Review of Systems
-
All other systems: A 12 pt ROS was Negative except as stated above in HPI
Vital Signs
Temp Pulse Resp BP Pulse Ox
97.6 F 96 20 132/80 97
07/01/25 08:18 07/01/25 08:18 07/01/25 08:18 07/01/25 08:18 07/01/25 08:18
Physical Exam
Exam
General: No Apparent Distress
HEENT: Anicteric
Respiratory: Clear (Decreased bases bilaterally)
Cardiac: Irregular Rhythm and JVD
GI: Soft, Non Tender, Non Distended, Normal Bowel Sounds and Other (PEG tube left upper quadrant, no signs of irritation, erythema)
Musculoskeletal: Edema (+2 bilateral lower extremity edema)
Skin: Warm and Dry
Neuro: AO x 3
Psych: Calm
Results
WBC 9.3 10^3/uL (4.8-10.8) 07/01/25 06:46
Hgb 8.0 g/dL (13.0-18.0) L 07/01/25 06:46
Hct 25.2 % (39.0-52.0) L 07/01/25 06:46
MCV 85.4 fL (80.0-94.0) 07/01/25 06:46
Plt Count 238 10^3/uL (130-400) D 07/01/25 06:46
Absolute Neuts (auto) 10.8 10^3/uL (1.4-6.5) H 06/30/25 14:42
Sodium 142 mmol/L (135-145) 07/01/25 06:46
Potassium 3.5 mmol/L (3.5-5.1) 07/01/25 06:46
Chloride 107 mmol/L (98-107) 07/01/25 06:46
Carbon Dioxide 22 mmol/L (22-30) 07/01/25 06:46
BUN 40 mg/dl (9-20) H 07/01/25 06:46
Creatinine 1.1 mg/dL (0.7-1.3) 07/01/25 06:46
Calcium 7.2 mg/dl (8.4-10.2) L 07/01/25 06:46
Total Bilirubin 1.7 mg/dl (0.2-1.3) H 07/01/25 06:46
AST 1971 U/L (17-59) H* 07/01/25 06:46
ALT 1488 U/L (0-50) H* 07/01/25 06:46
Alkaline Phosphatase 104 U/L (38-126) 07/01/25 06:46
Lipase Cancelled 06/30/25 16:25
Diagnostic Image Results:
Chest x-ray 06/30/2025:
Cardiomegaly with interstitial edema and small, right greater than left, pleural effusions with adjacent likely atelectasis.
CT head 06/30/2025:
No acute intracranial abnormality noted.
Ultrasound abdomen 06/30/2025:
IMPRESSION:
The gallbladder is mildly distended with biliary sludge. There are no additional findings suggestive of acute cholecystitis. There is no biliary duct dilation.
There is mild bilateral renal cortical thinning, possibly secondary to medical renal disease.
Small bilateral pleural effusions.
CT abdomen and pelvis without oral or IV contrast 06/30/2025:
IMPRESSION:
The gallbladder is mildly distended without CT findings suggestive of cholecystitis.
Small bilateral pleural effusions with adjacent atelectasis.
Mild urinary bladder wall thickening which is nonspecific however can be seen with cystitis. Recommend correlation with urinalysis.
Colonic diverticulosis. Mild rectal stool burden.
Moderate compression deformities of the L1 and L2 vertebral bodies with mild associated retropulsion
Prior GI Procedures:
EGD with PEG tube placement 03/22/2025:- Normal esophagus.
- Normal stomach.
- Red blood in the stomach.
- Normal examined duodenum.
- Endovive Safety PEG placement was successfully
completed.
- No specimens collected.
Colonoscopy: 'Years ago'
Assessment / Plan
-
79yo male with PMH afib on Xarelto, right sided CVA with left hemiparesis 02/23/25 s/p PEG, CAD, CHF, HTN, chronic HFpEF, hyperlipidemia, prior TAVR, NIDDM, cognitive impairment, orthostatic hypotension, chronic anemia who presents to the
emergency room with slurred speech, headache and difficulty with ambulation. We are asked to evaluate for elevated LFTs. Comfort without any associated or alleviating factors a couple days ago. Presents with fluid overload and A-fib with RVR.
Also complains of slurred speech. Current on anticoagulation and aspirin therapy. Chronic anemia. Currently eating without any difficulty, no abdominal pain. Ultrasound and CT imaging with gallbladder sludge without any ductal dilatation, liver
or pancreatic abnormalities identified. MRI of the brain ordered.
Impression:
Elevated LFTs
Transient abdominal discomfort, none now tolerating diet
Gallbladder sludge
Acute exacerbation CHF
A-fib RVR on anticoagulation
CVA
LATONYA-> improving
Chronic anemia-> iron deficiency
Plan:
-Await hepatitis studies
-Patient currently has neurology consult, MRI of the brain, cardiology consult pending
-Being treated for CHF exacerbation with diuresis
-Trend LFTs
-If with worsening consider further imaging of liver, Doppler versus MR
-Continue pantoprazole
-Continue senna/Colace
-Further recommendations to be forthcoming
-
-
Thank you for consultation and allowing me to participate in the patient's care. Please call the information security officer GI physician during the after hours with any questions or concerns.
--- NOTE | 2025-07-01 08:55 | W.PN.HOSP.TC ---
Today's Communication/Plan
-
diuresis
MRI Brain
hold statin
continue Xarelto
appreciate consultants
Assessment / Plan
Assessment / Plan
This is a 79-year-old male with past medical history significant for extensive right-sided stroke with left-sided hemiparesis dysphagia dysarthria, CAD, hyperlipidemia, diabetes, atrial fibrillation on anticoagulation, cognitive impairment, chronic
anemia has, status post PEG tube a few months ago will presents from [facility] with initial concern for slurred speech, also found to be in volume overload.
Abdomen US
IMPRESSION:
The gallbladder is mildly distended with biliary sludge. There are no additional findings suggestive of acute cholecystitis. There is no biliary duct dilation.
There is mild bilateral renal cortical thinning, possibly secondary to medical renal disease.
Small bilateral pleural effusions.
Abdomen/Pelvis CT
IMPRESSION:
The gallbladder is mildly distended without CT findings suggestive of cholecystitis.
Small bilateral pleural effusions with adjacent atelectasis.
Mild urinary bladder wall thickening which is nonspecific however can be seen with cystitis. Recommend correlation with urinalysis.
Colonic diverticulosis. Mild rectal stool burden.
Moderate compression deformities of the L1 and L2 vertebral bodies with mild associated retropulsion
1. CHF Exacerbation - Patient on midodrine/fludrocortisone for presumably orthostatic htn, has afib which is uncontrolled and improvement in diet likely contributing to CHF. He does not have cp, trop is neg and ECG shows no new ischemic changes.
- admitted to telemetry
- Lasix 40mg IV BID
- echo
- strict i/os and daily weight
- salt restriction, hold fludrocortisone for now
- continue midodrine
- daily orthostatics
- cardiology consult.
2. Transaminitis - No clear etiology, possibly from CHF but u/s not c/w hepatic congestion. No h/o etoh. Not on routine acetaminophen. No abdominal pain. GB mildly distended with sludge but no dilation of ducts and normal lipase. Possible
passed stone.
- check acute hep panel and drug levels
- diuresis as above
- cardiovascular panel
- I'll hold statin
- consider [facility]
- GI consultation
3. AFIB - RVR likely in setting of CHF and not on blockade. Responded to diltiazem bolus in ED
- continue amio 100 daily
- rates in the 90s now. s/p oral Dilt
- fluid removal as above for now
- continue Xarelto
4. LATONYA - Suspect cardiorenal as patient is overloaded and normotensive
- IV diuresis
- avoid nephrotoxins
5. CVA - Residual left sided weakness and worsening slurred speech. CT head unremarkable
- on Xarelto, statin and aspirin
- neurochecks
- swallow eval
- mri in am
6. DM II
- hold metformin
- insulin sliding scale
7. AG acidosis - resolved
lactic acidosis
-resolved with diuresis
8. Anemia - Chronic normocytic anemia. On Xarelto but no prior h/o Gi bleed documented.
TITO
-monitor CBC daily
DVT PPX - on Xarelto
Code status - Full Code
Anticipated Discharge: > 48 hours
Subjective/Interval History
-
Date of Service: July 01, 2025
patient states he presented because he had trouble getting words out and it is now somewhat improved
has chronic weakness on right
Objective Data
-
Labs:
Laboratory Results
07/01/25
06:46
WBC 9.3
Hgb 8.0 L
Hct 25.2 L
Plt Count 238 D
Sodium 142
Potassium 3.5
Chloride 107
Carbon Dioxide 22
BUN 40 H
Creatinine 1.1
Glucose 82
Calcium 7.2 L
Total Bilirubin 1.7 H
AST 1971 H*
ALT 1488 H*
Alkaline Phosphatase 104
Vital Signs:
Vital Signs
Temp Pulse Resp BP Pulse Ox
97.6 F 96 20 132/80 97
07/01/25 08:18 07/01/25 08:18 07/01/25 08:18 07/01/25 08:18 07/01/25 08:18
I&O
06/30/25 07/01/25 07/02/25
06:59 06:59 06:59
Intake Total 240 / 240
Output Total 525 / 525
Balance -285 / -285
Review of Systems
-
History Source: Patient
All other systems: Reviewed and negative
Physical Exam
-
General: No Apparent Distress and Appears Chronically Ill
HEENT: PERRLA
Respiratory: Decreased Breath Sounds
Cardiac: Regular Rhythm, S1/S2 and JVD
GI: Soft and Nontender
Musculoskeletal: Edema, Right Lower Extrem and Edema, Left Lower Extrem
Skin: Warm and Dry; Negative Rash
Neuro: AO x 3
Psych: Calm
Data Reviewed
-
Diagnostic Radiology: Report Reviewed by me
Labs: Labs Reviewed by me
[2025-07-01 09:32] LABS: Glycohemoglobin (HgbA1c) 6.2 % (4.0-5.6)
[2025-07-01] MEDS: MAGNESIUM SULFATE 100 IV (10:16)
[2025-07-01] MEDS: KCL 40 MEQ PO ×2 (10:17→23:58)
[2025-07-01 10:48] LABS: Urine Squamous Cell 0-2 /LPF (Few)
[2025-07-01 10:50] LABS: Urine Red Blood Cell 0-2 /HPF (0-2); Urine White Cell 0-2 /HPF (0-5)
[2025-07-01 12:02] LABS: Glucose - Point of Care 105 mg/dl (70-99)
--- NOTE | 2025-07-01 13:36 | CON.CAR ---
Addendum entered and electronically signed by Shelly Coronado MD 07/01/25 16:06:
I saw and examined the patient.
The Computer Trainer's note was reviewed and I agree with the note.
Comment: General: Well developed, well nourished in NAD.
Heart: , RRR, 2/6 basal systolic murmur , No S3, S4, no rubs.
Lungs: Decreased breath sounds at the base
Extremities: No clubbing, cyanosis +1 to +2 edema bilaterally.
Neuro: Awake and alert
He presented with multiple medical issues including intermittent slurred speech, shortness of breath, worsening edema, abdominal symptoms and nausea. He is undergoing assessment. He has history of TAVR and CABG. He had recent CVA 03/2025 and now
was readmitted in part related to slurred speech and new abnormality on MRI of the brain which is felt to be subacute. He has been on oral anticoagulation (2019) for atrial fibrillation. He had some point was dose reduced to Xarelto 15 mg daily
(2021) when he had acute renal failure. He may have been in atrial fibrillation once again with history of paroxysmal atrial fibrillation since at least last admission 03/2025 but duration unknown. He is on amiodarone 100 mg daily. He has noticed
increased weight gain and lower extremity edema in addition along with shortness of breath. Echocardiogram today with left ventricular ejection fraction 37% (in the setting of atrial fibrillation with increased rates today historically ejection
fraction around 45 to 50%) and moderate mitral regurgitation. Stable TAVR.
Plan at this time:
Heart failure with mild to moderately reduced ejection fraction (proBNP 2100 on 06/30/25)
- Continue IV diuretic
- Follow input/output and daily weights
- Rate control atrial fibrillation
- Follow labs
- Moderate MR noted
Paroxysmal atrial fibrillation
- May be persistent since 03/2025 (has not been seen in the office since 08/2024)
- Has been on dose reduced Xarelto 15 mg daily for which he at this point should be on 20 mg daily and we have discussed with neurology and placed on this dosing
- Continue low-dose amiodarone. Is noted this admission elevated LFTs. Continue to follow. Hopefully LFTs will improve with diuresis.
- Add low-dose beta-amrita
History of low blood pressure/history of orthostasis
- On midodrine. Blood pressure stable.
CVA/slurred speech
- Recent CVA 03/2025 now with slurred speech and abnormality on MRI which by neurology is felt to be subacute
- Xarelto okayed by neurology. Continue to follow
- Defer management to primary service and neurology
CAD status post CABG
- Risk factor modification
- No chest pain noted follow
- EKG without acute abnormality
- Given elevated LFTs and Lipitor is on hold. Will add Zetia for now and then reintroduce statin when able
Chronic underlying dementia
We will continue to follow.
Original Note:
Consultation
Consultation Request
Date/Time Consultation Requested: 07/01/2025
Date/Time Consultation Performed: 07/01/2025
Requesting Provider: Dr. Waller
Performing Provider: Helena Dorman PA-C for Dr. Shelly Coronado
Reason for Consultation: CHF
Medical History
-
History of Present Illness:
HPI: Jaime is an 79 year old male with PMH of CAD s/p CABG x 3, TAVR, chronic HFrEF, paroxysmal atrial fibrillation on chronic amiodarone, HTN, orthostasis, HLD, TIA, dementia, and anemia. Presented to [facility] ER for evaluation of slurred speech,
headache, SOB, edema, and nausea. In ER, head CT was without acute abnormality, and chest xray was consistent with heart failure. ProBNP elevated at 21,900. EKG reviewed. Noted to be in rapid atrial fibrillation with HR of 128 bpm. Hypokalemia noted
with K 3.5 ang magnesium of 1.1. Also noted to have significantly elevated LFTs. Abdominal US and CT of abdomen with distended gallbladder without evidence of cholecystitis. GI consulted and following. Admitted with acute heart failure and concern
for possible CVA given episode of slurred speech. He is diuresing with IV lasix and notes some improvement in symptoms. Denies any palpitations, but does note that he has had about 1 month of worsening heavy breathing and edema with occasional
lightheadedness. Does not follow his weight at home.
PMH:
CAD
s/p CABG x 3 in 2017
s/p TAVR 2018
Chronic HFrEF
Paroxysmal atrial fibrillation
Chronic amiodarone therapy
Chronic Xarelto therapy
HTN
h/o orthostasis, on chronic midodrine
HLD
h/o TIA
Dementia
Chronic anemia
Past Medical History
Past Medical History: Other (In HPI)
Past Surgical History: Cardiac (TAVR 06/15/2019, CABG x 3 2017)
Social History
Tobacco: Non-Smoker
Alcohol: None
Drug: None
Living: Assisted Living
Employment: Retired
Family History
Family History: Reviewed & Not Pertinent
Allergies / Home Medications
Allergy/AdvReac Type Severity Reaction Status Date / Time
digoxin Allergy Unknown Verified 06/30/25 14:32
�Medication �Instructions �Recorded �Confirmed �Type
aspirin 81 mg chewable tablet 81 mg PO DAILY Blood clot 01/03/21 06/30/25 History
prevention/tx
atorvastatin 20 mg tablet 20 mg PO HS High cholesterol 01/03/21 06/30/25 History
metformin 500 mg tablet 500 mg PO BID@0800,1700 Diabetes 01/03/21 06/30/25 History
memantine 10 mg tablet 10 mg PO BID dementia 11/30/21 06/30/25 History
docusate sodium 100 mg capsule 100 mg PO BID feeding tube 03/26/25 06/30/25 History
(Colace)
furosemide 20 mg tablet (Lasix) 20 mg PO DAILY Fluid 03/26/25 06/30/25 History
Retention/Swelling
pantoprazole 40 mg tablet,delayed 40 mg PO DAILY feeding tube 03/26/25 06/30/25 History
release (Protonix)
sennosides 8.6 mg tablet (senna) 8.6 mg PO DAILY Constipation 03/26/25 06/30/25 History
amiodarone 200 mg tablet 100 mg PO DAILY Arrhythmia 06/30/25 06/30/25 History
cyanocobalamin (vitamin B-12) 1,000 mcg PO DAILY Supplement 06/30/25 06/30/25 History
1,000 mcg tablet
escitalopram oxalate 10 mg tablet 10 mg PO HS Depression 06/30/25 06/30/25 History
(Lexapro)
fludrocortisone 0.1 mg tablet 0.1 mg PO DAILY Blood pressure 06/30/25 06/30/25 History
magnesium oxide 400 mg PO DAILY Supplement 06/30/25 06/30/25 History
melatonin 5 mg tablet 5 mg PO HSPRN PRN Sleep 06/30/25 06/30/25 History
midodrine 10 mg tablet 10 mg PO TID Blood Pressure 06/30/25 06/30/25 History
mirtazapine 7.5 mg tablet 7.5 mg PO HS Mental Health/Anxiety 06/30/25 06/30/25 History
pyridoxine (vitamin B6) 50 mg 50 mg PO DAILY Supplement 06/30/25 06/30/25 History
tablet
rivaroxaban 15 mg tablet (Xarelto) 15 mg PO DAILY Blood Clot 06/30/25 06/30/25 History
Prevention/Tx
Review of Systems
-
History Source: Patient
All other systems: Negative unless noted
Physical Exam
Vital Signs
Temp Pulse Resp BP Pulse Ox
97.5 F 107 19 124/87 97
07/01/25 11:47 07/01/25 12:03 07/01/25 11:47 07/01/25 12:03 07/01/25 11:47
Lab Results
07/01/25 06:46
Troponin I 0.020 ng/ml 06/30/25 14:42
Bbn-Y-Meougshwper Pept 51493 pg/ml 06/30/25 14:42
Mzb-M-Wzdaavyvewy Pept Cancelled 06/30/25 14:42
Physical Exam
General: Well Developed, Well Nourished and No Apparent Distress
HEENT: Normocephalic, Anicteric and Moist Mucous Membranes
Respiratory: Crackles and Non Labored Respirations
Cardiac: Irregular Rhythm and Murmur
Musculoskeletal: No Clubbing, No Cyanosis and Edema
Skin: Warm and Dry
Neuro: Awake, Alert and Nonfocal/Grossly Intact
Psych: Calm
Impression / Plan
-
PCP: Dr. Braxton
Lead Cytogenetic Technologist: Dr. Hurley
Impression:
Presented with slurred speech, nausea, SOB, edema
Acute on chronic HFrEF
Elevated LFTs
Paroxysmal atrial fibrillation w/ RVR
Chronic amiodarone therapy
Chronic Xarelto therapy
CAD
s/p CABG x 3 in 2017
s/p TAVR 2018
HTN
h/o orthostasis, on chronic midodrine
HLD
h/o TIA
Dementia
Chronic anemia
Echo 11/2020: EF 45-50%, mild to mod cLVH, stage 1 diastolic dysfunction, MAC, mild MR, normally functioning TAVR with peak/mean gradients 26/14mmHg, trace TR, PAP 34mmHg
Echo 12/01/2021: LVEF 45-50%, Mild LVH, Nl Fxn of TAVR with Pk and mean 17/9 and no AI. PAP 16-21 mm Hg
Echo 12/11/2023: EF 46%, mild MR, s/p TAVR with w/ peak/mean gradients 25/13 mmHg
Echo 02/24/2025: EF 50-55%, mild MR, s/p TAVR peak/mean gradients 24/12 mmHg, mild TR
Echo 07/01/2025: EF 37%, global hypokinesis, akinesis of basal anteroseptal segment, s/p TAVR w/ peak/mean gradients 21/9 mmHg, mild TR
Plan:
-Presented with slurred speech, SOB, edema, and headache. Admitted with acute HFrEF, rapid atrial fibrillation, and elevated LFTs.
-Diuresing with IV lasix 40mg BID. Weight down 6lbs overnight, down to 180 lbs on 07/01. Still significantly volume overloaded on exam.
-Echo 07/01 noted EF down to 37% as above w/ WMA. No chest pain.
-Troponin 0.020. Will repeat to ensure trending down. Does have h/o CAD w/ prior bypass. Lexiscan stress test in 11/2023 without ischemia. Continue aspirin 81mg daily.
-Remains in afib w/ HR in the low 100s on review of telemetry. Asymptomatic.
-On amiodarone 100mg daily as OP. w/ elevated LFTs, will hold off on increasing.
-Will start low dose beta amrita with Toprol 12.5mg daily. BP stable, but does have h/o orthostasis on chronic midodrine and florinef.
-Concern for acute CVA on arrival w/ slurred speech. Brain MRI completed this AM, suspicious for acute to subacute infarction of L parietal lobe. Neurology consulted by primary service.
-On Xarelto 15mg daily as OP, however creat clearance this AM is 60, so appropriate dose of Xarelto would be 20mg daily. TT sent to neuro, Dr. Mendiola, who is ok w/ increasing dose.
-GI evaluating elevated LFTs, hepatitis panel pending. Statin held. LDL 116.
-K 3.5 with mag 1.1. Repleted by primary service. Repeat labs this PM.
-Hgb A1c 6.2%.
-TSH 0.89.
HPI: Jaime is an 79 year old male with PMH of CAD s/p CABG x 3, TAVR, chronic HFrEF, CKD, paroxysmal atrial fibrillation on chronic amiodarone, HTN, orthostasis, HLD, TIA, Dementia, and anemia. Presented to [facility] ER for evaluation of slurred
speech, headache, SOB, edema, and nausea. In ER, head CT was without acute abnormality, and chest xray was consistent with heart failure. ProBNP elevated at 21,900. EKG reviewed. Noted to be in rapid atrial fibrillation with HR of 128 bpm.
Hypokalemia noted with K 3.5 ang magnesium of 1.1. Also noted to have significantly elevated LFTs. Abdominal US and CT of abdomen with distended gallbladder without evidence of cholecystitis. GI consulted and following. Admitted with acute heart
failure and concern for possible CVA given episode of slurred speech. He is diuresing with IV lasix and notes some improvement in symptoms. Denies any palpitations, but does note that he has had about 1 month of worsening heavy breathing and edema
with occasional lightheadedness. Does not follow his weight at home
Data Reviewed
-
EKG: Tracing Personally Visualized and interpreted
Radiology: Report Reviewed by me
CT Scan: Report Reviewed by me
Ultrasound: Report Reviewed by me
Medical Tests (Nuc Med, Echo etc): Report Reviewed by me
Labs: Labs Reviewed by me
Old Records: Reviewed
[2025-07-01] MEDS: BenGay-Like 1 APPLIC TOPICAL (14:30)
--- NOTE | 2025-07-01 14:54 | CON.NEURO ---
Neuro Assessment/Plan
Assessment
Acute onset shortness of breath and edema in bilateral lower extremities followed 3 days later by awakening with slurred speech and headache. MRI of brain suggests punctate left posterior subacute ischemic lesion
Plan
Agree with anticoagulation as planned by cardiology
Would not utilize antiplatelet agent unless needed by cardiology
Continue memantine for dementia
Continue midodrine for orthostatic hypotension which is more likely to produce the patient's above symptoms
Will follow as needed
Consultation
Order
Date of Consultation: 07/01/25
Requesting Provider: Hospitalist
Reason for Consult: Slurred speech
Subjective/Objective
Subjective Data
Date of Service: July 01, 2025
Patient has a history of dementia and the information was primarily obtained after review of the patient's medical records. The patient reportedly was in his usual state of health until 3 days ago which time he began experiencing bilateral lower
extremity swelling and shortness of breath. 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 After awakening on the day of admission with a sense of headache and slurred speech, he presented to this hospital's
emergency department. Patient's reported last known normal was at 2200 hrs. the evening before presentation. No other known modifying factors.
Objective Data
Vital Signs
Temp Pulse Resp BP Pulse Ox
36.4 C 107 19 124/87 97
07/01/25 11:47 07/01/25 12:03 07/01/25 11:47 07/01/25 12:03 07/01/25 11:47
Lab Results
07/01/25 06:46
Sodium 142 mmol/L (135-145) 07/01/25 06:46
Potassium 3.5 mmol/L (3.5-5.1) 07/01/25 06:46
BUN 40 mg/dl (9-20) H 07/01/25 06:46
Glucose 82 mg/dl (70-99) 07/01/25 06:46
Calcium 7.2 mg/dl (8.4-10.2) L 07/01/25 06:46
Cih-H-Efhikxvucgk Pept 47314 pg/ml 06/30/25 14:42
Xcl-Z-Ylhndnihylj Pept Cancelled 06/30/25 14:42
LDL Cholesterol, Calc 116 mg/dl 07/01/25 06:46
Vitamin B12 > 1000 pg/ml (239-931) H 07/01/25 06:46
Patient Allergies
digoxin Allergy (Verified 06/30/25 14:32)
Unknown
Review of Systems
-
Unable to obtain full review of systems at this time due to: Dementia
History Source: Patient
All other systems: Reviewed and negative
Physical Exam
-
General: No Apparent Distress and Appears Stated Age
Eyes: Round OU, Hamel Conjunctivae and No Ptosis
HEENT: Anicteric and Moist Mucous Membranes
Neck: Full Range of Motion
Respiratory: No Dyspnea
Cardiac: No JVD
GI: Non-distended
Skin: Unremarkable
Extremities: No Clubbing, No Cyanosis and No Edema
Psych: Negative Intact Judgement/Insight
Extended Neurological Exam
Mood & Affect: Mood Unremarkable and Affect Unremarkable
Attention Span & Concentration: Awake, Alert and Interactive
Tremor: Hand Tremor Absent and Head Tremor Absent
Speech: Quality Unremarkable and Quantity Unremarkable
Cranial Nerve II: Left Eye: Pupillary Size Unremarkable and Visual Graham Grossly Intact
Cranial Nerve II: Right Eye: Pupillary Size Unremarkable and Visual Graham Grossly Intact
Cranial Nerves III, IV, : Extraocular Movement: Grossly Intact
Cranial Nerve VII: Facial Symmetry: Normal Facial Symmetry
Cranial Nerve VIII: Hearing: Unremarkable Hearing to Normal Conversational Volume
Coordination: Reaches for Objects without Difficulty
Data Reviewed
-
Labs: Report Reviewed
Reviewed with: Physician and Patient
Old Records: Summarized
Medications
-
Active Medications
Generic Name Dose Route Start Last Admin
Trade Name Freq PRN Reason Stop Dose Admin
Amiodarone HCl 100 mg 07/01/25 08:00 07/01/25 08:30
Amiodarone 100 Mg Tablet PO 07/29/25 07:59 100 mg
DAILY DONNIE Administration
Aspirin 81 mg 07/01/25 08:00 07/01/25 08:35
Aspirin 81 Mg Chewable Tablet PO 07/29/25 07:59 81 mg
DAILY DONNIE Administration
Cyanocobalamin 1,000 mcg 07/01/25 08:00 07/01/25 08:29
Cyanocobalamin 1,000 Mcg Tablet PO 07/29/25 07:59 1,000 mcg
DAILY DONNIE Administration
Dextrose 12.5 grams 06/30/25 22:00
Dextrose 50% (0.5 Grams/Ml) 50 Ml Syringe IV 07/28/25 21:59
[id number] PRN
hypoglycemia
Protocol
Docusate Sodium 100 mg 07/01/25 08:00 07/01/25 08:28
Docusate Sodium 100 Mg Capsule PO 07/29/25 07:59 100 mg
BID DONNIE Administration
Escitalopram Oxalate 10 mg 06/30/25 22:00 07/01/25 00:02
Escitalopram 10 Mg Tablet PO 07/28/25 21:59 10 mg
HS DONNIE Administration
Furosemide 40 mg 07/01/25 08:00 07/01/25 08:36
Furosemide 40 Mg (10 Mg/Ml) 4 Ml Vial IV 07/29/25 07:59 40 mg
BID AT 0800,1600 DONNIE Administration
Glucagon 1 mg 06/30/25 22:00
Glucagon 1 Mg Vial IM 07/28/25 21:59
PRN PRN
hypoglycemia - no IV access
Protocol
Insulin Aspart 0 units 07/01/25 07:30 07/01/25 12:03
Insulin Aspart Low Resistance 300 Units/3 Ml Pen.Injctr SC 07/29/25 07:29 Not Given
AC DONNIE
Protocol
Magnesium 84 mg 07/01/25 08:00 07/01/25 08:29
Magnesium Lactate 84 Mg Tablet PO 07/29/25 07:59 84 mg
DAILY DONNIE Administration
Melatonin 5 mg 06/30/25 21:39
Melatonin 5 Mg Tablet PO 07/28/25 21:38
HSPRN PRN
Sleep
Memantine 10 mg 07/01/25 08:00 07/01/25 08:32
Memantine 10 Mg Tablet PO 07/29/25 07:59 10 mg
BID DONNIE Administration
Menthol/Methyl Salicylate 1 applic 07/01/25 14:00 07/01/25 14:30
Bengay-Like Cream TOPICAL 07/29/25 13:59 1 applic
BIDPRN PRN Administration
pain
Metoprolol Succinate 12.5 mg 07/01/25 15:00
Metoprolol 12.5 Mg Extended Release Dose (1/2 Of 25 Mg Xl Tablet) PO 07/29/25 14:59
DAILY DONNIE
Midodrine 10 mg 06/30/25 22:00 07/01/25 12:03
Midodrine 5 Mg Tablet PO 07/28/25 21:59 10 mg
TID @ 0800,1200,1700 DONNIE Administration
Mirtazapine 7.5 mg 06/30/25 22:00 07/01/25 00:01
Mirtazapine 7.5 Mg Regular Release Tablet PO 07/28/25 21:59 7.5 mg
HS DONNIE Administration
Pantoprazole Sodium 40 mg 07/01/25 08:00 07/01/25 08:35
Pantoprazole 40 Mg Delayed Release Tablet PO 07/29/25 07:59 40 mg
DAILY DONNIE Administration
Pyridoxine HCl 50 mg 07/01/25 08:00 07/01/25 08:30
Pyridoxine 50 Mg Tablet PO 07/29/25 07:59 50 mg
DAILY DONNIE Administration
Rivaroxaban 20 mg 07/02/25 08:00
Rivaroxaban 20 Mg Tablet PO 07/30/25 07:59
DAILY DONNIE
Sennosides 8.6 mg 07/01/25 08:00 07/01/25 08:35
Sennosides (Senokot) 8.6 Mg Tablet PO 07/29/25 07:59 8.6 mg
DAILY DONNIE Administration
Sodium Chloride 0 flush 06/30/25 22:00
Sodium Chloride 0.9% (Flush) Syringe IV 07/28/25 21:59
PER PROTOCOL DONNIE
Home Medications
�Medication �Instructions �Recorded
aspirin 81 mg chewable tablet 81 mg PO DAILY Blood clot 01/03/21
prevention/tx
atorvastatin 20 mg tablet 20 mg PO HS High cholesterol 01/03/21
metformin 500 mg tablet 500 mg PO BID@0800,1700 Diabetes 01/03/21
memantine 10 mg tablet 10 mg PO BID dementia 11/30/21
docusate sodium 100 mg capsule 100 mg PO BID feeding tube 03/26/25
(Colace)
furosemide 20 mg tablet (Lasix) 20 mg PO DAILY Fluid 03/26/25
Retention/Swelling
pantoprazole 40 mg tablet,delayed 40 mg PO DAILY feeding tube 03/26/25
release (Protonix)
sennosides 8.6 mg tablet (senna) 8.6 mg PO DAILY Constipation 03/26/25
amiodarone 200 mg tablet 100 mg PO DAILY Arrhythmia 06/30/25
cyanocobalamin (vitamin B-12) 1,000 mcg PO DAILY Supplement 06/30/25
1,000 mcg tablet
escitalopram oxalate 10 mg tablet 10 mg PO HS Depression 06/30/25
(Lexapro)
fludrocortisone 0.1 mg tablet 0.1 mg PO DAILY Blood pressure 06/30/25
magnesium oxide 400 mg PO DAILY Supplement 06/30/25
melatonin 5 mg tablet 5 mg PO HSPRN PRN Sleep 06/30/25
midodrine 10 mg tablet 10 mg PO TID Blood Pressure 06/30/25
mirtazapine 7.5 mg tablet 7.5 mg PO HS Mental Health/Anxiety 06/30/25
pyridoxine (vitamin B6) 50 mg 50 mg PO DAILY Supplement 06/30/25
tablet
rivaroxaban 15 mg tablet (Xarelto) 15 mg PO DAILY Blood Clot 06/30/25
Prevention/Tx
Past History
Past History
ED Past Medical History: Arrthythmia (Afib), CAD, CVA (Punctate left occipital lacunar), HTN and Valvular disease
ED Past Surgical History: Cardiac
Social History
Tobacco: Non-smoker
Alcohol: None
Drug: None
Personal: Single
Living: other
Employment: Retired
Family History
Family History: CAD
--- NOTE | 2025-07-01 14:55 | W.PN.UPDATE ---
Update Note
Progress Note Update
Brain MRI:
IMPRESSION: Punctate focus of restricted diffusion in the left paramedian parietal lobe, suspicious for a focus of acute to subacute infarction.
Within the white matter of the left parietal lobe slightly more superiorly and laterally, focus of increased diffusion-weighted signal without decreased ADC signal, probably T2 shine through from chronic small vessel ischemic change.
Regions of old infarction as described. Diffuse atrophy. Mild to moderate T2 and FLAIR white matter hyperintensities, commonly seen with aging and usually attributed to small vessel ischemic disease.
Appreciate Cardiology. Patient is on Xarelto, dose to be increased based on renal function (20mg daily).
[2025-07-01 15:18] LABS: Troponin I 0.020 ng/ml
[2025-07-01] MEDS: TOPROL XL 12.5 MG PO (16:02)
[2025-07-01 16:15] LABS: Glucose - Point of Care 143 mg/dl (70-99)
--- NOTE | 2025-07-01 16:15 | CM ---
Alert awake oriented patient who lives at [facility]. He is assisted with activities of daily living.He was offered VN he requested resumption of [facility] Liaison [facility]N notified of referral.
Pt current [facility] history
Pharmacy [facility]
PCP DR Braxton
PLAN return [facility] with [facility]
[2025-07-01] MEDS: TYLENOL 650 MG PO (19:06)
[2025-07-01 19:07] LABS: Hepatitis B Surface Antigen Negative (Negative)
[2025-07-01 19:24] LABS: Hepatitis C Antibody Negative (Negative)
[2025-07-01 21:23] LABS: Glucose - Point of Care 186 mg/dl (70-99)
[2025-07-01 22:34] LABS: Magnesium 1.7 mg/dl (1.6-2.3); Potassium 3.3 mmol/L (3.5-5.1)
[2025-07-01 22:47] LABS: Troponin I 0.019 ng/ml
[2025-07-01] MEDS: MAGNESIUM SULFATE 50 IV (23:58)
[2025-07-02] VITALS (8 sets, daily range): BP systolic 80–128; BP diastolic 49–80; PULSE 84–124; BMI 23.1
[2025-07-02 07:41] LABS: Glucose - Point of Care 154 mg/dl (70-99)
[2025-07-02 08:05] LABS: Hematocrit 27.6 % (39.0-52.0); Hemoglobin 8.8 g/dL (13.0-18.0); Mean Corp Hgb Conc. 31.9 g/dL (33.0-37.0); Mean Corpuscular Volume 86.0 fL (80.0-94.0); Platelet Count 254 10^3/uL (130-400); Red Cell Dist. Width 19.6 % (11.5-14.5)
[2025-07-02 08:28] LABS: Troponin I 0.013 ng/ml
[2025-07-02 08:42] LABS: AST (SGOT) 683 U/L (17-59); Albumin 3.3 g/dl (3.5-5.0); Alkaline Phosphatase 114 U/L (38-126); Blood Urea Nitrogen 38 mg/dl (9-20); Calcium 7.2 mg/dl (8.4-10.2); Carbon Dioxide 26 mmol/L (22-30); Chloride 105 mmol/L (98-107); Estimated Creatinine Clearance 72 ml/min; Glucose 140 mg/dl (70-99); Potassium 3.8 mmol/L (3.5-5.1); Sodium 138 mmol/L (135-145); Total Protein 5.7 g/dl (6.3-8.2); eGFR > 60.00
[2025-07-02] MEDS: ZETIA 10 MG PO (08:43)
[2025-07-02] MEDS: COLACE 100 MG PO (08:46)
[2025-07-02] MEDS: SENOKOT 8.6 MG PO (08:46)
[2025-07-02] MEDS: VITAMIN B-12 1000 MCG PO (08:47)
[2025-07-02] MEDS: XARELTO 20 MG PO (08:47)
[2025-07-02] MEDS: VITAMIN B-6 50 MG PO (08:47)
[2025-07-02] MEDS: MAG-TAB SR 84 MG PO (08:47)
[2025-07-02] MEDS: LOW STRENGTH ASPIRIN 81 MG PO (08:48)
[2025-07-02] MEDS: NAMENDA 10 MG PO ×2 (08:49→19:37)
[2025-07-02] MEDS: PROTONIX 40 MG PO (08:49)
[2025-07-02] MEDS: BenGay-Like 1 APPLIC TOPICAL (08:50)
--- NOTE | 2025-07-02 08:51 | W.PN.HOSP.TC ---
Today's Communication/Plan
-
continue diuresis
appreciate consultants
replete K
eventual SNF
Assessment / Plan
Assessment / Plan
This is a 79-year-old male with past medical history significant for extensive right-sided stroke with left-sided hemiparesis dysphagia dysarthria, CAD, hyperlipidemia, diabetes, atrial fibrillation on anticoagulation, cognitive impairment, chronic
anemia has, status post PEG tube a few months ago will presents from longterm with initial concern for slurred speech, also found to be in volume overload.
Abdomen US
IMPRESSION:
The gallbladder is mildly distended with biliary sludge. There are no additional findings suggestive of acute cholecystitis. There is no biliary duct dilation.
There is mild bilateral renal cortical thinning, possibly secondary to medical renal disease.
Small bilateral pleural effusions.
Abdomen/Pelvis CT
IMPRESSION:
The gallbladder is mildly distended without CT findings suggestive of cholecystitis.
Small bilateral pleural effusions with adjacent atelectasis.
Mild urinary bladder wall thickening which is nonspecific however can be seen with cystitis. Recommend correlation with urinalysis.
Colonic diverticulosis. Mild rectal stool burden.
Moderate compression deformities of the L1 and L2 vertebral bodies with mild associated retropulsion
TTE 07/01/25
Left Ventricle:
Normal left ventricular size. Left ventricular systolic function is moderately reduced. Ejection fraction is 37% by volumetric assessment.
LV Wall Scoring:
Global hypokinesis. The basal anteroseptal segment is akinetic.
Brain MRI 07/01/25
IMPRESSION: Punctate focus of restricted diffusion in the left paramedian parietal lobe, suspicious for a focus of acute to subacute infarction.
Within the white matter of the left parietal lobe slightly more superiorly and laterally, focus of increased diffusion-weighted signal without decreased ADC signal, probably T2 shine through from chronic small vessel ischemic change.
Regions of old infarction as described. Diffuse atrophy. Mild to moderate T2 and FLAIR white matter hyperintensities, commonly seen with aging and usually attributed to small vessel ischemic disease.
1. CHF Exacerbation
HFrEF, Acute Exacerbation
- Patient on midodrine/fludrocortisone for presumably orthostatic htn, has afib which is uncontrolled and improvement in diet likely contributing to CHF. He does not have cp, trop is neg and ECG shows no new ischemic changes.
- admitted to telemetry
- Lasix 40mg IV BID
- TTE results above - EF 37%; global hypokinesis
- strict i/os and daily weight
- salt restriction, hold fludrocortisone for now
- continue midodrine
- daily orthostatics
- cardiology consult appreciated
2. Transaminitis - hepatitis viral panel negative; improving with diuresis - congestion likely contributing
-no significant abdominal pain
- diuresis as above
- I'll hold statin
- GI consult appreciated
3. AFIB - RVR likely in setting of CHF and not on blockade. Responded to diltiazem bolus in ED
- continue amio 100 daily, new start Metoprolol XL QD
- fluid removal as above for now
- continue Xarelto --> dose increased to 20mg (normal renal function)
4. LATONYA - Suspect cardiorenal as patient is overloaded and normotensive
-LATONYA resolved - improved with diuresis
5. CVA - Residual left sided weakness and worsening slurred speech. CT head unremarkable
MRI with new subacute/acute small stroke
- appreciate Neurology consult - Xarelto dosing increased
- neurochecks
- swallow eval
6. DM II
- hold metformin
- insulin sliding scale
7. AG acidosis - resolved
lactic acidosis
-resolved with diuresis
8. Anemia - Chronic normocytic anemia. On Xarelto but no prior h/o Gi bleed documented.
TITO
-monitor CBC daily
DVT PPX - on Xarelto
Code status - Full Code
Anticipated Discharge: > 48 hours
Subjective/Interval History
-
Date of Service: July 02, 2025
feeling like his speech is a bit improved today
breathing less difficulty
he is urinating a lot
Objective Data
-
Labs:
Laboratory Results
07/01/25 07/02/25
22:11 06:53
WBC 10.0
Hgb 8.8 L
Hct 27.6 L
Plt Count 254
Sodium 138
Potassium 3.3 L 3.8
Chloride 105
Carbon Dioxide 26
BUN 38 H
Creatinine 0.9
Glucose 140 H
Calcium 7.2 L
Total Bilirubin 1.2
AST 683 H*
ALT Pending
Alkaline Phosphatase 114
Vital Signs:
Vital Signs
Temp Pulse Resp BP Pulse Ox
97.4 F 111 16 105/70 95
07/02/25 07:17 07/02/25 08:46 07/02/25 07:17 07/02/25 08:46 07/02/25 07:17
I&O
07/01/25 07/02/25 07/03/25
06:59 06:59 06:59
Intake Total 240 / 240 1480 / 1480
Output Total 525 / 525 3900 / 3900
Balance -285 / -285 -2420 / -2420
Review of Systems
-
History Source: Patient
All other systems: Reviewed and negative
Physical Exam
-
General: No Apparent Distress and Appears Chronically Ill
HEENT: PERRLA
Respiratory: Decreased Breath Sounds
Cardiac: Regular Rhythm, S1/S2 and JVD
GI: Soft and Nontender
Musculoskeletal: Edema, Right Lower Extrem and Edema, Left Lower Extrem
Skin: Warm and Dry; Negative Rash
Neuro: AO x 3
Psych: Calm
Data Reviewed
-
Diagnostic Radiology: Report Reviewed by me
Labs: Labs Reviewed by me
[2025-07-02] MEDS: PACERONE 100 MG PO (08:55)
[2025-07-02] MEDS: LASIX 40 MG IV (08:56)
[2025-07-02] MEDS: TOPROL XL 12.5 MG PO (08:56)
[2025-07-02] MEDS: KCL 40 MEQ PO (08:59)
[2025-07-02] MEDS: NOVOLOG FLEXPEN-LOW RESISTANCE 1 UNITS SC ×2 (09:03→11:42)
--- NOTE | 2025-07-02 09:09 | W.PN.CARDCBS ---
Addendum entered and electronically signed by Shelly Coronado MD 07/02/25 14:14:
I saw and examined the patient.
The Apartment Leasing Consultant's note was reviewed and I agree with the note.
Comment: Sitting in chair and is lightheaded. He is currently orthostatic. He did diurese 5 pounds since yesterday. Nursing at the bedside.
LFTs are improving with diuresis. Heart rates are fairly well-controlled with persistent atrial fibrillation. Atrial fibrillation likely persistent since 03/2025 at least.
[facility]
[address] [place] [id number]

Patient Name: JAIME SHAFER
: 1945
Unit Number: [id number]
Age: 79/Gender: M
Patient
Location: [address] [place] [address]
Medical Records
Signed
~~REPORT ADDENDUM~~
I saw and examined the patient.
The Apartment Leasing Consultant's note was reviewed and I agree with the note.
Comment: General: Well developed, well nourished in NAD.
Heart: , RRR, 2/6 basal systolic murmur , No S3, S4, no rubs.
Lungs: Decreased breath sounds at the base
Extremities: No clubbing, cyanosis +1 to +2 edema bilaterally.
Neuro: Awake and alert
He presented with multiple medical issues including intermittent slurred speech, shortness of breath, worsening edema, abdominal symptoms and nausea. He is undergoing assessment. He has history of TAVR and CABG. He had recent CVA 03/2025 and now
was readmitted in part related to slurred speech and new abnormality on MRI of the brain which is felt to be subacute. He has been on oral anticoagulation (2019) for atrial fibrillation. He had some point was dose reduced to Xarelto 15 mg daily
(2021) when he had acute renal failure. He may have been in atrial fibrillation once again with history of paroxysmal atrial fibrillation since at least last admission 03/2025 but duration unknown. He is on amiodarone 100 mg daily. He has noticed
increased weight gain and lower extremity edema in addition along with shortness of breath. Echocardiogram today with left ventricular ejection fraction 37% (in the setting of atrial fibrillation with increased rates today historically ejection
fraction around 45 to 50%) and moderate mitral regurgitation. Stable TAVR.
Plan at this time:
Heart failure with mild to moderately reduced ejection fraction (proBNP 2100 on 06/30/25)
- Continue IV diuretic however we will dose reduce to 40 mg daily rather than twice daily given risk response and follow
- Follow input/output and daily weights
- Rate control atrial fibrillation. Continue low-dose metoprolol and low-dose amiodarone
- LFTs are improving with diuresis
- Moderate MR noted
Paroxysmal atrial fibrillation
- May be persistent since 03/2025 (has not been seen in the office since 08/2024)
- Has been on dose reduced Xarelto 15 mg daily for which he at this point should be on 20 mg daily and we have discussed with neurology and placed on this dosing
- Continue low-dose amiodarone.
- Now on low-dose beta-amrita
History of low blood pressure/history of orthostasis
- On midodrine. Blood pressure with orthostasis.
- We have dose reduced Lasix
- He was on Florinef as an outpatient. We could cautiously reconsider but would need to watch volume status.
- At this time would avoid medications such as Northera given recent neurologic events.
CVA/slurred speech
- Recent CVA 03/2025 now with slurred speech and abnormality on MRI which by neurology is felt to be subacute
- Xarelto okayed by neurology. Continue to follow
- Defer management to primary service and neurology
CAD status post CABG
- Risk factor modification
- No chest pain noted follow
- EKG without acute abnormality
- Given elevated LFTs and Lipitor is on hold. We have added Zetia for now and then reintroduce statin when able as LFTs continue to decrease
Chronic underlying dementia
Original Note:
Today's Communication / Plan
-
Continue IV lasix, weight downtrending
Continue amiodarone, Toprol
Continue higher dose Xarelto
Assess cost of SGLT2 inhibitor
Impression / Plan
-
PCP: Dr. Braxton
Wire Fence Erector: Dr. Hurley
Impression:
Presented with slurred speech, nausea, SOB, edema
Acute on chronic HFmrEF
Elevated LFTs
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
Persistent atrial fibrillation w/ RVR
Chronic amiodarone therapy
Chronic Xarelto therapy, dose increased 07/01/2025
CAD
s/p CABG x 3 in 2018
s/p TAVR 2019
HTN
h/o orthostasis, on chronic midodrine
HLD
h/o TIA
DM2
Dementia
Chronic anemia
Echo 11/2020: EF 45-50%, mild to mod cLVH, stage 1 diastolic dysfunction, MAC, mild MR, normally functioning TAVR with peak/mean gradients 26/14mmHg, trace TR, PAP 34mmHg
Echo 12/01/2021: LVEF 45-50%, Mild LVH, Nl Fxn of TAVR with Pk and mean 17/9 and no AI. PAP 16-21 mm Hg
Echo 12/11/2023: EF 46%, mild MR, s/p TAVR with w/ peak/mean gradients 25/13 mmHg
Echo 02/24/2025: EF 50-55%, mild MR, s/p TAVR peak/mean gradients 24/12 mmHg, mild TR
Echo 07/01/2025: EF 37%, global hypokinesis, akinesis of basal anteroseptal segment, s/p TAVR w/ peak/mean gradients 21/9 mmHg, mild TR
Plan:
-Presented with slurred speech, SOB, edema, and headache. Admitted with acute HFrEF, rapid atrial fibrillation, and elevated LFTs.
-Diuresing with IV lasix 40mg BID. Breathing improving, but still w/ some SOB overnight.
-Creat stable at 0.9. Weight down 5lbs overnight, down to 175 lbs on 07/02.
-Echo 07/01 with EF down to 37%. Medical therapy historically has been limited by orthostasis/hypotension.
-Continue low dose Toprol 12.5mg daily, new this admission. Will have CM assess the cost of SGLT2 inhibitors and consider adding.
-Remains in Afib w/ HRs overall improved w/ starting Toprol. Continue amiodarone 100mg daily.
-On Xarelto for anticoagulation, dose increased this admission to 20mg daily given normal renal function.
-Troponin detectable but within normal limits. No chest pain. Does have h/o CAD. Continue aspirin 81mg daily.
-BP stable, but does have h/o orthostasis on chronic midodrine and Florinef as OP.
-Acute/subacute CVA noted on MRI of brain 07/01. Neurology saw pt and ok with increasing Xarelto dose.
-LFTs improving. Continue to follow w/ diuresis. Hepatitis panel Negative. GI following.
-Atorvastatin on hold. LDL 116, new to zetia 10mg daily and will hopefully be able to restart statin.
-Hgb A1c 6.2%.
-TSH 0.89.
HPI: Jaime is an 79 year old male with PMH of CAD s/p CABG x 3, TAVR, chronic HFrEF, CKD, paroxysmal atrial fibrillation on chronic amiodarone, HTN, orthostasis, HLD, TIA, Dementia, and anemia. Presented to [facility] ER for evaluation of slurred
speech, headache, SOB, edema, and nausea. In ER, head CT was without acute abnormality, and chest xray was consistent with heart failure. ProBNP elevated at 21,900. EKG reviewed. Noted to be in rapid atrial fibrillation with HR of 128 bpm.
Hypokalemia noted with K 3.5 ang magnesium of 1.1. Also noted to have significantly elevated LFTs. Abdominal US and CT of abdomen with distended gallbladder without evidence of cholecystitis. GI consulted and following. Admitted with acute heart
failure and concern for possible CVA given episode of slurred speech. He is diuresing with IV lasix and notes some improvement in symptoms. Denies any palpitations, but does note that he has had about 1 month of worsening heavy breathing and edema
with occasional lightheadedness. Does not follow his weight at home
Progress Note - Wire Fence Erector
Subjective
Date of Service: July 02, 2025
Feeling better, but still feeels SOB.
Objective
Labs:
07/02/25 06:53
07/02/25 06:53
Labs
Hgb 8.8 g/dL (13.0-18.0) L 07/02/25 06:53
Hct 27.6 % (39.0-52.0) L 07/02/25 06:53
Plt Count 254 10^3/uL (130-400) 07/02/25 06:53
Sodium 138 mmol/L (135-145) 07/02/25 06:53
Potassium 3.8 mmol/L (3.5-5.1) 07/02/25 06:53
BUN 38 mg/dl (9-20) H 07/02/25 06:53
Creatinine 0.9 mg/dL (0.7-1.3) 07/02/25 06:53
Glucose 140 mg/dl (70-99) H 07/02/25 06:53
Troponins
06/30/25 07/01/25 07/01/25
14:42 14:48 22:11
Troponin I 0.020 0.020 0.019
07/02/25
06:53
Troponin I 0.013
Vital Signs and I&O:
Vital Signs
Temp Pulse Resp BP Pulse Ox
97.4 F 111 16 105/70 95
07/02/25 07:17 07/02/25 08:55 07/02/25 07:17 07/02/25 08:55 07/02/25 07:17
Vital Signs
Temp Pulse Resp BP Pulse Ox
97.4 F 111 16 105/70 95
07/02/25 07:17 07/02/25 08:55 07/02/25 07:17 07/02/25 08:55 07/02/25 07:17
Intake & Output
06/30/25 07/01/25 07/02/25 07/03/25
06:59 06:59 06:59 06:59
Intake Total 240 / 240 1480 / 1480
Output Total 525 / 525 3900 / 3900
Balance -285 / -285 -2420 / -2420
Physical Exam
Physical Exam
GEN: No distress, awake, alert, oriented x3
HEENT: supple, anicteric, mmm
LUNGS: crackles at b/l bases
CV: irregularly irregular, S1/S2,no murmur
EXT: No clubbing or cyanosis, +1 edema b/l LE
NEURO: Gross non-focal
SKIN: Warm, dry, no rash
[2025-07-02 09:13] LABS: ALT (SGPT) 1074 U/L (0-50)
[2025-07-02] MEDS: TYLENOL 650 MG PO (10:23)
[2025-07-02 11:27] LABS: Glucose - Point of Care 154 mg/dl (70-99)
[2025-07-02 11:42] LABS: Magnesium 2.0 mg/dl (1.6-2.3)
--- NOTE | 2025-07-02 12:51 | CM ---
Addendum entered by Ale Rajput 07/02/25 14:29:
[facility]F referral for Saturday
Addendum entered by Ale Rajput 07/02/25 13:26:
CM consult completed.
Pharmacy reported that out of pocket cost for 30 day supply of Jardiance 10 mg is $47.00; Farxiga cost is also $47.00
Addendum entered by Ale Rajput 07/02/25 13:07:
Sister Eve called; SNF preferences are [facility]; alternative options [facility]
Referrals sent via [facility]
Original Note:
Met with patient to discuss PT's recommendation to go to a Custodial Facility when he is stable for discharge. List of facility options from the Medicare.gov website offered. Patient requested that Tobacco Buyer call his sister, Eve #
[phone] (cell) to discuss plan and identify preferences. Left a voice mail for sister to call senior case manager.
--- NOTE | 2025-07-02 14:49 | W.PN.GI.CBS2 ---
Today's Communication / Plan
-
trend LFT
US abd with doppler
Assessment / Plan
-
79yo male with PMH afib on Xarelto, right sided CVA with left hemiparesis 02/23/25 s/p PEG, CAD, CHF, HTN, chronic HFpEF, hyperlipidemia, prior TAVR, NIDDM, cognitive impairment, orthostatic hypotension, chronic anemia who presents to the
emergency room with slurred speech, headache and difficulty with ambulation. We are asked to evaluate for elevated LFTs. Comfort without any associated or alleviating factors a couple days ago. Presents with fluid overload and A-fib with RVR.
Also complains of slurred speech. Current on anticoagulation and aspirin therapy. Chronic anemia. Currently eating without any difficulty, no abdominal pain. Ultrasound and CT imaging with gallbladder sludge without any ductal dilatation, liver
or pancreatic abnormalities identified. MRI of the brain ordered.
Impression:
Elevated LFTs
Gallbladder sludge
Acute exacerbation CHF
A-fib RVR on anticoagulation
CVA
LATONYA-> improving
Chronic anemia-> iron deficiency
Plan:
--Repeat LFT this a.m. trending down. AST 683/ALT 1074/alkaline phosphatase, total bilirubin normal. Hepatitis serology negative. Likely etiology-congestive hepatopathy versus ischemic hepatitis
-Continue to trend LFT
-Avoid hepatotoxic substance
- Hemodynamic stability
-Will schedule ultrasound abdomen with Doppler
Total Time Spent with Patient (in minutes): 35
Subjective
Subjective
Date of Service: July 02, 2025
No complaints
Objective
Data Reviewed
Laboratory Data:
Laboratory Results
07/02/25 06:53
07/02/25 06:53
Laboratory Results
Magnesium 2.0 mg/dl (1.6-2.3) 07/02/25 06:53
Total Bilirubin 1.2 mg/dl (0.2-1.3) 07/02/25 06:53
AST 683 U/L (17-59) H* 07/02/25 06:53
ALT 1074 U/L (0-50) H* 07/02/25 06:53
Alkaline Phosphatase 114 U/L (38-126) 07/02/25 06:53
Lipase Cancelled 06/30/25 16:25
Vital Signs and I&O:
Vital Signs
Temp Pulse Resp BP Pulse Ox
97.4 F 110 16 105/77 97
07/02/25 11:19 07/02/25 11:43 07/02/25 11:19 07/02/25 11:43 07/02/25 11:19
I&O
07/01/25 07/02/25 07/03/25
06:59 06:59 06:59
Intake Total 240 / 240 1480 / 1480
Output Total 525 / 525 3900 / 3900
Balance -285 / -285 -2420 / -2420
Physical Exam
Physical Exam
GI: Soft, Non Distended and Non Tender
[2025-07-02] MEDS: MIRALAX 17 GRAMS PO (16:37)
[2025-07-02 16:42] LABS: Glucose - Point of Care 136 mg/dl (70-99)
[2025-07-02] MEDS: NOVOLOG FLEXPEN-LOW RESISTANCE SC (16:42)
[2025-07-02] MEDS: COLACE PO (19:39)
[2025-07-02] MEDS: REMERON 7.5 MG PO (20:55)
[2025-07-02] MEDS: LEXAPRO 10 MG PO (20:55)
[2025-07-02 21:10] LABS: Glucose - Point of Care 177 mg/dl (70-99)
[2025-07-03] VITALS (7 sets, daily range): BP systolic 92–121; BP diastolic 62–84; PULSE 100–132; BMI 23.1
[2025-07-03 06:09] LABS: Glucose - Point of Care 142 mg/dl (70-99)
[2025-07-03 07:43] LABS: Blood Urea Nitrogen 29 mg/dl (9-20); Calcium 7.5 mg/dl (8.4-10.2); Carbon Dioxide 27 mmol/L (22-30); Chloride 105 mmol/L (98-107); Estimated Creatinine Clearance 81 ml/min; Glucose 129 mg/dl (70-99); Potassium 4.3 mmol/L (3.5-5.1); Sodium 138 mmol/L (135-145); eGFR > 60.00
[2025-07-03] MEDS: SENOKOT PO (08:16)
[2025-07-03] MEDS: MAG-TAB SR 84 MG PO (08:16)
[2025-07-03] MEDS: XARELTO 20 MG PO (08:16)
[2025-07-03] MEDS: COLACE PO ×2 (08:16→19:53)
[2025-07-03] MEDS: ZETIA 10 MG PO (08:17)
[2025-07-03] MEDS: PROTONIX 40 MG PO (08:18)
[2025-07-03] MEDS: TOPROL XL 12.5 MG PO (08:18)
[2025-07-03] MEDS: PACERONE 100 MG PO (08:18)
[2025-07-03] MEDS: VITAMIN B-6 50 MG PO (08:19)
[2025-07-03] MEDS: VITAMIN B-12 1000 MCG PO (08:19)
[2025-07-03] MEDS: NAMENDA 10 MG PO ×2 (08:19→19:52)
[2025-07-03] MEDS: LOW STRENGTH ASPIRIN 81 MG PO (08:19)
[2025-07-03] MEDS: LASIX 40 MG IV (08:20)
[2025-07-03] MEDS: BenGay-Like 1 APPLIC TOPICAL (08:20)
[2025-07-03 09:42] LABS: Glucose - Point of Care 149 mg/dl (70-99)
[2025-07-03] MEDS: NOVOLOG FLEXPEN-LOW RESISTANCE SC (09:49)
[2025-07-03 10:01] LABS: AST (SGOT) 350 U/L (17-59); Alkaline Phosphatase 117 U/L (38-126)
--- NOTE | 2025-07-03 10:11 | W.PN.HOSP.TC ---
Today's Communication/Plan
-
continue diuresis
follow up abdominal US with Doppler
appreciate consultants
eventual SNF
Assessment / Plan
Assessment / Plan
This is a 79-year-old male with past medical history significant for extensive right-sided stroke with left-sided hemiparesis dysphagia dysarthria, CAD, hyperlipidemia, diabetes, atrial fibrillation on anticoagulation, cognitive impairment, chronic
anemia has, status post PEG tube a few months ago will presents from long term with initial concern for slurred speech, also found to be in volume overload.
Abdomen US
IMPRESSION:
The gallbladder is mildly distended with biliary sludge. There are no additional findings suggestive of acute cholecystitis. There is no biliary duct dilation.
There is mild bilateral renal cortical thinning, possibly secondary to medical renal disease.
Small bilateral pleural effusions.
Abdomen/Pelvis CT
IMPRESSION:
The gallbladder is mildly distended without CT findings suggestive of cholecystitis.
Small bilateral pleural effusions with adjacent atelectasis.
Mild urinary bladder wall thickening which is nonspecific however can be seen with cystitis. Recommend correlation with urinalysis.
Colonic diverticulosis. Mild rectal stool burden.
Moderate compression deformities of the L1 and L2 vertebral bodies with mild associated retropulsion
TTE 07/01/25
Left Ventricle:
Normal left ventricular size. Left ventricular systolic function is moderately reduced. Ejection fraction is 37% by volumetric assessment.
LV Wall Scoring:
Global hypokinesis. The basal anteroseptal segment is akinetic.
Brain MRI 07/01/25
IMPRESSION: Punctate focus of restricted diffusion in the left paramedian parietal lobe, suspicious for a focus of acute to subacute infarction.
Within the white matter of the left parietal lobe slightly more superiorly and laterally, focus of increased diffusion-weighted signal without decreased ADC signal, probably T2 shine through from chronic small vessel ischemic change.
Regions of old infarction as described. Diffuse atrophy. Mild to moderate T2 and FLAIR white matter hyperintensities, commonly seen with aging and usually attributed to small vessel ischemic disease.
1. CHF Exacerbation
HFrEF, Acute Exacerbation in setting of afib with RVR
-He does not have cp, trop is neg and ECG shows no new ischemic changes.
- admitted to telemetry
- Lasix 40mg IV BID --> now daily
- TTE results above - EF 37%; global hypokinesis. Prior EF 45-50%; likely RVR contributing to depressed EF
- strict i/os and daily weight
- salt restriction, hold fludrocortisone for now
- continue midodrine
- daily orthostatics
- cardiology consult appreciated
2. Transaminitis - hepatitis viral panel negative; improving with diuresis, likely mainly related to congestion
-no significant abdominal pain
- diuresis as above
- I'll hold statin
- GI consult appreciated
-follow up doppler abdominal US
3. AFIB with RVR
- continue amio 100 daily, new start Metoprolol XL QD
- fluid removal as above for now
- continue Xarelto --> dose increased to 20mg (normal renal function)
4. LATONYA - Suspect cardiorenal as patient is overloaded and normotensive
-LATONYA resolved - improved with diuresis
5. CVA - Residual left sided weakness and worsening slurred speech. CT head unremarkable
MRI with new subacute/acute small stroke
- appreciate Neurology consult - Xarelto dosing increased
- neurochecks
- swallow eval
6. DM II
- hold metformin
- insulin sliding scale
7. AG acidosis - resolved
lactic acidosis
-resolved with diuresis
8. Anemia - Chronic normocytic anemia. On Xarelto but no prior h/o Gi bleed documented.
TITO
-monitor CBC daily
DVT PPX - on Xarelto
Code status - Full Code
Anticipated Discharge: 24 - 48 hours
Subjective/Interval History
-
Date of Service: July 03, 2025
feeling much better
Objective Data
-
Labs:
Laboratory Results
07/03/25
06:27
Sodium 138
Potassium 4.3
Chloride 105
Carbon Dioxide 27
BUN 29 H
Creatinine 0.8
Glucose 129 H
Calcium 7.5 L
Total Bilirubin 1.1
AST 350 H
ALT Pending
Alkaline Phosphatase 117
Vital Signs:
Vital Signs
Temp Pulse Resp BP Pulse Ox
97.6 F 136 25 106/78 93
07/03/25 07:45 07/03/25 08:20 07/03/25 07:45 07/03/25 08:20 07/03/25 07:45
I&O
07/02/25 07/03/25 07/04/25
06:59 06:59 06:59
Intake Total 1480 / 1480 1350 / 1350
Output Total 3900 / 3900 1675 / 1675
Balance -2420 / -2420 -325 / -325
Review of Systems
-
History Source: Patient
All other systems: Reviewed and negative
Physical Exam
-
General: No Apparent Distress and Appears Chronically Ill
HEENT: PERRLA
Respiratory: Decreased Breath Sounds
Cardiac: Regular Rhythm, S1/S2 and JVD
GI: Soft and Nontender
Musculoskeletal: Edema, Right Lower Extrem and Edema, Left Lower Extrem
Skin: Warm and Dry; Negative Rash
Neuro: AO x 3
Psych: Calm
Data Reviewed
-
Diagnostic Radiology: Report Reviewed by me
Labs: Labs Reviewed by me
[2025-07-03 10:14] LABS: ALT (SGPT) 857 U/L (0-50)
--- NOTE | 2025-07-03 10:24 | W.PN.CARDCBS ---
Addendum entered and electronically signed by Shelly Coronado MD 07/03/25 15:16:
I saw and examined the patient.
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
Comment: Exam is stable. He tells me he is less dizzy today. Unfortunately he continues with rapid atrial fibrillation in the setting of chronically low blood pressure and tendency towards orthostasis requiring midodrine. There is notation that
he is allergic to digoxin given this was the route I was going to take for rate control. Patient does not recall allergic reaction. I was able to pull notes from 2020 prior medical records director noting digoxin allergy but no details. Patient does not
remember a significant allergic reaction.
Plan at this time:
Heart failure with mild to moderately reduced ejection fraction (proBNP 2100 on 06/30/25)
- Volume status clinically looks to be improving I will switch him to oral diuretic 40 mg daily.
- Follow input/output and daily weights
- Rate control of atrial fibrillation has been difficult
- Follow labs
- Moderate MR noted
Paroxysmal atrial fibrillation with rapid rates
- May be persistent since 03/2025 (has not been seen in the office since 08/2024)
- Previously has been on dose reduced Xarelto 15 mg daily for which he at this point should be on 20 mg daily and we have discussed with neurology during this admission and placed on this dosing
- Given rapid rates we are unfortunately challenged with ability to control given current comorbidities. He does have significant LFT abnormalities that are being evaluated by GI. They are improving. He has chronically been on low-dose
amiodarone and best short-term option is to increase amiodarone to 200 mg twice daily with eventual decrease to 200 mg daily and eventual consideration for cardioversion once acute issues have resolved and reviewed in the outpatient setting.
Continue to closely follow LFTs.
- Low-dose beta-amrita continue. Not able to uptitrate given blood pressure.
- He is not a digoxin candidate given history of 'allergy 'that he does not recall and is not clearly documented in inpatient/outpatient records. There is the possibility of rechallenge while hospitalized if needed.
- If all else fails with rate control of atrial fibrillation could eventually consider pacemaker and AVJ ablation.
History of low blood pressure/history of orthostasis
- On midodrine. Blood pressure stable.
CVA/slurred speech
- Recent CVA 03/2025 now with slurred speech and abnormality on MRI which by neurology is felt to be subacute
- Xarelto okayed by neurology. Continue to follow
- Defer management to primary service and neurology
CAD status post CABG
- Risk factor modification
- No chest pain noted follow
- EKG without acute abnormality
- Given elevated LFTs and Lipitor is on hold. We have added Zetia for now and then reintroduce statin when able
Chronic underlying dementia
Original Note:
Today's Communication / Plan
-
Continues to improve, could consider transition to PO Lasix in the next 24-48 hours
Continue amiodarone and Toprol for rate control
Continue Xarelto at higher dose 20 mg daily
Will start Farxiga 10 mg daily
Likely for SNF at discharge
Impression / Plan
-
PCP: Dr. Braxton
Supervisor Show Operations: Dr. Hurley
Impression:
Presented with slurred speech, nausea, SOB, edema
Acute on chronic HFmrEF
Elevated LFTs
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
Persistent atrial fibrillation w/ RVR
Chronic amiodarone therapy
Chronic Xarelto therapy, dose increased 07/01/2025
CAD
s/p CABG x 3 in 2018
s/p TAVR 2018
HTN
h/o orthostasis, on chronic midodrine
HLD
h/o TIA
DM2
Dementia
Chronic anemia
Echo 11/2020: EF 45-50%, mild to mod cLVH, stage 1 diastolic dysfunction, MAC, mild MR, normally functioning TAVR with peak/mean gradients 26/14mmHg, trace TR, PAP 34mmHg
Echo 12/01/2021: LVEF 45-50%, Mild LVH, Nl Fxn of TAVR with Pk and mean 17/9 and no AI. PAP 16-21 mm Hg
Echo 12/11/2023: EF 46%, mild MR, s/p TAVR with w/ peak/mean gradients 25/13 mmHg
Echo 02/24/2025: EF 50-55%, mild MR, s/p TAVR peak/mean gradients 24/12 mmHg, mild TR
Echo 07/01/2025: EF 37%, global hypokinesis, akinesis of basal anteroseptal segment, s/p TAVR w/ peak/mean gradients 21/9 mmHg, mild TR
Plan:
-Presented with slurred speech, SOB, edema, and headache. Admitted with acute HFrEF, rapid atrial fibrillation, and elevated LFTs.
-Diuresing with IV Lasix. Dose reduced on 07/02 to 40 mg daily due to hypotension. Breathing continues to improve. May be able to transition to PO Lasix within the next 24-48 hours
-Creatinine stable at 0.8. Weight flat overnight, however unclear reliability of weights as they are bed scale weights. Would attempt standing scale weight today.
-Echo 07/01 with EF down to 37%. Medical therapy historically has been limited by orthostasis/hypotension.
-Continue low dose Toprol 12.5mg daily, new this admission.
-CM assessed cost of SGLT2 inhibitors, both Jardiance and Farxiga are $47 per month. Will start Farxiga 10 mg daily.
-Remains in persistent A-fib w/ HRs somewhat elevated this AM. Continues on amiodarone 100 mg daily and Toprol 12.5 mg daily. Will increase amiodarone.
-Continue Xarelto for anticoagulation. Dose increased to 20 mg daily this admission given normal renal function
-BP stable, but does have h/o orthostasis on chronic midodrine and Florinef as OP. On midodrine alone currently.
-Acute/subacute CVA noted on MRI of brain 07/01. Neurology saw pt and ok with increasing Xarelto dose.
-LFTs improving. Continue to follow w/ diuresis. Hepatitis panel negative. GI following.
-Atorvastatin on hold. LDL 116, new to zetia 10mg daily and will hopefully be able to restart statin.
-Hgb A1c 6.2%.
-TSH 0.89.
HPI: Jaime is an 79 year old male with PMH of CAD s/p CABG x 3, TAVR, chronic HFrEF, CKD, paroxysmal atrial fibrillation on chronic amiodarone, HTN, orthostasis, HLD, TIA, Dementia, and anemia. Presented to [facility] ER for evaluation of slurred
speech, headache, SOB, edema, and nausea. In ER, head CT was without acute abnormality, and chest xray was consistent with heart failure. ProBNP elevated at 21,900. EKG reviewed. Noted to be in rapid atrial fibrillation with HR of 128 bpm.
Hypokalemia noted with K 3.5 ang magnesium of 1.1. Also noted to have significantly elevated LFTs. Abdominal US and CT of abdomen with distended gallbladder without evidence of cholecystitis. GI consulted and following. Admitted with acute heart
failure and concern for possible CVA given episode of slurred speech. He is diuresing with IV lasix and notes some improvement in symptoms. Denies any palpitations, but does note that he has had about 1 month of worsening heavy breathing and edema
with occasional lightheadedness. Does not follow his weight at home
Progress Note - Supervisor Show Operations
Subjective
Date of Service: July 03, 2025
Breathing and edema continue to improve.
Objective
Labs:
07/02/25 06:53
07/03/25 06:27
Labs
Hgb 8.8 g/dL (13.0-18.0) L 07/02/25 06:53
Hct 27.6 % (39.0-52.0) L 07/02/25 06:53
Plt Count 254 10^3/uL (130-400) 07/02/25 06:53
Sodium 138 mmol/L (135-145) 07/03/25 06:27
Potassium 4.3 mmol/L (3.5-5.1) 07/03/25 06:27
BUN 29 mg/dl (9-20) H 07/03/25 06:27
Creatinine 0.8 mg/dL (0.7-1.3) 07/03/25 06:27
Glucose 129 mg/dl (70-99) H 07/03/25 06:27
Troponins
06/30/25 07/01/25 07/01/25
14:42 14:48 22:11
Troponin I 0.020 0.020 0.019
07/02/25
06:53
Troponin I 0.013
Vital Signs and I&O:
Vital Signs
Temp Pulse Resp BP Pulse Ox
97.6 F 136 25 106/78 93
07/03/25 07:45 07/03/25 08:20 07/03/25 07:45 07/03/25 08:20 07/03/25 07:45
Vital Signs
Temp Pulse Resp BP Pulse Ox
97.6 F 136 25 106/78 93
07/03/25 07:45 07/03/25 08:20 07/03/25 07:45 07/03/25 08:20 07/03/25 07:45
Intake & Output
07/01/25 07/02/25 07/03/25 07/04/25
06:59 06:59 06:59 06:59
Intake Total 240 / 240 1480 / 1480 1350 / 1350
Output Total 525 / 525 3900 / 3900 1675 / 1675
Balance -285 / -285 -2420 / -2420 -325 / -325
Physical Exam
Physical Exam
GEN: No distress, awake, alert, oriented x3
HEENT: supple, anicteric, mmm
LUNGS: CTA b/l, no wheezes/rales
CV: irregularly irregular, S1/S2,no murmur
EXT: No clubbing, cyanosis, or edema
NEURO: Gross non-focal
SKIN: Warm, dry, no rash
[2025-07-03 11:44] LABS: Glucose - Point of Care 240 mg/dl (70-99)
[2025-07-03] MEDS: NOVOLOG FLEXPEN-LOW RESISTANCE 2 UNITS SC (12:28)
--- NOTE | 2025-07-03 12:37 | W.PN.GI.CBS2 ---
Today's Communication / Plan
-
Trend LFT
Assessment / Plan
-
79yo male with PMH afib on Xarelto, right sided CVA with left hemiparesis 02/23/25 s/p PEG, CAD, CHF, HTN, chronic HFpEF, hyperlipidemia, prior TAVR, NIDDM, cognitive impairment, orthostatic hypotension, chronic anemia who presents to the
emergency room with slurred speech, headache and difficulty with ambulation. We are asked to evaluate for elevated LFTs. Comfort without any associated or alleviating factors a couple days ago. Presents with fluid overload and A-fib with RVR.
Also complains of slurred speech. Current on anticoagulation and aspirin therapy. Chronic anemia. Currently eating without any difficulty, no abdominal pain. Ultrasound and CT imaging with gallbladder sludge without any ductal dilatation, liver
or pancreatic abnormalities identified. MRI of the brain ordered.
Impression:
Elevated LFTs
Gallbladder sludge
Acute exacerbation CHF
A-fib RVR on anticoagulation
CVA
LATONYA-> improving
Chronic anemia-> iron deficiency
Plan:
--Repeat LFT this a.m. AST/ALT -continues trending down . alkaline phosphatase, total bilirubin normal. Hepatitis serology negative. Likely etiology-congestive hepatopathy versus ischemic hepatitis
Abdominal ultrasound with Doppler study-normal hepatic vasculature
-Continue to trend LFT
-Avoid hepatotoxic substance
- Hemodynamic stability
- No further GI recommendation at this point. Will sign off. Please call us back if any questions
Total Time Spent with Patient (in minutes): 35
Subjective
Subjective
Date of Service: July 03, 2025
No GI complaints
Objective
Data Reviewed
Laboratory Data:
Laboratory Results
07/02/25 06:53
07/03/25 06:27
Laboratory Results
Magnesium 2.0 mg/dl (1.6-2.3) 07/02/25 06:53
Total Bilirubin 1.1 mg/dl (0.2-1.3) 07/03/25 06:27
AST 350 U/L (17-59) H 07/03/25 06:27
ALT 857 U/L (0-50) H* 07/03/25 06:27
Alkaline Phosphatase 117 U/L (38-126) 07/03/25 06:27
Lipase Cancelled 06/30/25 16:25
Vital Signs and I&O:
Vital Signs
Temp Pulse Resp BP Pulse Ox
97.5 F 132 14 95/66 96
07/03/25 11:24 07/03/25 11:24 07/03/25 11:24 07/03/25 11:24 07/03/25 11:24
I&O
07/02/25 07/03/25 07/04/25
06:59 06:59 06:59
Intake Total 1480 / 1480 1350 / 1350
Output Total 3900 / 3900 1675 / 1675
Balance -2420 / -2420 -325 / -325
Physical Exam
Physical Exam
GI: Soft, Non Distended and Non Tender
[2025-07-03 16:20] LABS: Glucose - Point of Care 156 mg/dl (70-99)
[2025-07-03] MEDS: NOVOLOG FLEXPEN-LOW RESISTANCE 1 UNITS SC (16:31)
[2025-07-03] MEDS: PACERONE 200 MG PO (19:52)
[2025-07-03] MEDS: LEXAPRO 10 MG PO (21:40)
[2025-07-03] MEDS: REMERON 7.5 MG PO (21:40)
[2025-07-04] VITALS (9 sets, daily range): BP systolic 76–114; BP diastolic 47–73; PULSE 101–116; O2SAT 93; BMI 22.7
[2025-07-04] MEDS: MELATONIN 5 MG PO
[2025-07-04] MEDS: RISPERDAL 0.25 MG TUBE (01:25)
[2025-07-04] MEDS: MORPHINE SULFATE 1 MG IV (01:38)
--- NOTE | 2025-07-04 01:47 | W.PN.UPDATE ---
Update Note
Progress Note Update
0100 asked to see pt regarding confusion tonight.
Pt is agitated and confused to where he is at. Thinks he is at home. Trying to find his things. Pt not able to be redirected. This agitation seems to e be making him quite worked up causing some tachypnea and HR increasing (120-130). Also does c/o
of tenderness Epigastic to LUq. abd soft but tender to palpation. RN feels speech may be a bit more slurred (known CVA hx last admit and this admit as well ) on Xarelto.
EKG with rapid afib. Rates have been hard to manage since admit. Medications limited by soft BP.
Ideally would try and send for repeat CT head but pt not cooperative at this time. And management wouldn't change.
Will give dose of risperidone x1 and morphine for pain.
--- NOTE | 2025-07-04 02:38 | PTCARENOTE ---
Pt attempting multiple times to get OOB. Pt unable to be be redirected and becoming increasingly agitated and restless. House provider at bedside. 0.25mg of risperdal given as per order. Pt is also c/o chest pain 5/10 EKG completed and given to
house provider for review.HR 130-140's resp 20-26 BP 114/62 POX 94%RA Pt is not complaining of Left arm pain and is not diaphoretic. 1mg of Morphine IV given as per order.
[2025-07-04 07:08] LABS: Hematocrit 27.8 % (39.0-52.0); Hemoglobin 8.7 g/dL (13.0-18.0); Mean Corp Hgb Conc. 31.3 g/dL (33.0-37.0); Mean Corpuscular Volume 87.4 fL (80.0-94.0); Nucleated Red Blood Cells % 0.2 % (-); Platelet Count 232 10^3/uL (130-400); Red Cell Dist. Width 20.1 % (11.5-14.5)
[2025-07-04 07:59] LABS: ALT (SGPT) 672 U/L (0-50); AST (SGOT) 205 U/L (17-59); Albumin 3.5 g/dl (3.5-5.0); Alkaline Phosphatase 121 U/L (38-126); Blood Urea Nitrogen 30 mg/dl (9-20); Calcium 7.5 mg/dl (8.4-10.2); Carbon Dioxide 26 mmol/L (22-30); Chloride 103 mmol/L (98-107); Estimated Creatinine Clearance 71 ml/min; Glucose 143 mg/dl (70-99); Magnesium 1.6 mg/dl (1.6-2.3); Potassium 4.3 mmol/L (3.5-5.1); Sodium 137 mmol/L (135-145); Total Protein 6.0 g/dl (6.3-8.2); eGFR > 60.00
[2025-07-04 08:20] LABS: Glucose - Point of Care 146 mg/dl (70-99)
[2025-07-04] MEDS: NOVOLOG FLEXPEN-LOW RESISTANCE SC (08:50)
[2025-07-04] MEDS: MAG-TAB SR 84 MG PO (08:56)
[2025-07-04] MEDS: VITAMIN B-12 1000 MCG PO (08:56)
[2025-07-04] MEDS: PACERONE 200 MG PO ×2 (08:56→20:28)
[2025-07-04] MEDS: TOPROL XL 12.5 MG PO (08:56)
[2025-07-04] MEDS: XARELTO 20 MG PO (08:56)
[2025-07-04] MEDS: ZETIA 10 MG PO (08:56)
[2025-07-04] MEDS: PROTONIX 40 MG PO (08:56)
[2025-07-04] MEDS: FARXIGA 10 MG PO (08:57)
[2025-07-04] MEDS: NAMENDA 10 MG PO ×2 (08:57→20:28)
[2025-07-04] MEDS: COLACE 100 MG PO ×2 (08:57→20:28)
[2025-07-04] MEDS: LASIX 40 MG PO (08:57)
[2025-07-04] MEDS: SENOKOT 8.6 MG PO (08:57)
[2025-07-04] MEDS: VITAMIN B-6 50 MG PO (08:57)
[2025-07-04] MEDS: LOW STRENGTH ASPIRIN 81 MG PO (08:57)
--- NOTE | 2025-07-04 10:19 | W.PN.HOSP.TC ---
Addendum entered and electronically signed by Berenice Waller MD 07/04/25 15:37:
discussed with Cardiology, OK to stop daily aspirin as patient is on Xarelto 20mg daily now.
Original Note:
Today's Communication/Plan
-
Lasix 40mg PO QD
Amiodarone 200mg PO BID
repeat head CT today
appreciate Cardiology
SNF recommended
Assessment / Plan
Assessment / Plan
This is a 79-year-old male with past medical history significant for extensive right-sided stroke with left-sided hemiparesis dysphagia dysarthria, CAD, hyperlipidemia, diabetes, atrial fibrillation on anticoagulation, cognitive impairment, chronic
anemia has, status post PEG tube a few months ago will presents from long term with initial concern for slurred speech, also found to be in volume overload.
Abdomen US
IMPRESSION:
The gallbladder is mildly distended with biliary sludge. There are no additional findings suggestive of acute cholecystitis. There is no biliary duct dilation.
There is mild bilateral renal cortical thinning, possibly secondary to medical renal disease.
Small bilateral pleural effusions.
Abdomen/Pelvis CT
IMPRESSION:
The gallbladder is mildly distended without CT findings suggestive of cholecystitis.
Small bilateral pleural effusions with adjacent atelectasis.
Mild urinary bladder wall thickening which is nonspecific however can be seen with cystitis. Recommend correlation with urinalysis.
Colonic diverticulosis. Mild rectal stool burden.
Moderate compression deformities of the L1 and L2 vertebral bodies with mild associated retropulsion
TTE 07/01/25
Left Ventricle:
Normal left ventricular size. Left ventricular systolic function is moderately reduced. Ejection fraction is 37% by volumetric assessment.
LV Wall Scoring:
Global hypokinesis. The basal anteroseptal segment is akinetic.
Brain MRI 07/01/25
IMPRESSION: Punctate focus of restricted diffusion in the left paramedian parietal lobe, suspicious for a focus of acute to subacute infarction.
Within the white matter of the left parietal lobe slightly more superiorly and laterally, focus of increased diffusion-weighted signal without decreased ADC signal, probably T2 shine through from chronic small vessel ischemic change.
Regions of old infarction as described. Diffuse atrophy. Mild to moderate T2 and FLAIR white matter hyperintensities, commonly seen with aging and usually attributed to small vessel ischemic disease.
1. CHF Exacerbation
HFrEF, Acute Exacerbation in setting of afib with RVR
-He does not have cp, trop is neg and ECG shows no new ischemic changes.
- admitted to telemetry
- s/p Lasix 40mg IV BID --> now on oral Lasix per Cardiology
- TTE results above - EF 37%; global hypokinesis. Prior EF 45-50%; likely RVR contributing to depressed EF
- strict i/os and daily weight
- salt restriction, hold fludrocortisone
- continue midodrine
- daily orthostatics
- cardiology consult appreciated
2. Transaminitis - hepatitis viral panel negative; improving with diuresis, likely mainly related to congestion
-no significant abdominal pain
- RUQ US and doppler without acute process
- diuresis as above
- I'll hold statin until normalized
- GI consult appreciated
3. AFIB with RVR
- continue amio - dose increased to 200mg PO BID, eventual decrease to daily
, new start Metoprolol XL QD - can't titrate up given orthostatic hypotension
- fluid removal as above for now
- continue Xarelto --> dose increased to 20mg (normal renal function)
- per cardiology, eventual consideration of cardioversion; he is not a digoxin candidate
4. LATONYA - Suspect cardiorenal as patient is overloaded and normotensive
-LATONYA resolved - improved with diuresis
5. CVA - Residual left sided weakness and worsening slurred speech. CT head unremarkable
MRI with new subacute/acute small stroke
- appreciate Neurology consult - Xarelto dosing increased
- neurochecks
- swallow eval
- 07/04 - speech again more slurred --> will repeat CT Head, may also be due to med effect
6. DM II
- hold metformin
- insulin sliding scale
7. AG acidosis - resolved
lactic acidosis
-resolved with diuresis
8. Anemia - Chronic normocytic anemia. On Xarelto but no prior h/o Gi bleed documented.
TITO
-monitor CBC daily
DVT PPX - on Xarelto
Code status - Full Code
51 minutes spent on patient care
Anticipated Discharge: 24 - 48 hours
Subjective/Interval History
-
Date of Service: July 04, 2025
increased slurred speech
he was agitated overnight, now calm
Objective Data
-
Labs:
Laboratory Results
07/04/25
06:09
WBC 10.3
Hgb 8.7 L
Hct 27.8 L
Plt Count 232
Sodium 137
Potassium 4.3
Chloride 103
Carbon Dioxide 26
BUN 30 H
Creatinine 0.9
Glucose 143 H
Calcium 7.5 L
Total Bilirubin 1.6 H
AST 205 H
ALT 672 H*
Alkaline Phosphatase 121
Vital Signs:
Vital Signs
Temp Pulse Resp BP Pulse Ox
97.6 F 122 18 105/71 96
07/04/25 07:04 07/04/25 08:56 07/04/25 07:04 07/04/25 08:56 07/04/25 07:04
I&O
07/03/25 07/04/25 07/05/25
06:59 06:59 06:59
Intake Total 1350 / 1350 1040 / 1040 370 / 370
Output Total 1675 / 1675 1565 / 1565
Balance -325 / -325 -525 / -525 370 / 370
Review of Systems
-
History Source: Patient
All other systems: Reviewed and negative
Physical Exam
-
General: No Apparent Distress and Appears Chronically Ill
HEENT: PERRLA
Respiratory: Decreased Breath Sounds
Cardiac: Regular Rhythm, S1/S2 and JVD
GI: Soft and Nontender
Musculoskeletal: Edema, Right Lower Extrem and Edema, Left Lower Extrem
Skin: Warm and Dry; Negative Rash
Neuro: Other (slurred speech more pronounced today, 4/5 strength right upper and lower extremities )
Psych: Calm
Data Reviewed
-
Diagnostic Radiology: Report Reviewed by me
Labs: Labs Reviewed by me
[2025-07-04 12:18] LABS: Glucose - Point of Care 153 mg/dl (70-99)
--- NOTE | 2025-07-04 12:20 | W.PN.CARDCBS ---
Today's Communication / Plan
-
Heart rates a bit better on higher dose amiodarone and LFTs stable
Continue amiodarone 200 twice daily for 2 weeks and then decrease to 200 mg daily (previously on 100 mg daily)
Continue current dose of oral Lasix stable.
Continue midodrine.
On discharge will need cardiac follow-up
Impression / Plan
-
Impression / Plan
-
PCP: Dr. Braxton
Gaming Cage Cashier: Dr. Hurley
Impression:
Presented with slurred speech, nausea, SOB, edema-CVA/recurrent TIA
Acute on chronic HFmrEF
Elevated LFTs
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
Persistent atrial fibrillation w/ RVR
Chronic amiodarone therapy
Chronic Xarelto therapy, dose increased 5CAD
s/p CABG x 3 in 2018 s/p TAVR 2019
HTN
h/o orthostasis, on chronic midodrine
HLD
h/o TIA
DM2
Dementia
Chronic anemia
Echo 11/2020: EF 45-50%, mild to mod cLVH, stage 1 diastolic dysfunction, MAC, mild MR, normally functioning TAVR with peak/mean gradients 26/14mmHg, trace TR, PAP 34mmHg
Echo 12/01/2021: LVEF 45-50%, Mild LVH, Nl Fxn of TAVR with Pk and mean 17/9 and no AI. PAP 16-21 mm Hg
Echo 12/11/2023: EF 46%, mild MR, s/p TAVR with w/ peak/mean gradients 25/13 mmHg
Echo 02/24/2025: EF 50-55%, mild MR, s/p TAVR peak/mean gradients 24/12 mmHg, mild TR
Echo 07/01/2025: EF 37%, global hypokinesis, akinesis of basal anteroseptal segment, s/p TAVR w/ peak/mean gradients 21/9 mmHg, mild TR
Plan:
He tells me when CT scan today because of concern logic symptoms. He feels well currently. He has difficult to control rapid atrial fibrillation in the setting of chronically low blood pressure and tendency towards orthostasis requiring midodrine.
There is notation that he is allergic to digoxin given this was the route previously and that I was going to take for rate control. Patient does not recall allergic reaction. I was able to pull notes from 2019 prior forming mill operator noting digoxin
allergy but no details. Patient does not remember a significant allergic reaction. Abnormal LFTs noted but starting to improve. Volume status stable currently on diuretic.
Plan at this time:
Heart failure with mild to moderately reduced ejection fraction (proBNP 2100 on 06/30/25)
- Volume status clinically looks improved. On 07/03/2025 I switched him to oral diuretic 40 mg daily. Continue.
- Follow input/output and daily weights
- Rate control of atrial fibrillation has been difficult however better today
- Follow labs
- Moderate MR noted
Paroxysmal atrial fibrillation with rapid rates
- May be persistent since 03/2025 (has not been seen in the office since 08/2024). Fairly stable today with heart rates in the 100 bpm.
- Previously has been on dose reduced Xarelto 15 mg daily for which he at this point should be on 20 mg daily and we have discussed with neurology during this admission and placed on this dosing
- Given rapid rates we are unfortunately challenged with ability to control given current comorbidities. He does have significant LFT abnormalities that are being evaluated by GI. They are improving.
He has chronically been on low-dose amiodarone and best short-term option is to increase amiodarone to 200 mg twice daily (would do this for 2 weeks) with eventual decrease to 200 mg daily.
Eventual consideration for cardioversion once acute issues have resolved and reviewed in the outpatient setting. Continue to closely follow LFTs.
Low-dose beta-amrita continue. Not able to uptitrate given blood pressure.
He is not a digoxin candidate given history of 'allergy 'that he does not recall and is not clearly documented in inpatient/outpatient records.
If all else fails with rate control of atrial fibrillation could eventually consider pacemaker and AVJ ablation.
History of low blood pressure/history of orthostasis
- On midodrine. Blood pressure stable.
CVA/slurred speech
- Recent CVA 03/2025 now with slurred speech and abnormality on MRI which by neurology is felt to be subacute
- Xarelto okayed by neurology. Continue to follow
- Defer management to primary service and neurology
Dementia noted.
- Plan for retirement facility
CAD status post CABG
- Risk factor modification
- No chest pain noted follow
- EKG without acute abnormality
- Given elevated LFTs and Lipitor is on hold. We have added Zetia for now and then reintroduce statin when able
Diabetes noted by primary service
HPI: Jaime is an 79 year old male with PMH of CAD s/p CABG x 3, TAVR, chronic HFrEF, CKD, paroxysmal atrial fibrillation on chronic amiodarone, HTN, orthostasis, HLD, TIA, Dementia, and anemia. Presented to [facility] ER for evaluation of slurred
speech, headache, SOB, edema, and nausea. In ER, head CT was without acute abnormality, and chest xray was consistent with heart failure. ProBNP elevated at 21,900. EKG reviewed. Noted to be in rapid atrial fibrillation with HR of 128 bpm.
Hypokalemia noted with K 3.5 ang magnesium of 1.1. Also noted to have significantly elevated LFTs. Abdominal US and CT of abdomen with distended gallbladder without evidence of cholecystitis. GI consulted and following. Admitted with acute heart
failure and concern for possible CVA given episode of slurred speech. He is diuresing with IV lasix and notes some improvement in symptoms. Denies any palpitations, but does note that he has had about 1 month of worsening heavy breathing and edema
with occasional lightheadedness. Does not follow his weight at home
Progress Note - Gaming Cage Cashier
Subjective
Date of Service: July 04, 2025
He tells me is slurred speech earlier today. Feels good now. Denies chest pain
Objective
Labs:
07/04/25 06:09
07/04/25 06:09
Labs
Hgb 8.7 g/dL (13.0-18.0) L 07/04/25 06:09
Hct 27.8 % (39.0-52.0) L 07/04/25 06:09
Plt Count 232 10^3/uL (130-400) 07/04/25 06:09
Sodium 137 mmol/L (135-145) 07/04/25 06:09
Potassium 4.3 mmol/L (3.5-5.1) 07/04/25 06:09
BUN 30 mg/dl (9-20) H 07/04/25 06:09
Creatinine 0.9 mg/dL (0.7-1.3) 07/04/25 06:09
Glucose 143 mg/dl (70-99) H 07/04/25 06:09
Troponins
07/01/25 07/01/25 07/02/25
14:48 22:11 06:53
Troponin I 0.020 0.019 0.013
Vital Signs and I&O:
Vital Signs
Temp Pulse Resp BP Pulse Ox
97.7 F 102 18 98/67 97
07/04/25 11:01 07/04/25 12:12 07/04/25 11:01 07/04/25 12:12 07/04/25 11:14
Vital Signs
Temp Pulse Resp BP Pulse Ox
97.7 F 102 18 98/67 97
07/04/25 11:01 07/04/25 12:12 07/04/25 11:01 07/04/25 12:12 07/04/25 11:14
Intake & Output
07/02/25 07/03/25 07/04/25 07/05/25
06:59 06:59 06:59 06:59
Intake Total 1480 / 1480 1350 / 1350 1040 / 1040 370 / 370
Output Total 3900 / 3900 1675 / 1675 1565 / 1565 250 / 250
Balance -2420 / -2420 -325 / -325 -525 / -525 120 / 120
Physical Exam
Physical Exam
General: Well developed, well nourished in NAD.
Heart: Non displaced PMI, RRR, no murmurs, No S3, S4, no rubs.
Lungs: Coarse interval sounds
Extremities: No clubbing, cyanosis or edema bilaterally.
Neuro: awake, alert
[2025-07-04] MEDS: NOVOLOG FLEXPEN-LOW RESISTANCE 1 UNITS SC ×2 (12:28→16:55)
--- NOTE | 2025-07-04 14:34 | CM ---
Patient told nursing he did not think his sister wanted him to go to [facility] [place], CM called to patient sister home and attempted to leave a message. Patient accepted for SNF; [facility] [place] tomorrow per chart notes. CM will continue to follow for discharge planning
needs.
Plan; [facility] accepted patient for SNF saturday, call to patient sister to confirm plan
[2025-07-04 16:53] LABS: Glucose - Point of Care 150 mg/dl (70-99)
[2025-07-04] MEDS: LEXAPRO 10 MG PO (21:18)
[2025-07-04] MEDS: REMERON 7.5 MG PO (21:18)
[2025-07-04 21:32] LABS: Glucose - Point of Care 185 mg/dl (70-99)
[2025-07-05 03:59] VITALS: BP 112/76
[2025-07-05 06:04] VITALS: BMI 22.5
[2025-07-05 07:30] VITALS: BP 104/73
[2025-07-05 08:33] LABS: Glucose - Point of Care 111 mg/dl (70-99)
[2025-07-05] MEDS: NOVOLOG FLEXPEN-LOW RESISTANCE SC (08:40)
[2025-07-05] MEDS: PROTONIX 40 MG PO (08:42)
[2025-07-05] MEDS: NAMENDA 10 MG PO (08:42)
[2025-07-05] MEDS: FARXIGA 10 MG PO (08:42)
[2025-07-05] MEDS: PACERONE 200 MG PO (08:42)
[2025-07-05] MEDS: TOPROL XL 12.5 MG PO (08:42)
[2025-07-05] MEDS: ZETIA 10 MG PO (08:43)
[2025-07-05] MEDS: VITAMIN B-6 50 MG PO (08:43)
[2025-07-05] MEDS: XARELTO 20 MG PO (08:43)
[2025-07-05] MEDS: VITAMIN B-12 1000 MCG PO (08:44)
[2025-07-05] MEDS: MAG-TAB SR 84 MG PO (08:44)
[2025-07-05] MEDS: SENOKOT 8.6 MG PO (08:44)
[2025-07-05] MEDS: LASIX 40 MG PO (08:44)
[2025-07-05] MEDS: COLACE 100 MG PO (08:45)
[2025-07-05] MEDS: BenGay-Like 1 APPLIC TOPICAL (08:45)
--- NOTE | 2025-07-05 09:55 | W.PN.CARDCBS ---
Addendum entered and electronically signed by Prakash Torres DO 07/05/25 14:43:
I saw and examined the patient.
The [employer] Design Engineer's note was reviewed and I agree with the note.
Comment:
Plan:
He appears euvolemic, continue Lasix 40 mg daily. Creatinine remained stable
His weight is down another 2 pounds over the last 24 hours.
Patient has history of cardiomyopathy and medical therapy and has been historically limited by orthostasis/hypotension
Remains in persistent atrial fibrillation with improved heart rates. Continue amiodarone 200 mg twice a day for 2 weeks then 200 mg daily thereafter.
Continue Xarelto for stroke prophylaxis.
Could consider outpatient cardioversion following amiodarone load
Follow-up arranged.
Original Note:
Today's Communication / Plan
-
Continue PO lasix 40mg daily
Continue amiodarone at higher dose 200 mg twice daily for 2 weeks and then will decrease to 200 mg daily thereafter
Continue Xarelto 20 mg daily
Continue low-dose Toprol, Farxiga
Outpatient cardiology follow-up to be arranged.
Impression / Plan
-
PCP: Dr. Braxton
Roll Carrier: Dr. Hurley
Impression:
Presented with slurred speech, nausea, SOB, edema
Acute on chronic HFmrEF
Elevated LFTs
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
Persistent atrial fibrillation w/ RVR
Chronic amiodarone therapy
Chronic Xarelto therapy, dose increased 07/01/2025
CAD
s/p CABG x 3 in 2018
s/p TAVR 2018
HTN
h/o orthostasis, on chronic midodrine
HLD
h/o TIA
DM2
Dementia
Chronic anemia
Echo 11/2020: EF 45-50%, mild to mod cLVH, stage 1 diastolic dysfunction, MAC, mild MR, normally functioning TAVR with peak/mean gradients 26/14mmHg, trace TR, PAP 34mmHg
Echo 12/01/2021: LVEF 45-50%, Mild LVH, Nl Fxn of TAVR with Pk and mean 17/9 and no AI. PAP 16-21 mm Hg
Echo 12/11/2023: EF 46%, mild MR, s/p TAVR with w/ peak/mean gradients 25/13 mmHg
Echo 02/24/2025: EF 50-55%, mild MR, s/p TAVR peak/mean gradients 24/12 mmHg, mild TR
Echo 07/01/2025: EF 37%, global hypokinesis, akinesis of basal anteroseptal segment, s/p TAVR w/ peak/mean gradients 21/9 mmHg, mild TR
Plan:
-Presented with slurred speech, SOB, edema, and headache. Admitted with acute HFrEF, rapid atrial fibrillation, and elevated LFTs.
-Diuresed with IV Lasix. Now back on p.o. Lasix 40 mg daily. Volume status appears improved.
-Creatinine stable at 0.89. Weight down another 2 pounds to 170 pounds on 07/05.
-Echo 07/01 with EF down to 37%. Medical therapy historically has been limited by orthostasis/hypotension.
-Continue low dose Toprol 12.5mg daily and Farxiga 10 mg daily, new this admission.
-Remains in persistent A-fib, however heart rates improved on higher dose amiodarone 200 mg twice daily. Will continue on 200 mg twice daily for 2 weeks and then will decrease to 200 mg daily thereafter.
-Continue Xarelto for anticoagulation. Dose increased to 20 mg daily this admission given normal renal function
-Could consider outpatient cardioversion
-BP stable, but does have h/o orthostasis on chronic midodrine and Florinef as OP. On midodrine alone currently.
-Acute/subacute CVA noted on MRI of brain 07/01. Neurology saw pt and ok with increasing Xarelto dose.
-LFTs improving with diuresis. Atorvastatin on hold. LDL 116, new to Zetia 10mg daily and will hopefully be able to restart statin.
-Hgb A1c 6.2%.
HPI: Jaime is an 79 year old male with PMH of CAD s/p CABG x 3, TAVR, chronic HFrEF, CKD, paroxysmal atrial fibrillation on chronic amiodarone, HTN, orthostasis, HLD, TIA, Dementia, and anemia. Presented to [facility] ER for evaluation of slurred
speech, headache, SOB, edema, and nausea. In ER, head CT was without acute abnormality, and chest xray was consistent with heart failure. ProBNP elevated at 21,900. EKG reviewed. Noted to be in rapid atrial fibrillation with HR of 128 bpm.
Hypokalemia noted with K 3.5 ang magnesium of 1.1. Also noted to have significantly elevated LFTs. Abdominal US and CT of abdomen with distended gallbladder without evidence of cholecystitis. GI consulted and following. Admitted with acute heart
failure and concern for possible CVA given episode of slurred speech. He is diuresing with IV lasix and notes some improvement in symptoms. Denies any palpitations, but does note that he has had about 1 month of worsening heavy breathing and edema
with occasional lightheadedness. Does not follow his weight at home
Progress Note - Roll Carrier
Subjective
Date of Service: July 05, 2025
Improved.
Objective
Labs:
07/04/25 06:09
07/04/25 06:09
Labs
Hgb 8.7 g/dL (13.0-18.0) L 07/04/25 06:09
Hct 27.8 % (39.0-52.0) L 07/04/25 06:09
Plt Count 232 10^3/uL (130-400) 07/04/25 06:09
Sodium 137 mmol/L (135-145) 07/04/25 06:09
Potassium 4.3 mmol/L (3.5-5.1) 07/04/25 06:09
BUN 30 mg/dl (9-20) H 07/04/25 06:09
Creatinine 0.9 mg/dL (0.7-1.3) 07/04/25 06:09
Glucose 143 mg/dl (70-99) H 07/04/25 06:09
Vital Signs and I&O:
Vital Signs
Temp Pulse Resp BP Pulse Ox
98.0 F 117 18 109/74 94
07/05/25 07:30 07/05/25 08:42 07/05/25 07:30 07/05/25 08:42 07/05/25 07:30
Vital Signs
Temp Pulse Resp BP Pulse Ox
98.0 F 117 18 109/74 94
07/05/25 07:30 07/05/25 08:42 07/05/25 07:30 07/05/25 08:42 07/05/25 07:30
Intake & Output
07/03/25 07/04/25 07/05/25 07/06/25
06:59 06:59 06:59 06:59
Intake Total 1350 / 1350 1040 / 1040 850 / 850
Output Total 1675 / 1675 1565 / 1565 900 / 900
Balance -325 / -325 -525 / -525 -50 / -50
Physical Exam
Physical Exam
GEN: No distress, awake, alert
HEENT: supple, anicteric, mmm
LUNGS: CTA b/l, no wheezes/rales
CV: irregularly irregular, S1/S2,no murmur
EXT: No clubbing, cyanosis, or edema
NEURO: Gross non-focal
SKIN: Warm, dry, no rash
[2025-07-05 11:20] VITALS: BP 103/71
[2025-07-05 11:56] LABS: Glucose - Point of Care 174 mg/dl (70-99)
[2025-07-05] MEDS: NOVOLOG FLEXPEN-LOW RESISTANCE 1 UNITS SC (12:25)
--- NOTE | 2025-07-05 12:39 | CM ---
MD entered order for discharge.
Had long conversation with Eve sister his sister, Eve # [phone] (cell) she said he refuses SNF and she wants him to return to [facility] [place] .
Sister requested ambulance . Pt is confused and safety cognitive judgment is impaired.
Medical nec form completed.
IMM reviewed with sister she agrees with dc.
Spoke with Noreen at [facility] she is aware he is returning today.She did not request report and dc summary.
As per care port [facility] accepted.
PLAN Return to [facility] with [facility]
--- NOTE | 2025-07-05 14:41 | W.DCSUMMARY ---
Discharge Summary
Discharge Data
Date of Admission: 06/30/25
Date of Discharge: 07/05/25
-
Pending Results: No
Hospital Course
Primary diagnosis:
Acute on chronic heart failure with reduced EF
Atrial fibrillation with rapid ventricular rate
Acute transaminitis suspected secondary to passive congestion
Acute kidney injury suspected secondary to cardiorenal
Acute to subacute small cerebral ischemic infarct
Secondary diagnosis:
Diabetes mellitus type 2
Chronic normocytic anemia
Hospital course:
79-year-old woman with prior history of right-sided stroke with left-sided hemiparesis without residual deficit currently, CAD, hyperlipidemia, diabetes, atrial fibrillation on anticoagulation and some cognitive impairment presented with slurred
speech and headache and was also found to be in volume overload with increasing lower extremity edema.
He had a neurological workup including MRI of the brain which showed punctate left parietal lobe posterior subacute ischemic lesion. He was on Xarelto 15 mg dose. He was seen by neurology who advised to increase the dose to 20 mg. There was no
indication for aspirin from neurology standpoint nor it was from cardiology standpoint so it was discontinued on this admission. No further recommendations was advised at this point from neurologist.
He was noted to be in fluid overload clinically. His chest x-ray showed cardiomegaly with interstitial edema and bilateral pleural effusions. His BNP was 21K. Troponins were negative for acute ischemia. He had an echo which showed LV function
reduced to 37%. Global hypokinesis was noted. Reduced RV function noted. Basal anterior septal segment was akinetic. Seen by cardiology was initially on IV diuresis with loss of 10 pounds. He was on 20 mg of Lasix and it was switched to 40 mg
daily on discharge. Farxiga was introduced for heart failure. He is also on beta-amrita Toprol-XL.
With regards to A-fib and RVR his dose of amiodarone was increased to 200 mg twice a week from 100 mg daily which is his home dose. He was advised to cut down to 200 mg once a day for 2 weeks. He remains on Xarelto but a higher dose on this
admission.
On admission his transaminitis was noted to be high. CT of the abdomen pelvis and Doppler ultrasound of the abdomen did not show any evidence of biliary disease. There are biphasic flow noted in the hepatic veins which could be nonspecific but
also could be related to right heart dysfunction which was noted on the echo. With the heart failure treatments is transaminitis been improving. Advised to check as an outpatient.
Also noted was LATONYA with a creatinine of 1.4 with a baseline of 0.9. With diuresis it improved back to 0.9 prior to discharge raising concern for cardiorenal physiology.
He was seen by PT OT who recommended rehab but patient declined and wanted to go back to his assisted living with services.
Today he was without shortness of breath, chest pain or palpitation. He denied dizziness. Afebrile pulse was 112 and blood pressure 105 73. On room air stable. No respiratory distress noted. Chest was without wheeze or crackles. Trace lower
extremity edema.
He was deemed medically stable for discharge to assisted living facility today.
Discussed with case management-apparently patient declined rehab and wishes to go to his assisted living facility with services.
Total time of discharge 32 minutes.
Consultants on board:
Cardiology-Shelly Laboy
Neurology-Antonio Ibarra
Discharge Plan
-
Patient Disposition: Assisted Living
Discharge Diagnosis/Procedures: Heart failure mildly reduced ejection fraction, acute exacerbation; hepatic congestion and elevated liver enzymes; small acute/subacute CVA
Diet: 2 Gram Sodium and Restrict fluids to 48 oz
Activity: As tolerated
Driving Restrictions: As prior to admission
Bathing Restrictions: None
Blood Work: CMP in 5-7 days
Other Services: PT and OT
Specialty Instructions: Weigh Daily- Call MD for wt gain/loss 3 lbs overnight/5 lbs in 1 week
Referrals:
Ankit Braxton DO [Family Provider, Family Practice]
Tish Hurley DO [Active, Cardiology] - in two to three weeks
Additional Discharge Medication Instructions: Take Amiodarone 200mg twice a day x 2 weeks then decrease to daily. (You were previously on 100mg daily).
You are newly started on Metoprolol XL 12.5mg daily.
Xarelto dosing is increased from 15mg to 20mg daily.
Lasix is increased from 20mg daily to 40mg daily.
Stop Fludrocortisone.
Prescriptions:
New
amiodarone [Pacerone] 200 mg Tablet
200 mg PO BID Qty: 45 0RF
Rx Instructions:
Twice daily for 2 weeks and then cut it down to once daily
furosemide 40 mg Tablet
40 mg PO DAILY Qty: 30 0RF
metoprolol succinate 25 mg Tablet Extended Release 24 Hr
12.5 mg PO DAILY Qty: 30 0RF
ezetimibe 10 mg Tablet
10 mg PO DAILY Qty: 30 0RF
rivaroxaban [Xarelto] 20 mg Tablet
20 mg PO DAILY Qty: 30 0RF
dapagliflozin propanediol 10 mg Tablet
10 mg PO DAILY Qty: 30 0RF
Continued
metformin 500 MG tablet
500 mg PO BID@0800,1700
atorvastatin 20 MG tablet
20 mg PO HS
memantine 10 MG tablet
10 mg PO BID
sennosides [senna] 8.6 mg Tablet
8.6 mg PO DAILY
pantoprazole [Protonix] 40 mg Tablet,Delayed Release (Dr/Ec)
40 mg PO DAILY
docusate sodium [Colace] 100 mg Capsule
100 mg PO BID
cyanocobalamin (vitamin B-12) 1,000 mcg Tablet
1,000 mcg PO DAILY
pyridoxine (vitamin B6) 50 mg Tablet
50 mg PO DAILY
midodrine 10 mg Tablet
10 mg PO TID
escitalopram oxalate [Lexapro] 10 mg Tablet
10 mg PO HS
mirtazapine 7.5 mg Tablet
7.5 mg PO HS
magnesium oxide 400 mg magnesium Tablet
400 mg PO DAILY
melatonin 5 mg tablet
5 mg PO HSPRN PRN (Reason: Sleep)
Discontinued
aspirin 81 MG tablet,chewable
81 mg PO DAILY
furosemide [Lasix] 20 mg Tablet
20 mg PO DAILY
amiodarone 200 mg tablet
100 mg PO DAILY
fludrocortisone 0.1 MG tablet
0.1 mg PO DAILY
Xarelto 15 MG tablet
15 mg PO DAILY
Discharge Orders:
Discharge Patient (As Directed); Ordered 07/05/25
Ordered By: Nick Sanchez
Discharge Date and Time
Print Language: POLISH
[2025-07-05 14:46] VITALS: BP 105/73
== END 2025-07-05 15:29 | disposition home health service (06) | DRG 64 ==
LOC: 4 EAST ACU 21:06
PROVIDERS: Emergency Medicine; Nurse Practitioner Family; Physician Assistant; Student in an Organized Health Care Education/Training Program; ADMITTING PHYSICIAN Internal Medicine; ATTENDING PHYSICIAN Internal Medicine; CONSULT PHYSICIAN Internal Medicine Cardiovascular Disease; CONSULT PHYSICIAN Internal Medicine Gastroenterology; CONSULT PHYSICIAN Psychiatry & Neurology Neurology; EMERGENCY PHYSICIAN Emergency Medicine; FAMILY PHYSICIAN Family Medicine
DX: I63.9 Cerebral infarction, unspecified (principal); I50.23 Acute on chronic systolic (congestive) heart failure; I13.0 Hypertensive heart and chronic kidney disease with heart failure and stage 1 through stage 4 chronic kidney disease, or unspecified chronic kidney disease; J98.11 Atelectasis; N17.9 Acute kidney failure, unspecified; E87.20 Acidosis, unspecified; I48.19 Other persistent atrial fibrillation; G81.94 Hemiplegia, unspecified affecting left nondominant side; R47.01 Aphasia; N18.9 Chronic kidney disease, unspecified; I25.10 Atherosclerotic heart disease of native coronary artery without angina pectoris; K57.30 Diverticulosis of large intestine without perforation or abscess without bleeding; D50.9 Iron deficiency anemia, unspecified; K82.8 Other specified diseases of gallbladder; F03.90 Unspecified dementia, unspecified severity, without behavioral disturbance, psychotic disturbance, mood disturbance, and anxiety; E87.6 Hypokalemia; I95.1 Orthostatic hypotension; E11.22 Type 2 diabetes mellitus with diabetic chronic kidney disease; R41.89 Other symptoms and signs involving cognitive functions and awareness; I34.0 Nonrheumatic mitral (valve) insufficiency; E78.00 Pure hypercholesterolemia, unspecified; K76.1 Chronic passive congestion of liver; R47.1 Dysarthria and anarthria; I69.321 Dysphasia following cerebral infarction; Z93.1 Gastrostomy status; Z79.01 Long term (current) use of anticoagulants; Z82.49 Family history of ischemic heart disease and other diseases of the circulatory system; Z95.1 Presence of aortocoronary bypass graft; Z95.3 Presence of xenogenic heart valve; Z88.8 Allergy status to other drugs, medicaments and biological substances; Z79.82 Long term (current) use of aspirin; Z79.84 Long term (current) use of oral hypoglycemic drugs; Z79.52 Long term (current) use of systemic steroids
CPT/HCPCS: 70450; 70551; 71046; 74176; 76700; 80048; 80053; 80061; 80143; 80179; 81003; 81015; 82010; 82247; 82248; 82550; 82607; 82728; 82746; 82805; 82962; 83036; 83540; 83550; 83605; 83690; 83735; 83880; 84075; 84132; 84443; 84450; 84460; 84484; 85025; 85027; 86705; 86706; 86709; 86803; 87070; 87340; 93005; 93308; 93321; 93325; 93975; 96374; 96375; 97110; 97163; 97167; 97530; 99285; J1160

== ENCOUNTER → 2025-07-12 18:09 | Outpatient (REF) | payer MEDICARE, SELFPAY ==
[2025-07-12 19:11] LABS: ALT (SGPT) 78 U/L (0-50); AST (SGOT) 24 U/L (17-59); Albumin 3.8 g/dl (3.5-5.0); Alkaline Phosphatase 107 U/L (38-126); Blood Urea Nitrogen 33 mg/dl (9-20); Calcium 8.7 mg/dl (8.4-10.2); Carbon Dioxide 23 mmol/L (22-30); Chloride 105 mmol/L (98-107); Glucose 142 mg/dl (70-99); Potassium 4.0 mmol/L (3.5-5.1); Sodium 140 mmol/L (135-145); Total Protein 6.7 g/dl (6.3-8.2); eGFR 46.48
== END ==
LOC: CLAB 18:09
PROVIDERS: ATTENDING PHYSICIAN Family Medicine; FAMILY PHYSICIAN Internal Medicine Cardiovascular Disease
DX: I50.23 Acute on chronic systolic (congestive) heart failure (principal)
CPT/HCPCS: 36415; 80053

== ENCOUNTER → 2025-07-29 09:30 | Outpatient (REF) | payer MEDICARE, SELFPAY ==
[2025-07-29 18:23] LABS: Blood Urea Nitrogen 28 mg/dl (9-20); Calcium 8.6 mg/dl (8.4-10.2); Carbon Dioxide 24 mmol/L (22-30); Chloride 108 mmol/L (98-107); Glucose 90 mg/dl (70-99); Potassium 4.5 mmol/L (3.5-5.1); Sodium 140 mmol/L (135-145); eGFR 55.19
== END ==
LOC: CLAB 09:30
PROVIDERS: ATTENDING PHYSICIAN Internal Medicine Cardiovascular Disease
DX: I50.23 Acute on chronic systolic (congestive) heart failure (principal)
CPT/HCPCS: 36415; 80048

== ENCOUNTER 2025-09-24 19:15 | Inpatient (IN) | payer MEDICARE, SELFPAY ==
[2025-09-24 15:16] VITALS: BP 101/68
--- NOTE | 2025-09-24 15:49 | ED.GENMED ---
History of Present Illness
<Yessenia Arvizu PA-C - Last Filed: 09/24/25 22:31>
General
Chief Complaint: Breathing Problem
Source: patient and records
Exam Limitations: none
Time Seen by Provider: 09/24/25 15:48
History of Present Illness
History of Present Illness:
80yoM with a history of atrial fibrillation on Xarelto, coronary artery disease s/p CABG, CHF with EF of 37%, hypertension, hyperlipidemia, and type 2 diabetes presenting via EMS for evaluation of shortness of breath. Patient resides at [facility] independent living. He reports dyspnea for the past 3 weeks which has been worsening over the past week or so. He reports shortness of breath at rest which worsens with activity. He developed a cough last week that is productive of beige
sputum. He reports palpitations at times. No fevers, chest pain, abdominal pain, weight gain. Patient was last hospitalized in June 2025 and he was in persistent atrial fibrillation throughout hospital stay. His loop machine operator is Dr. Zamora.
Past History
<Yessenia Arvizu PA-C - Last Filed: 09/24/25 22:31>
Past History
ED Past Medical History: Arrthythmia (Afib), CAD, CVA (Punctate left occipital lacunar), HTN and Valvular disease
ED Past Surgical History: Cardiac
Social History
Tobacco: Non-smoker
Alcohol: None
Drug: None
Personal: Single
Living: other
Employment: Retired
Family History
Family History: CAD
Phy Exam
<Yessenia Arvizu PA-C - Last Filed: 09/24/25 22:31>
General Physical Exam
General Presentation: well appearing and no apparent distress
General Skin: warm and dry
General Habitus: normal and elderly
General Mental: alert
ENT Exam
ENT Exam: normocephalic
Cardiovascular Exam
Cardiovascular Exam: no edema, irregularly irregular and tachycardia
Pulmonary Exam
Pulmonary Exam: decreased breath sounds and other (Decreased breath sounds with tachypnea )
Neurological Exam
Neurological Exam: alert
Nikki Coma Scale
Eye Opening: Spontaneous
Verbal Response: Oriented
Motor Response: Obeys Commands
GCS Total Score: 15
Skin Exam
Skin Exam: normal color and warm/dry
Psychiatric Exam
Psychiatric Exam: normal mood/affect
Scores
<Yessenia Arvizu PA-C - Last Filed: 09/24/25 22:31>
Heart Failure Risk
Heart Failure Risk Score: Not Applicable
Course
<Yessenia Arvizu PA-C - Last Filed: 09/24/25 22:31>
Orders/Labs/Results
Orders:
Orders
09/24/25 Dinner
Regular
At Your Request: Limited Participation
Does patient need a safe tray?: Yes
09/24/25 15:20
Electrocardiogram (*1) Urgent
Reason for Study: Shortness of Breath
EKG- Treatment ONCE
09/24/25 16:01
Cardiac Monitoring- Treatment ONCE
CR Chest - 2 Views Urgent
Comment:
Reason For Exam: SOB
09/24/25 17:06
COVID-19 Antigen Urgent
Source: Nasal Swab
Complete Blood Count/With Diff Urgent
Comprehensive Metabolic Panel Urgent
NT-proBNP Urgent
Troponin I Urgent
Influenza A+B Rapid Molecular Urgent
FUAD Source: Nasal Swab
Specimen Description:
09/24/25 18:05
Cefepime HCl [Maxipime] 2,000 mg IV NOW STA
09/24/25 18:48
Vancomycin [Vancocin] 2,000 mg 0.9% Sodium Chloride 500 ml [Nss] 500 ml IV NOW
09/24/25 19:06
Admit/Transfer Patient As Directed
Co-Sign Provider:
Level of Care: Inpatient admission
Assign to:: Telemetry
Physician / Group: simona
Diagnosis: sepsis multifocal pna
Reason for Telemetry: Arrhythmia
Date to Stop Telemetry: 09/27/25
Time to Stop Telemetry: 11:00
Reason for Hospitalization: sepsis multifocal pna
Expected length of stay greater than two midnights?: Yes
ELOS- Estimated Length of Stay in days: 2
I certify the patient meets the requirements for IP care: Yes
Code Status As Directed
Resuscitation Status: Do not resuscitate
Reached after discussion with pt or family/Healthcare POA: Yes
DNR Bracelet Application ONCE
PRN Pain Medication Management As Directed
May give lesser potent ordered pain med per pt: Yes
preference::
Protocol:: Medication orders for pain may be administered in a
manner that supports deferring to patient preference
when the pt is:
- Requesting an ordered lesser potent pain medication.
Least to most potent pain medications are defined
as: acetaminophen < NSAID < tramadol < opioids
(morphine, oxycodone, hydromorphone).
- Requesting a lesser dose of the same medication IF
ORDERED.
- Requesting a less intrusive route of administration
if both routes are prescribed by the provider (PO <
IV).
09/24/25 19:09
Legionella Urinary Antigen Urgent
FUAD Source: Urine
Specimen Description:
Respiratory Culture/Gram Stain Urgent
FUAD Source: Sputum
Specimen Description:
Strep pneumoniae Antigen Urgent
FUAD Source: Urine
Specimen Description:
09/24/25 19:12
0.9% Sodium Chloride 500 ml [Nss] 500 ml IV BOLUS
09/24/25 22:25
0.9% Sodium Chloride 1000 ml [Nss] 1,000 ml IV 100 mls/hr
Acetaminophen [Tylenol] 650 mg PO Q4HPRN PRN
Amiodarone [Pacerone] 200 mg PO BID
Atorvastatin [Lipitor] 20 mg PO HS
CefTRIAXone [Rocephin] 1,000 mg IV Q24H
Dextrose 50%-Water [Dextrose 50% Syringe] 12.5 grams IV [id number] PRN
Docusate Sodium [Colace] 100 mg PO BID
Doxycycline Hyclate [Vibramycin] 100 mg 0.9% Sodium Chloride 250 ml [Nss] 250 ml IV Q12H
Escitalopram Oxalate [Lexapro] 10 mg PO HS
Glucagon [GlucaGen] 1 mg IM PRN PRN
Melatonin 5 mg PO HSPRN PRN Sleep
Memantine HCl [Namenda] 10 mg PO BID
Mirtazapine [Remeron] 7.5 mg PO HS
midodrine 10 mg PO TID
09/24/25 22:25
VTE Contraindication Routine
VTE Mechanical Device Contraindication: Medical Contraindication
Pharmocologic Contraindication: Medical Contraindication
Activity As Directed
Activity Level: As Tolerated
Bedside Glucose Monitoring As Directed
Frequency: AC&HS
Additional Instructions:: Change to q6h if pt on TPN, tube feeding or not eating
Vital Signs As Directed
Frequency: Per unit guidelines
09/25/25 06:00
Complete Blood Count/With Diff IN AM
Comprehensive Metabolic Panel IN AM
Glycohemoglobin (HgbA1c) IN AM
09/25/25 07:30
Insulin Aspart Corrective Low [Novolog Flexpen-Low Resistance] See Protocol SC AC
09/25/25 08:00
Cyanocobalamin [Vitamin B-12] 1,000 mcg PO DAILY
Ezetimibe [Zetia] 10 mg PO DAILY
Metoprolol Xl [Toprol Xl] 12.5 mg PO DAILY
Pantoprazole [Protonix] 40 mg PO DAILY
Pyridoxine [Vitamin B-6] 50 mg PO DAILY
Rivaroxaban [Xarelto] 20 mg PO DAILY
Sennosides [Senokot] 8.6 mg PO DAILY
magnesium oxide 400 mg PO DAILY
09/27/25 11:00
DC Protocol for Telemetry ONCE
Abnormal Lab Results
09/24/25
17:06
WBC 12.6 H 10^3/uL
(4.8-10.8)
RBC 3.73 L 10^6/uL
(4.70-6.10)
Hgb 8.7 L g/dL
(13.0-18.0)
Hct 29.5 L %
(39.0-52.0)
MCV 79.1 L fL
(80.0-94.0)
MCH 23.3 L pg
(27.0-31.0)
MCHC 29.5 L g/dL
(33.0-37.0)
RDW 18.9 H %
(11.5-14.5)
Abs Immat Gran (auto) 0.1 H 10^3/uL
(0-0.05)
Absolute Neuts (auto) 10.5 H 10^3/uL
(1.4-6.5)
Absolute Monos (auto) 0.7 H 10^3/uL
(0.1-0.6)
Neutrophils % 83.2 H %
(42.2-75.2)
Lymphocytes % 9.6 L %
(20.5-51.1)
Sodium 134 L mmol/L
(135-145)
BUN 41 H mg/dl
(9-20)
Glucose 118 H mg/dl
(70-99)
AST 15 L U/L
(17-59)
Albumin 3.2 L g/dl
(3.5-5.0)
09/24/25 17:06
09/24/25 17:06
Vital Signs
Initial and Last Documented VS:
Initial Vital Signs
Temp Pulse Resp BP Pulse Ox
98.2 F 117 16 101/68 96
09/24/25 15:16 09/24/25 15:16 09/24/25 15:16 09/24/25 15:16 09/24/25 15:16
Last Documented Vital Signs
Temp Pulse Resp BP Pulse Ox
98.2 F 101 33 102/75 96
09/24/25 15:16 09/24/25 18:45 09/24/25 18:45 09/24/25 18:00 09/24/25 18:45
<Maynor Preston, DO - Last Filed: 09/24/25 21:01>
Orders/Labs/Results
Orders:
Orders
09/24/25 Dinner
Regular
At Your Request: Limited Participation
Does patient need a safe tray?: Yes
09/24/25 15:20
Electrocardiogram (*1) Urgent
Reason for Study: Shortness of Breath
EKG- Treatment ONCE
09/24/25 16:01
Cardiac Monitoring- Treatment ONCE
CR Chest - 2 Views Urgent
Comment:
Reason For Exam: SOB
09/24/25 17:06
COVID-19 Antigen Urgent
Source: Nasal Swab
Complete Blood Count/With Diff Urgent
Comprehensive Metabolic Panel Urgent
NT-proBNP Urgent
Troponin I Urgent
Influenza A+B Rapid Molecular Urgent
FUAD Source: Nasal Swab
Specimen Description:
09/24/25 18:05
Cefepime HCl [Maxipime] 2,000 mg IV NOW STA
09/24/25 18:48
Vancomycin [Vancocin] 2,000 mg 0.9% Sodium Chloride 500 ml [Nss] 500 ml IV NOW
09/24/25 19:06
Admit/Transfer Patient As Directed
Co-Sign Provider:
Level of Care: Inpatient admission
Assign to:: Telemetry
Physician / Group: simona
Diagnosis: sepsis multifocal pna
Reason for Telemetry: Arrhythmia
Date to Stop Telemetry: 09/27/25
Time to Stop Telemetry: 11:00
Reason for Hospitalization: sepsis multifocal pna
Expected length of stay greater than two midnights?: Yes
ELOS- Estimated Length of Stay in days: 2
I certify the patient meets the requirements for IP care: Yes
Code Status As Directed
Resuscitation Status: Do not resuscitate
Reached after discussion with pt or family/Healthcare POA: Yes
DNR Bracelet Application ONCE
PRN Pain Medication Management As Directed
May give lesser potent ordered pain med per pt: Yes
preference::
Protocol:: Medication orders for pain may be administered in a
manner that supports deferring to patient preference
when the pt is:
- Requesting an ordered lesser potent pain medication.
Least to most potent pain medications are defined
as: acetaminophen < NSAID < tramadol < opioids
(morphine, oxycodone, hydromorphone).
- Requesting a lesser dose of the same medication IF
ORDERED.
- Requesting a less intrusive route of administration
if both routes are prescribed by the provider (PO <
IV).
09/24/25 19:09
Legionella Urinary Antigen Urgent
FUAD Source: Urine
Specimen Description:
Respiratory Culture/Gram Stain Urgent
FUAD Source: Sputum
Specimen Description:
Strep pneumoniae Antigen Urgent
FUAD Source: Urine
Specimen Description:
09/24/25 19:12
0.9% Sodium Chloride 500 ml [Nss] 500 ml IV BOLUS
09/24/25 22:25
0.9% Sodium Chloride 1000 ml [Nss] 1,000 ml IV 100 mls/hr
Acetaminophen [Tylenol] 650 mg PO Q4HPRN PRN
Amiodarone [Pacerone] 200 mg PO BID
Atorvastatin [Lipitor] 20 mg PO HS
CefTRIAXone [Rocephin] 1,000 mg IV Q24H
Dextrose 50%-Water [Dextrose 50% Syringe] 12.5 grams IV [id number] PRN
Docusate Sodium [Colace] 100 mg PO BID
Doxycycline Hyclate [Vibramycin] 100 mg 0.9% Sodium Chloride 250 ml [Nss] 250 ml IV Q12H
Escitalopram Oxalate [Lexapro] 10 mg PO HS
Glucagon [GlucaGen] 1 mg IM PRN PRN
Melatonin 5 mg PO HSPRN PRN Sleep
Memantine HCl [Namenda] 10 mg PO BID
Mirtazapine [Remeron] 7.5 mg PO HS
midodrine 10 mg PO TID
09/24/25 22:25
VTE Contraindication Routine
VTE Mechanical Device Contraindication: Medical Contraindication
Pharmocologic Contraindication: Medical Contraindication
Activity As Directed
Activity Level: As Tolerated
Bedside Glucose Monitoring As Directed
Frequency: AC&HS
Additional Instructions:: Change to q6h if pt on TPN, tube feeding or not eating
Vital Signs As Directed
Frequency: Per unit guidelines
09/25/25 06:00
Complete Blood Count/With Diff IN AM
Comprehensive Metabolic Panel IN AM
Glycohemoglobin (HgbA1c) IN AM
09/25/25 07:30
Insulin Aspart Corrective Low [Novolog Flexpen-Low Resistance] See Protocol SC AC
09/25/25 08:00
Cyanocobalamin [Vitamin B-12] 1,000 mcg PO DAILY
Ezetimibe [Zetia] 10 mg PO DAILY
Metoprolol Xl [Toprol Xl] 12.5 mg PO DAILY
Pantoprazole [Protonix] 40 mg PO DAILY
Pyridoxine [Vitamin B-6] 50 mg PO DAILY
Rivaroxaban [Xarelto] 20 mg PO DAILY
Sennosides [Senokot] 8.6 mg PO DAILY
magnesium oxide 400 mg PO DAILY
09/27/25 11:00
DC Protocol for Telemetry ONCE
Abnormal Lab Results
09/24/25
17:06
WBC 12.6 H 10^3/uL
(4.8-10.8)
RBC 3.73 L 10^6/uL
(4.70-6.10)
Hgb 8.7 L g/dL
(13.0-18.0)
Hct 29.5 L %
(39.0-52.0)
MCV 79.1 L fL
(80.0-94.0)
MCH 23.3 L pg
(27.0-31.0)
MCHC 29.5 L g/dL
(33.0-37.0)
RDW 18.9 H %
(11.5-14.5)
Abs Immat Gran (auto) 0.1 H 10^3/uL
(0-0.05)
Absolute Neuts (auto) 10.5 H 10^3/uL
(1.4-6.5)
Absolute Monos (auto) 0.7 H 10^3/uL
(0.1-0.6)
Neutrophils % 83.2 H %
(42.2-75.2)
Lymphocytes % 9.6 L %
(20.5-51.1)
Sodium 134 L mmol/L
(135-145)
BUN 41 H mg/dl
(9-20)
Glucose 118 H mg/dl
(70-99)
AST 15 L U/L
(17-59)
Albumin 3.2 L g/dl
(3.5-5.0)
09/24/25 17:06
09/24/25 17:06
Vital Signs
Initial and Last Documented VS:
Initial Vital Signs
Temp Pulse Resp BP Pulse Ox
98.2 F 117 16 101/68 96
09/24/25 15:16 09/24/25 15:16 09/24/25 15:16 09/24/25 15:16 09/24/25 15:16
Last Documented Vital Signs
Temp Pulse Resp BP Pulse Ox
98.2 F 101 33 102/75 96
09/24/25 15:16 09/24/25 18:45 09/24/25 18:45 09/24/25 18:00 09/24/25 18:45
<Yessenia Arvizu PA-C - Last Filed: 09/24/25 22:31>
MDM/Problems Addressed
Differential Diagnosis Includes:
80yoM here with progressive worsening of dyspnea x 3 weeks. Associated with cough. Hx of CHF although he denies any weight gain and does not appear volume overloaded on exam. Patient in afib during initial assessment with HR in the 100-110 range.
Differential diagnosis includes but is not limited to: pneumonia, viral illness, symptomatic atrial fibrillation, CHF exacerbation
Initial ED plan: Check cardiac labs, COVID/flu swab, EKG, and CXR.
<Yessenia Arvizu PA-C - Last Filed: 09/24/25 22:31>
*Pulse Oximetry
SaO2: 96
Oxygen Mode of Delivery: Room air
Patient hypoxic: no
*EKG
Interpreted by ED Provider?: Yes
EKG Intrepretation Date: 09/24/25
Heart Rate: 109
Rate: tachycardiac
Rhythm: a-fib
[place]: normal axis
QRS Pattern: normal QRS
Ischemia: no ischemia
*Critical Care Note
Total Time (30-74mins, 75-104mins- exclusive of procedures): Not Applicable
<Yessenia Arvizu PA-C - Last Filed: 09/24/25 22:31>
Update Note
Update Note:
Chest x-ray shows evidence of multifocal pneumonia. White count 12.6. Viral testing negative. BNP elevated although is decreased from last hospital stay. EKG shows atrial fibrillation and troponin undetectable. IV cefepime and vancomycin
ordered. Will admit for further evaluation and management.
ED Attending Note
<Yessenia Arvizu PA-C - Last Filed: 09/24/25 22:31>
-
Portions of this chart may have been created with voice recognition software.� Occasional wrong word or��sound alike� substitutions may have occurred due to the inherent limitations of voice recognition software.
<Maynor Preston DO - Last Filed: 09/24/25 21:01>
ED Attending Note
Patient seen and examined by attending physician: Yes
ED Attending Note:
I reviewed and agree with history treatment plan by Yessenia Arvizu PA-C, PA-C. My exam revealed 80-year-old male with bilateral rhonchi. Patient with multifocal pneumonia, treated with cefepime and vancomycin. Admit to hospitalist.
Discharge Plan
Departure
Patient Disposition: Admit
Date of Disposition: 09/24/25
Time of Disposition: 18:07
Presentation/result/management discussed w/ accepting MD/DO: Hospitalist
Discharge Problem:
Multifocal pneumonia
Interventions
Interventions:
*Risk Screen - Suicide Last Done: 09/24/25 17:14
*General Assessment Last Done: 09/24/25 17:14
*Neglect/Abuse Screening Last Done: 09/24/25 17:14
*ED- Fall Risk Assessment Last Done: 09/24/25 17:14
*ED COVID-19 Vaccine History Last Done: 09/24/25 17:14
*ED Influenza Vaccine History Last Done: 09/24/25 17:14
*Nursing Disposition Last Done: 09/24/25 22:30
ED- Cardiac Assessment Last Done: 09/24/25 17:14
ED- Pulmonary Assessment Last Done: 09/24/25 17:14
[2025-09-24 16:58] VITALS: BP 105/84
[2025-09-24 17:00] VITALS: BP 114/80
[2025-09-24 17:13] VITALS: BMI 22.2
[2025-09-24 17:24] LABS: Hematocrit 29.5 % (39.0-52.0); Hemoglobin 8.7 g/dL (13.0-18.0); Mean Corp Hgb Conc. 29.5 g/dL (33.0-37.0); Mean Corpuscular Volume 79.1 fL (80.0-94.0); Nucleated Red Blood Cells % 0 % (-); Platelet Count 306 10^3/uL (130-400); Red Cell Dist. Width 18.9 % (11.5-14.5)
[2025-09-24 17:45] LABS: COVID-19 Antigen Negative (Negative)
[2025-09-24 17:46] LABS: ALT (SGPT) 13 U/L (0-50); AST (SGOT) 15 U/L (17-59); Albumin 3.2 g/dl (3.5-5.0); Alkaline Phosphatase 97 U/L (38-126); Blood Urea Nitrogen 41 mg/dl (9-20); Calcium 8.7 mg/dl (8.4-10.2); Carbon Dioxide 24 mmol/L (22-30); Chloride 104 mmol/L (98-107); Estimated Creatinine Clearance 49 ml/min; Glucose 118 mg/dl (70-99); Potassium 4.3 mmol/L (3.5-5.1); Sodium 134 mmol/L (135-145); Total Protein 6.3 g/dl (6.3-8.2); eGFR 54.85
[2025-09-24 17:59] LABS: Troponin I < 0.012 ng/ml
[2025-09-24 18:00] VITALS: BP 102/75
--- NOTE | 2025-09-24 18:16 | PHANOTE ---
med rec note- patient has no idea what medication he take, lives along and meds were not updated in [facility]. patient has a nurse come to the [facility] twice a week. but could not tell me what he took today
--- NOTE | 2025-09-24 18:48 | EDRN ---
Pharmacy called to mix and send the vanco when ready.
[2025-09-24] MEDS: MAXIPIME 2000 MG IV (18:58)
--- NOTE | 2025-09-24 19:13 | HPS.HSE ---
Family Physician
-
Family Physician: * NONE
Chief Complaint
-
shortness of breath
History of Present Illness
80-year-old male past medical history of CAD status post CABG, HFrEF, atrial fibrillation on Xarelto, hypertension, CVA, diabetes, chronic anemia, hyperlipidemia presenting with shortness of breath. Patient resides at [facility]
living. He had shortness of breath for 3 weeks with cold-like symptoms of sore throat and congestion worsening over the past week. Shortness of breath worse with activity. Also productive cough for 3 weeks. No shortness of breath. No fever
chest pain abdominal pain or weight gain. No vomiting or diarrhea.
Patient does not smoke or drink alcohol.
Medical History
Past Medical History
Past Medical History: Reports Other (CAD status post CABG, HFrEF, atrial fibrillation on Xarelto, hypertension, CVA, diabetes, chronic anemia, hyperlipidemia)
Past Surgical History: Reports None
Social History
Tobacco: Non-smoker
Alcohol: None
Drug: None
Family History
Family History: Not pertinent
Allergies / Home Medications
Allergies reflects when Allergies were last updated in [employer].
Home Medications with original date entered in [employer]
Allergy/Medication List:
Allergies
Allergy/AdvReac Type Severity Reaction Status Date / Time
digoxin Allergy Unknown Verified 06/30/25 14:32
Home Medications
atorvastatin 20 mg tablet 20 mg PO HS High cholesterol 01/03/21
metformin 500 mg tablet 500 mg PO BID@0800,1700 Diabetes 01/03/21
memantine 10 mg tablet 10 mg PO BID dementia 11/30/21
docusate sodium 100 mg capsule (Colace) 100 mg PO BID feeding tube 03/26/25
pantoprazole 40 mg tablet,delayed release (Protonix) 40 mg PO DAILY feeding tube 03/26/25
sennosides 8.6 mg tablet (senna) 8.6 mg PO DAILY Constipation 03/26/25
cyanocobalamin (vitamin B-12) 1,000 mcg tablet 1,000 mcg PO DAILY Supplement 06/30/25
escitalopram oxalate 10 mg tablet (Lexapro) 10 mg PO HS Depression 06/30/25
magnesium oxide 400 mg PO DAILY Supplement 06/30/25
melatonin 5 mg tablet 5 mg PO HSPRN PRN Sleep 06/30/25
midodrine 10 mg tablet 10 mg PO TID Blood Pressure 06/30/25
mirtazapine 7.5 mg tablet 7.5 mg PO HS Mental Health/Anxiety 06/30/25
pyridoxine (vitamin B6) 50 mg tablet 50 mg PO DAILY Supplement 06/30/25
amiodarone 200 mg tablet (Pacerone) 200 mg PO BID #45 tabs 07/05/25
dapagliflozin propanediol 10 mg tablet 10 mg PO DAILY #30 tabs 07/05/25
ezetimibe 10 mg tablet 10 mg PO DAILY #30 tabs 07/05/25
furosemide 40 mg tablet 40 mg PO DAILY #30 tabs 07/05/25
metoprolol succinate 25 mg tablet,extended release 24 hr 12.5 mg (1/2 x 25 mg) PO DAILY #30 tabs 07/05/25
rivaroxaban 20 mg tablet (Xarelto) 20 mg PO DAILY #30 tabs 07/05/25
Review of Systems
-
History Source: Patient
A 12 point ROS was completed and negative except as noted: Yes
Constitutional: Reports No Symptoms
EENT: Reports No Symptoms
Respiratory: Reports See HPI
Cardiac: Reports No Symptoms
Abdomen/GI: Reports No Symptoms
: Reports No Symptoms
Musculoskeletal: Reports No Symptoms
Skin: Reports No Symptoms
Neurological: Reports No Symptoms
Endocrine: Reports No Symptoms
Hematologic/Lymphatic: Reports No Symptoms
Psych: Reports No Symptoms
Physical Exam
Vital Signs
Vital Signs
Temp Pulse Resp BP Pulse Ox
98.2 F 101 33 102/75 96
09/24/25 15:16 09/24/25 18:45 09/24/25 18:45 09/24/25 18:00 09/24/25 18:45
Physical Exam
General: Well Developed, Well Nourished and No Apparent Distress
HEENT: NormoCephalic, Moist mucous membranes and Atraumatic
Respiratory: Clear
Cardiac: S1/S2 and Regular Rhythm; No Murmur or Rub
GI: Soft, Non Tender, Non Distended and Normal Bowel Sounds; No Organomegaly
Rectal: Deferred by Provider
Musculoskeletal: No Clubbing, No Cyanosis and No Edema
Skin: No Rash
Neuro: Nonfocal/grossly intact
Laboratory Results
-
09/24/25 17:06
09/24/25 17:06
Laboratory Results
Total Bilirubin 0.8 mg/dl (0.2-1.3) 09/24/25 17:06
AST 15 U/L (17-59) L 09/24/25 17:06
ALT 13 U/L (0-50) 09/24/25 17:06
Alkaline Phosphatase 97 U/L (38-126) 09/24/25 17:06
Troponin I < 0.012 ng/ml 09/24/25 17:06
Data Reviewed
-
Lab Data: Labs Reviewed by me
Old Records: Reviewed
Impression/Plan
-
IMPRESSION:
PLAN:
# Sepsis(leukocytosis, tachycardia, tachypnea ) secondary to multifocal pneumonia
- Chest x-ray shows diffuse interstitial breast with patchy airspace opacities within the right lung concerning for multifocal pneumonia
- COVID and flu negative
- Given vancomycin/cefepime in ER, continue ceftriaxone/doxycycline
-Check sputum culture, strep antigen, Legionella antigen,
- Gentle IV fluids given history of HFrEF
CAD status post CABG
Chronic HFrEF
- Hold dapagliflozin
-Hold Lasix
Atrial fibrillation
- Continue amiodarone
- Continue metoprolol
- Continue Xarelto
Essential hypertension
Chronic anemia
- Hemoglobin stable at 8.7
History of CVA
- Continue statin
Type 2 diabetes
- Hold metformin
- Insulin sliding scale
Chronic anemia
Hyperlipidemia
- Continue Zetia
Anxiety/depression
- Continue Lexapro, mirtazapine
Dementia
- Continue memantine
DNR/DNI
DVT prophylaxis Xarelto
Regular diet
[2025-09-24] MEDS: VANCOCIN 540 MG IV (19:16)
[2025-09-24] MEDS: NSS 500 IV (19:18)
--- NOTE | 2025-09-24 19:40 | EDRN ---
Pt fed a boxed lunch and cup of water. Pt was feeling increased SOB and repositioned in bed and was breathing better at this time.
--- NOTE | 2025-09-24 22:27 | PTCARENOTE ---
Patient received from ED via stretcher. Patient pulled over. Patient AAOx3, vitals stable, and no complaints of pain. Oriented to room and call rodriguez within reach.
[2025-09-24 22:52] VITALS: BP 109/76
[2025-09-24 22:56] VITALS: BMI 21.7
[2025-09-24 23:26] VITALS: BMI 21.7
[2025-09-24] MEDS: LIPITOR 20 MG PO (23:34)
[2025-09-24] MEDS: NAMENDA 10 MG PO (23:34)
[2025-09-24] MEDS: COLACE 100 MG PO (23:34)
[2025-09-24] MEDS: PACERONE 200 MG PO (23:34)
[2025-09-24] MEDS: LEXAPRO 10 MG PO (23:36)
[2025-09-24] MEDS: REMERON 7.5 MG PO (23:36)
[2025-09-24] MEDS: ROCEPHIN 1000 MG IV (23:36)
[2025-09-24] MEDS: STERILE WATER FOR INJECTION 10 ML IV (23:36)
[2025-09-24] MEDS: NSS 1000 IV (23:37)
[2025-09-25] MEDS: VIBRAMYCIN 260 MG IV ×3 (00:47→23:04)
[2025-09-25 03:27] VITALS: BP 102/66
[2025-09-25 07:58] VITALS: BP 100/68
[2025-09-25 08:06] LABS: Hematocrit 24.4 % (39.0-52.0); Hemoglobin 7.3 g/dL (13.0-18.0); Mean Corp Hgb Conc. 29.9 g/dL (33.0-37.0); Mean Corpuscular Volume 77.5 fL (80.0-94.0); Nucleated Red Blood Cells % 0 % (-); Platelet Count 262 10^3/uL (130-400); Red Cell Dist. Width 18.6 % (11.5-14.5)
--- NOTE | 2025-09-25 08:08 | W.PN.HOSP.TC ---
Today's Communication/Plan
-
Continue pneumonia treatment
See plan
Assessment / Plan
Assessment / Plan
Physical Exam
General: Well Developed, Well Nourished and No Apparent Distress
HEENT: NormoCephalic, Moist mucous membranes and Atraumatic
Respiratory: Clear
Cardiac: S1/S2 and Regular Rhythm
GI: Soft, Non Tender, Non Distended and Normal Bowel Sounds
Musculoskeletal: No Cyanosis and No Edema
Skin: Warm. Dry.
Neuro: AAOx3. Nonfocal/grossly intact
Assessment/Plan
80-year-old male past medical history of CAD status post CABG, HFrEF, atrial fibrillation on Xarelto, hypertension, CVA, diabetes mellitus, chronic anemia and hyperlipidemia presented with shortness of breath. Patient resides at [facility]
independent living. He had shortness of breath for 3 weeks with cold-like symptoms of sore throat and congestion worsening over the ~1 week prior to presentation. His shortness of breath was worse with activity. Also productive cough for 3 weeks.
No fever chest pain abdominal pain or weight gain. No vomiting or diarrhea. Patient does not smoke or drink alcohol.
# Sepsis(leukocytosis, tachycardia, tachypnea ) secondary to multifocal pneumonia
- Currently on room air
- Chest x-ray showed diffuse interstitial breast with patchy airspace opacities within the right lung concerning for multifocal pneumonia
- COVID and flu negative
- Given vancomycin/cefepime in ER, continue ceftriaxone/doxycycline
- Check sputum culture, strep antigen, Legionella antigen, follow MRSA
- STOP IV fluids given history of HFrEF
#CAD status post CABG
#Chronic HFrEF
- Hold dapagliflozin
- Hold Lasix
Atrial fibrillation
- Continue amiodarone
- Continue metoprolol
- Continue Xarelto
Essential hypertension
Chronic anemia
- Monitor Hgb -- suspected Hgb drop overnight from hemodilution; there were no reports of bleeding
History of CVA
- Continue statin
Type 2 diabetes mellitus
- Hold metformin
- Insulin sliding scale
Chronic anemia
Hyperlipidemia
- Continue Zetia
Anxiety/depression
- Continue Lexapro, mirtazapine
Dementia
- Continue memantine
DNR/DNI
DVT prophylaxis Xarelto
Regular diet
Anticipated Discharge: > 48 hours
Subjective/Interval History
-
Date of Service: September 25, 2025
Patient was seen and examined. He reported some lingering shortness of breath, denied any chest pain or any other new symptoms or complaints.
Objective Data
-
Labs:
Laboratory Results
09/25/25
07:38
WBC 9.9
Hgb 7.3 L
Hct 24.4 L
Plt Count 262
Sodium Pending
Potassium Pending
Chloride Pending
Carbon Dioxide Pending
BUN Pending
Creatinine Pending
Glucose Pending
Calcium Pending
Total Bilirubin Pending
AST Pending
ALT Pending
Alkaline Phosphatase Pending
Vital Signs:
Vital Signs
Temp Pulse Resp BP Pulse Ox
98.0 F 104 18 100/68 94
09/25/25 07:58 09/25/25 07:58 09/25/25 07:58 09/25/25 07:58 09/25/25 07:58
[2025-09-25 08:28] LABS: ALT (SGPT) 10 U/L (0-50); AST (SGOT) 13 U/L (17-59); Albumin 2.6 g/dl (3.5-5.0); Alkaline Phosphatase 82 U/L (38-126); Blood Urea Nitrogen 32 mg/dl (9-20); Calcium 8.1 mg/dl (8.4-10.2); Carbon Dioxide 20 mmol/L (22-30); Chloride 109 mmol/L (98-107); Estimated Creatinine Clearance 60 ml/min; Glucose 95 mg/dl (70-99); Potassium 4.0 mmol/L (3.5-5.1); Sodium 137 mmol/L (135-145); Total Protein 5.5 g/dl (6.3-8.2); eGFR > 60.00
[2025-09-25 08:30] LABS: Glucose - Point of Care 193 mg/dl (70-99)
[2025-09-25 08:42] LABS: Glycohemoglobin (HgbA1c) 6.6 % (4.0-5.9)
[2025-09-25] MEDS: MAGNESIUM OXIDE 400 MG PO (08:52)
[2025-09-25] MEDS: NAMENDA 10 MG PO ×2 (08:52→20:22)
[2025-09-25] MEDS: PACERONE 200 MG PO ×2 (08:52→20:22)
[2025-09-25] MEDS: ZETIA 10 MG PO (08:52)
[2025-09-25] MEDS: COLACE 100 MG PO ×2 (08:52→20:22)
[2025-09-25] MEDS: XARELTO 20 MG PO (08:52)
[2025-09-25] MEDS: PROTONIX 40 MG PO (08:52)
[2025-09-25] MEDS: SENOKOT 8.6 MG PO (08:52)
[2025-09-25] MEDS: VITAMIN B-6 50 MG PO (08:52)
[2025-09-25] MEDS: TOPROL XL 12.5 MG PO (08:52)
[2025-09-25] MEDS: NOVOLOG FLEXPEN-LOW RESISTANCE SC ×2 (08:52→12:20)
[2025-09-25] MEDS: VITAMIN B-12 PO (08:53)
[2025-09-25 11:23] VITALS: BP 107/71
[2025-09-25 11:54] LABS: Glucose - Point of Care 124 mg/dl (70-99)
--- NOTE | 2025-09-25 15:53 | CM ---
project product manager reviewed patient's chart and met with patient was admitted from [facility] in [place], patient reports that he requires assist with adl's and uses a rollator with ambulation, Windy is current with [facility] and he would
like for services to continue after discharge.
Plan; [facility] to [facility], Home with [facility] when stable
[2025-09-25 16:00] LABS: Glucose - Point of Care 592 mg/dl (70-99)
[2025-09-25 16:00] LABS: Glucose - Point of Care 177 mg/dl (70-99)
--- NOTE | 2025-09-25 16:07 | PTCARENOTE ---
FSBS at 1556 resulted at 592, an unexpected result as pt had been consistently under 200 during stay. However, finger was not cleaned prior to stick. Test was repeated after cleaning finger, resulted at 177, more consistent with previous results
[2025-09-25] MEDS: NOVOLOG FLEXPEN-LOW RESISTANCE 1 UNITS SC (17:00)
--- NOTE | 2025-09-25 17:35 | W.PN.UPDATE ---
Addendum entered and electronically signed by Giovanni Solis MD 09/25/25 17:40:
Per Speech Therapist [facility] Text Communication on 09/25/25: 'He somehow slowly progressed to an oral diet either at [facility] or [facility] or . Or a combination. But I have no idea if they ever did an instrumental swallow study (VFSS or FEES) to confirm that
he could tolerate that diet. He has no records of getting an updated swallow study here or at [place] or any other hospital per care everywhere when I looked on [place]'
Original Note:
Update Note
Progress Note Update
Per Speech therapist [facility] Text Communication on 09/25/25:
'Hi there. Just saw Jaime Phillips in . Recommending NPO except meds with small sips and occasional ice chips. Recommending VFSS or FEES on Saturday.
Pt is a poor historian. Pt also complained of pain around PEG site. Spoke with pt�s sister Eve via phone � she was a huge help with filling in the gaps. Use cell phone # if you need her, as they are currently out of town.'
Suspected Aspiration Pneumonia, patient had 2 massive aspiration events on his 2 VFSS in February 2025.
--- NOTE | 2025-09-25 18:03 | PTOTSP ---
ST Acute Care Evaluation
Pt is currently presenting with clinical signs of mild oral dysphagia characterized by reduced bolus formation, reduced oral awareness, and reduced bolus clearance, as well as clinical signs of suspected moderately-severe pharyngeal dysphagia as
evidenced by consistent s/s of airway invasion with both thick and thin consistencies in the setting of known hx of silent and sensate aspiration as recent as 6 months ago across all consistencies per VFSS.
Recommendations:
- NPO; ARHP - occasional ice chips with supervision ONLY after oral care.
- Meds with small sips of water or via PEG tube.
- Aspiration precautions: HOB upright as often as possible; oral care QID with suctioning as needed.
- VFSS or FEES for more objective information regarding the pt's current swallowing function.
- Consider clinical nutrition consultation if opting to start on tube feeds temporarily until VFSS or FEES can be completed.
- CROP ADJUSTER to provide f/u recommendations upon completion of VFSS or FEES.
[2025-09-25 19:00] VITALS: BP 103/73
[2025-09-25 21:32] LABS: Glucose - Point of Care 132 mg/dl (70-99)
[2025-09-25] MEDS: LEXAPRO 10 MG PO (22:08)
[2025-09-25] MEDS: UNASYN IV (22:08)
[2025-09-25] MEDS: LIPITOR 20 MG PO (22:09)
[2025-09-25] MEDS: REMERON 7.5 MG PO (22:09)
[2025-09-26] MEDS: STERILE WATER FOR INJECTION IV (01:46)
[2025-09-26] MEDS: UNASYN IV ×4 (03:13→22:29)
[2025-09-26 03:30] VITALS: BP 111/73
[2025-09-26 06:09] LABS: Glucose - Point of Care 134 mg/dl (70-99)
[2025-09-26 07:16] VITALS: BP 107/75
[2025-09-26 08:00] VITALS: BMI 21.7
--- NOTE | 2025-09-26 08:35 | W.PN.HOSP.TC ---
Today's Communication/Plan
-
Await tube feeding recommendations tomorrow
Patient's sister Eve will come in tomorrow to discuss case with patient and start tube feeding
Assessment / Plan
Assessment / Plan
Physical Exam
General: Well Developed, Well Nourished and No Apparent Distress
HEENT: NormoCephalic, Moist mucous membranes and Atraumatic
Respiratory: Clear
Cardiac: S1/S2 and Regular Rhythm
GI: Soft, Non Tender, Non Distended and Normal Bowel Sounds
Musculoskeletal: No Cyanosis and No Edema
Skin: Warm. Dry.
Neuro: AAOx3. Nonfocal/grossly intact
Assessment/Plan
80-year-old male past medical history of CAD status post CABG, HFrEF, atrial fibrillation on Xarelto, hypertension, CVA, diabetes mellitus, chronic anemia and hyperlipidemia presented with shortness of breath. Patient resides at [facility]
independent living. He had shortness of breath for 3 weeks with cold-like symptoms of sore throat and congestion worsening over the ~1 week prior to presentation. His shortness of breath was worse with activity. Also productive cough for 3 weeks.
No fever chest pain abdominal pain or weight gain. No vomiting or diarrhea. Patient does not smoke or drink alcohol.
# Sepsis(leukocytosis, tachycardia, tachypnea ) secondary to multifocal pneumonia
- Currently on room air
- Chest x-ray showed diffuse interstitial breast with patchy airspace opacities within the right lung concerning for multifocal pneumonia
- COVID and flu negative
- Given vancomycin/cefepime in ER, continue ceftriaxone/doxycycline
- Check sputum culture, strep antigen, Legionella antigen, follow MRSA
- STOPPED IV fluids on 09/25/25 given history of HFrEF
#CAD status post CABG
- Continue statin
- Continue Xarelto
#Chronic HFrEF
- Hold dapagliflozin
- Hold Lasix
Atrial fibrillation
- Continue amiodarone
- Continue metoprolol
- Continue Xarelto
Essential hypertension
Chronic anemia
- Monitor Hgb -- stable overall
History of CVA
- Continue statin
Type 2 diabetes mellitus
- Hold metformin
- Insulin sliding scale
Chronic anemia
Hyperlipidemia
- Continue Zetia
Anxiety/depression
- Continue Lexapro, mirtazapine
Dementia
- Continue memantine
DNR/DNI
DVT prophylaxis Xarelto
NPO given oropharyngeal dysphagia -- PEG tube check on 09/26/25 was okay
On 09/26/25, I called patient's sister Eve, we discussed tube feeding for the patient, she said the patient does not like tube feeding, but she also said she will return to this area on 09/27/25 and can discuss with the patient tube feeding.
Total time spent today on caring for the patient, including chart review, reviewing orders, documentation, seeing and examining the patient, communicating with the patient's nurse and speaking with patient's sister Eve over the phone, was 55
minutes.
Anticipated Discharge: 24 - 48 hours
Subjective/Interval History
-
Date of Service: September 26, 2025
Patient was seen and examined. He denied any new symptoms or complaints, still with some shortness of breath.
Objective Data
-
Labs:
Laboratory Results
09/26/25
08:29
WBC Pending
Hgb Pending
Hct Pending
Plt Count Pending
Sodium Pending
Potassium Pending
Chloride Pending
Carbon Dioxide Pending
BUN Pending
Creatinine Pending
Glucose Pending
Calcium Pending
Vital Signs:
Vital Signs
Temp Pulse Resp BP Pulse Ox
97.3 F 112 20 107/75 92
09/26/25 07:16 09/26/25 07:16 09/26/25 07:16 09/26/25 07:16 09/26/25 07:16
[2025-09-26 09:15] LABS: Hematocrit 26.9 % (39.0-52.0); Hemoglobin 8.2 g/dL (13.0-18.0); Mean Corp Hgb Conc. 30.5 g/dL (33.0-37.0); Mean Corpuscular Volume 77.3 fL (80.0-94.0); Platelet Count 282 10^3/uL (130-400); Red Cell Dist. Width 19.0 % (11.5-14.5)
[2025-09-26] MEDS: NOVOLOG FLEXPEN-LOW RESISTANCE SC ×3 (09:17→17:40)
[2025-09-26] MEDS: COLACE 100 MG PO ×2 (09:19→20:21)
[2025-09-26] MEDS: SENOKOT 8.6 MG PO (09:19)
[2025-09-26] MEDS: VITAMIN B-6 50 MG PO (09:19)
[2025-09-26] MEDS: XARELTO 20 MG PO (09:19)
[2025-09-26] MEDS: MAGNESIUM OXIDE 400 MG PO (09:19)
[2025-09-26] MEDS: ZETIA 10 MG PO (09:20)
[2025-09-26] MEDS: TOPROL XL 12.5 MG PO (09:20)
[2025-09-26] MEDS: VITAMIN B-12 1000 MCG PO (09:20)
[2025-09-26] MEDS: PROTONIX 40 MG PO (09:20)
[2025-09-26] MEDS: PACERONE 200 MG PO ×2 (09:20→20:21)
[2025-09-26] MEDS: NAMENDA 10 MG PO ×2 (09:20→20:21)
[2025-09-26 10:04] LABS: Blood Urea Nitrogen 26 mg/dl (9-20); Calcium 8.6 mg/dl (8.4-10.2); Carbon Dioxide 20 mmol/L (22-30); Chloride 109 mmol/L (98-107); Estimated Creatinine Clearance 67 ml/min; Glucose 132 mg/dl (70-99); Magnesium 1.4 mg/dl (1.6-2.3); Potassium 4.0 mmol/L (3.5-5.1); Sodium 136 mmol/L (135-145); eGFR > 60.00
[2025-09-26 11:22] VITALS: BP 117/79
[2025-09-26 12:06] LABS: Glucose - Point of Care 149 mg/dl (70-99)
[2025-09-26] MEDS: VIBRAMYCIN 260 MG IV (13:53)
[2025-09-26 16:18] VITALS: BP 116/77
[2025-09-26 17:30] LABS: Glucose - Point of Care 125 mg/dl (70-99)
[2025-09-26 20:01] VITALS: BP 108/78
[2025-09-26] MEDS: MAGNESIUM SULFATE 102 GRAMS IV (20:21)
[2025-09-26] MEDS: LIPITOR 20 MG PO (22:29)
[2025-09-26] MEDS: LEXAPRO 10 MG PO (22:29)
[2025-09-26] MEDS: TYLENOL 650 MG PO (22:35)
[2025-09-26] MEDS: REMERON 7.5 MG PO (22:35)
[2025-09-26 23:30] VITALS: BP 117/75
[2025-09-27] MEDS: VIBRAMYCIN 260 MG IV ×2 (00:02→12:27)
[2025-09-27 03:19] VITALS: BP 99/69
[2025-09-27 03:41] LABS: Glucose - Point of Care 124 mg/dl (70-99)
[2025-09-27] MEDS: UNASYN IV ×4 (04:17→21:08)
[2025-09-27 06:00] VITALS: BMI 22.1
[2025-09-27 06:00] LABS: Glucose - Point of Care 128 mg/dl (70-99)
--- NOTE | 2025-09-27 07:06 | W.PN.HOSP.TC ---
Today's Communication/Plan
-
See plan
Assessment / Plan
Assessment / Plan
Physical Exam
General: Well Developed, Well Nourished and No Apparent Distress
HEENT: NormoCephalic, Moist mucous membranes and Atraumatic
Respiratory: Clear
Cardiac: S1/S2 and Regular Rhythm
GI: Soft, Non Tender, Non Distended and Normal Bowel Sounds
Musculoskeletal: No Cyanosis and No Edema
Skin: Warm. Dry.
Neuro: AAOx3. Nonfocal/grossly intact
Assessment/Plan
80-year-old male past medical history of CAD status post CABG, HFrEF, atrial fibrillation on Xarelto, hypertension, CVA, diabetes mellitus, chronic anemia and hyperlipidemia presented with shortness of breath. Patient resides at [facility]
independent living. He had shortness of breath for 3 weeks with cold-like symptoms of sore throat and congestion worsening over the ~1 week prior to presentation. His shortness of breath was worse with activity. Also productive cough for 3 weeks.
No fever chest pain abdominal pain or weight gain. No vomiting or diarrhea. Patient does not smoke or drink alcohol.
# Sepsis(leukocytosis, tachycardia, tachypnea ) secondary to multifocal pneumonia
- Currently on room air
- Chest x-ray showed diffuse interstitial breast with patchy airspace opacities within the right lung concerning for multifocal pneumonia
- COVID and flu negative
- Given vancomycin/cefepime in ER, continue ceftriaxone/doxycycline
- Check sputum culture, strep antigen, Legionella antigen, follow MRSA
- STOPPED IV fluids on 09/25/25 given history of HFrEF
#Abrupt onset of worsening dysarthria observed on 09/27/25 morning
#History of dysarthria following stroke in June 2025 and especially in February 2025 at which time a PEG tube was placed
-MRI brain showed an acute ischemic stroke
-Neurologist Dr. Mendiola via Early Text recommended that patient be changed from his rivaroxaban to apixaban; start Apixaban 5 mg BID starting tonight
-No concern for hemorrhagic conversion given the small size of patient's stroke
-Per Dr. Mendiola/neurology [facility] Text communication with myself on 09/27/25, patient's stroke does not appear to be thromboembolic
-Will consider discussing with cardiology and possibly hematology
#CAD status post CABG
- Continue statin
- Continue Xarelto
#Chronic HFrEF
- Hold dapagliflozin
- Hold Lasix
Atrial fibrillation
- Continue amiodarone
- Continue metoprolol
- Continue Xarelto
Essential hypertension
Chronic anemia
- Monitor Hgb -- stable overall
History of CVA
- Continue statin
Type 2 diabetes mellitus
- Hold metformin
- Insulin sliding scale
Chronic anemia
Hyperlipidemia
- Continue Zetia
Anxiety/depression
- Continue Lexapro, mirtazapine
Dementia
- Continue memantine
DNR/DNI
DVT prophylaxis Xarelto
Feeding/PO Intake: Per Speech on 09/27/25: 'Video swallow study completed for Jaime Phillips. His swallowing was very variable. He had silent aspiration of thin liquids via consecutive cup sips, mildly thick liquids via tsp, moderately thick
liquids via tsp, and aspiration w/ an ineffective cough with mildly thick liquids via consecutive cup sips. No penetration/aspiration occurred w/ single cup sips of thin liquids. Recommend trial of the following: IDDSI 6 soft/bite sized (no mixed
consistencies - no soup, no fruit cups), thin liquids via single cup sips, meds in puree. Will need supervision/assist with meals. Thank you.'
On 09/26/25, I called patient's sister Eve, we discussed tube feeding for the patient, she said the patient does not like tube feeding, but she also said she will return to this area on 09/27/25 and can discuss with the patient tube feeding.
On 09/27/25, I called patient's sister Eve, we discussed tube feeding for the patient, she said the patient does not like tube feeding, but she also said she will return to this area on 09/27/25 and can discuss with the patient tube feeding.
Acute stroke is a high risk encounter.
Anticipated Discharge: 24 - 48 hours
Subjective/Interval History
-
Date of Service: September 27, 2025
Patient was seen and examined. He appeared to have more of a muffled voice this morning.
Objective Data
-
Labs:
Laboratory Results
09/27/25
06:00
WBC Pending
Hgb Pending
Hct Pending
Plt Count Pending
Sodium Pending
Potassium Pending
Chloride Pending
Carbon Dioxide Pending
BUN Pending
Creatinine Pending
Glucose Pending
Calcium Pending
Vital Signs:
Vital Signs
Temp Pulse Resp BP Pulse Ox
97.7 F 102 16 99/69 92
09/27/25 03:19 09/27/25 03:19 09/27/25 03:19 09/27/25 03:19 09/27/25 03:19
I&O
09/26/25 09/27/25 09/28/25
05:59 06:59 06:59
Intake Total 602 / 602
Balance 602 / 602
[2025-09-27 07:30] VITALS: BP 118/78
--- NOTE | 2025-09-27 08:29 | VNURNOTE ---
Chart reviewed. Patient is current with [facility]. Will continue to follow hospital course and DC plans. [facility] Resumption referral accepted in [facility].
[2025-09-27 08:35] LABS: Hematocrit 28.4 % (39.0-52.0); Hemoglobin 8.5 g/dL (13.0-18.0); Mean Corp Hgb Conc. 29.9 g/dL (33.0-37.0); Mean Corpuscular Volume 79.3 fL (80.0-94.0); Platelet Count 288 10^3/uL (130-400); Red Cell Dist. Width 19.0 % (11.5-14.5)
[2025-09-27] MEDS: SENOKOT 8.6 MG PO (08:59)
[2025-09-27] MEDS: ZETIA 10 MG PO (08:59)
[2025-09-27] MEDS: PROTONIX 40 MG PO (08:59)
[2025-09-27] MEDS: COLACE 100 MG PO (08:59)
[2025-09-27] MEDS: MAGNESIUM OXIDE 400 MG PO (08:59)
[2025-09-27] MEDS: VITAMIN B-12 1000 MCG PO (08:59)
[2025-09-27] MEDS: VITAMIN B-6 50 MG PO (08:59)
[2025-09-27] MEDS: NAMENDA 10 MG PO ×2 (08:59→21:08)
[2025-09-27] MEDS: PACERONE 200 MG PO ×2 (08:59→21:08)
[2025-09-27] MEDS: TOPROL XL 12.5 MG PO (09:00)
[2025-09-27] MEDS: XARELTO PO (09:04)
[2025-09-27 09:17] LABS: Blood Urea Nitrogen 23 mg/dl (9-20); Calcium 8.5 mg/dl (8.4-10.2); Carbon Dioxide 21 mmol/L (22-30); Chloride 111 mmol/L (98-107); Estimated Creatinine Clearance 68 ml/min; Glucose 107 mg/dl (70-99); Magnesium 1.7 mg/dl (1.6-2.3); Potassium 4.2 mmol/L (3.5-5.1); Sodium 141 mmol/L (135-145); eGFR > 60.00
[2025-09-27 09:28] VITALS: BMI 22.1
--- NOTE | 2025-09-27 10:12 | CON.NEURO4 ---
Addendum entered and electronically signed by Antonio Mendiola MD 09/27/25 13:52:
Studies reviewed.
I have personally examined the patient. I reviewed and agree with the ER REGISTRAR's Note.
My addenda:
Awake, alert, interactive. No acute distress.
Speech thick.
Follows 2-step requests w/ mild difficulty. No tremor.
Extra-ocular movements grossly intact.
Facial movements full and symmetric. Hearing intact to normal conversational volume.
Normal UE movements bilaterally.
Neck: full ROM.
Chest: no dyspnea
Heart: no JVD
Ext: (-) Clubbing, (-) Cyanosis, (-) Edema
IMPRESSIONS/RECOMMENDATIONS:
Abrupt onset of worsening dysarthria. The patient has a prior history of dysarthria following stroke in June 2025 and especially in February 2025 at which time a PEG tube was placed
Continue current anticoagulation
We will follow ordered CT of the head and CT angiogram results
Not clear if patient would benefit from medications for memory stabilization at this time
D/W patient
Will continue to follow pending results.
Original Note:
Documented by User: Fior Contreras NP 09/27/25 13:12
Consultation - Neurology 4
-
CONSULTING PHYSICIAN: Antonio Mendiola MD
REFERRING PHYSICIAN: Hospitalists/Dr. Solis
DICTATED BY: ISHMAEL Deutsch
DATE/TIME OF REQUEST: 09/27/25
DATE/TIME OF CONSULTATION: 09/27/25
Reason for Consultation: Dysarthria
History of Present Illness:
This is an 80-year-old male who has presented to the hospital on 09/26/25 with report of dysarthria, balance difficulty, and dyspnea. Patient was found to have sepsis pneumonia. Given persistent dysarthria, Neurology is consulted. Patient was
evaluated by our inpatient Neurology service in February 2025 for similar symptoms and MRI brain demonstrated a small right frontal lobe ischemic infarct. He was evaluated by our Neurology service again in June 2025 for dysarthria and MRI brain
demonstrated a left parietal lobe ischemic infarct. He has continued on his previous rivaroxaban for Afib following these events. Patient is a poor historian but reports that his speech became severely dysarthric a couple of days ago and he started
having difficultly ambulating with his rolling walker compared to his baseline. He denies any headache, dizziness, vision changes, numbness, and focal weakness. He has baseline dysphagia chronically but significantly worsened since his stroke in
February 2025 at which time a PEG tube was placed. It is unclear how reliant he is on the peg tube vs oral intake at this point. He lives at a facility and presumably has not missed any doses of his rivaroxaban.
Past Medical History: Paroxysmal Afib (rivaroxaban), dementia, CAD, HFrEF, HTN, HLD, DM, anemia, adrenal insufficiency, osteoarthritis, anxiety, ambulatory dysfunction, chronic dysphagia, orthostatic hypotension
Surgical History: TAVR, CABG x3, b/l cataract removal, PEG tube
Family History: Reviewed and noncontributory.
Social History: Denies tobacco, alcohol, and illicit drug use.
Allergies: Digoxin.
Home Medications: See below.
Review of Symptoms:
Patient denies any fever, headache, chest pain, shortness of breath, GI or symptoms.
�Per the HPI.�All systems are reviewed negative except above.
Physical Exam:
The patient is afebrile, abdomen is nondistended, breathing is unlabored, skin is warm and dry, no edema.
NIH Stroke Scale:
I performed the NIH stroke scale on the patient on 09/27/25 at 1015. The patient scored 2 points on the NIH stroke scale assessment, which were assigned as follows: See below.
Neurologic Examination:
The patient is awake, alert and oriented to person, place, and year, not month. Unable to state most recent holiday. He is able to follow commands and answer questions appropriately. There is no aphasia. There is moderate dysarthria. On cranial
nerve assessment, pupils are 3 mm bilateral, round and reactive to light and accommodation. Visual graham are full. Extraocular movements are intact. Facial sensations are intact and bilaterally symmetrical, there is no facial asymmetry. Hearing is
intact bilaterally to normal conversation volume. Tongue palate and uvula are midline. Sternocleidomastoid strengths are full bilaterally. Motor strengths are 5/5 bilateral upper and lower extremities on medical research [place] scale. There is no
drift. Deep tendon reflexes are 2+ bilateral upper and lower extremities and Babinski is absent bilaterally. There was no extinction noted on double simultaneous stimulation. Coordination is intact by finger to nose bilaterally. Dyskinesias in
bilateral feet.
Lab Results: See below.
Neuro Imaging:
1. CTA head/neck 09/27/25: No acute intracranial abnormality identified. Negative for major branch vessel occlusion, flow-limiting stenosis, dissection, or aneurysm formation. Secretions within the trachea. Bilateral consolidation most likely related
to pneumonia, worse on the right. Bilateral small pleural effusions, greater on the right. 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
Differentials for the patient's presentation include:
1. Recurrent dysarthria and dysphagia; cannot entirely exclude a small new ischemic stroke contributing to symptoms versus toxic metabolic encephalopathy exacerbating previous stroke symptoms in the setting of pneumonia.
2. Afib on rivaroxaban.
Patient has the following risk factors for their symptoms: Hx stroke on rivaroxaban, pneumonia, age, dementia, HLD, orthostasis, previous similar symptoms
IV Tenecteplase/IAT candidacy: He is not a candidate due to rivaroxaban usage and no LVO.
Recommendations:
-MRI brain noncontrast pending.
-Continue rivaroxaban. If MRI brain demonstrates a new infarct, would consider switching OAC.
-Goal normotension.
-LDL goal <70. LDL is 44. Continue atorvastatin 20mg daily as LDL is at goal.
-Goal normoglycemia, hbA1c is 6.6.
-NIHSS and neurological checks per unit guidelines.
-Provide patient with a stroke education packet.
-PT/OT/ST evaluations.
Discussed patient care with: Dr. Mendiola, the patient
Vital Signs and Labs
-
Vital Signs and Labs:
Vital Signs
Temp Pulse Resp BP Pulse Ox
97.4 F 80 16 118/78 93
09/27/25 07:30 09/27/25 08:58 09/27/25 07:30 09/27/25 08:58 09/27/25 07:30
Lab Results
09/27/25 07:54
09/27/25 07:54
Sodium 141 mmol/L (135-145) 09/27/25 07:54
Potassium 4.2 mmol/L (3.5-5.1) 09/27/25 07:54
BUN 23 mg/dl (9-20) H 09/27/25 07:54
Glucose 107 mg/dl (70-99) H 09/27/25 07:54
Calcium 8.5 mg/dl (8.4-10.2) 09/27/25 07:54
Xaj-X-Cyxknjyftam Pept 53835 pg/ml 09/24/25 17:06
Medications
-
Active Medications
Generic Name Dose Route Start Last Admin
Trade Name Freq PRN Reason Stop Dose Admin
Acetaminophen 650 mg 09/27/25 09:24
Acetaminophen (Oral Solution) 650 Mg/20.3 Ml Cup TUBE 10/25/25 09:23
Q4HPRN PRN
mild pain/BROWN/temp> 100.4F
Amiodarone HCl 200 mg 09/27/25 20:00
Amiodarone 200 Mg Tablet TUBE 10/25/25 19:59
BID DONNIE
Atorvastatin Calcium 20 mg 09/27/25 22:00
Atorvastatin (Lipitor) 20 Mg Tablet TUBE 10/22/25 21:59
HS DONNIE
Cyanocobalamin 1,000 mcg 09/28/25 08:00
Cyanocobalamin (Vitamin B-12) 500 Mcg Tablet TUBE 10/26/25 07:59
DAILY DONNIE
Dextrose 12.5 grams 09/27/25 03:52
Dextrose 50% (0.5 Grams/Ml) 50 Ml Syringe IV 10/25/25 03:51
[id number] PRN
hypoglycemia
Protocol
Docusate Sodium 100 mg 09/27/25 20:00
Docusate Sodium Liquid (100 Mg/10 Ml) Cup TUBE 10/25/25 19:59
BID DONNIE
Ezetimibe 10 mg 09/28/25 08:00
Ezetimibe (Zetia) 10 Mg Tablet TUBE 10/26/25 07:59
DAILY DONNIE
Escitalopram Oxalate 10 mg 09/27/25 22:00
Escitalopram 10 Mg Tablet TUBE 10/22/25 21:59
HS DONNIE
Glucagon 1 mg 09/27/25 03:52
Glucagon 1 Mg Vial IM 10/25/25 03:51
PRN PRN
hypoglycemia
Protocol
Doxycycline Hyclate 100 mg/ 260 mls @ 260 mls/hr 09/25/25 00:00 09/27/25 00:02
Sodium Chloride IV 260 mls
Q12H DONNIE Administration
Ampicillin Sodium/Sulbactam 120 mls @ 240 mls/hr 09/25/25 21:25 09/27/25 09:05
Sodium 3 gm/ Sodium Chloride IV 120 mls
Q6H DONNIE Administration
Insulin Aspart 0 units 09/27/25 06:00 09/27/25 06:21
Insulin Aspart Low Resistance 300 Units/3 Ml Pen.Injctr SC 10/25/25 05:59 Not Given
Q6 DONNIE
Protocol
Magnesium Oxide 400 mg 09/28/25 08:00
Magnesium Oxide 400 Mg Tablet TUBE 10/26/25 07:59
DAILY DONNIE
Melatonin 5 mg 09/27/25 22:00
Melatonin 5 Mg Tablet TUBE 10/22/25 21:59
HSPRN PRN
Sleep
Memantine 10 mg 09/27/25 20:00
Memantine 10 Mg Tablet TUBE 10/22/25 19:59
BID DONNIE
Metoprolol Tartrate 6.25 mg 09/28/25 08:00
Metoprolol 12.5 Mg Regular Release Dose (1/2 Of 25 Mg Tablet) TUBE 10/26/25 07:59
BID DONNIE
Midodrine 10 mg 09/27/25 16:00
Midodrine 5 Mg Tablet TUBE 10/23/25 15:59
TID DONNIE
Mirtazapine 7.5 mg 09/27/25 22:00
Mirtazapine 7.5 Mg Regular Release Tablet TUBE 10/22/25 21:59
HS DONNIE
Pantoprazole Sodium 40 mg 09/25/25 08:00 09/27/25 08:59
Pantoprazole 40 Mg Delayed Release Tablet PO 10/23/25 07:59 40 mg
DAILY DONNIE Administration
Pyridoxine HCl 50 mg 09/28/25 08:00
Pyridoxine 50 Mg Tablet TUBE 10/26/25 07:59
DAILY DONNIE
Rivaroxaban 20 mg 09/27/25 09:41
Rivaroxaban 20 Mg Tablet TUBE 10/23/25 07:59
On Hold: 09/27/25 09:41 DAILY DONNIE
Comment: HOLD
Sennosides 8.8 mg 09/28/25 08:00
Sennosides (Senna Syrup) 8.8 Mg/5 Ml Unit Dose Cup TUBE 10/26/25 07:59
DAILY DONNIE
Sodium Chloride 0 flush 09/24/25 23:00
Sodium Chloride 0.9% (Flush) Syringe IV 10/22/25 22:59
PER PROTOCOL DONNIE
Home Medications
�Medication �Instructions �Recorded
atorvastatin 20 mg tablet 20 mg PO HS High cholesterol 01/03/21
metformin 500 mg tablet 500 mg PO BID@0800,1700 Diabetes 01/03/21
memantine 10 mg tablet 10 mg PO BID dementia 11/30/21
docusate sodium 100 mg capsule 100 mg PO BID feeding tube/STOOL 03/26/25
(Colace) SOFTEN
pantoprazole 40 mg tablet,delayed 40 mg PO DAILY feeding tube 03/26/25
release (Protonix)
sennosides 8.6 mg tablet (senna) 8.6 mg PO DAILY Constipation 03/26/25
cyanocobalamin (vitamin B-12) 1,000 mcg PO DAILY Supplement 06/30/25
1,000 mcg tablet
escitalopram oxalate 10 mg tablet 10 mg PO HS Depression 06/30/25
(Lexapro)
magnesium oxide 400 mg PO DAILY Supplement 06/30/25
melatonin 5 mg tablet 5 mg PO HSPRN PRN Sleep 06/30/25
midodrine 10 mg tablet 10 mg PO TID Blood Pressure 06/30/25
mirtazapine 7.5 mg tablet 7.5 mg PO HS Mental Health/Anxiety 06/30/25
pyridoxine (vitamin B6) 50 mg 50 mg PO DAILY Supplement 06/30/25
tablet
amiodarone 200 mg tablet (Pacerone) 200 mg PO BID #45 tabs 07/05/25
ezetimibe 10 mg tablet 10 mg PO DAILY #30 tabs 07/05/25
metoprolol succinate 25 mg 12.5 mg (1/2 x 25 mg) PO DAILY #30 07/05/25
tablet,extended release 24 hr tabs
rivaroxaban 20 mg tablet (Xarelto) 20 mg PO DAILY #30 tabs 07/05/25
dapagliflozin propanediol 10 mg 10 mg PO DAILY Diabetes 09/25/25
tablet
furosemide 40 mg tablet 40 mg PO DAILY Fluid 09/25/25
Retention/Swelling
NIH Stroke Score
Subsequent NIH Scale
Date of Subsequent NIH Scale: 09/27/25
Time of Subsequent NIH Scale: 10:15
NIH Stroke Score
Level of Consciousness: 0 - Alert
LOC Questions: 1-Answers one correctly
LOC Commands: 0-Performs both correctly
Best Horizontal Gaze: 0-Normal
Visual Graham: 0=Normal, no visual loss
Facial Palsy: 0=Normal, symmetrical
Motor - Right Arm: 0=No drift 10 seconds
Motor - Left Arm: 0=No drift 10 seconds
Motor - Right Le-No drift 5 seconds
Motor - Left Le-No drift 5 seconds
Limb Ataxia: 0-Absent
Sensation: 0-Normal
Best Language: 0-No aphasia
Dysarthria: 1-Mild slurring
Extinction and Inattention: 0-No abnormality
NIH Total Score:: 2
Modified Edmunds (mRS) Score
Modified Edmunds Scale (mRS): No significant disability. Able to carry out usual activities.
Score: 1
Alteplase Contraindication
Inclusion and Exclusion criteria reviewed: Yes
Reasons for NON-Tx with Thrombolytics ABSOLUTE Exclusions: Greater than 4.5 hrs from onset of sxs
IAT Contraindications: Imaging doesn't show large vessel occlusion as cause of stroke

Documented by User: Antonio Mendiola MD 09/27/25 13:44
NIH Stroke Score
NIH Stroke Score
NIH Total Score:: 2
Modified Edmunds (mRS) Score
Score: 1
[2025-09-27 11:30] VITALS: BP 118/80
[2025-09-27 11:36] LABS: HDL Cholesterol 25 mg/dl; LDL Cholesterol, Calculated 44 mg/dl; Very Low Density Lipoprotein 15 mg/dl (0-30)
[2025-09-27 12:43] LABS: Glucose - Point of Care 135 mg/dl (70-99)
--- NOTE | 2025-09-27 13:29 | PTOTSP ---
Videofluoroscopic swallow study
Patient presents with signs concerning for mild oral and moderate-severe pharyngeal dysphagia. Patient is at an elevated risk for aspiration given variable onset of airway closure/variable swallow function. If opting to initiate an oral diet
understanding risks, consider the following:
1. IDDSI 6 soft/bite sized solids and no mixed consistencies (no soup, no fruit cups)
2. IDDSI 0 thin liquids via single cup sips (as this would be less likely to cause pulmonary complications compared to thickened liquids)
3. Medications: in puree
4. Strategies: FULL supervision, assist to use strategies, SINGLE CUP SIPS, no straws, slow rate
5. Oral care 3-5x daily to reduce risk for aspiration complications
6. Dysphagia tx at the acute care level for education, instruction in compensations
[2025-09-27 14:19] VITALS: BP 112/78; PULSE 92; O2SAT 95
[2025-09-27 15:30] VITALS: BP 113/77
[2025-09-27 16:17] LABS: Glucose - Point of Care 131 mg/dl (70-99)
[2025-09-27] MEDS: NOVOLOG FLEXPEN-LOW RESISTANCE SC (16:29)
[2025-09-27 19:33] VITALS: BP 102/69
[2025-09-27] MEDS: ELIQUIS 5 MG PO (21:06)
[2025-09-27] MEDS: COLACE LIQUID 100 MG PO (21:08)
[2025-09-27] MEDS: REMERON 7.5 MG PO (21:09)
[2025-09-27] MEDS: LEXAPRO 10 MG PO (21:09)
[2025-09-27] MEDS: LIPITOR 20 MG PO (21:09)
[2025-09-27 21:23] LABS: Glucose - Point of Care 118 mg/dl (70-99)
[2025-09-28] VITALS (9 sets, daily range): BP systolic 106–123; BP diastolic 70–84; O2SAT 93; BMI 21.9
[2025-09-28] MEDS: VIBRAMYCIN 260 MG IV ×3 (00:19→23:43)
[2025-09-28] MEDS: UNASYN IV ×4 (04:21→21:11)
--- NOTE | 2025-09-28 07:31 | W.PN.HOSP.TC ---
Today's Communication/Plan
-
See plan
Assessment / Plan
Assessment / Plan
Physical Exam
General: Well Developed, Well Nourished and No Apparent Distress
HEENT: NormoCephalic, Moist mucous membranes and Atraumatic
Respiratory: Clear
Cardiac: S1/S2 and Regular Rhythm
GI: Soft, Non Tender, Non Distended and Normal Bowel Sounds
Musculoskeletal: No Cyanosis and No Edema
Skin: Warm. Dry.
Neuro: AAOx3. Nonfocal/grossly intact
Assessment/Plan
80-year-old male past medical history of CAD status post CABG, HFrEF, atrial fibrillation on Xarelto, hypertension, CVA, diabetes mellitus, chronic anemia and hyperlipidemia presented with shortness of breath. Patient resides at [facility]
independent living. He had shortness of breath for 3 weeks with cold-like symptoms of sore throat and congestion worsening over the ~1 week prior to presentation. His shortness of breath was worse with activity. Also productive cough for 3 weeks.
No fever chest pain abdominal pain or weight gain. No vomiting or diarrhea. Patient does not smoke or drink alcohol.
#Multifocal pneumonia (Sepsis ruled out, pneumonia only)
- Currently on room air
- Chest x-ray showed diffuse interstitial breast with patchy airspace opacities within the right lung concerning for multifocal pneumonia
- COVID and flu negative
- Given vancomycin/cefepime in ER, continue Unasyn and Doxycycline
- Follow sputum culture
- Strep and Legionella antigens are both negative, MRSA negative
- STOPPED IV fluids on 09/25/25 given history of HFrEF
#Abrupt onset of worsening dysarthria observed on 09/27/25 morning
#History of dysarthria following stroke in June 2025 and especially in February 2025 at which time a PEG tube was placed
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
-Neurologist Dr. Mendiola via [facility] recommended that patient be changed from his rivaroxaban to apixaban; started Apixaban 5 mg BID starting on 09/27/25 evening
-No concern for hemorrhagic conversion given the small size of patient's stroke
-Per Dr. Mendiola/neurology [facility] communication with myself on 09/27/25, patient's stroke does not appear to be thromboembolic
-Discussed with hematology who recommended following neurology recommendations, no additional recommendations from their standpoint
-Cardiology consulted given embolic strokes, no JIM at this time given speech and dysphagia issues
-Given dysphagia issues -- ordered dietary consult and calorie counts
#CAD status post CABG
- Continue statin
- Continue Eliquis
#Chronic HFrEF
- Hold dapagliflozin
- Started Lasix IV 20 mg BID per cardio recommendations
#Paroxysmal Atrial fibrillation
- Continue amiodarone
- Continue metoprolol
- Continue Xarelto
#Essential hypertension
#Chronic anemia
- Monitor Hgb -- stable overall
#History of Strokes
- Continue statin
#Type 2 diabetes mellitus
- Hold metformin
- Insulin sliding scale
#Chronic anemia
#Hyperlipidemia
- Continue Zetia
#Anxiety/depression
- Continue Lexapro, mirtazapine
#Dementia
- Continue memantine
DNR/DNI
DVT prophylaxis Xarelto
Feeding/PO Intake: Per Speech on 09/27/25: 'Video swallow study completed for Jaime Phillips. His swallowing was very variable. He had silent aspiration of thin liquids via consecutive cup sips, mildly thick liquids via tsp, moderately thick
liquids via tsp, and aspiration w/ an ineffective cough with mildly thick liquids via consecutive cup sips. No penetration/aspiration occurred w/ single cup sips of thin liquids. Recommend trial of the following: IDDSI 6 soft/bite sized (no mixed
consistencies - no soup, no fruit cups), thin liquids via single cup sips, meds in puree. Will need supervision/assist with meals. Thank you.'
On 09/26/25, I called patient's sister Eve, we discussed tube feeding for the patient, she said the patient does not like tube feeding, but she also said she will return to this area on 09/27/25 and can discuss with the patient tube feeding.
On 09/27/25, I called patient's sister Eve, we discussed tube feeding for the patient, she said the patient does not like tube feeding, but she also said she will return to this area on 09/27/25 and can discuss with the patient tube feeding.
Acute strokes is a high risk encounter.
Anticipated Discharge: 24 - 48 hours
Subjective/Interval History
-
Date of Service: September 28, 2025
Patient was seen and examined. He denied any new symptoms or complaints, he said he was feeling better today.
Objective Data
-
Labs:
Laboratory Results
09/28/25
06:00
WBC Pending
Hgb Pending
Hct Pending
Plt Count Pending
Sodium Pending
Potassium Pending
Chloride Pending
Carbon Dioxide Pending
BUN Pending
Creatinine Pending
Glucose Pending
Calcium Pending
Vital Signs:
Vital Signs
Temp Pulse Resp BP Pulse Ox
97.2 F 98 16 107/73 92
09/28/25 03:37 09/28/25 03:37 09/28/25 03:37 09/28/25 03:37 09/28/25 03:37
I&O
09/27/25 09/28/25 09/29/25
06:59 06:59 06:59
Intake Total 602 / 602 1100 / 1100
Output Total 400 / 400
Balance 602 / 602 700 / 700
--- NOTE | 2025-09-28 08:15 | W.PN.NEURO.1 ---
Today's Communication / Plan
-
Unlikely the patient has had worsening of speech due to these punctate changes. Despite that, would change rivaroxaban to apixaban because of the possibility of failure of the former anticoagulant
Continue current medications
Goal of normoglycemia
Goal of normotension
Continue rehabilitation
Neuro Assessment/Plan
Assessment
Abrupt onset of worsening dysarthria. The patient has a prior history of dysarthria following stroke in February 2025 at which time a PEG tube was placed and again in June 2025.
Presence of bilateral acute ischemic strokes currently suggest continued embolic etiology. There is the possibility of minor failure by rivaroxaban
Plan
Unlikely the patient has had worsening of speech due to these punctate changes. Despite that, would change rivaroxaban to apixaban because of the possibility of failure of the former anticoagulant
Continue current medications
Goal of normoglycemia
Goal of normotension
Continue rehabilitation
We will follow as outpatient
Subjective/Objective
Subjective Data
Date of Service: September 28, 2025
Objective Data
Vital Signs
Temp Pulse Resp BP Pulse Ox
36.2 C 93 16 112/75 95
09/28/25 07:45 09/28/25 07:45 09/28/25 07:45 09/28/25 07:45 09/28/25 07:45
Sodium 141 mmol/L (135-145) 09/27/25 07:54
Potassium 4.2 mmol/L (3.5-5.1) 09/27/25 07:54
BUN 23 mg/dl (9-20) H 09/27/25 07:54
Glucose 107 mg/dl (70-99) H 09/27/25 07:54
Calcium 8.5 mg/dl (8.4-10.2) 09/27/25 07:54
Fxm-W-Bkjvbqemvds Pept 66482 pg/ml 09/24/25 17:06
LDL Cholesterol, Calc Cancelled 09/27/25 10:21
Patient Allergies
digoxin Allergy (Verified 06/30/25 14:32)
Unknown
Data Reviewed
-
MRI Head: Report Reviewed and Image Reviewed
Labs: Report Reviewed
Reviewed with: Physician and Nurse Practioner
Old Records: Summarized
Past History
Past History
ED Past Medical History: Arrthythmia (Afib), CAD, CVA (Punctate left occipital lacunar), HTN and Valvular disease
ED Past Surgical History: Cardiac
Social History
Tobacco: Non-smoker
Alcohol: None
Drug: None
Personal: Single
Living: other
Employment: Retired
Family History
Family History: CAD
Medications
-
Medications:
Generic Name Dose Route Start Last Admin
Trade Name Freq PRN Reason Stop Dose Admin
Acetaminophen 650 mg 09/27/25 20:15
Acetaminophen (Oral Solution) 650 Mg/20.3 Ml Cup PO 10/25/25 09:23
Q4HPRN PRN
mild pain/BROWN/temp> 100.4F
Amiodarone HCl 200 mg 09/27/25 21:00 09/27/25 21:08
Amiodarone 200 Mg Tablet PO 10/25/25 20:59 200 mg
BID DONNIE Administration
Apixaban 5 mg 09/27/25 20:00 09/27/25 21:06
Apixaban (Eliquis) 5 Mg Tablet PO 10/25/25 19:59 5 mg
BID DONNIE Administration
Atorvastatin Calcium 20 mg 09/27/25 22:00 09/27/25 21:09
Atorvastatin (Lipitor) 20 Mg Tablet PO 10/22/25 21:59 20 mg
HS DONNIE Administration
Cyanocobalamin 1,000 mcg 09/28/25 08:00
Cyanocobalamin (Vitamin B-12) 500 Mcg Tablet PO 10/26/25 07:59
DAILY DONNIE
Dextrose 12.5 grams 09/27/25 03:52
Dextrose 50% (0.5 Grams/Ml) 50 Ml Syringe IV 10/25/25 03:51
[id number] PRN
hypoglycemia
Protocol
Docusate Sodium 100 mg 09/27/25 21:00 09/27/25 21:08
Docusate Sodium Liquid (100 Mg/10 Ml) Cup PO 10/25/25 20:59 100 mg
BID DONNIE Administration
Ezetimibe 10 mg 09/28/25 08:00
Ezetimibe (Zetia) 10 Mg Tablet PO 10/26/25 07:59
DAILY DONNIE
Escitalopram Oxalate 10 mg 09/27/25 22:00 09/27/25 21:09
Escitalopram 10 Mg Tablet PO 10/22/25 21:59 10 mg
HS DONNIE Administration
Glucagon 1 mg 09/27/25 03:52
Glucagon 1 Mg Vial IM 10/25/25 03:51
PRN PRN
hypoglycemia
Protocol
Doxycycline Hyclate 100 mg/ 260 mls @ 260 mls/hr 09/25/25 00:00 09/28/25 00:19
Sodium Chloride IV 260 mls
Q12H DONNIE Administration
Ampicillin Sodium/Sulbactam 120 mls @ 240 mls/hr 09/25/25 21:25 09/28/25 04:21
Sodium 3 gm/ Sodium Chloride IV 120 mls
Q6H DONNIE Administration
Insulin Aspart 0 units 09/27/25 15:52 09/27/25 16:29
Insulin Aspart Low Resistance 300 Units/3 Ml Pen.Injctr SC 10/25/25 05:59 Not Given
AC DONNIE
Protocol
Magnesium Oxide 400 mg 09/28/25 08:00
Magnesium Oxide 400 Mg Tablet PO 10/26/25 07:59
DAILY DONNIE
Melatonin 5 mg 09/27/25 22:00
Melatonin 5 Mg Tablet PO 10/22/25 21:59
HSPRN PRN
Sleep
Memantine 10 mg 09/27/25 21:00 09/27/25 21:08
Memantine 10 Mg Tablet PO 10/25/25 20:59 10 mg
BID DONNIE Administration
Metoprolol Succinate 12.5 mg 09/28/25 08:00
Metoprolol 12.5 Mg Extended Release Dose (1/2 Of 25 Mg Xl Tablet) PO 10/26/25 07:59
DAILY DONNIE
Midodrine 10 mg 09/27/25 22:00 09/27/25 21:09
Midodrine 5 Mg Tablet PO 10/25/25 21:59 10 mg
TID DONNIE Administration
Mirtazapine 7.5 mg 09/27/25 22:00 09/27/25 21:09
Mirtazapine 7.5 Mg Regular Release Tablet PO 10/22/25 21:59 7.5 mg
HS DONNIE Administration
Pantoprazole Sodium 40 mg 09/25/25 08:00 09/27/25 08:59
Pantoprazole 40 Mg Delayed Release Tablet PO 10/23/25 07:59 40 mg
DAILY DONNIE Administration
Pyridoxine HCl 50 mg 09/28/25 08:00
Pyridoxine 50 Mg Tablet PO 10/26/25 07:59
DAILY DONNIE
Sennosides 8.6 mg 09/28/25 08:00
Sennosides (Senokot) 8.6 Mg Tablet PO 10/26/25 07:59
DAILY DONNIE
Sodium Chloride 0 flush 09/24/25 23:00
Sodium Chloride 0.9% (Flush) Syringe IV 10/22/25 22:59
PER PROTOCOL DONNIE
[2025-09-28 09:08] LABS: Hematocrit 30.0 % (39.0-52.0); Hemoglobin 9.0 g/dL (13.0-18.0); Mean Corp Hgb Conc. 30.0 g/dL (33.0-37.0); Mean Corpuscular Volume 79.8 fL (80.0-94.0); Platelet Count 314 10^3/uL (130-400); Red Cell Dist. Width 19.6 % (11.5-14.5)
[2025-09-28 09:17] LABS: Glucose - Point of Care 150 mg/dl (70-99)
[2025-09-28] MEDS: MAGNESIUM OXIDE 400 MG PO (09:18)
[2025-09-28] MEDS: VITAMIN B-12 1000 MCG PO (09:18)
[2025-09-28] MEDS: ZETIA 10 MG PO (09:18)
[2025-09-28] MEDS: PACERONE 200 MG PO ×2 (09:18→20:03)
[2025-09-28] MEDS: PROTONIX 40 MG PO (09:20)
[2025-09-28] MEDS: ELIQUIS 5 MG PO ×2 (09:21→20:03)
[2025-09-28] MEDS: VITAMIN B-6 50 MG PO (09:22)
[2025-09-28] MEDS: SENOKOT 8.6 MG PO (09:22)
[2025-09-28] MEDS: NAMENDA 10 MG PO ×2 (09:22→20:03)
[2025-09-28] MEDS: TOPROL XL 12.5 MG PO (09:23)
[2025-09-28] MEDS: COLACE LIQUID 100 MG PO (09:23)
[2025-09-28 09:34] LABS: Blood Urea Nitrogen 22 mg/dl (9-20); Calcium 8.7 mg/dl (8.4-10.2); Carbon Dioxide 22 mmol/L (22-30); Chloride 109 mmol/L (98-107); Estimated Creatinine Clearance 68 ml/min; Glucose 119 mg/dl (70-99); Potassium 4.1 mmol/L (3.5-5.1); Sodium 139 mmol/L (135-145); eGFR > 60.00
[2025-09-28] MEDS: NOVOLOG FLEXPEN-LOW RESISTANCE 1 UNITS SC ×2 (09:53→12:33)
--- NOTE | 2025-09-28 10:56 | PN.CDI ---
CDI
- -
CDI:
Physician Documentation Request
Admit Date: 09/24/25 19:15
Dear ,
Sepsis without organ dysfunction is no longer used within our health system. These cases are now coded as the primary infection, not as sepsis.
[facility] is using an adapted version of the 2016 Third International Consensus Definitions for Sepsis and Septic Shock (Sepsis-3) where sepsis is defined as life threatening organ dysfunction caused by a deregulated host response to infection.
Please reference the official [facility] Sepsis Recognition Tool for further information, which is available on the Intranet under Infection Prevention.
Clinical Indicators Include:
Progress Notes state 'Sepsis(leukocytosis, tachycardia, tachypnea ) secondary to multifocal pneumonia'
Labs:
WBC: 12.6
Creatinine: 1.3
Platelets: 306
Bilirubin: 0.8
Based on your medical judgment, please review the documentation pertaining to Sepsis due to pneumonia and further clarify the clinical indicators and any organ dysfunction associated with the diagnosis, if applicable:
� Sepsis ruled out, pneumonia only
� Sepsis due to pneumonia with organ dysfunction of
� Other
� Clinically Unable to Determine
Use of terms such as suspected, likely, concern for, or probable (associated with a specific diagnosis that is being evaluated, monitored, or treated as if it exists) are acceptable and can be coded in the inpatient setting when documented at the
time of discharge.
Please use your independent medical judgement in providing your response.
Thank you,
Erika Clarke RN, BSN
CDI Specialist
tiger text
--- NOTE | 2025-09-28 11:02 | PN.CDI ---
CDI
- -
CDI:
Physician Documentation Request
Admit Date: 09/24/25 19:15
Dear Doctor Irma,
Patient progress notes include a diagnosis of atrial fibrillation.
09/24 EKG shows atrial fibrillation
Please provide further specificity regarding atrial fibrillation:
Paroxysmal atrial fibrillation - terminates spontaneously or with intervention within 7 days of onset
Persistent atrial fibrillation - episodes of continuous AF that last more than 7 days and do not self-terminate
Permanent atrial fibrillation - when a decision has been made to accept the presence of AF and there is no further attempt to restore or maintain sinus rhythm
Other - please specify
Use of terms such as suspected, likely, concern for, or probable (associated with a specific diagnosis that is being evaluated, monitored, or treated as if it exists) are acceptable and can be coded in the inpatient setting, when documented at the
time of discharge.
Thank you,
Erika Clarke RN, BSN
CDI Specialist
tiger text
Please use your independent medical judgment in providing your response.
[2025-09-28 11:32] LABS: Glucose - Point of Care 157 mg/dl (70-99)
--- NOTE | 2025-09-28 11:45 | CON.CAR ---
Addendum entered and electronically signed by Lorenzo Schulte MD 09/28/25 18:30:
I saw and examined the patient.
The Police Investigator's note was reviewed and I agree with the note.
Comment:
GEN: No distress, awake, Ox3
HEENT: supple, anicteric, mmm
LUNGS: CTA, no wheezes/rales
CV: irreg, S1/S2, 1/6 syst LSB, no gallop
ABD: soft, BS+, NT/ND
EXT: No edema
NEURO: Mild dysarthria
SKIN: No rash
PLan:
80-year-old male with past medical history of coronary artery status post CABG, TAVR, chronic heart failure with reduced ejection fraction, persistent atrial fibrillation, hypertension, orthostasis, stroke, dementia, and anemia presents with another
episode of dysarthria and stroke. He had a large stroke in February 2025 requiring PEG tube. He then had a second episode in June 2025 where he was found to be in atrial fibrillation. At that point his Xarelto was increased from 2015 mg to 20 mg.
LVEF revealed an ejection fraction of 37% with a stable TAVR. His amiodarone dose has been adjusted due to poor heart rate control. He also has hypotension and orthostasis. This hospitalization he presented with more shortness of breath and cough
was found to have pneumonia but with increased dysarthria brain MRI showed multiple new bihemispheric strokes. We are asked to comment on his anticoagulation.
He has failed Xarelto and agree with initiating Eliquis 5 mg p.o. twice daily. Unfortunately he also has new progressive anemia. Ideally we would add aspirin to his Eliquis but at this point I would hold off. Consider evaluation for microcytic
anemia.
I reviewed his echo. His ejection fraction looks poor at 20%. This is worse than his previous admission. His transcatheter aortic valve overall looks stable. He needs improved rate control.
Continue amiodarone and low-dose Toprol. Will add digoxin 0.125 mg daily to try to help with ventricular rates.
Continue treatment for pneumonia. Continue antibiotics.
Continue midodrine for blood pressure support.
Long-term prognosis appears poor. I would likely hold off on ischemic evaluation for now.
Original Note:
Consultation
Consultation Request
Date/Time Consultation Performed: 09/28/25
Requesting Provider: Dr. Solis
Performing Provider: Danika Hurt PA-C for Dr. Schulte
Reason for Consultation: afib, CVAs
Medical History
-
Chief Complaint: SOB
History of Present Illness:
Jaime is an 80 year old male with PMH of CAD s/p CABG x 3, TAVR, chronic HFrEF, paroxysmal atrial fibrillation on chronic amiodarone, HTN, orthostasis, HLD, TIA, dementia, and anemia. He was diagnosed with acute stroke at [facility] 02/2025 requiring a
PEG tube. He was then readmitted 06/2025 with slurred speech, shortness of breath and found to be in A-fib. Brain MRI showed new subacute infarct, and based on this his Xarelto was increased from 15 mg every afternoon to 20 mg every afternoon. he
was started on amiodarone for rate control and was diuresed for proBNP of 21,000. Echocardiogram during 06/2025 admission showed reduction in ejection fraction to 37%, with stable TAVR gradients. Hypotension and orthostasis have prevented up
titration of GDMT. His amiodarone dose has been adjusted due to fluctuating heart rates. He is felt to be persistent. He then presented back to [facility] due to shortness of breath and cough and found to have multifocal pneumonia, COVID and flu
negative. He feels as though he is improving in this regard. Then reported worsening dysphagia and dysarthria and brain MRI showed multiple new bihemispheric strokes. He lives at a facility and presumably has been compliant with his
anticoagulation (Xarelto). Cardiology consulted for evaluation
PMH:
CAD
s/p CABG x 3 in 2018
s/p TAVR 2018
Chronic HFrEF
Cardiomyopathy EF 37% by echo 06/2025
Paroxysmal atrial fibrillation
Chronic amiodarone therapy
Chronic Xarelto therapy
HTN
h/o orthostasis, on chronic midodrine
HLD
h/o TIA/CVA 02/2025, 06/2025
Dementia
Chronic anemia
Past Medical History
Past Medical History: Other (In HPI)
Past Surgical History: Cardiac (TAVR 06/15/2019, CABG x 3 2017)
Social History
Tobacco: Non-Smoker
Alcohol: None
Drug: None
Living: Assisted Living
Employment: Retired
Family History
Family History: Reviewed & Not Pertinent
Allergies / Home Medications
Allergy/AdvReac Type Severity Reaction Status Date / Time
digoxin Allergy Unknown Verified 06/30/25 14:32
�Medication �Instructions �Recorded �Confirmed �Type
atorvastatin 20 mg tablet 20 mg PO HS High cholesterol 01/03/21 09/24/25 History
metformin 500 mg tablet 500 mg PO BID@0800,1700 Diabetes 01/03/21 09/24/25 History
memantine 10 mg tablet 10 mg PO BID dementia 11/30/21 09/24/25 History
docusate sodium 100 mg capsule 100 mg PO BID feeding tube/STOOL 03/26/25 09/24/25 History
(Colace) SOFTEN
pantoprazole 40 mg tablet,delayed 40 mg PO DAILY feeding tube 03/26/25 09/24/25 History
release (Protonix)
sennosides 8.6 mg tablet (senna) 8.6 mg PO DAILY Constipation 03/26/25 09/24/25 History
cyanocobalamin (vitamin B-12) 1,000 mcg PO DAILY Supplement 06/30/25 09/24/25 History
1,000 mcg tablet
escitalopram oxalate 10 mg tablet 10 mg PO HS Depression 06/30/25 09/24/25 History
(Lexapro)
magnesium oxide 400 mg PO DAILY Supplement 06/30/25 09/24/25 History
melatonin 5 mg tablet 5 mg PO HSPRN PRN Sleep 06/30/25 09/24/25 History
midodrine 10 mg tablet 10 mg PO TID Blood Pressure 06/30/25 09/24/25 History
mirtazapine 7.5 mg tablet 7.5 mg PO HS Mental Health/Anxiety 06/30/25 09/24/25 History
pyridoxine (vitamin B6) 50 mg 50 mg PO DAILY Supplement 06/30/25 09/24/25 History
tablet
amiodarone 200 mg tablet (Pacerone) 200 mg PO BID #45 tabs 07/05/25 09/24/25 Rx
ezetimibe 10 mg tablet 10 mg PO DAILY #30 tabs 07/05/25 09/24/25 Rx
metoprolol succinate 25 mg 12.5 mg (1/2 x 25 mg) PO DAILY #30 07/05/25 09/24/25 Rx
tablet,extended release 24 hr tabs
rivaroxaban 20 mg tablet (Xarelto) 20 mg PO DAILY #30 tabs 07/05/25 09/24/25 Rx
dapagliflozin propanediol 10 mg 10 mg PO DAILY Diabetes 09/25/25 09/24/25 History
tablet
furosemide 40 mg tablet 40 mg PO DAILY Fluid 09/25/25 09/24/25 History
Retention/Swelling
Review of Systems
-
History Source: Patient
All other systems: Negative unless noted
Physical Exam
Vital Signs
Temp Pulse Resp BP Pulse Ox
97.2 F 93 16 112/75 95
09/28/25 07:45 09/28/25 07:45 09/28/25 07:45 09/28/25 07:45 09/28/25 07:45
Lab Results
09/28/25 08:04
09/28/25 08:04
Troponin I < 0.012 ng/ml 09/24/25 17:06
Dvo-K-Tnmcbpllrsf Pept 44186 pg/ml 09/24/25 17:06
Physical Exam
General: No Apparent Distress and Comfortable
HEENT: Normocephalic, Anicteric and Moist Mucous Membranes
Respiratory: Rhonchi (scattered) and Non Labored Respirations
Cardiac: S1/S2, Irregular Rhythm and Murmur
GI: Soft, Non Tender, Non Distended and Normal Bowel Sounds
Musculoskeletal: No Clubbing, No Cyanosis and No Edema
Skin: Warm and Dry
Neuro: AO x 3
Impression / Plan
-
Primary Stereo Compiler: Dr. Hurley
Assessment:
Presentation with SOB, cough
Multifocal PNA
Worsening dysarthria
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
CAD
s/p CABG x 3 in 2018
s/p TAVR 2019
Chronic HFrEF
Cardiomyopathy EF 37% by echo 06/2025
Paroxysmal atrial fibrillation
Chronic amiodarone therapy
Chronic Xarelto therapy
HTN
h/o orthostasis, on chronic midodrine
HLD
h/o TIA/CVA 02/2025, 06/2025
Dementia
Chronic anemia
DNR code status
Echo 12/01/2021: LVEF 45-50%, Mild LVH, Nl Fxn of TAVR with Pk and mean 17/9 and no AI. PAP 16-21 mm Hg
Echo 12/11/2023: EF 46%, mild MR, s/p TAVR with w/ peak/mean gradients 25/13 mmHg
Echo 02/24/2025: EF 50-55%, mild MR, s/p TAVR peak/mean gradients 24/12 mmHg, mild TR
Echo 07/01/2025: EF 37%, global hypokinesis, akinesis of basal anteroseptal segment, s/p TAVR w/ peak/mean gradients 21/9 mmHg, mild TR
Plan:
- Patient presented with shortness of breath and cough and was diagnosed with multifocal pneumonia, COVID and flu negative. He feels he is improving from the standpoint
- Then reported worsening dysarthria and dysphagia and underwent brain imaging including MRI which showed small scattered foci of subacute to acute infarction involving left frontal and parietal lobes and right frontal lobe, also with multiple small
foci of old infarction. Neurology following. Concern for Xarelto failure, transitioned to Eliquis 5mg BID
- Given history of CAD, would also consider addition of antiplatelet agent to regimen, however difficult scenario as also has issues with chronic anemia
- Last echo from 06/2025 with EF 37%. Would repeat to reassess EF, and also rule out thrombus. He is someone who could be considered for a JIM at some point, however given issues with ongoing dysphagia and new strokes, would attempt to avoid
sedation at this time if possible
- In rate controlled A-fib with PVCs on review of telemetry since admission. Currently on amiodarone 200 mg twice daily, however dose has been as low as 100mg daily in past due to bradycardia. He has historically been rate controlled given his
issues with multiple stroke events
- GDMT of cardiomyopathy is limited due to hypotension. He requires midodrine 10 mg 3 times daily. He is taking Toprol 12.5 mg daily as well as Farxiga as outpatient.
- Would consider diuresis with IV Lasix. proBNP 13,[address] neck [address] showed evidence of bilateral pleural effusions. Cr stable. On p.o. Lasix 40 mg daily as outpatient
- Continue PT/OT/speech therapy
Data Reviewed
-
EKG: Tracing Personally Visualized and interpreted
CT Scan: Report Reviewed by me
MRI: Report Reviewed by me
Medical Tests (Nuc Med, Echo etc): Report Reviewed by me
Labs: Labs Reviewed by me
Old Records: Reviewed
--- NOTE | 2025-09-28 11:59 | CM ---
CM reviewed chart, spoke with patients sister, Eve, regarding therapy recommendations.
Sister inquiring if patient would be appropriate for [facility], TT to Physical Therapy.
Physician to order PMR.
Sister would like referral to [facility] SNF as back up option. Sister reports where patient currently resides, [facility], patient cannot return and needs to be independent with ambulation.
CM will continue to follow for all d/c planning needs.
Plan; PM[facility] consult vs [facility]
--- NOTE | 2025-09-28 14:45 | PTOTSP ---
Speech Therapy Evaluation:
Given acute CVA and pt/sister report of changes in cognition, the MOCA was administered. Pt's sister reported pt cannot read/write at baseline, therefore the MOCA Blind (version 7.1) was given. Pt earned an overall score of 8/30, indicative of
severe cognitive deficits per parameters of this assessment. Pt earned reductions in attention, language, abstraction, delayed recall, and orientation. Suspect some level of performance is baseline given hx of Dementia, however per sister,
performance on assessment is consistent with decline from baseline function.
Pt would benefit from ongoing [employer] services at the acute level and following d/c to target functional cognitive linguistic skills.
--- NOTE | 2025-09-28 15:03 | CON.MD ---
Documented by User: Gregoria Reece PA-C 09/28/25 17:43
Consultation - Medical
-
Referring Provider:�Giovanni Silver
Chief Complaint:�CVA, Pneumonia
�
History of Present Illness:�This is an 80-year-old male with PMH of (CAD s/p CABG x 3, TAVR, chronic HFrEF, paroxysmal atrial fibrillation on chronic amiodarone, HTN, orthostasis, HLD, TIA, dementia, and anemia, acute stroke at [facility] 02/2025 requiring
a PEG tube). He was then readmitted 06/2025 with slurred speech, shortness of breath and found to be in A-fib. Brain MRI showed new subacute infarct, and based on this his Xarelto was increased from 15 mg every afternoon to 20 mg every afternoon. he
was started on amiodarone for rate control and was diuresed for proBNP of 21,000. Echocardiogram during 06/2025 admission showed reduction in ejection fraction to 37%, with stable TAVR gradients. Hypotension and orthostasis have prevented up
titration of GDMT. His amiodarone dose has been adjusted due to fluctuating heart rates. He is felt to be persistent.
He then presented back to [facility] on 09/24/2025 due to shortness of breath and cough and found to have multifocal pneumonia, COVID and flu negative. He feels as though he is improving in this regard. Then reported worsening dysphagia and dysarthria
and brain MRI showed multiple new bihemispheric strokes. He lives at a facility and presumably has been compliant with his anticoagulation (Xarelto).
CTA head/neck 09/27/25: No acute intracranial abnormality identified. Negative for major branch vessel occlusion, flow-limiting stenosis, dissection, or aneurysm formation. Secretions within the trachea. Bilateral consolidation most likely related to
pneumonia, worse on the right. Bilateral small pleural effusions, greater on the right. 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
MRI of the brain�09/27/2025- with small scattered foci of acute to subacute infarction involving the left frontal and parietal lobes, a punctate focus of acute to subacute infarct involving the white matter of the right frontal lobe.
Neurology assessment is that the Presence of bilateral acute ischemic strokes currently suggest continued embolic etiology. There is the possibility of minor failure by rivaroxaban.
Unlikely the patient has had worsening of speech due to these punctate changes. Despite that, would change rivaroxaban to apixaban because of the possibility of failure of the former anticoagulant.
Evaluated by speech therapy with video swallow study. Recommended soft/bite-size solids and no mixed consistencies such as no soup no fruit cups. Thin liquids via single cup sips. Medications in pur�e. Full supervision, assist to use strategies,
single cup sips, no straws slow rate. Dysphagia treatment at the acute care level recommended.
Being treated for pneumonia- was given vancomycin/cefepime in ER. Currently on Unasyn and Doxycycline. Strep and Legionella antigens are both negative, MRSA negative
IV fluids was stopped on 09/25/25 given history of HFrEF.
Video swallow study completed . His swallowing was very variable. He had silent aspiration of thin liquids via consecutive cup sips, mildly thick liquids via tsp, moderately thick liquids via tsp, and aspiration w/ an ineffective cough with mildly
thick liquids via consecutive cup sips. No penetration/aspiration
Patient seen at bedside. Looking well. He recognized me from his previous stay at [facility]. He reports to have been living in [facility] facility on a monthly basis. He is looking for an alternative facility as he needs to be
independent in order to return there. He reports also since he is discharged from SNF he has been doing well and has been eating soft and bite-size consistent diet. He still has his PEG tube from his prior admission. He says that he did follow-up
with GI but was told to come back in 3 to 4 months for its removal. He denies any chest pain, shortness of breath, dizziness, lightheadedness, nausea, vomiting, fever, chills, dysuria, abdominal pain. He would like to come back to [facility] to get
better.
�
Past Medical History:�Aortic stenosis, paroxysmal A-fib, CAD, CHF�HFrEF, dementia, HTN, hypercholesterolemia, NIDDM, valvular disease, midodrine/Florinef dependent orthostatic hypotension
Procedure History:�TAVR, b/l cataract removal, PEG tube
Family History:�cancer, CAD
�
Social History:�
Functional Level Premorbidly:�Assisted with all activities�, ambulates with a rolling walker
Functional Level Currently:�Bed mobility�min assist, transfer�min assist,�mild posterior lean noted in stance. Cues to stand upright and utilize rolling walker better. Ambulated 25 feet with rolling walker�min assist with slow gait, steady with
rolling walker, forward flexed posture, weakness noted to left lower extremity,
�
Tobacco:�Former smoker
Alcohol:�Denies�
Drug use:�Denies�
Lives with:�Assisted living, friends Eliu was staying there on a monthly basis.
24-hour assistance available:�yes
Number of floors:�1
# steps to enter:�0
Driving:�No
Occupation:�Retired
�
�
�
Allergies:�
Allergy/AdvReac Type Severity Reaction Status Date / Time
digoxin Allergy Unknown Verified 06/30/25 14:32
Review of Systems:�
Constitutional: (x) abNormal _fatigue
Eye: (x) Normal _
Ear/Nose/Throat: (x) Normal _
Respiratory: (x) abNormal _pneumonia
Cardiovascular: (x) abNormal _chronic orthostasis
Gastrointestinal: (x) abNormal _dysphagia
Genitourinary: (x) Normal _
Musculoskeletal: (x) abNormal _arthritis all over especially left shoulder and both knees . Dysarthria
Integumentary: (x) Normal _
Neurologic: (x) abNormal _stroke, dysarthria. cognitive deficits
Psychiatric: (x) Normal _
Endocrine: (x) Normal _
Hematologic/Lymphatic: (x) Normal _
Allergic/Immunologic: (x) Normal _
�
Medications:�
Active Current Visit Medication List
Category Date Time Status
Acetaminophen [Tylenol Oral Solution] Med 09/27/25 20:15 Active
650 mg PO Q4HPRN PRN
Amiodarone [Pacerone] Med 09/27/25 21:00 Active
200 mg PO BID
Ampicillin/Sulbactam 3 G [Unasyn] 3 gm Med 09/25/25 21:25 Active
0.9% Sodium Chloride 100 ml [Nss] 100 ml
IV Q6H
Apixaban [Eliquis] Med 09/27/25 20:00 Active
5 mg PO BID
Atorvastatin [Lipitor] Med 09/27/25 22:00 Active
20 mg PO HS
Cyanocobalamin [Vitamin B-12] Med 09/28/25 08:00 Active
1,000 mcg PO DAILY
Dextrose 50%-Water [Dextrose 50% Syringe] Med 09/27/25 03:52 Active
12.5 grams IV [id number] PRN
Docusate Sodium [Colace Liquid] Med 09/27/25 21:00 Active
100 mg PO BID
Doxycycline Hyclate [Vibramycin] 100 mg Med 09/25/25 00:00 Active
0.9% Sodium Chloride 250 ml [Nss] 250 ml
IV Q12H
Escitalopram Oxalate [Lexapro] Med 09/27/25 22:00 Active
10 mg PO HS
Ezetimibe [Zetia] Med 09/28/25 08:00 Active
10 mg PO DAILY
Flush (0.9% Sodium Chloride) [Flush (Nss)] Med 09/24/25 23:00 Active
See Dose Instructions IV PER PROTOCOL
Glucagon [GlucaGen] Med 09/27/25 03:52 Active
1 mg IM PRN PRN
Insulin Aspart Corrective Low [Novolog Flexpen-Low Med 09/27/25 15:52 Active
Resistance]
See Protocol SC AC
Magnesium Oxide Med 09/28/25 08:00 Active
400 mg PO DAILY
Melatonin Med 09/27/25 22:00 Active
5 mg PO HSPRN PRN Sleep
Memantine HCl [Namenda] Med 09/27/25 21:00 Active
10 mg PO BID
Metoprolol Xl [Toprol Xl] Med 09/28/25 08:00 Active
12.5 mg PO DAILY
Midodrine [ProAmatine] Med 09/27/25 22:00 Active
10 mg PO TID
Mirtazapine [Remeron] Med 09/27/25 22:00 Active
7.5 mg PO HS
Pantoprazole [Protonix] Med 09/25/25 08:00 Active
40 mg PO DAILY
Pyridoxine [Vitamin B-6] Med 09/28/25 08:00 Active
50 mg PO DAILY
Sennosides [Senokot] Med 09/28/25 08:00 Active
8.6 mg PO DAILY
�
Vitals:�
Temp Pulse Resp BP Pulse Ox
97.6 F 108 26 113/84 97
09/28/25 15:08 09/28/25 15:08 09/28/25 15:08 09/28/25 15:08 09/28/25 15:08
Height 6 ft 1 in
Actual Weight 75.438 kg
Body Mass Index (BMI) 21.9
�
Physical Exam:�
General Appearance/Observation: Well-developed, well-nourished male in no apparent distress.�
Pain/Comfort Assessment:
Mood/Affect: Appropriate�, pleasant, smiling
�
Integumentary/Operative Site:�
�� Pressure Ulcer Evaluation: absent over heels.�
�
Eyes: Conjunctiva/Lids: normal���� Pupils: pupils equal round and reactive to light and Accommodation�
Ears/Nose/Throat: oral mucosa moist,� throat clear.������������ Lips/Teeth/Gums: normal�
Neck: No muscle spasm or tenderness�
Cardiovascular: Heart: irregular, no murmur�
Pulses: dorsalis pedis 2+ bilaterally�
Respiratory: Respiratory Effort/Chest Expansion: normal������� Auscultation: coarse sounds right upper lobes and diminished BS lower lobes bilaterally
Gastrointestinal: abdomen not tender, no distension, normal abdominal bowel sounds, PEG tube still in place from months ago- tube with some cloudiness
Genitourinary: No [place]�
Extremities:�Edema: None�Cyanosis: None�Trophic�changes: None, stasis changes
�
Neurology Exam:
Orientation: Alert, Oriented to self, Said December 2004. recognized me from [facility] stay
Memory: Intact for recent medical concerns
Comprehension: Intact for basic information
Two step command: needs time and repeating
Naming: intact
Calculations: says cannot do calculations.
Cranial Nerves:
�� CNII:�Pupillary light reflex: Intact����Visual Field: Intact
�� CN III, IV, : Extraocular muscles: Intact�
�� CN V:�Facial Sensation�at�Forehead: Intact,�Maxilla: Intact,�Mandible: Intact
�� CN VII:�Facial movement: Symmetrical
�� CN VIII:�Hearing: Normal
�� CN IX/X:�Speech & swallow:moderate Dysarthria, dysphagia, wet voice,�Position of Uvula: Midline
�� CN XI:�Shoulder shrug: Symmetric
�� CN XII:�Tongue protrusion: Midline
Sensory:
�� Light touch: Intact in bilateral upper and lower extremities
Reflexes:
�� Biceps: 2+ bilaterally
�� Brachioradialis: 2+ bilaterally
�� Triceps: 2+ bilaterally
�� Patellar: 2+ bilaterally
�� Achilles: 2+ bilaterally
�� Babinski: Down going bilaterally
�� Clonus: None
�� Donte: Negative bilaterally�
Cerebellar: Dysmetria/Ataxia: intact
Musculoskeletal: Motor: (Manual muscle scale 0-5)�
Muscle SA EF WE EE FF FA HF KE DF EHL PF
Right� 4+ 5 4 4+ 4 4 5 5 5 5 5
Left 4+ 4+ 4 4+ 4 4 4 4 5 4 4
�
Tone: Normal in all extremities�
Range of Motion: general arthritis, unable to get past about 60 degrees actively on the left
�
Lab Results:
Labs
WBC 11.3 10^3/uL (4.8-10.8) H 09/28/25 08:04
RBC 3.76 10^6/uL (4.70-6.10) L 09/28/25 08:04
Hgb 9.0 g/dL (13.0-18.0) L 09/28/25 08:04
Hct 30.0 % (39.0-52.0) L 09/28/25 08:04
MCV 79.8 fL (80.0-94.0) L 09/28/25 08:04
MCH 23.9 pg (27.0-31.0) L 09/28/25 08:04
MCHC 30.0 g/dL (33.0-37.0) L 09/28/25 08:04
RDW 19.6 % (11.5-14.5) H 09/28/25 08:04
Plt Count 314 10^3/uL (130-400) 09/28/25 08:04
MPV 9.5 fL (7.4-10.4) 09/28/25 08:04
Abs Immat Gran (auto) 0.0 10^3/uL (0-0.05) 09/25/25 07:38
Absolute Neuts (auto) 7.9 10^3/uL (1.4-6.5) H 09/25/25 07:38
Absolute Lymphs (auto) 1.0 10^3/uL (1.2-3.4) L 09/25/25 07:38
Absolute Monos (auto) 0.6 10^3/uL (0.1-0.6) 09/25/25 07:38
Absolute Eos (auto) 0.3 10^3/uL (0-0.7) 09/25/25 07:38
Absolute Basos (auto) 0.0 10^3/uL (0-0.2) 09/25/25 07:38
Immature Gran % 0.4 % (0-0.5) 09/25/25 07:38
Neutrophils % 79.6 % (42.2-75.2) H 09/25/25 07:38
Lymphocytes % 10.5 % (20.5-51.1) L 09/25/25 07:38
Monocytes % 6.5 % (1.7-9.3) 09/25/25 07:38
Eosinophils % 2.7 % (0-6) 09/25/25 07:38
Basophils % 0.3 % (0-2) 09/25/25 07:38
Nucleated RBC % 0 % (-) 09/25/25 07:38
Sodium 139 mmol/L (135-145) 09/28/25 08:04
Potassium 4.1 mmol/L (3.5-5.1) 09/28/25 08:04
Chloride 109 mmol/L (98-107) H 09/28/25 08:04
Carbon Dioxide 22 mmol/L (22-30) 09/28/25 08:04
BUN 22 mg/dl (9-20) H 09/28/25 08:04
Creatinine 0.9 mg/dL (0.7-1.3) 09/28/25 08:04
Estimated Creat Clear 68 ml/min 09/28/25 08:04
eGFR > 60.00 09/28/25 08:04
Glucose 119 mg/dl (70-99) H 09/28/25 08:04
Hemoglobin A1c 6.6 % (4.0-5.9) H 09/25/25 07:38
Calcium 8.7 mg/dl (8.4-10.2) 09/28/25 08:04
Magnesium 1.7 mg/dl (1.6-2.3) 09/27/25 07:54
Total Bilirubin 0.7 mg/dl (0.2-1.3) 09/25/25 07:38
AST 13 U/L (17-59) L 09/25/25 07:38
ALT 10 U/L (0-50) 09/25/25 07:38
Alkaline Phosphatase 82 U/L (38-126) 09/25/25 07:38
Troponin I < 0.012 ng/ml 09/24/25 17:06
Giv-V-Hfwpsvzdglw Pept 86649 pg/ml 09/24/25 17:06
Total Protein 5.5 g/dl (6.3-8.2) L 09/25/25 07:38
Albumin 2.6 g/dl (3.5-5.0) L 09/25/25 07:38
Triglycerides Cancelled 09/27/25 10:21
Total Cholesterol Cancelled 09/27/25 10:21
LDL Cholesterol, Calc Cancelled 09/27/25 10:21
VLDL Cholesterol, Calc Cancelled 09/27/25 10:21
HDL Cholesterol Cancelled 09/27/25 10:21
SARS-CoV-2 Antigen Negative (Negative) 09/24/25 17:06
POC Glucose 157 mg/dl (70-99) H 09/28/25 11:30
�
Diagnostic Results:�as per HPI
Contrast injection evaluation of tube�09/26/2025
INDICATION: Evaluation of gastrostomy tube
COMPARISON: CT of the abdomen and pelvis from June 30, 2025.
FINDINGS: AP radiograph of the abdomen performed as a call specialist radiograph. Following injection of water-soluble contrast agent into patient's gastrostomy tube, immediate and 5 minute delayed abdominal radiographs are obtained.
Gastrostomy tube is present with balloon within the body of the stomach. Injected contrast extends into the stomach and the proximal small bowel, with no evidence for contrast extravasation.
Transcatheter aortic valve replacement is noted as well as sternal wires and metallic left atrial appendage clip.
Moderate to large amount of stool within the colon, suggesting a degree constipation.
IMPRESSION: Gastrostomy tube is present within the stomach. There is no evidence for contrast extravasation.
MRI of the brain without contrast�09/27/2025
There are scattered small foci of abnormal restricted diffusion within the left cerebral hemisphere, with involvement of the frontal and parietal lobes. These are compatible with small foci of acute to subacute infarction.
Superiorly, within the left parietal lobe, there is a 3 mm focus of acute to subacute infarct seen on page 24 of diffusion-weighted images. More inferiorly, there are 2 small foci of acute to subacute infarct in the centrum semiovale bowel of the
posterior left frontal lobe, seen on page 20 and 21 of diffusion-weighted images. On page 21, there is also a 2 mm focus involving the cortex of the posterior left parietal lobe.
On page 18 of diffusion-weighted images, there is a 3 mm focus of acute to subacute infarct involving the white matter of the left frontal lobe at the level of the lateral ventricle.
Additionally, in the white matter of the right frontal lobe, also on page to the diffusion-weighted images, there is a 3 x 2 mm linear focus of increased diffusion-weighted signal and decreased ADC signal, which is also likely a small focus of acute
to subacute infarct.
There are some subtle additional foci of increased diffusion-weighted signal within the brain, but do not have corresponding foci of decreased ADC signal, and therefore likely represent T2-weighted shine through rather than areas of acute to
subacute infarct.
In the right posterior cerebellar hemisphere, inferiorly, small foci of CSF signal intensity, compatible with small foci of old infarction.
Within the right lentiform nucleus, there are 2 foci of CSF signal intensity which likely represent old lacunar infarcts, seen on image 15 of series 701 and image 15 of series 601.
Within the lateral aspect of the left lentiform nucleus, near the junction with the external capsule, there are several small foci of CSF signal intensity, which also likely represent old lacunar infarcts.
Within the white matter lateral to the anterior body of the right lateral ventricle, there is a 8 x 5 mm focus of CSF signal intensity, compatible with old infarct, seen on page 19 of series 701. Slightly more posteriorly within the periventricular
white matter of the right centrum semiovale bowel, seen on page 20 of series 601, there is a 2 mm small focus of old infarct.
Moderate diffuse atrophy in this 80-year-old. Mild to moderate scattered T2 and FLAIR white matter hyperintensities, commonly seen with aging and usually attributed to small vessel ischemic disease. These hyperintensities have not been found to
correlate with a focal neurologic deficit.
Callosal angle appears normal, and findings are not considered highly suggestive of normal pressure hydrocephalus.
Craniocervical junction appears normal with no evidence for Chiari malformation. On sagittal images, at C5-6, posterior disc/osteophyte complex appears to slightly compress the anterior margin of the cervical spinal cord. If there are symptoms
referrable to the cervical spine and further imaging evaluation is desired, consideration for dedicated MRI of the cervical spine.
No gross abnormality of the pituitary gland.
Mild patchy mucosal thickening of the ethmoid sinuses, left greater than right. The rest of the visualized paranasal sinuses appear clear. The mastoid air cells appear clear.
IMPRESSION: There are small scattered foci of acute to subacute infarction involving the left frontal and parietal lobes as described above.
Additionally, there is a punctate focus of acute to subacute infarct involving the white matter of the right frontal lobe.
Multiple small foci of old infarction as described above.
Moderate diffuse atrophy. Mild to moderate scattered T2 and FLAIR white matter hyperintensities, commonly seen with aging and usually attributed to small vessel ischemic disease.
On sagittal sequence, disc/osteophyte complex at C5-6 appears to result in slight compression of the anterior margin of the cervical spinal cord. If there are symptoms referrable to the cervical spine, further evaluation with a full cervical spine
MRI could be considered.
CT head and neck angio with/without-09/27/[address] shows mild bilaterally symmetric prominence of the ventricles and extra-axial CSF spaces representing volume loss. There are bilateral white matter hypodensities which are nonspecific, but most likely related to chronic small
vessel ischemic disease. There is no acute bleed, mass effect, or midline shift. Small chronic infarct right periventricular white matter. No acute loss of ineto-white differentiation is identified. There is no skull fracture.
Following the administration of contrast, aortic arch is normally opacified. Conventional anatomic configuration of the great vessels arising from the arch. There is some calcific plaque formation along the arch at the origins of the great vessels,
no flow-limiting stenosis. There is dilation of the ascending aorta, 4.0 cm diameter. On the right, there is mild narrowing at the origin of the common carotid secondary to tortuosity. Above this level, common carotid is patent without abnormal
narrowing. Large amount calcific plaque formation at the carotid bulb. No significant associated stenosis identified. Above this level, extracranial internal carotid shows no abnormal narrowing. Right vertebral artery is patent without abnormal
narrowing.
On the left, common carotid is patent without abnormal narrowing. Small to moderate calcific plaque formation at the bulb. No significant stenosis. Extracranial internal carotid is patent without abnormal narrowing. Left vertebral artery is patent.
Mild narrowing at its origin secondary to calcific plaque. The left vertebral is mildly dominant as compared to the right.
Intracranially, intradural vertebral arteries are patent. Both show some mild narrowing secondary to calcific plaque formation, no high-grade stenosis. The basilar artery is patent without abnormal narrowing. Bilateral posterior cerebral arteries
are patent without abnormal narrowing. The anterior cerebral arteries are patent without abnormal narrowing. Bilateral proximal middle cerebral artery branches are patent without abnormal narrowing. Intracranial internal carotid arteries show some
calcific plaque formation, no high-grade stenosis. No dissection identified. No aneurysm formation identified. Dural venous sinuses are normally opacified.
No enhancing intracranial lesion. No cervical adenopathy is identified. Thyroid gland evaluation somewhat limited by artifacts, no suspicious lesions identified. There are secretions in the proximal trachea (image #102 series 501). There is a large
amount of abnormal airspace consolidation in the right upper lung. Small amount of consolidation in the left upper lobe. There are bilateral pleural effusions which are small, large on the right as compared to the left. No acute osseous abnormality
is identified. Cervical spine shows absent left-sided lamina at C4, presumably related to previous surgery. Mild to moderate degenerative changes of the spine.
IMPRESSION:
1. No acute intracranial abnormality identified.
2. Negative for major branch vessel occlusion, flow-limiting stenosis, dissection, or aneurysm formation.
3. Secretions within the trachea. Bilateral consolidation most likely related to pneumonia, worse on the right. Bilateral small pleural effusions, greater on the right.
4. Absent left-sided lamina at C4, previous surgery versus congenital anomaly.�
Chest x-ray�09/24/2025
�Lungs: There is mild interstitial opacification with patchy airspace opacities throughout the right lung.
Heart: Cardiac and mediastinal contours are mildly enlarged, similar to prior. Prior aortic valve replacement. Left atrial appendage clip present.
Osseous structures: No acute osseous abnormality. Median sternotomy wires present. Mild atherosclerotic calcifications of the aortic arch.
IMPRESSION:
Diffuse interstitial opacification with patchy airspace opacities probably within the right lung which are most concerning for multifocal pneumonia, less l
Assessment: 80-year-old male with prior CVA in February and June 2025 presented with abrupt onset worsening dysarthria and dysphagia. Found to have bilateral acute ischemic strokes on Xarelto that currently suggested continued embolic etiology.
Neurology recommended switching to Eliquis.
�
Plan�
PM&R�PT/OT to increase independence with ADLs, improve balance, coordination, endurance, strength, mobility, community reintegration, decreased burden of care on others and family education.�
CVA: 02/2025, 06/2025, 09/24/25- Secondary prophylaxis with Eliquis 5 mg twice daily changed from Xarelto, statin, and blood pressure control (SBP less than 180 and diastolic less than 100 to participate with therapy for
ischemic stroke). Continue to monitor neurologic status.�
Dysphagia: Speech eval. Patient with mild oral and moderate to severe pharyngeal dysphagia following VST completed 09/27 with ongoing aspiration risk due to inconsistent performance.. Discussion with patient's sister. Patient does not like to feed
to. Trial of soft and bite-size with thin via single cup.
Dysarthria: Speech evaluation
Pneumonia: Given vancomycin/cefepime in ER, continue Unasyn and Doxycycline. Sputum culture pending
HTN: continue medications, monitor closely�
Orthostatic hypotension: Chronic midodrine 10 mg 3 times daily
HLD: Atorvastatin 20 mg bedtime, Zetia 10 mg daily
Coronary artery disease�: s/p CABG, Aspirin, statin, beta-amrita�
Cardiomyopathy EF 37% by echo 06/2025
Atrial fibrillation:�Eliquis 5 mg twice daily and amiodarone 200 mg twice daily, metoprolol XL 12.5 daily���
Chronic HFrEF�: ����� Hold dapagliflozin. �Lasix IV 20 mg BID per cardio recommendations��
Type 2 diabetes mellitus: ��Hold metformin, Insulin sliding scale. ����������������
Chronic Anemia: Likely multifactorial.� Continue to monitor.�
Psych: Lexapro 10 mg bedtime.� Remeron 7.5 bedtime monitor mood, adjust medications as needed.
Insomnia: Melatonin 5 mg bedtime, Remeron 7.5 bedtime
Dementia: Namenda 10 mg twice daily
Fen: Soft and bite-size diet, thin liquids via single cup sips, meds in pur�e. Will need supervision/assist with meals.
Skin: monitor for pressure sores/rashes/lesions.�
Pain: acetaminophen as needed.�
Bowel/Constipated: Colace and Senna, PRN bisacodyl.�
Bladder: Time void, PVRs, PRN straight cath.�
GI Prophylaxis: Pantoprazole�40 mg daily
DVT Prophylaxis: Eliquis.
Pulmonary: Incentive spirometry�
Safety: Continue to reinforce assistance with all transfers.�
Code Status:DNR�
Dispo�(date/plan/equipment needs): Home with family care.� Social history reviewed.�
�
Functional and Medical Goals:�Modified Independent with ADL�s, ambulation, transfers�
�
Discharge Destination: Patient would benefit from�acute inpatient rehabilitation once medically stable, and cleared.
�
Summary of recommendations:
CVA: 02/2025, 06/2025, 09/24/25- Secondary prophylaxis with Eliquis 5 mg twice daily changed from Xarelto, statin, and blood pressure control (SBP less than 180 and diastolic less than 100 to participate with therapy for
ischemic stroke). Continue to monitor neurologic status.�
Bowel/Constipated: stool in colon on imaging. Add Colace and Senna, PRN bisacodyl.�
�
Safety: Continue to reinforce assistance with all transfers.�
Thank you for allowing me to care for your patient. Please contact me with any questions or concerns.
Consultation
-
Date/Time Consultation Requested: 09/28/2025
Date/Time Consultation Performed: 09/28/25
Requesting Provider: Giovanni Silver
Performing Provider: Gregoria Reece/Dr. Cosby
Reason for Consultation: CVA, Pneumonia

Documented by User: Jason Cosby MD 09/29/25 16:11
Consultation - Medical
-
Referring Provider:�Giovanni Silver
Chief Complaint:�CVA, Pneumonia
�
History of Present Illness:�This is an 80-year-old male with PMH of (CAD s/p CABG x 3, TAVR, chronic HFrEF, paroxysmal atrial fibrillation on chronic amiodarone, HTN, orthostasis, HLD, TIA, dementia, and anemia, acute stroke at [facility] 02/2025 requiring
a PEG tube). He was then readmitted 06/2025 with slurred speech, shortness of breath and found to be in A-fib. Brain MRI showed new subacute infarct, and based on this his Xarelto was increased from 15 mg every afternoon to 20 mg every afternoon. he
was started on amiodarone for rate control and was diuresed for proBNP of 21,000. Echocardiogram during 06/2025 admission showed reduction in ejection fraction to 37%, with stable TAVR gradients. Hypotension and orthostasis have prevented up
titration of GDMT. His amiodarone dose has been adjusted due to fluctuating heart rates. He is felt to be persistent.
He then presented back to [facility] on 09/24/2025 due to shortness of breath and cough and found to have multifocal pneumonia, COVID and flu negative. He feels as though he is improving in this regard. Then reported worsening dysphagia and dysarthria
and brain MRI showed multiple new bihemispheric strokes. He lives at a facility and presumably has been compliant with his anticoagulation (Xarelto).
CTA head/neck 09/27/25: No acute intracranial abnormality identified. Negative for major branch vessel occlusion, flow-limiting stenosis, dissection, or aneurysm formation. Secretions within the trachea. Bilateral consolidation most likely related to
pneumonia, worse on the right. Bilateral small pleural effusions, greater on the right. 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
MRI of the brain�09/27/2025- with small scattered foci of acute to subacute infarction involving the left frontal and parietal lobes, a punctate focus of acute to subacute infarct involving the white matter of the right frontal lobe.
Neurology assessment is that the Presence of bilateral acute ischemic strokes currently suggest continued embolic etiology. There is the possibility of minor failure by rivaroxaban.
Unlikely the patient has had worsening of speech due to these punctate changes. Despite that, would change rivaroxaban to apixaban because of the possibility of failure of the former anticoagulant.
Evaluated by speech therapy with video swallow study. Recommended soft/bite-size solids and no mixed consistencies such as no soup no fruit cups. Thin liquids via single cup sips. Medications in pur�e. Full supervision, assist to use strategies,
single cup sips, no straws slow rate. Dysphagia treatment at the acute care level recommended.
Being treated for pneumonia- was given vancomycin/cefepime in ER. Currently on Unasyn and Doxycycline. Strep and Legionella antigens are both negative, MRSA negative
IV fluids was stopped on 09/25/25 given history of HFrEF.
Video swallow study completed . His swallowing was very variable. He had silent aspiration of thin liquids via consecutive cup sips, mildly thick liquids via tsp, moderately thick liquids via tsp, and aspiration w/ an ineffective cough with mildly
thick liquids via consecutive cup sips. No penetration/aspiration
Patient seen at bedside. Looking well. He recognized me from his previous stay at [facility]. He reports to have been living in [facility] facility on a monthly basis. He is looking for an alternative facility as he needs to be
independent in order to return there. He reports also since he is discharged from SNF he has been doing well and has been eating soft and bite-size consistent diet. He still has his PEG tube from his prior admission. He says that he did follow-up
with GI but was told to come back in 3 to 4 months for its removal. He denies any chest pain, shortness of breath, dizziness, lightheadedness, nausea, vomiting, fever, chills, dysuria, abdominal pain. He would like to come back to [facility] to get
better.
�
Past Medical History:�Aortic stenosis, paroxysmal A-fib, CAD, CHF�HFrEF, dementia, HTN, hypercholesterolemia, NIDDM, valvular disease, midodrine/Florinef dependent orthostatic hypotension
Procedure History:�TAVR, b/l cataract removal, PEG tube
Family History:�cancer, CAD
�
Social History:�
Functional Level Premorbidly:�Assisted with all activities�, ambulates with a rolling walker
Functional Level Currently:�Bed mobility�min assist, transfer�min assist,�mild posterior lean noted in stance. Cues to stand upright and utilize rolling walker better. Ambulated 25 feet with rolling walker�min assist with slow gait, steady with
rolling walker, forward flexed posture, weakness noted to left lower extremity,
�
Tobacco:�Former smoker
Alcohol:�Denies�
Drug use:�Denies�
Lives with:�Assisted living, friends Eliu was staying there on a monthly basis.
24-hour assistance available:�yes
Number of floors:�1
# steps to enter:�0
Driving:�No
Occupation:�Retired
�
�
�
Allergies:�
Allergy/AdvReac Type Severity Reaction Status Date / Time
digoxin Allergy Unknown Verified 06/30/25 14:32
Review of Systems:�
Constitutional: (x) abNormal _fatigue
Eye: (x) Normal _
Ear/Nose/Throat: (x) Normal _
Respiratory: (x) abNormal _pneumonia
Cardiovascular: (x) abNormal _chronic orthostasis
Gastrointestinal: (x) abNormal _dysphagia
Genitourinary: (x) Normal _
Musculoskeletal: (x) abNormal _arthritis all over especially left shoulder and both knees . Dysarthria
Integumentary: (x) Normal _
Neurologic: (x) abNormal _stroke, dysarthria. cognitive deficits
Psychiatric: (x) Normal _
Endocrine: (x) Normal _
Hematologic/Lymphatic: (x) Normal _
Allergic/Immunologic: (x) Normal _
�
Medications:�
Active Current Visit Medication List
Category Date Time Status
Acetaminophen [Tylenol Oral Solution] Med 09/27/25 20:15 Active
650 mg PO Q4HPRN PRN
Amiodarone [Pacerone] Med 09/27/25 21:00 Active
200 mg PO BID
Ampicillin/Sulbactam 3 G [Unasyn] 3 gm Med 09/25/25 21:25 Active
0.9% Sodium Chloride 100 ml [Nss] 100 ml
IV Q6H
Apixaban [Eliquis] Med 09/27/25 20:00 Active
5 mg PO BID
Atorvastatin [Lipitor] Med 09/27/25 22:00 Active
20 mg PO HS
Cyanocobalamin [Vitamin B-12] Med 09/28/25 08:00 Active
1,000 mcg PO DAILY
Dextrose 50%-Water [Dextrose 50% Syringe] Med 09/27/25 03:52 Active
12.5 grams IV [id number] PRN
Docusate Sodium [Colace Liquid] Med 09/27/25 21:00 Active
100 mg PO BID
Doxycycline Hyclate [Vibramycin] 100 mg Med 09/25/25 00:00 Active
0.9% Sodium Chloride 250 ml [Nss] 250 ml
IV Q12H
Escitalopram Oxalate [Lexapro] Med 09/27/25 22:00 Active
10 mg PO HS
Ezetimibe [Zetia] Med 09/28/25 08:00 Active
10 mg PO DAILY
Flush (0.9% Sodium Chloride) [Flush (Nss)] Med 09/24/25 23:00 Active
See Dose Instructions IV PER PROTOCOL
Glucagon [GlucaGen] Med 09/27/25 03:52 Active
1 mg IM PRN PRN
Insulin Aspart Corrective Low [Novolog Flexpen-Low Med 09/27/25 15:52 Active
Resistance]
See Protocol SC AC
Magnesium Oxide Med 09/28/25 08:00 Active
400 mg PO DAILY
Melatonin Med 09/27/25 22:00 Active
5 mg PO HSPRN PRN Sleep
Memantine HCl [Namenda] Med 09/27/25 21:00 Active
10 mg PO BID
Metoprolol Xl [Toprol Xl] Med 09/28/25 08:00 Active
12.5 mg PO DAILY
Midodrine [ProAmatine] Med 09/27/25 22:00 Active
10 mg PO TID
Mirtazapine [Remeron] Med 09/27/25 22:00 Active
7.5 mg PO HS
Pantoprazole [Protonix] Med 09/25/25 08:00 Active
40 mg PO DAILY
Pyridoxine [Vitamin B-6] Med 09/28/25 08:00 Active
50 mg PO DAILY
Sennosides [Senokot] Med 09/28/25 08:00 Active
8.6 mg PO DAILY
�
Vitals:�
Temp Pulse Resp BP Pulse Ox
97.6 F 108 26 113/84 97
09/28/25 15:08 09/28/25 15:08 09/28/25 15:08 09/28/25 15:08 09/28/25 15:08
Height 6 ft 1 in
Actual Weight 75.438 kg
Body Mass Index (BMI) 21.9
�
Physical Exam:�
General Appearance/Observation: Well-developed, well-nourished male in no apparent distress.�
Pain/Comfort Assessment: None
Mood/Affect: Appropriate�, pleasant, smiling
�
Integumentary/Operative Site:�
�� Pressure Ulcer Evaluation: absent over heels.�
�
Eyes: Conjunctiva/Lids: normal���� Pupils: pupils equal round and reactive to light and Accommodation�
Ears/Nose/Throat: oral mucosa moist,� throat clear.������������ Lips/Teeth/Gums: normal�
Neck: No muscle spasm or tenderness�
Cardiovascular: Heart: irregular, no murmur�
Pulses: dorsalis pedis 2+ bilaterally�
Respiratory: Respiratory Effort/Chest Expansion: normal������� Auscultation: coarse sounds right upper lobes and diminished BS lower lobes bilaterally
Gastrointestinal: abdomen not tender, no distension, normal abdominal bowel sounds, PEG tube still in place from months ago- tube with some cloudiness
Genitourinary: No [place]�
Extremities:�Edema: None�Cyanosis: None�Trophic�changes: None, stasis changes
�
Neurology Exam:
Orientation: Alert, Oriented to self, Said December 2004. recognized me from [facility] stay
Memory: Intact for recent medical concerns
Comprehension: Intact for basic information
Two step command: needs time and repeating
Naming: intact
Calculations: says cannot do calculations.
Cranial Nerves:
�� CNII:�Pupillary light reflex: Intact����Visual Field: Intact
�� CN III, IV, : Extraocular muscles: Intact�
�� CN V:�Facial Sensation�at�Forehead: Intact,�Maxilla: Intact,�Mandible: Intact
�� CN VII:�Facial movement: Symmetrical
�� CN VIII:�Hearing: Normal
�� CN IX/X:�Speech & swallow:moderate Dysarthria, dysphagia, wet voice,�Position of Uvula: Midline
�� CN XI:�Shoulder shrug: Symmetric
�� CN XII:�Tongue protrusion: Midline
Sensory:
�� Light touch: Intact in bilateral upper and lower extremities
Reflexes:
�� Biceps: 2+ bilaterally
�� Brachioradialis: 2+ bilaterally
�� Triceps: 2+ bilaterally
�� Patellar: 2+ bilaterally
�� Achilles: 2+ bilaterally
�� Babinski: Down going bilaterally
�� Clonus: None
�� Donte: Negative bilaterally�
Cerebellar: Dysmetria/Ataxia: intact
Musculoskeletal: Motor: (Manual muscle scale 0-5)�
Muscle SA EF WE EE FF FA HF KE DF EHL PF
Right� 4+ 5 4 4+ 4 4 5 5 5 5 5
Left 4+ 4+ 4 4+ 4 4 4 4 5 4 4
�
Tone: Normal in all extremities�
Range of Motion: general arthritis, unable to get past about 60 degrees actively on the left
�
Lab Results:
Labs
WBC 11.3 10^3/uL (4.8-10.8) H 09/28/25 08:04
RBC 3.76 10^6/uL (4.70-6.10) L 09/28/25 08:04
Hgb 9.0 g/dL (13.0-18.0) L 09/28/25 08:04
Hct 30.0 % (39.0-52.0) L 09/28/25 08:04
MCV 79.8 fL (80.0-94.0) L 09/28/25 08:04
MCH 23.9 pg (27.0-31.0) L 09/28/25 08:04
MCHC 30.0 g/dL (33.0-37.0) L 09/28/25 08:04
RDW 19.6 % (11.5-14.5) H 09/28/25 08:04
Plt Count 314 10^3/uL (130-400) 09/28/25 08:04
MPV 9.5 fL (7.4-10.4) 09/28/25 08:04
Abs Immat Gran (auto) 0.0 10^3/uL (0-0.05) 09/25/25 07:38
Absolute Neuts (auto) 7.9 10^3/uL (1.4-6.5) H 09/25/25 07:38
Absolute Lymphs (auto) 1.0 10^3/uL (1.2-3.4) L 09/25/25 07:38
Absolute Monos (auto) 0.6 10^3/uL (0.1-0.6) 09/25/25 07:38
Absolute Eos (auto) 0.3 10^3/uL (0-0.7) 09/25/25 07:38
Absolute Basos (auto) 0.0 10^3/uL (0-0.2) 09/25/25 07:38
Immature Gran % 0.4 % (0-0.5) 09/25/25 07:38
Neutrophils % 79.6 % (42.2-75.2) H 09/25/25 07:38
Lymphocytes % 10.5 % (20.5-51.1) L 09/25/25 07:38
Monocytes % 6.5 % (1.7-9.3) 09/25/25 07:38
Eosinophils % 2.7 % (0-6) 09/25/25 07:38
Basophils % 0.3 % (0-2) 09/25/25 07:38
Nucleated RBC % 0 % (-) 09/25/25 07:38
Sodium 139 mmol/L (135-145) 09/28/25 08:04
Potassium 4.1 mmol/L (3.5-5.1) 09/28/25 08:04
Chloride 109 mmol/L (98-107) H 09/28/25 08:04
Carbon Dioxide 22 mmol/L (22-30) 09/28/25 08:04
BUN 22 mg/dl (9-20) H 09/28/25 08:04
Creatinine 0.9 mg/dL (0.7-1.3) 09/28/25 08:04
Estimated Creat Clear 68 ml/min 09/28/25 08:04
eGFR > 60.00 09/28/25 08:04
Glucose 119 mg/dl (70-99) H 09/28/25 08:04
Hemoglobin A1c 6.6 % (4.0-5.9) H 09/25/25 07:38
Calcium 8.7 mg/dl (8.4-10.2) 09/28/25 08:04
Magnesium 1.7 mg/dl (1.6-2.3) 09/27/25 07:54
Total Bilirubin 0.7 mg/dl (0.2-1.3) 09/25/25 07:38
AST 13 U/L (17-59) L 09/25/25 07:38
ALT 10 U/L (0-50) 09/25/25 07:38
Alkaline Phosphatase 82 U/L (38-126) 09/25/25 07:38
Troponin I < 0.012 ng/ml 09/24/25 17:06
Jwe-J-Wdkjorluxqa Pept 13881 pg/ml 09/24/25 17:06
Total Protein 5.5 g/dl (6.3-8.2) L 09/25/25 07:38
Albumin 2.6 g/dl (3.5-5.0) L 09/25/25 07:38
Triglycerides Cancelled 09/27/25 10:21
Total Cholesterol Cancelled 09/27/25 10:21
LDL Cholesterol, Calc Cancelled 09/27/25 10:21
VLDL Cholesterol, Calc Cancelled 09/27/25 10:21
HDL Cholesterol Cancelled 09/27/25 10:21
SARS-CoV-2 Antigen Negative (Negative) 09/24/25 17:06
POC Glucose 157 mg/dl (70-99) H 09/28/25 11:30
�
Diagnostic Results:�as per HPI
Contrast injection evaluation of tube�09/26/2025
INDICATION: Evaluation of gastrostomy tube
COMPARISON: CT of the abdomen and pelvis from June 30, 2025.
FINDINGS: AP radiograph of the abdomen performed as a call specialist radiograph. Following injection of water-soluble contrast agent into patient's gastrostomy tube, immediate and 5 minute delayed abdominal radiographs are obtained.
Gastrostomy tube is present with balloon within the body of the stomach. Injected contrast extends into the stomach and the proximal small bowel, with no evidence for contrast extravasation.
Transcatheter aortic valve replacement is noted as well as sternal wires and metallic left atrial appendage clip.
Moderate to large amount of stool within the colon, suggesting a degree constipation.
IMPRESSION: Gastrostomy tube is present within the stomach. There is no evidence for contrast extravasation.
MRI of the brain without contrast�09/27/2025
There are scattered small foci of abnormal restricted diffusion within the left cerebral hemisphere, with involvement of the frontal and parietal lobes. These are compatible with small foci of acute to subacute infarction.
Superiorly, within the left parietal lobe, there is a 3 mm focus of acute to subacute infarct seen on page 24 of diffusion-weighted images. More inferiorly, there are 2 small foci of acute to subacute infarct in the centrum semiovale bowel of the
posterior left frontal lobe, seen on page 20 and 21 of diffusion-weighted images. On page 21, there is also a 2 mm focus involving the cortex of the posterior left parietal lobe.
On page 18 of diffusion-weighted images, there is a 3 mm focus of acute to subacute infarct involving the white matter of the left frontal lobe at the level of the lateral ventricle.
Additionally, in the white matter of the right frontal lobe, also on page to the diffusion-weighted images, there is a 3 x 2 mm linear focus of increased diffusion-weighted signal and decreased ADC signal, which is also likely a small focus of acute
to subacute infarct.
There are some subtle additional foci of increased diffusion-weighted signal within the brain, but do not have corresponding foci of decreased ADC signal, and therefore likely represent T2-weighted shine through rather than areas of acute to
subacute infarct.
In the right posterior cerebellar hemisphere, inferiorly, small foci of CSF signal intensity, compatible with small foci of old infarction.
Within the right lentiform nucleus, there are 2 foci of CSF signal intensity which likely represent old lacunar infarcts, seen on image 15 of series 701 and image 15 of series 601.
Within the lateral aspect of the left lentiform nucleus, near the junction with the external capsule, there are several small foci of CSF signal intensity, which also likely represent old lacunar infarcts.
Within the white matter lateral to the anterior body of the right lateral ventricle, there is a 8 x 5 mm focus of CSF signal intensity, compatible with old infarct, seen on page 19 of series 701. Slightly more posteriorly within the periventricular
white matter of the right centrum semiovale bowel, seen on page 20 of series 601, there is a 2 mm small focus of old infarct.
Moderate diffuse atrophy in this 80-year-old. Mild to moderate scattered T2 and FLAIR white matter hyperintensities, commonly seen with aging and usually attributed to small vessel ischemic disease. These hyperintensities have not been found to
correlate with a focal neurologic deficit.
Callosal angle appears normal, and findings are not considered highly suggestive of normal pressure hydrocephalus.
Craniocervical junction appears normal with no evidence for Chiari malformation. On sagittal images, at C5-6, posterior disc/osteophyte complex appears to slightly compress the anterior margin of the cervical spinal cord. If there are symptoms
referrable to the cervical spine and further imaging evaluation is desired, consideration for dedicated MRI of the cervical spine.
No gross abnormality of the pituitary gland.
Mild patchy mucosal thickening of the ethmoid sinuses, left greater than right. The rest of the visualized paranasal sinuses appear clear. The mastoid air cells appear clear.
IMPRESSION: There are small scattered foci of acute to subacute infarction involving the left frontal and parietal lobes as described above.
Additionally, there is a punctate focus of acute to subacute infarct involving the white matter of the right frontal lobe.
Multiple small foci of old infarction as described above.
Moderate diffuse atrophy. Mild to moderate scattered T2 and FLAIR white matter hyperintensities, commonly seen with aging and usually attributed to small vessel ischemic disease.
On sagittal sequence, disc/osteophyte complex at C5-6 appears to result in slight compression of the anterior margin of the cervical spinal cord. If there are symptoms referrable to the cervical spine, further evaluation with a full cervical spine
MRI could be considered.
CT head and neck angio with/without-09/27/[address] shows mild bilaterally symmetric prominence of the ventricles and extra-axial CSF spaces representing volume loss. There are bilateral white matter hypodensities which are nonspecific, but most likely related to chronic small
vessel ischemic disease. There is no acute bleed, mass effect, or midline shift. Small chronic infarct right periventricular white matter. No acute loss of nieto-white differentiation is identified. There is no skull fracture.
Following the administration of contrast, aortic arch is normally opacified. Conventional anatomic configuration of the great vessels arising from the arch. There is some calcific plaque formation along the arch at the origins of the great vessels,
no flow-limiting stenosis. There is dilation of the ascending aorta, 4.0 cm diameter. On the right, there is mild narrowing at the origin of the common carotid secondary to tortuosity. Above this level, common carotid is patent without abnormal
narrowing. Large amount calcific plaque formation at the carotid bulb. No significant associated stenosis identified. Above this level, extracranial internal carotid shows no abnormal narrowing. Right vertebral artery is patent without abnormal
narrowing.
On the left, common carotid is patent without abnormal narrowing. Small to moderate calcific plaque formation at the bulb. No significant stenosis. Extracranial internal carotid is patent without abnormal narrowing. Left vertebral artery is patent.
Mild narrowing at its origin secondary to calcific plaque. The left vertebral is mildly dominant as compared to the right.
Intracranially, intradural vertebral arteries are patent. Both show some mild narrowing secondary to calcific plaque formation, no high-grade stenosis. The basilar artery is patent without abnormal narrowing. Bilateral posterior cerebral arteries
are patent without abnormal narrowing. The anterior cerebral arteries are patent without abnormal narrowing. Bilateral proximal middle cerebral artery branches are patent without abnormal narrowing. Intracranial internal carotid arteries show some
calcific plaque formation, no high-grade stenosis. No dissection identified. No aneurysm formation identified. Dural venous sinuses are normally opacified.
No enhancing intracranial lesion. No cervical adenopathy is identified. Thyroid gland evaluation somewhat limited by artifacts, no suspicious lesions identified. There are secretions in the proximal trachea (image #102 series 501). There is a large
amount of abnormal airspace consolidation in the right upper lung. Small amount of consolidation in the left upper lobe. There are bilateral pleural effusions which are small, large on the right as compared to the left. No acute osseous abnormality
is identified. Cervical spine shows absent left-sided lamina at C4, presumably related to previous surgery. Mild to moderate degenerative changes of the spine.
IMPRESSION:
1. No acute intracranial abnormality identified.
2. Negative for major branch vessel occlusion, flow-limiting stenosis, dissection, or aneurysm formation.
3. Secretions within the trachea. Bilateral consolidation most likely related to pneumonia, worse on the right. Bilateral small pleural effusions, greater on the right.
4. Absent left-sided lamina at C4, previous surgery versus congenital anomaly.�
Chest x-ray�09/24/2025
�Lungs: There is mild interstitial opacification with patchy airspace opacities throughout the right lung.
Heart: Cardiac and mediastinal contours are mildly enlarged, similar to prior. Prior aortic valve replacement. Left atrial appendage clip present.
Osseous structures: No acute osseous abnormality. Median sternotomy wires present. Mild atherosclerotic calcifications of the aortic arch.
IMPRESSION:
Diffuse interstitial opacification with patchy airspace opacities probably within the right lung which are most concerning for multifocal pneumonia, less l
Assessment:
80-year-old male with prior CVA in February and June 2025 presented with abrupt onset worsening dysarthria and dysphagia. Found to have bilateral acute ischemic strokes on Xarelto that currently suggested continued embolic etiology. Neurology
recommended switching to Eliquis.
�
Plan�
PM&R�PT/OT to increase independence with ADLs, improve balance, coordination, endurance, strength, mobility, community reintegration, decreased burden of care on others and family education.�
CVA: 02/2025, 06/2025, 09/24/25- Secondary prophylaxis with Eliquis 5 mg twice daily changed from Xarelto, statin, and blood pressure control (SBP less than 180 and diastolic less than 100 to participate with therapy for
ischemic stroke). Continue to monitor neurologic status.�
Dysphagia: Speech eval. Patient with mild oral and moderate to severe pharyngeal dysphagia following VST completed 09/27 with ongoing aspiration risk due to inconsistent performance.. Discussion with patient's sister. Patient does not like to feed
to. Trial of soft and bite-size with thin via single cup.
Dysarthria: Speech evaluation
Pneumonia: Given vancomycin/cefepime in ER, continue Unasyn and Doxycycline. Sputum culture pending
HTN: continue medications, monitor closely�
Orthostatic hypotension: Chronic midodrine 10 mg 3 times daily
HLD: Atorvastatin 20 mg bedtime, Zetia 10 mg daily
Coronary artery disease�: s/p CABG, Aspirin, statin, beta-amrita�
Cardiomyopathy EF 37% by echo 06/2025
Atrial fibrillation:�Eliquis 5 mg twice daily and amiodarone 200 mg twice daily, metoprolol XL 12.5 daily���
Chronic HFrEF�: Hold dapagliflozin. �Lasix IV 20 mg BID per cardio recommendations��
Type 2 diabetes mellitus: ��Holding metformin, Insulin sliding scale. ����������������
Chronic Anemia: Likely multifactorial.� Continue to monitor.�
Psych: Lexapro 10 mg bedtime.� Remeron 7.5 bedtime monitor mood, adjust medications as needed.
Insomnia: Melatonin 5 mg bedtime, Remeron 7.5 bedtime
Dementia: Namenda 10 mg twice daily
Fen: Soft and bite-size diet, thin liquids via single cup sips, meds in pur�e. Will need supervision/assist with meals.
Skin: monitor for pressure sores/rashes/lesions.�
Pain: acetaminophen as needed.�
Bowel/Constipated: Colace and Senna, PRN bisacodyl.�
Bladder: Time void, PVRs, PRN straight cath.�
GI Prophylaxis: Pantoprazole�40 mg daily
DVT Prophylaxis: Eliquis.
Pulmonary: Incentive spirometry�
Safety: Continue to reinforce assistance with all transfers.�
Code Status:DNR�per chart
Dispo�(date/plan/equipment needs): Home with family care.� Social history reviewed.�
Functional and Medical Goals:�Modified Independent with ADL�s, ambulation, transfers�
Discharge Destination: Patient would benefit from�acute inpatient rehabilitation once medically stable, and cleared.
Attending Statement:
I saw and examined the patient 09/29/25. Reviewed care plan with patient, therapy, nursing, and physician vector control assistant. I agree with the above subjective and physical exam, and plan as documented by LLUVIA Reece with adjustments made as necessary. A
total of 60 minutes were spent with the patient preparing for the evaluation, obtaining history, performing examination and evaluation, counseling, data review, case management, care coordination, order entry specialist, and EMR documentation.
�
Summary of recommendations:
CVA: 02/2025, 06/2025, 09/24/25- Secondary prophylaxis with Eliquis 5 mg twice daily changed from Xarelto, statin, and blood pressure control (SBP less than 180 and diastolic less than 100 to participate with therapy for
ischemic stroke). Continue to monitor neurologic status.�
Bowel/Constipated: stool in colon on imaging. Add Colace and Senna, PRN bisacodyl.�
Safety: Continue to reinforce assistance with all transfers.�
Thank you for allowing me to care for your patient. Please contact me with any questions or concerns.
Consultation
-
Date/Time Consultation Performed: 09/28/25 09/29/25
[2025-09-28 16:33] LABS: Glucose - Point of Care 129 mg/dl (70-99)
[2025-09-28] MEDS: NOVOLOG FLEXPEN-LOW RESISTANCE SC (16:34)
[2025-09-28] MEDS: LASIX 20 MG IV (17:13)
[2025-09-28] MEDS: REMERON 7.5 MG PO (20:02)
[2025-09-28] MEDS: LEXAPRO 10 MG PO (20:03)
[2025-09-28] MEDS: LIPITOR 20 MG PO (20:03)
[2025-09-28] MEDS: COLACE LIQUID PO ×2 (20:03→20:24)
[2025-09-28] MEDS: LANOXIN 125 MCG PO (21:09)
[2025-09-28 21:28] LABS: Glucose - Point of Care 125 mg/dl (70-99)
--- NOTE | 2025-09-28 23:30 | PTCARENOTE ---
Pt received a dose of digoxin 125mcg this evening. This RN noted that pt has an allergy for digoxin listed in his chart after he had already received this first dose of digoxin. Pt has a history of dementia, AAOx2 to person and place. MARGARITA Garcia
notified of allergy; no further orders, will continue to monitor.
[2025-09-29] VITALS (8 sets, daily range): BP systolic 93–118; BP diastolic 58–76; PULSE 62; O2SAT 93; BMI 21.3
[2025-09-29] MEDS: UNASYN IV ×4 (03:55→21:55)
[2025-09-29 07:46] LABS: Glucose - Point of Care 127 mg/dl (70-99)
--- NOTE | 2025-09-29 07:49 | W.PN.HOSP.TC ---
Today's Communication/Plan
-
Continue to monitor on telemetry since patient has heart failure and is on Digoxin
Please see plan
Assessment / Plan
Assessment / Plan
Physical Exam
General: Well Developed, Well Nourished and No Apparent Distress
HEENT: NormoCephalic, Moist mucous membranes and Atraumatic
Respiratory: Clear
Cardiac: S1/S2 and Regular Rhythm
GI: Soft, Non Tender, Non Distended and Normal Bowel Sounds
Musculoskeletal: No Cyanosis and No Edema
Skin: Warm. Dry.
Neuro: AAOx3. Nonfocal/grossly intact
Assessment/Plan
80-year-old male past medical history of CAD status post CABG, HFrEF, atrial fibrillation on Xarelto, hypertension, CVA, diabetes mellitus, chronic anemia and hyperlipidemia presented with shortness of breath. Patient resides at [facility]
independent living. He had shortness of breath for 3 weeks with cold-like symptoms of sore throat and congestion worsening over the ~1 week prior to presentation. His shortness of breath was worse with activity. Also productive cough for 3 weeks.
No fever chest pain abdominal pain or weight gain. No vomiting or diarrhea. Patient does not smoke or drink alcohol.
#Multifocal pneumonia (Sepsis ruled out, pneumonia only)
- Currently on room air
- Chest x-ray showed diffuse interstitial breast with patchy airspace opacities within the right lung concerning for multifocal pneumonia
- COVID and flu negative
- Given vancomycin/cefepime in ER, continue Unasyn and Doxycycline
- Follow sputum culture
- Strep and Legionella antigens are both negative, MRSA negative
- STOPPED IV fluids on 09/25/25 given history of HFrEF
#Abrupt onset of worsening dysarthria observed on 09/27/25 morning
#History of dysarthria following stroke in June 2025 and especially in February 2025 at which time a PEG tube was placed
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
-Neurologist Dr. Mendiola via [place] [facility] recommended that patient be changed from his rivaroxaban to apixaban; started Apixaban 5 mg BID starting on 09/27/25 evening
-No concern for hemorrhagic conversion given the small size of patient's stroke
-Per Dr. Mendiola/neurology [place] [facility] communication with myself on 09/27/25, patient's stroke does not appear to be thromboembolic
-Discussed with hematology who recommended following neurology recommendations, no additional recommendations from their standpoint
-Cardiology consulted given embolic strokes, no JIM at this time given speech and dysphagia issues
-Given dysphagia issues -- ordered dietary consult and calorie counts
#CAD status post CABG
- Continue statin
- Continue Eliquis
- No Aspirin as per cardiology given anemia issues
#Chronic HFrEF
- Hold dapagliflozin until patient has consistently reliable oral intake, to avoid DKA
- Continue Lasix IV 20 mg BID per cardio recommendations
#Paroxysmal Atrial fibrillation
- Digoxin added on 09/28/25 -- check Digoxin level on Saturday10/01/25 -- tolerating Digoxin well without any allergic reaction
- Continue amiodarone
- Continue metoprolol
- Continue Xarelto
#Essential hypertension
#History of Significant Orthostatic Hypotension
- Continue Midodrine
#Chronic anemia
- Monitor Hgb -- stable overall
#History of Strokes
- Continue statin
#Type 2 diabetes mellitus
- Hold metformin
- Insulin sliding scale
#Chronic anemia
#Hyperlipidemia
- Continue Zetia
#Anxiety/depression
- Continue Lexapro, mirtazapine
#Dementia
- Continue memantine
DNR/DNI
DVT prophylaxis Xarelto
Feeding/PO Intake: Per Speech on 09/27/25: 'Video swallow study completed for Jaime Phillips. His swallowing was very variable. He had silent aspiration of thin liquids via consecutive cup sips, mildly thick liquids via tsp, moderately thick
liquids via tsp, and aspiration w/ an ineffective cough with mildly thick liquids via consecutive cup sips. No penetration/aspiration occurred w/ single cup sips of thin liquids. Recommend trial of the following: IDDSI 6 soft/bite sized (no mixed
consistencies - no soup, no fruit cups), thin liquids via single cup sips, meds in puree. Will need supervision/assist with meals. Thank you.'
On 09/26/25, I called patient's sister Eve, we discussed tube feeding for the patient, she said the patient does not like tube feeding, but she also said she will return to this area on 09/27/25 and can discuss with the patient tube feeding.
On 09/27/25, I called patient's sister Eve, we discussed tube feeding for the patient, she said the patient does not like tube feeding, but she also said she will return to this area on 09/27/25 and can discuss with the patient tube feeding.
Heart Failure needing IV Lasix is a high risk encounter
Anticipated Discharge: 24 - 48 hours
Subjective/Interval History
-
Date of Service: September 29, 2025
Patient was seen and examined. He reported feeling better today, denied any new symptoms or complaints.
Objective Data
-
Labs:
Laboratory Results
09/29/25
07:29
WBC Pending
Hgb Pending
Hct Pending
Plt Count Pending
Sodium Pending
Potassium Pending
Chloride Pending
Carbon Dioxide Pending
BUN Pending
Creatinine Pending
Glucose Pending
Calcium Pending
Vital Signs:
Vital Signs
Temp Pulse Resp BP Pulse Ox
97.5 F 84 16 118/76 95
09/29/25 03:02 09/29/25 03:02 09/29/25 03:02 09/29/25 03:02 09/29/25 03:02
I&O
09/28/25 09/29/25 09/30/25
06:59 06:59 06:59
Intake Total 1100 / 1100 1220 / 1220
Output Total 400 / 400 500 / 500
Balance 700 / 700 720 / 720
[2025-09-29] MEDS: PROTONIX 40 MG PO (08:17)
[2025-09-29] MEDS: MAGNESIUM OXIDE 400 MG PO (08:17)
[2025-09-29] MEDS: ELIQUIS 5 MG PO ×2 (08:17→20:01)
[2025-09-29] MEDS: NOVOLOG FLEXPEN-LOW RESISTANCE SC ×3 (08:17→18:04)
[2025-09-29] MEDS: ZETIA 10 MG PO (08:18)
[2025-09-29] MEDS: VITAMIN B-6 50 MG PO (08:18)
[2025-09-29] MEDS: VITAMIN B-12 1000 MCG PO (08:18)
[2025-09-29] MEDS: SENOKOT 8.6 MG PO (08:18)
[2025-09-29] MEDS: TOPROL XL 12.5 MG PO (08:18)
[2025-09-29] MEDS: NAMENDA 10 MG PO ×2 (08:18→20:01)
[2025-09-29] MEDS: PACERONE 200 MG PO ×2 (08:18→20:01)
[2025-09-29] MEDS: LASIX 20 MG IV ×2 (08:21→16:01)
[2025-09-29 08:22] LABS: Hematocrit 31.1 % (39.0-52.0); Hemoglobin 9.2 g/dL (13.0-18.0); Mean Corp Hgb Conc. 29.6 g/dL (33.0-37.0); Mean Corpuscular Volume 79.1 fL (80.0-94.0); Platelet Count 307 10^3/uL (130-400); Red Cell Dist. Width 19.8 % (11.5-14.5)
[2025-09-29] MEDS: COLACE LIQUID PO ×3 (08:28→20:04)
[2025-09-29 09:03] LABS: Blood Urea Nitrogen 20 mg/dl (9-20); Calcium 8.6 mg/dl (8.4-10.2); Carbon Dioxide 24 mmol/L (22-30); Chloride 108 mmol/L (98-107); Estimated Creatinine Clearance 54 ml/min; Glucose 103 mg/dl (70-99); Magnesium 1.5 mg/dl (1.6-2.3); Potassium 4.0 mmol/L (3.5-5.1); Sodium 142 mmol/L (135-145); eGFR > 60.00
[2025-09-29] MEDS: MAGNESIUM SULFATE 102 GRAMS IV (10:42)
[2025-09-29 12:11] LABS: Glucose - Point of Care 141 mg/dl (70-99)
[2025-09-29] MEDS: LANOXIN 125 MCG PO (12:14)
[2025-09-29] MEDS: VIBRAMYCIN 260 MG IV ×2 (12:14→23:48)
--- NOTE | 2025-09-29 12:49 | W.PN.CARDCBS ---
Addendum entered and electronically signed by Lorenzo Schulte MD 09/29/25 17:31:
I saw and examined the patient.
The Manager Surgical's note was reviewed and I agree with the note.
Comment:
GEN: No distress, awake, Ox3
HEENT: supple, anicteric, mmm
LUNGS: CTA, no wheezes/rales
CV: Irreg, S1/S2, 1/6 syst LSB, no gallop
ABD: soft, BS+, NT/ND
EXT: No edema
NEURO: Gross non-focal
SKIN: No rash
Plan:
Ventricular rates are slightly improved. We reviewed his records with no clear digoxin allergy that he recalls. We will try digoxin again to help with rate control as his ejection fraction is declining.
Continue digoxin 0.125 mg daily with a digoxin level on Saturday. Continue amiodarone, Toprol 12.5 mg daily and midodrine. His blood pressure is acceptable although he has had significant orthostasis in the past.
With his recurrent strokes we are going to try him on Eliquis. Unfortunately he continues to have a microcytic anemia. Would hold off on adding aspirin for now.
Would be reasonable to consider ischemic evaluation as outpatient, however patient is DNR and continues to struggle with stroke symptoms.
Continue antibiotics.
Continue Lasix 20 mg IV twice daily.
Original Note:
Today's Communication / Plan
-
Continue with digoxin, he does not recall what his allergy may have been, check digoxin level on Saturday
Continue attempts at diuresis and if slowing consider higher dose of Lasix up to 40 mg IV BID
Impression / Plan
-
Primary Nurse School: Dr. Hurley
Assessment:
Presentation with SOB, cough
Multifocal PNA
Worsening dysarthria
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
CAD
s/p CABG x 3 in 2018
s/p TAVR 2019
Chronic HFrEF
Cardiomyopathy EF 37% by echo 06/2025
Paroxysmal atrial fibrillation
Chronic amiodarone therapy
Chronic Xarelto therapy
HTN
h/o orthostasis, on chronic midodrine
HLD
h/o TIA/CVA 02/2025, 06/2025
Dementia
Chronic anemia
DNR code status
Echo 12/01/2021: LVEF 45-50%, Mild LVH, Nl Fxn of TAVR with Pk and mean 17/9 and no AI. PAP 16-21 mm Hg
Echo 12/11/2023: EF 46%, mild MR, s/p TAVR with w/ peak/mean gradients 25/13 mmHg
Echo 02/24/2025: EF 50-55%, mild MR, s/p TAVR peak/mean gradients 24/12 mmHg, mild TR
Echo 07/01/2025: EF 37%, global hypokinesis, akinesis of basal anteroseptal segment, s/p TAVR w/ peak/mean gradients 21/9 mmHg, mild TR
Echo 09/28/2025: EF 21%, TAVR present with normal function gradients not obtained, central jet of moderate MR with mild MS, mild to moderate TR with PAP 42 mmHg
Plan:
-Patient presented with shortness of breath and cough and was diagnosed with multifocal pneumonia, COVID and flu negative. Then reported worsening dysarthria and dysphagia and underwent brain imaging including MRI which showed small scattered foci
of subacute to acute infarction involving left frontal and parietal lobes and right frontal lobe, also with multiple small foci of old infarction. Cardiology consulted for A-fib and recurrent CVA on OAC.
-Given evidence of CVA that appeared to be subacute to acute in nature there is concern for possible Xarelto failure and so patient has been transition to Eliquis 5mg BID (age 80, Cre 1.1, wt 73 kg).
-There is consideration for addition of aspirin as well, but ultimately did not add aspirin due to worsening microcytic anemia
-Patient with known paroxysmal A-fib, but now appears he may be more persistent. Outpatient dose of amiodarone 200 mg BID has been continued. Patient has been on amiodarone long-term and doses in the past have been as low as 100 mg daily due to
bradycardia, but currently he is mostly tachycardic.
-Digoxin 125 mcg daily added by cardiology 09/28/2025. Patient has digoxin listed as an allergy with unclear reaction, patient does not recall when asked. I also looked through all available [facility] in [employer] records going back as far as 2019 when
the patient started following with us locally and digoxin has always been listed as an allergy without listing what the reaction was. For now we will continue with digoxin, check digoxin level on Saturday, orders placed by me.
-Patient started on Lasix 20 mg IV BID 09/28/2025 PM. Weight is down 5 lbs overnight, but bed scale weight being used on my review of VS. Patient was taking Lasix 40 mg PO daily prior to admission.
-Echo from 09/28/2025 was reviewed by me and summarized above, the EF is now down to 21%, but TAVR appears to have normal function.
-GDMT of cardiomyopathy is limited due to hypotension. He requires midodrine 10 mg TID.
-Outpatient dose of Toprol-XL 12.5 mg daily has been continued
-Outpatient dose of Farxiga 10 mg daily is on hold for unclear reasons
Progress Note - Nurse School
Subjective
Date of Service: September 29, 2025
He feels well, no pain
Objective
Labs:
09/29/25 07:29
09/29/25 07:
Labs
Hgb 9.2 g/dL (13.0-18.0) L 09/29/25 07:
Hct 31.1 % (39.0-52.0) L 09/29/25 07:
Plt Count 307 10^3/uL (130-400) 09/29/25 07:29
Sodium 142 mmol/L (135-145) 09/29/25 07:
Potassium 4.0 mmol/L (3.5-5.1) 09/29/25 07:29
BUN 20 mg/dl (9-20) 09/29/25 07:29
Creatinine 1.1 mg/dL (0.7-1.3) 09/29/25 07:29
Glucose 103 mg/dl (70-99) H 09/29/25 07:29
Vital Signs and I&O:
Vital Signs
Temp Pulse Resp BP Pulse Ox
97 F 63 16 93/62 94
09/29/25 11:40 09/29/25 11:40 09/29/25 11:40 09/29/25 11:40 09/29/25 11:40
Vital Signs
Temp Pulse Resp BP Pulse Ox
97 F 63 16 93/62 94
09/29/25 11:40 09/29/25 11:40 09/29/25 11:40 09/29/25 11:40 09/29/25 11:40
Intake & Output
09/27/25 09/28/25 09/29/25 09/30/25
06:59 06:59 06:59 06:59
Intake Total 602 / 602 1100 / 1100 1220 / 1220
Output Total 400 / 400 500 / 500
Balance 602 / 602 700 / 700 720 / 720
Physical Exam
Physical Exam
GEN: AAO x 3
LUNGS: RA. No audible wheeze
CV: A-fib on telemetry
--- NOTE | 2025-09-29 16:14 | CM ---
CM reviewed chart, reviewed with [facility] liaison, not stable for d/c today.
VM left for patients sister to discuss d/c planning to [facility]- PMR consulted, recommending Acute.
CM will continue to follow.
Plan; [facility] when stable
[2025-09-29 18:00] LABS: Glucose - Point of Care 134 mg/dl (70-99)
[2025-09-29 21:39] LABS: Glucose - Point of Care 120 mg/dl (70-99)
[2025-09-29] MEDS: REMERON 7.5 MG PO (21:53)
[2025-09-29] MEDS: LIPITOR 20 MG PO (21:54)
[2025-09-29] MEDS: LEXAPRO 10 MG PO (21:56)
[2025-09-30] MEDS: UNASYN IV ×4 (02:50→21:01)
[2025-09-30 03:00] VITALS: BP 108/71
[2025-09-30 04:47] VITALS: BMI 21.7
--- NOTE | 2025-09-30 07:53 | W.PN.HOSP.TC ---
Today's Communication/Plan
-
Continue IV Lasix
Digoxin level tomorrow
Assessment / Plan
Assessment / Plan
Physical Exam
General: Well Developed, Well Nourished and No Apparent Distress
HEENT: NormoCephalic, Moist mucous membranes and Atraumatic
Respiratory: Clear
Cardiac: S1/S2 and Regular Rhythm
GI: Soft, Non Tender, Non Distended and Normal Bowel Sounds
Musculoskeletal: No Cyanosis and No Edema
Skin: Warm. Dry.
Neuro: AAOx3. Nonfocal/grossly intact
Assessment/Plan
80-year-old male past medical history of CAD status post CABG, HFrEF, atrial fibrillation on Xarelto, hypertension, CVA, diabetes mellitus, chronic anemia and hyperlipidemia presented with shortness of breath. Patient resides at [facility]
independent living. He had shortness of breath for 3 weeks with cold-like symptoms of sore throat and congestion worsening over the ~1 week prior to presentation. His shortness of breath was worse with activity. Also productive cough for 3 weeks.
No fever chest pain abdominal pain or weight gain. No vomiting or diarrhea. Patient does not smoke or drink alcohol.
#Multifocal pneumonia (Sepsis ruled out, pneumonia only)
- Currently on room air
- Chest x-ray showed diffuse interstitial breast with patchy airspace opacities within the right lung concerning for multifocal pneumonia
- COVID and flu negative
- Given vancomycin/cefepime in ER, continue Unasyn and Doxycycline
- Follow sputum culture
- Strep and Legionella antigens are both negative, MRSA negative
- STOPPED IV fluids on 09/25/25 given history of HFrEF
#Abrupt onset of worsening dysarthria observed on 09/27/25 morning
#History of dysarthria following stroke in June 2025 and especially in February 2025 at which time a PEG tube was placed
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
-Neurologist Dr. Mendiola via [place] [facility] recommended that patient be changed from his rivaroxaban to apixaban; started Apixaban 5 mg BID starting on 09/27/25 evening
-No concern for hemorrhagic conversion given the small size of patient's stroke
-Per Dr. Mendiola/neurology [place] [facility] communication with myself on 09/27/25, patient's stroke does not appear to be thromboembolic
-Discussed with hematology who recommended following neurology recommendations, no additional recommendations from their standpoint
-Cardiology consulted given embolic strokes, no JIM at this time given speech and dysphagia issues
-Given dysphagia issues -- ordered dietary consult and calorie counts
#CAD status post CABG
- Continue statin
- Continue Eliquis
- No Aspirin as per cardiology given anemia issues
#Chronic HFrEF
- Hold dapagliflozin until patient has consistently reliable oral intake, to avoid DKA
- Continue Lasix IV 20 mg BID per cardio recommendations
#Paroxysmal Atrial fibrillation
- Digoxin added on 09/28/25 -- check Digoxin level on Saturday10/01/25 -- tolerating Digoxin well without any allergic reaction
- Continue amiodarone
- Continue metoprolol
- Continue Xarelto
#Hypomagnesemia
- Replaced, continue to monitor
#Essential hypertension
#History of Significant Orthostatic Hypotension
- Continue Midodrine
#Chronic anemia
- Monitor Hgb -- stable overall
#History of Strokes
- Continue statin
#Type 2 diabetes mellitus
- Hold metformin
- Insulin sliding scale
#Chronic anemia
#Hyperlipidemia
- Continue Zetia
#Anxiety/depression
- Continue Lexapro, mirtazapine
#Dementia
- Continue memantine
DNR/DNI
DVT prophylaxis Xarelto
Feeding/PO Intake: Per Speech on 09/27/25: 'Video swallow study completed for Jaime Phillips. His swallowing was very variable. He had silent aspiration of thin liquids via consecutive cup sips, mildly thick liquids via tsp, moderately thick
liquids via tsp, and aspiration w/ an ineffective cough with mildly thick liquids via consecutive cup sips. No penetration/aspiration occurred w/ single cup sips of thin liquids. Recommend trial of the following: IDDSI 6 soft/bite sized (no mixed
consistencies - no soup, no fruit cups), thin liquids via single cup sips, meds in puree. Will need supervision/assist with meals. Thank you.'
On 09/26/25, I called patient's sister Eve, we discussed tube feeding for the patient, she said the patient does not like tube feeding, but she also said she will return to this area on 09/27/25 and can discuss with the patient tube feeding.
On 09/27/25, I called patient's sister Eve, we discussed tube feeding for the patient, she said the patient does not like tube feeding, but she also said she will return to this area on 09/27/25 and can discuss with the patient tube feeding.
Anticipated Discharge: Within 24 hours
Subjective/Interval History
-
Date of Service: September 30, 2025
Patient was seen and examined. He reported that his shortness of breath is better, and he denied any other new symptoms or complaints.
Objective Data
-
Labs:
Laboratory Results
09/30/25
06:00
WBC Pending
Hgb Pending
Hct Pending
Plt Count Pending
Sodium Pending
Potassium Pending
Chloride Pending
Carbon Dioxide Pending
BUN Pending
Creatinine Pending
Glucose Pending
Calcium Pending
Vital Signs:
Vital Signs
Temp Pulse Resp BP Pulse Ox
97.6 F 91 18 108/71 91
09/30/25 03:00 09/30/25 03:00 09/30/25 03:00 09/30/25 03:00 09/30/25 03:00
I&O
09/29/25 09/30/25 10/01/25
06:59 06:59 06:59
Intake Total 1220 / 1220 600 / 600
Output Total 500 / 500
Balance 720 / 720 600 / 600
[2025-09-30 08:08] LABS: Glucose - Point of Care 134 mg/dl (70-99)
[2025-09-30] MEDS: NOVOLOG FLEXPEN-LOW RESISTANCE SC ×2 (08:10→16:41)
[2025-09-30] MEDS: COLACE LIQUID 100 MG PO (08:28)
[2025-09-30] MEDS: PROTONIX 40 MG PO (08:28)
[2025-09-30] MEDS: VITAMIN B-6 50 MG PO (08:29)
[2025-09-30] MEDS: VITAMIN B-12 1000 MCG PO (08:29)
[2025-09-30] MEDS: PACERONE 200 MG PO ×2 (08:30→19:01)
[2025-09-30] MEDS: TOPROL XL 12.5 MG PO (08:30)
[2025-09-30] MEDS: ELIQUIS 5 MG PO ×2 (08:31→19:00)
[2025-09-30] MEDS: SENOKOT 8.6 MG PO (08:31)
[2025-09-30] MEDS: MAGNESIUM OXIDE 400 MG PO (08:31)
[2025-09-30] MEDS: ZETIA 10 MG PO (08:31)
[2025-09-30] MEDS: NAMENDA 10 MG PO ×2 (08:32→19:01)
[2025-09-30] MEDS: LASIX 20 MG IV ×2 (08:32→16:08)
[2025-09-30 08:48] LABS: Hematocrit 28.9 % (39.0-52.0); Hemoglobin 8.8 g/dL (13.0-18.0); Mean Corp Hgb Conc. 30.4 g/dL (33.0-37.0); Mean Corpuscular Volume 77.3 fL (80.0-94.0); Platelet Count 291 10^3/uL (130-400); Red Cell Dist. Width 19.9 % (11.5-14.5)
[2025-09-30 09:56] LABS: Blood Urea Nitrogen 21 mg/dl (9-20); Calcium 8.4 mg/dl (8.4-10.2); Carbon Dioxide 23 mmol/L (22-30); Chloride 107 mmol/L (98-107); Estimated Creatinine Clearance 60 ml/min; Glucose 105 mg/dl (70-99); Magnesium 1.5 mg/dl (1.6-2.3); Potassium 3.7 mmol/L (3.5-5.1); Sodium 137 mmol/L (135-145); eGFR > 60.00
[2025-09-30 11:49] VITALS: BP 94/58
[2025-09-30] MEDS: NOVOLOG FLEXPEN-LOW RESISTANCE 2 UNITS SC (11:58)
[2025-09-30] MEDS: VIBRAMYCIN 260 MG IV ×2 (11:58→23:46)
[2025-09-30 11:59] LABS: Glucose - Point of Care 196 mg/dl (70-99)
[2025-09-30] MEDS: LANOXIN 125 MCG PO (11:59)
--- NOTE | 2025-09-30 12:21 | PN.CDI ---
CDI
- -
CDI:
Physician Documentation Request
Admit Date: 09/24/25 19:15
Dear Doctor Irma
Patient admitted with pneumonia.
History of chronic HFrEF. On admission patient's home dose of Lasix was held.
09/28 cardiology consultation states ' Would consider diuresis with IV Lasix. proBNP 13,[address] neck [address] showed evidence of bilateral pleural effusions. Cr stable. On p.o. Lasix 40 mg daily as outpatient'
Please provide in the Progress Notes the diagnosis(es) associated with the medication listed above.
Chronic HFrEF
Acute on chronic HFrEF
pleural effusion - chronic HFrEF only.
Other
Use of terms such as suspected, likely, concern for, or probable (associated with a specific diagnosis that is being evaluated, monitored, or treated as if it exists) are acceptable and can be coded in the inpatient setting, when documented at the
time of discharge.
Thank you,
Erika Clarke RN, BSN
CDI Specialist
t[employer] text
Please use your independent medical judgment in providing your response.
--- NOTE | 2025-09-30 12:30 | PN.CDI ---
CDI
- -
CDI:
Physician Documentation Request
Admit Date: 09/24/25 19:15
Dear Doctor Irma,
Please review the following and provide your response in the progress notes.
Clinical Indicators:
The diagnosis of suspected aspiration pneumonia was documented on 09/25 in update note, but is not consistently noted in subsequent documentation.
Please clarify the following:
____ - Aspiration pneumonia was present on admission
____ - Aspiration pneumonia was ruled out
____ - Other
Use of terms such as suspected, likely, concern for, or probable (associated with a specific diagnosis that is being evaluated, monitored, or treated as if it exists) are acceptable and can be coded in the inpatient setting, when documented at the
time of discharge.
Thank you,
Erika Clarke RN, BSN
CDI Specialist
tiger text
Please use your independent medical judgment in providing your response.
--- NOTE | 2025-09-30 12:48 | W.PN.CARDCBS ---
Today's Communication / Plan
-
Ventricular rates are overall improved and he is now rate controlled better on the digoxin, amiodarone, and metoprolol.
Continue Eliquis for stroke risk reduction.
Cont IV Lasix
Will check digoxin level in the a.m. but stable to proceed to [facility] from cardiology standpoint today.
Would send to [facility] on Lasix 40 mg daily.
Will arrange follow-up. Hopefully once he has recovered from stroke if he has some significant improvement we would then consider ischemic evaluation.
Would resume Farxiga.
Impression / Plan
-
Primary Visualization Developer: Dr. Hurley
Assessment:
Presentation with SOB, cough
Multifocal PNA
Worsening dysarthria
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
CAD
s/p CABG x 3 in 2017
s/p TAVR 2019
Chronic HFrEF
Cardiomyopathy EF 37% by echo 06/2025
Paroxysmal atrial fibrillation
Chronic amiodarone therapy
Chronic Xarelto therapy
HTN
h/o orthostasis, on chronic midodrine
HLD
h/o TIA/CVA 02/2025, 06/2025
Dementia
Chronic anemia
DNR code status
Echo 12/01/2021: LVEF 45-50%, Mild LVH, Nl Fxn of TAVR with Pk and mean 17/9 and no AI. PAP 16-21 mm Hg
Echo 12/11/2023: EF 46%, mild MR, s/p TAVR with w/ peak/mean gradients 25/13 mmHg
Echo 02/24/2025: EF 50-55%, mild MR, s/p TAVR peak/mean gradients 24/12 mmHg, mild TR
Echo 07/01/2025: EF 37%, global hypokinesis, akinesis of basal anteroseptal segment, s/p TAVR w/ peak/mean gradients 21/9 mmHg, mild TR
Echo 09/28/2025: EF 21%, TAVR present with normal function gradients not obtained, central jet of moderate MR with mild MS, mild to moderate TR with PAP 42 mmHg
Plan:
-Patient presented with shortness of breath and cough and was diagnosed with multifocal pneumonia, COVID and flu negative. Then reported worsening dysarthria and dysphagia and underwent brain imaging including MRI which showed small scattered foci
of subacute to acute infarction involving left frontal and parietal lobes and right frontal lobe, also with multiple small foci of old infarction. Cardiology consulted for A-fib and recurrent CVA on OAC.
-Given evidence of CVA that appeared to be subacute to acute in nature there is concern for possible Xarelto failure and so patient has been transition to Eliquis 5mg BID (age 80, Cre 1.1, wt 73 kg).
-There is consideration for addition of aspirin as well, but ultimately did not add aspirin due to worsening microcytic anemia
-Patient with known paroxysmal A-fib, but now appears he may be more persistent. Outpatient dose of amiodarone 200 mg BID has been continued. Patient has been on amiodarone long-term and doses in the past have been as low as 100 mg daily due to
bradycardia, but currently he is mostly tachycardic.
-Digoxin 125 mcg daily added by cardiology 09/28/2025. Patient has digoxin listed as an allergy with unclear reaction, patient does not recall when asked. I also looked through all available [facility] in [facility] records going back as far as 2019 when
the patient started following with us locally and digoxin has always been listed as an allergy without listing what the reaction was.
-Ventricular rates are overall improved on the amiodarone, digoxin, and low-dose Toprol.
-Patient started on Lasix 20 mg IV BID 09/28/2025 PM. Weight is down 5 lbs overnight, but bed scale weight being used on my review of VS. Patient was taking Lasix 40 mg PO daily prior to admission. Creatinine is stable.
-Echo from 09/28/2025 was reviewed by me and summarized above, the EF is now down to 21%, but TAVR appears to have normal function.
-GDMT of cardiomyopathy is limited due to hypotension. He requires midodrine 10 mg TID.
-Outpatient dose of Toprol-XL 12.5 mg daily has been continued
-Outpatient dose of Farxiga 10 mg daily is on hold for unclear reasons. Recommend resume.
Progress Note - Visualization Developer
Subjective
Date of Service: September 30, 2025
Overall feels well. He denies palpitations and is doing well with the digoxin. Breathing is stable. No new bleeding.
Objective
Labs:
09/30/25 07:57
09/30/25 07:57
Labs
Hgb 8.8 g/dL (13.0-18.0) L 09/30/25 07:57
Hct 28.9 % (39.0-52.0) L 09/30/25 07:57
Plt Count 291 10^3/uL (130-400) 09/30/25 07:57
Sodium 137 mmol/L (135-145) 09/30/25 07:57
Potassium 3.7 mmol/L (3.5-5.1) 09/30/25 07:57
BUN 21 mg/dl (9-20) H 09/30/25 07:57
Creatinine 1.0 mg/dL (0.7-1.3) 09/30/25 07:57
Glucose 105 mg/dl (70-99) H 09/30/25 07:57
Vital Signs and I&O:
Vital Signs
Temp Pulse Resp BP Pulse Ox
97.3 F 66 18 94/58 96
09/30/25 11:49 09/30/25 11:59 09/30/25 11:49 09/30/25 11:49 09/30/25 11:49
Vital Signs
Temp Pulse Resp BP Pulse Ox
97.3 F 66 18 94/58 96
09/30/25 11:49 09/30/25 11:59 09/30/25 11:49 09/30/25 11:49 09/30/25 11:49
Intake & Output
09/28/25 09/29/25 09/30/25 10/01/25
06:59 06:59 06:59 06:59
Intake Total 1100 / 1100 1220 / 1220 600 / 600
Output Total 400 / 400 500 / 500
Balance 700 / 700 720 / 720 600 / 600
Physical Exam
Physical Exam
GEN: No distress, awake, Ox3
HEENT: supple, anicteric, mmm
LUNGS: CTA, no wheezes/rales
CV: irreg, S1/S2, 1/6 syst LSB, no gallop
ABD: soft, BS+, NT/ND
EXT: No edema
NEURO: + dysarthria
SKIN: No rash
--- NOTE | 2025-09-30 13:07 | PTOTSP ---
EMPLOYMENT TRAINER Consult Note:
Discussion held with sister/POA via phone call. Sister inquiring about pt status and tolerance of oral diet. Discussed that pt showing signs of aspiration at bedside, however otherwise appears stable with no increase in O2 requirement, WBC count, or
worsening in chest imaging. Discussed results and recommendations following VSE. Discussed that pt at risk for aspiration regardless given inconsistent performance. If pt begins to decompensate from oral diet or show signs of aspiration
complication, discussed potential of reverting back to PEG. Pt's sister said pt would not want this and would want to take the chances. She asked EMPLOYMENT TRAINER to discuss this with patient. This EMPLOYMENT TRAINER had conversation with pt, in which he responded 'no tube,'
however given cognitive deficits, unsure if pt fully understanding potential sequela of his decisions. Provided education re: ways to mitigate development of aspiration complication (aspiration pneumonia) via frequent and thorough oral care and
increasing physical mobility as medically feasible. Pt's sister verbalized understanding and all questions answered.
[2025-09-30 13:14] VITALS: BP 93/59
--- NOTE | 2025-09-30 13:17 | CM ---
Addendum entered by Steph Aiken 09/30/25 15:42:
Patients sister bedside, would like patient to discharge to [facility] for SNF/LTC rather than [facility]- update to [facility] liaison, update to Hospitalist.
CM spoke with Sourav and Camilla at [facility], can accept patient tomorrow.
Plan; [facility] once stable, can accept patient tomorrow 10/01/25
Original Note:
CM reviewed chart, placed call to patients sister, Eve, left .
Patient seen bedside, discussed [facility] able to accept, [facility] also able to accept for SNF/transition to LTC.
Patient aware of accepting facilities, would like to speak to his sister.
CM will continue to follow for all d.c planning needs.
Plan; [facility] vs [facility]
[2025-09-30] MEDS: MAGNESIUM SULFATE 50 IV (13:47)
[2025-09-30 15:16] VITALS: BP 112/71
[2025-09-30 16:38] LABS: Glucose - Point of Care 120 mg/dl (70-99)
[2025-09-30 18:57] VITALS: BP 102/59
[2025-09-30] MEDS: COLACE LIQUID PO (19:01)
[2025-09-30] MEDS: LIPITOR 20 MG PO (21:02)
[2025-09-30] MEDS: LEXAPRO 10 MG PO (21:02)
[2025-09-30] MEDS: REMERON 7.5 MG PO (21:02)
[2025-09-30 22:00] LABS: Glucose - Point of Care 174 mg/dl (70-99)
[2025-09-30 22:53] VITALS: BP 107/63
[2025-10-01] MEDS: UNASYN IV ×2 (02:56→10:53)
[2025-10-01 03:00] VITALS: BP 105/64
[2025-10-01 07:20] VITALS: BP 113/67
--- NOTE | 2025-10-01 07:49 | W.PN.HOSP.TC ---
Addendum entered and electronically signed by Giovanni Solis MD 10/06/25 10:32:
Acute on chronic HFrEF
Aspiration pneumonia likely was present on admission
Original Note:
Today's Communication/Plan
-
Discharge today
Assessment / Plan
Assessment / Plan
Physical Exam
General: Well Developed, Well Nourished and No Apparent Distress
HEENT: NormoCephalic, Moist mucous membranes and Atraumatic
Respiratory: Clear
Cardiac: S1/S2 and Regular Rhythm
GI: Soft, Non Tender, Non Distended and Normal Bowel Sounds
Musculoskeletal: No Cyanosis and No Edema
Skin: Warm. Dry.
Neuro: AAOx3. Nonfocal/grossly intact
Assessment/Plan
80-year-old male past medical history of CAD status post CABG, HFrEF, atrial fibrillation on Xarelto, hypertension, CVA, diabetes mellitus, chronic anemia and hyperlipidemia presented with shortness of breath. Patient resides at [facility]
independent living. He had shortness of breath for 3 weeks with cold-like symptoms of sore throat and congestion worsening over the ~1 week prior to presentation. His shortness of breath was worse with activity. Also productive cough for 3 weeks.
No fever chest pain abdominal pain or weight gain. No vomiting or diarrhea. Patient does not smoke or drink alcohol.
#Multifocal pneumonia (Sepsis ruled out, pneumonia only)
- Currently on room air
- Chest x-ray showed diffuse interstitial breast with patchy airspace opacities within the right lung concerning for multifocal pneumonia
- COVID and flu negative
- Given vancomycin/cefepime in ER, Unasyn and Doxycycline completed for ~7 days, can stop further antibiotics on discharge
- Follow sputum culture
- Strep and Legionella antigens are both negative, MRSA negative
- STOPPED IV fluids on 09/25/25 given history of HFrEF
#Abrupt onset of worsening dysarthria observed on 09/27/25 morning
#History of dysarthria following stroke in June 2025 and especially in February 2025 at which time a PEG tube was placed
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
-Neurologist Dr. Mendiola via [facility] recommended that patient be changed from his rivaroxaban to apixaban; started Apixaban 5 mg BID starting on 09/27/25 evening
-No concern for hemorrhagic conversion given the small size of patient's stroke
-Per Dr. Mendiola/neurology [facility] communication with myself on 09/27/25, patient's stroke does not appear to be thromboembolic
-Discussed with hematology who recommended following neurology recommendations, no additional recommendations from their standpoint
-Cardiology consulted given embolic strokes, no JIM at this time given speech and dysphagia issues
-Given dysphagia issues -- ordered dietary consult and calorie counts
#CAD status post CABG
- Continue statin
- Continue Eliquis
- No Aspirin as per cardiology given anemia issues
#Chronic HFrEF
- Hold dapagliflozin until patient has consistently reliable oral intake, to avoid DKA
- I communicated today with senior it recruiter Dr. Schulte and he stated that it is okay to discharge the patient today with Lasix 40 mg daily
#Paroxysmal Atrial fibrillation
- Digoxin added on 09/28/25 -- checked Digoxin level on Saturday10/01/25 -- was low at 0.4 -- tolerating Digoxin well without any allergic reaction
- Continue amiodarone
- Continue metoprolol
- Continue Xarelto
#Hypomagnesemia
#Hypokalemia
- Replaced, continue to monitor
- Potassium and magnesium supplementation on discharge
- Recheck BMP and magnesium outpatient
#Essential hypertension
#History of Significant Orthostatic Hypotension
- Continue Midodrine
#Chronic anemia
- Monitor Hgb -- stable overall
#History of Strokes
- Continue statin
#Type 2 diabetes mellitus
- Hold metformin
- Insulin sliding scale
#Chronic anemia
#Hyperlipidemia
- Continue Zetia
#Anxiety/depression
- Continue Lexapro, mirtazapine
#Dementia
- Continue memantine
DNR/DNI
DVT prophylaxis Xarelto
Feeding/PO Intake: Per Speech on 09/27/25: 'Video swallow study completed for Jaime Phillips. His swallowing was very variable. He had silent aspiration of thin liquids via consecutive cup sips, mildly thick liquids via tsp, moderately thick
liquids via tsp, and aspiration w/ an ineffective cough with mildly thick liquids via consecutive cup sips. No penetration/aspiration occurred w/ single cup sips of thin liquids. Recommend trial of the following: IDDSI 6 soft/bite sized (no mixed
consistencies - no soup, no fruit cups), thin liquids via single cup sips, meds in puree. Will need supervision/assist with meals. Thank you.'
On 09/26/25, I called patient's sister Eve, we discussed tube feeding for the patient, she said the patient does not like tube feeding, but she also said she will return to this area on 09/27/25 and can discuss with the patient tube feeding.
On 09/27/25, I called patient's sister Eve, we discussed tube feeding for the patient, she said the patient does not like tube feeding, but she also said she will return to this area on 09/27/25 and can discuss with the patient tube feeding.
More than 30 minutes spent in discharge including
Final examination of the patient
Summarizing hospital stay
Instructions for continuing care to all relevant caregivers
Preparation of discharge records, prescriptions, and referral forms
Total time spent (in minutes): 43
Anticipated Discharge: Today
Subjective/Interval History
-
Date of Service: October 01, 2025
Patient was seen and examined. He denied any chest pain or shortness of breath.
Objective Data
-
Labs:
Laboratory Results
10/01/25
07:24
WBC Pending
Hgb Pending
Hct Pending
Plt Count Pending
Sodium Pending
Potassium Pending
Chloride Pending
Carbon Dioxide Pending
BUN Pending
Creatinine Pending
Glucose Pending
Calcium Pending
Vital Signs:
Vital Signs
Temp Pulse Resp BP Pulse Ox
97.7 F 76 18 105/64 100
10/01/25 03:00 10/01/25 03:00 10/01/25 03:00 10/01/25 03:00 10/01/25 03:00
I&O
09/30/25 10/01/25 10/02/25
06:59 06:59 06:59
Intake Total 600 / 600 1197 / 1197
Output Total 1050 / 1450 400 / 400
Balance 600 / 600 147 / -253 -400 / -400
[2025-10-01] MEDS: NOVOLOG FLEXPEN-LOW RESISTANCE SC ×2 (08:17→11:55)
[2025-10-01 08:18] LABS: Glucose - Point of Care 122 mg/dl (70-99)
[2025-10-01] MEDS: VITAMIN B-6 50 MG PO (08:19)
[2025-10-01 08:20] VITALS: BP 113/67
[2025-10-01] MEDS: ELIQUIS 5 MG PO (08:20)
[2025-10-01] MEDS: PROTONIX 40 MG PO (08:20)
[2025-10-01] MEDS: ZETIA 10 MG PO (08:20)
[2025-10-01] MEDS: PACERONE 200 MG PO (08:20)
[2025-10-01] MEDS: VITAMIN B-12 1000 MCG PO (08:20)
[2025-10-01] MEDS: SENOKOT 8.6 MG PO (08:20)
[2025-10-01] MEDS: TOPROL XL 12.5 MG PO (08:20)
[2025-10-01] MEDS: MAGNESIUM OXIDE 400 MG PO (08:20)
[2025-10-01] MEDS: LASIX 20 MG IV (08:20)
[2025-10-01] MEDS: NAMENDA 10 MG PO (08:20)
[2025-10-01] MEDS: COLACE LIQUID 100 MG PO (08:21)
--- NOTE | 2025-10-01 08:37 | CM ---
Addendum entered by Carmen Coto 10/01/25 08:59:
sister called back again and now wants patient to go [facility].
Original Note:
Patient sister mark called stating that she did not want patient to go to [facility] today due to not being able to get to facility for signing paperwork, patient sister stated she wanted patient to go to [facility] today and she would not be available due to
needing to have procedure today. CM will update physician and clarify availabilty of beds.
Plan; pending bed availability [facility] vs [facility]
[2025-10-01 08:53] LABS: Hematocrit 30.5 % (39.0-52.0); Hemoglobin 8.8 g/dL (13.0-18.0); Mean Corp Hgb Conc. 28.9 g/dL (33.0-37.0); Mean Corpuscular Volume 81.6 fL (80.0-94.0); Platelet Count 287 10^3/uL (130-400); Red Cell Dist. Width 20.2 % (11.5-14.5)
[2025-10-01 09:18] LABS: Blood Urea Nitrogen 23 mg/dl (9-20); Calcium 8.3 mg/dl (8.4-10.2); Carbon Dioxide 26 mmol/L (22-30); Chloride 105 mmol/L (98-107); Estimated Creatinine Clearance 55 ml/min; Glucose 107 mg/dl (70-99); Magnesium 1.8 mg/dl (1.6-2.3); Potassium 3.4 mmol/L (3.5-5.1); Sodium 137 mmol/L (135-145); eGFR > 60.00
[2025-10-01 09:23] LABS: Digoxin 0.4 ng/ml (0.8-2.0)
--- NOTE | 2025-10-01 10:12 | CM ---
Chart reviewed and patient will be cleared for discharge today, final plan is [facility], director of casework department received a call from [facility] requesting transfer as soon as possible, will set up ambulance transport.
[facility]
Report [phone]
[2025-10-01] MEDS: VIBRAMYCIN IV (11:50)
[2025-10-01 11:51] VITALS: BP 108/68
[2025-10-01] MEDS: LANOXIN PO (11:51)
[2025-10-01 11:56] LABS: Glucose - Point of Care 129 mg/dl (70-99)
[2025-10-01] MEDS: KCL ELIXIR 40 MEQ PO (12:30)
== END 2025-10-01 13:17 | DRG 177 ==
LOC: 4 WEST ACU 19:15
PROVIDERS: Physician Assistant; ADMITTING PHYSICIAN Hospitalist; ATTENDING PHYSICIAN Hospitalist; CONSULT PHYSICIAN Physical Medicine & Rehabilitation; CONSULT PHYSICIAN Psychiatry & Neurology Neurology; EMERGENCY PHYSICIAN Emergency Medicine; OTHER PHYSICIAN Internal Medicine Cardiovascular Disease
DX: J69.0 Pneumonitis due to inhalation of food and vomit (principal); I50.23 Acute on chronic systolic (congestive) heart failure; F03.918 Unspecified dementia, unspecified severity, with other behavioral disturbance; F03.93 Unspecified dementia, unspecified severity, with mood disturbance; I48.19 Other persistent atrial fibrillation; F03.94 Unspecified dementia, unspecified severity, with anxiety; Z95.1 Presence of aortocoronary bypass graft; I25.10 Atherosclerotic heart disease of native coronary artery without angina pectoris; I11.0 Hypertensive heart disease with heart failure; Z79.01 Long term (current) use of anticoagulants; Z86.73 Personal history of transient ischemic attack (TIA), and cerebral infarction without residual deficits; E11.9 Type 2 diabetes mellitus without complications; D64.9 Anemia, unspecified; Z87.891 Personal history of nicotine dependence; Z79.899 Other long term (current) drug therapy; Z79.84 Long term (current) use of oral hypoglycemic drugs; E78.00 Pure hypercholesterolemia, unspecified; F32.A Depression, unspecified; K59.00 Constipation, unspecified; Z66 Do not resuscitate; E83.42 Hypomagnesemia; E87.6 Hypokalemia; I95.1 Orthostatic hypotension; G47.00 Insomnia, unspecified; I77.810 Thoracic aortic ectasia; Z93.1 Gastrostomy status; Z95.2 Presence of prosthetic heart valve; Z98.42 Cataract extraction status, left eye; Z98.41 Cataract extraction status, right eye; Z11.52 Encounter for screening for COVID-19
CPT/HCPCS: 49465; 70496; 70498; 70551; 71046; 74230; 80048; 80053; 80061; 80162; 82962; 83036; 83735; 83880; 84484; 85025; 85027; 87070; 87205; 87449; 87502; 87811; 87899; 92507; 92523; 92526; 92610; 92611; 93005; 93308; 93321; 93325; 96365; 96366; 96375; 97116; 97163; 97167; 97530; 97535; 99285; Q9967

== ENCOUNTER → 2025-10-05 13:10 | Outpatient (REF) | payer OTHER, MEDICARE, SELFPAY ==
[2025-10-05 13:34] LABS: Hematocrit 32.9 % (39.0-52.0); Hemoglobin 9.3 g/dL (13.0-18.0); Mean Corp Hgb Conc. 28.3 g/dL (33.0-37.0); Mean Corpuscular Volume 82.0 fL (80.0-94.0); Nucleated Red Blood Cells % 0 % (-); Platelet Count 279 10^3/uL (130-400); Red Cell Dist. Width 21.1 % (11.5-14.5)
[2025-10-05 14:02] LABS: ALT (SGPT) 18 U/L (0-50); AST (SGOT) 28 U/L (17-59); Albumin 3.3 g/dl (3.5-5.0); Alkaline Phosphatase 107 U/L (38-126); Blood Urea Nitrogen 41 mg/dl (9-20); Calcium 9.0 mg/dl (8.4-10.2); Carbon Dioxide 29 mmol/L (22-30); Chloride 102 mmol/L (98-107); Glucose 104 mg/dl (70-99); HDL Cholesterol 32 mg/dl; LDL Cholesterol, Calculated 42 mg/dl; Magnesium 1.8 mg/dl (1.6-2.3); Potassium 4.4 mmol/L (3.5-5.1); Sodium 139 mmol/L (135-145); Total Protein 6.5 g/dl (6.3-8.2); Very Low Density Lipoprotein 21 mg/dl (0-30); eGFR 54.85
[2025-10-05 14:03] LABS: Anisocytosis 2+; Hypochromasia 1+; Normal RBC Morphology No
[2025-10-05 14:04] LABS: Ovalocytes 1+
== END ==
LOC: OLABN 13:10
PROVIDERS: ATTENDING PHYSICIAN Student in an Organized Health Care Education/Training Program
DX: I10 Essential (primary) hypertension (principal); E83.42 Hypomagnesemia; E83.30 Disorder of phosphorus metabolism, unspecified; E11.9 Type 2 diabetes mellitus without complications
CPT/HCPCS: 36415; 80053; 80061; 83735; 84100; 85025

== ENCOUNTER → 2025-10-14 11:22 | Outpatient (REF) | payer OTHER, MEDICARE, SELFPAY ==
[2025-10-14 11:48] LABS: Digoxin 1.0 ng/ml (0.8-2.0)
== END ==
LOC: OLABN 11:22
PROVIDERS: ATTENDING PHYSICIAN Student in an Organized Health Care Education/Training Program
DX: I48.0 Paroxysmal atrial fibrillation (principal)
CPT/HCPCS: 36415; 80162